=== PATIENT | male | born 1965 | race Caucasian/White ===

== ENCOUNTER 2017-03-28 22:25 | Emergency (ER) | payer OTHER ==
[~2017-03-28] VITALS: Ht 162.6 cm; Wt 56.7 kg
[~2017-03-28 22:25] MED LIST: ASPIRIN325 MG PO; CHANTIX1 MG PO; DAILY VITE1 EACH PO; HYDROMORPHONE HC2 MG PO; HYDROMORPHONE HC4 MG PO; IBUPROFEN800 MG PO; IRON 100 PLUS1 EACH PO; MEN'S ONE DAIL1 EACH PO; MIRALAX17 GM PO; NORCO 10-325 T1 EACH PO; NORCO 5-325 TA1 EACH PO; OXYCODONE HCL5 MG PO; PROVENTIL HFA6.7 GM INH; TAMSULOSIN HCL0.4 MG PO; VITAMIN C1000 M2 PO; XARELTO10 MG PO
[2017-03-29] MEDS ORDERED: TRAMADOL HCL50 MG PO (00:50)
== END 2017-03-29 01:00 | disposition home or self-care (01) ==
LOC: ED 22:25
DX: M25.562 Pain in left knee (principal); F17.200 Nicotine dependence, unspecified, uncomplicated
CPT/HCPCS: 73560; 99283

== ENCOUNTER 2018-10-23 12:20 | Emergency (ER) | payer OTHER ==
[~2018-10-23] VITALS: Ht 162.6 cm; Wt 56.7 kg
--- OUTSIDE RECORDS SUMMARY | ~2018-10-23 | XMS | Encounter Summary ---
Demographics + + + | Address | [address] | | | [address] | | | [place] [address] | + + + | Home Phone | | + + + | Preferred Language | Unknown | + + + | Marital Status | Single | + + + | Mu-Ism Affiliation | 1077 | + + + | Race | Unknown | + + + | Ethnic Group | Unknown | + + + Author + + + | Author | [facility] | | | and [place] | + + + | Organization | [facility] | | | and [...] Team Providers + +------+ + | Care Expansion Joint Builder Name | Role | Phone | + +------+ + | Fabio Sandoval MD | PCP | | + +------+ + Encounter Details +--------+ + + + + | Date | Type | Department | Care Team | Description | +--------+ + + + + | 09/08/ | Episode | [facility] | Lulu Salas | | | 2019 | Changes | ORTHOPEDIC SURGERY | I, Pharmacy Picking Technician | | | | | [address] | | | | | | [place] | | | | | | [address] | | | | | | [phone] | | | +--------+ + + + [...] on file | | + + + as of this encounter Plan of Treatment +--------+---------+ + + + | Date | Type | Specialty | Care Team | Description | +--------+---------+ + + + | 11/05/ | Office | Orthopedic Surgery | Ari Madden | | | 2019 | Visit | | [address] | | | | | | [address] | | | | | | [place] [address] | | | | | | [phone] | | | | | | | | +--------+---------+ + + + as of this encounter Visit Diagnoses Not on filein this encounter"
--- OUTSIDE RECORDS SUMMARY | ~2018-10-23 | XMS | Encounter Summary ---
Demographics + + + | Address | [address] [birth year][address] | | | [address] | | | [place] [address] | + + + | Home Phone | | + + + | Preferred Language | Unknown | + + + | Marital Status | Single | + + + | Confucianist Affiliation | 1077 | + + + | Race | Unknown | + + + | Ethnic Group | Unknown | + + + Author + + + | Author | [facility] | | | and [place] | + + + | Organization | [facility] | | | and [...] Team Providers + +------+ + | Care Locum Tenens Hospitalist Name | Role | Phone | + +------+ + | Fabio Sandoval MD | PCP | | + +------+ + Encounter Details +--------+ + + + + | Date | Type | Department | Care Team | Description | +--------+ + + + + | 10/23/ | Procedure | [facility] | | | | 2019 | Pass | [facility] | | | | | | [address] | | | | | | [place] | | | | | | [address] | | | | | | [phone] | | | +--------+ + + + [...] [address] | | | | | | [address] | | | | | | [place] [address] | | | | | | [phone] | | | | | | | | +--------+---------+ + + + as of this encounter Visit Diagnoses Not on filein this encounter"
--- OUTSIDE RECORDS SUMMARY | ~2018-10-23 | XMS | Clinical Summary ---
Demographics + + + | Address | [address] | | | [place] [address] | + + + | Home Phone | | + + + | Preferred Language | Unknown | + + + | Marital Status | Single | + + + | Baptist Affiliation | 1013 | + + + | Race | Unknown | + + + | Ethnic Group | Unknown | + + + Author + + + | Author | [facility] [employer] | + + + | Organization | [facility] [employer] | + + + | Address [...] Team Providers + +------+ + | Care Packer Insulation Name | Role | Phone | + [...] Influenza | | 06/10/2017 | | | (#1) | 8 | | | + + + + [...] +------+-------+ + | MEDICAID | [place] | [id number] | | | [address] | | | N | | | | [place] | | | [place] | | | | [address] | | | RESIDENCE DIRECTOR | | | | | + +--------+ [...] Self | [birth year] | Home: | [address] | | | al/Fam | | 1966 | [phone] | [birth year] [place] | | | roly | | [phone] | + +--------+ +--------+ + +
--- OUTSIDE RECORDS SUMMARY | ~2018-10-23 | XMS | Encounter Summary ---
Demographics + + + | Address | [address] [birth year][address][birth year] | | | [address] | | | [place] [address] | + + + | Home Phone | | + + + | Preferred Language | Unknown | + + + | Marital Status | Single | + + + | Rastafarian Affiliation | 1077 | + + + | Race | Unknown | + + + | Ethnic Group | Unknown | + + + Author + + + | Author | [facility] | | | and [place] | + + + | Organization | [facility] | | [...] Providers + +------+ + | Care Change Booth Attendant Name | Role | Phone | + [...] | | | | Diagnoses | | [place], | | | | | Severe | | Ari | | | | | thea | | [address] | | | | | tunnel | | [place] | | | | | syndrome, | | [address] | | | | | left | | [place] | | | | | (G56.02) | | [address] | | | | | Procedures | | Phone: | | | | | [place] [facility] | | [phone] | | | | | MEDIAN | | Fax: | | | | | Jaquelin/THEA | | [phone] | | | | | TUNNEL SURG | | | +--------+--------+ + + + + Encounter Details +--------+ + + + + | Date | Type | Department | Care Team | Description | +--------+ + + + + | 10/23/ | Hospital | [facility] | Ari Madden | | | 2019 | Encounter | MED CTR OR INTRA OP | [address] | | | | | [address] | [place] | | | | | [place] | [place] [address] | | | | | [address] | [phone] | | | | | [phone] | | | +--------+ + + + [...] Surgery | Ari Madden | | | 2018 | Visit | | [address] | | | | | | [address] | | | | | | [place] [address] | | | | | | [phone] | | | | | | | | +--------+---------+ + + + as of this encounter Visit Diagnoses Not on filein this encounter Admitting Diagnoses + + | Diagnosis | + + | Severe carpal tunnel syndrome, left (G56.02) | + +"
--- OUTSIDE RECORDS SUMMARY | ~2018-10-23 | XMS | Encounter Summary ---
Demographics + + + | Address | [address] [birth year][address][birth year] | | | [address] | | | [place] [address] | + + + | Home Phone | | + + + | Preferred Language | Unknown | + + + | Marital Status | Single | + + + | Christianity Affiliation | 1077 | + + + | Race | Unknown | + + + | Ethnic Group | Unknown | + + + Author + + + | Author | [facility] | | | and [place] | + + + | Organization | [facility] | | | [...] Team Providers + +------+ + | Care Preload Supervisor Name | Role | Phone | + [...] | | | | Diagnoses | | [place], | | | | | Severe | | Ari | | | | | thea | | [address] | | | | | tunnel | | [place] | | | | | syndrome, | | [address] | | | | | left | | [place] | | | | | (G56.02) | | [address] | | | | | Procedures | | Phone: | | | | | [place] [facility] | | [phone] | | | | | MEDIAN | | Fax: | | | | | N/CARPAL | | [phone] | | | | | TUNNEL SURG | | | +--------+--------+ + + + + Encounter Details +--------+---------+ + + + | Date | Type | Department | Care Team | Description | +--------+---------+ + + + | 10/23/ | Surgery | [facility] | Ari Madden | Left Carpal Tunnel | | 2019 | | MED CTR OR INTRA OP | [address] | Release | | | | [address] | [place] | | | | | [place] | [place] [address] | | | | | [address] | [phone] | | | | | [phone] | | | +--------+---------+ + + + [...] | | | | | [place] [address] | | | | | | [phone] | | | | | | | | +--------+---------+ + + + as of this encounter Visit Diagnoses Not on filein this encounter Admitting Diagnoses + + | Diagnosis | + + | Severe carpal tunnel syndrome, left (G56.02) | + +"
--- OUTSIDE RECORDS SUMMARY | ~2018-10-23 | XMS | Encounter Summary ---
Demographics + + + | Address | [address][birth year] | | | [address] | | | [place] [address] | + + + | Home Phone | | + + + | Preferred Language | Unknown | + + + | Marital Status | Single | + + + | Judaism Affiliation | 1077 | + + + | Race | Unknown | + + + | Ethnic Group | Unknown | + + + Author + + + | Author | [facility] | | | and [place] | + + + | Organization | [facility] | | [...] Team Providers + +------+ + | Care Radiology Manager Name | Role | Phone | + +------+ + | Fabio Sandoval MD | PCP | | + +------+ + Reason for Visit + + + | Reason | Comments | + + + | New Patient | | + + + | Carpal Tunnel | Left | + + + | Elbow Problem | Right | + + + Surgical (Routine) +--------+ + + + + + | Status | Reason | Specialty | Diagnoses / | Referred By | Referred To | | | | | Procedures | Contact | Contact | +--------+ + + + + + | Closed | Specialty | Orthopedic | Diagnoses | | [place], | | | Services | Surgery | [place] | Dragan, | Ari | | | Required | | tunnel | Truong Méndez MD | MD [address] | | | | | syndrome of | [address] | [address] | | | | | left wrist | [address] [place] | [place] | | | | | | [place], [place] | [place], [place] | | | | | | [address] | [address] | | | | | | Phone: | Phone: | | | | | | [phone] | [phone] | | | | | | Fax: | Fax: | | | | | | [phone] | [phone] | +--------+ + + + + + Encounter Details +--------+---------+ + + + | Date | Type | Department | Care Team | Description | +--------+---------+ + + + | 09/08/ | Office | [facility] | Maryanne Ari | Severe carpal tunnel | | 2019 | Visit | ORTHOPEDIC SURGERY | [address] | syndrome, left | | | | [address] | [address] | (Primary Dx) | | | | [place] | [place] [address] | | | | | [address] | [phone] | | | | | [phone] | | | +--------+---------+ + + + [...] + + + as of this encounter Last Filed Vital Signs + + + + | Vital Sign | Reading | Time Taken | + + + + | Blood Pressure | - | - | + + + + | Pulse | - | - | + + + + | Temperature | - | - | + + + + | Respiratory Rate | - | - | + + + + | Oxygen Saturation | - | - | + + + + | Inhaled Oxygen | - | - | | Concentration | | | + + + + | Weight | 57.2 kg (126 lb) | 09/08/2018 1010 PST | + + + + | Height | 160 cm (5' 3") | 09/08/2018 1010 PST | + + + + | Body Mass Index | 22.32 | 09/08/2018 1010 PST | + + + + in this encounter Instructions Patient Instructions - Ari Madden MD - 09/08/2018 1044 PST Carpal Tunnel Syndrome Carpal tunnel syndrome is a painful condition of the wrist and arm. It is caused by pressur e on the median nerve. The median nerve is one of the nerves that give feeling and movement to the hand. It passes through a tunnel in the wrist called the carpal tunnel. This tunnel is made up of bones and ligaments. Narrowing of this tunnel or swelling of the tissues inside the tunnel puts press ure on the median nerve. This causes numbness, pins and needles, or electric shooting pains in your hand and forearm. Often the pain is worse at night and may wake you when you are asl eep. Carpal tunnel syndrome may occur during and [...] Move your fingers and wrists often to avoid stiffness. Elevate your arms on pillows when [...] not bent back when typing. You may [id number] pain medicine to treat pain and inflammation, unless anoth er medicine was prescribed.Anti-inflammatory pain medicines, such as ibuprofen or naproxen may be more effective than acetaminophen, which treats pain, but not inflammation.If you have chronic liver or kidney disease or ever had a stomach ulcer or GI bleeding, talk with y our doctor before using these medicines. Opioid pain medicine [...] Follow up with your healthcare provider, oras advised, if the pain doesn t begin to imp rove within the next week. If X-rays were taken,you will be notified of any new findings that may affect your care. When to seek medical advice Call your healthcare provider right away if any of these occur: Pain not improving with the above treatment Fingers or hand become cold, blue, numb, or tingly Your whole arm becomes swollen or weak Date Last Reviewed: 06/19/201519992101-1498 [employer]. [address] [place] [address], [place] [address]. All righ ts reserved. This information is not intended as a substitute for professional medical care. Always follow your healthcare professional's instructions. in this encounter Progress Notes Ari Madden MD - 09/08/2018 1000 PSTFormatting of this note may be different from the original. [facility] HISTORY AND PHYSICAL EXAMINATION Pt. Name/Age/: Zak Mercado 53 y.o. 1965 Primary Care Physician: Fabio Sandoval Chief Complaint/Reason for Visit: New Patient; Carpal Tunnel (Left ); and Elbow Problem (Right) History of Present Illness: The patient is a pleasant 53 y.o. male who presents with a history of left carpal tunnel sy ndrome. This is been bothering him for the last 3 months. He thinks it may have been cause d by playing guitar. He reports that it has kept him from playing guitar at this point. Mo vement of his hand makes his hand worse including holding objects. Burning on the wrist steffi es him feel better. He will sometimes finds himself shaking out the wrist. He has not trie d bracing. He has not had a steroid injection. He has tried heat without significant relie f. His pain is a 5-6 out of 10 at baseline and a 10 out of 10 at its worst. It does wake h im up at night. He is unable to do his normal daily activities. He is a current smoker. He reports that he has had chronic neck and shoulder issues since he had a fractured collar bone. The fractured collarbone happened when he was around 4 years old and was treated nono peratively. Past Medical History: Past Medical History: Diagnosis Date Back pain, chronic low back Carpal tunnel syndrome of left wrist 08/11/2018 HCV (hepatitis C virus) Genotype 2b Osteoarthritis of knee, unilateral left Past Surgical History: Procedure Laterality Date [facility] [place] Allergies: No [...] these are negative unless otherwise marked Eyes: [] Double vision [x] Glasses/contacts [] Failing vision Respiratory: [] Asthma/Wheezing [] Pneumonia [] Night sweats [] Shortness of breath [] Chronic cough [] Coughing up blood [] Exposure to tuberculosis Cardiovascular: [] Heart Problems [] Hypertension [] Heart murmur [] Palpitations [] Rheumatic fever [] Phlebitis [] Chest pain [] Ankle swelling [] Leg cramps [] Racin g heart [] Skipping beats [] Blood clots Urinary Tract: [] Painful urination [] Kidney Stones [] Any urine leakage [] Weak urine stream [] Night urination [] Urine infections [] Bedwetting [] Blood in urine Ear/Nose/Throat: [] Frequent Colds [] Sinus Disease [] Nose obstruction [] Sneezing Spells [] Change in taste [] Artificial teeth [] Ears ringing [] Ear pain [] Hearing loss [] Teeth problems [] Hoarseness [] Neck swelling [] Sore throat [] Congestion [] Nosebleeds [] Nasal allergies Gastrointestinal: [] Abdominal pain [] Heartburn [] Blood from rectum [] Colitis [] Gallbladder problems [] Troubl e swallowing [] Bloated stomach [] Change in stools [] Vomiting blood [] Nausea [] Hemorrhoids [] Jaundice [ ] Hepatitis [] Diarrhea [] Constipation [] Diverticulitis Musculoskeletal: [] Physical handicaps [] Back or shoulder pain []Rheumatoid disease [] Osteoarthritis [x] Joint pain [x] Joint swelling []Gout [] Leg cramps at night Skin: [] Skin rashes [] Itching/Burning [] Skin bruises easil y [] Artificial tanning [] Skin cancer [] Hair loss [] Changes in moles Psychiatric: [] Depression [] Suicidal thoughts [] Sleep pattern changes [] Appetite changes [] Recent counseling [] Nervousness/anxiety [] Physical violence [] Marital problems Neurological: [] Headaches [] Seizures [] Stroke/TIA [] Faintness [] Tremors [] Numbness [] Dizziness [] Changes in handwriting [] Memory loss [] Shooting pains Endocrine: [] Thyroid [] Diabetes Systemic: []Weight loss/gain (over 10 lbs) []Fever/chills []Fatigue [] Sleeping Difficulties [] Speech change [] Voice change Admission Weight: Weight: 57.2 kg (126 lb) BMI: Body mass index is 22.32 kg/m. Physical Examination: Ht 1.6 m (5' 3") | Wt 57.2 kg (126 lb) | BMI 22.32 kg/m General: Alert, oriented, no acute distress HEENT: Normocephalic, atraumatic Cardiovascular: Regular rate and rhythm Respiratory: Breathing normally at a regular rate Ortho Exam left upper extremity exam: Radial pulse 2+. Sensation intact to light touch in the first dorsal webspace, and the pads of the small and index fingers. Able to flex and extend the thumb at the interphalangeal roberto int, make an "ok" sign, adduct and abduct the fingers, and oppose the thumb to the small fin sunny. He does report mild subjective tingling in the index long and ring fingers. Positive Tinel's at the carpal tunnel. Negative Jason's compression test. Nontender over the elbow. Negative Tinel's at the cubital tunnel. Negative Villeda and Neer's tests of t he shoulder. Diagnostic Studies: Imaging Electrodiagnostic study Dated 08/11/2018. Performed by Dr. Archibald. EMG showed a left abductor pollicis brevis latency of 9.4 ms. 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 Labs- Lab Results Component Value Date ANIONGAP 14 06/12/2016 INR 0.9 06/12/2016 Assessment and Plan: 1. Severe carpal tunnel syndrome, left Case request: Left Carpal Tunnel Release; Left The patient is a pleasant 53 y.o. male who presents with left carpal tunnel syndrome. Treat ment options were discussed with the patient including non-operative treatment modalities. C onsidering the nature of the patient's condition, decision was made to proceed with nocturna l bracing and planning for surgery. The risks, benefits, and alternatives to surgery were t horoughly discussed with the patient. The possibility of injury to the median nerve was dis cussed. The possibility of already existing permanent nerve damage was also discussed. Con sidering his lack of thenar eminence atrophy and his intermittent tingling, I think he actua lly has a pretty good chance of recovering median nerve function. I'll see him back for a p reoperative visit. Unfortunately, he was not referred for his right elbow. I'm unable to see him for that tod ay without a referral. Follow-up: Return preoperative visit. with no x-ray Portions of this report were transcribed using voice recognition software. Every effort wa s made to ensure accuracy; however, inadvertent computerized policy change clerks supervisor errors may be pre sent. I appreciate the opportunity to help with the management of this patient. Ari Madden MDin this encounter Plan of Treatment +--------+---------+ + + + | Date | Type | Specialty | Care Team | Description | +--------+---------+ + + + | 11/05/ | Office | Orthopedic Surgery | Ari Madden | | | 2019 | Visit | | [address] | | | | | | [place] | | | | | | [place] [address] | | | | | | [phone] | | | | | | | | +--------+---------+ + + + as of this encounter Visit Diagnoses + + | Diagnosis | + + | Severe carpal tunnel syndrome, left - Primary | + +
--- OUTSIDE RECORDS SUMMARY | ~2018-10-23 | XMS | Clinical Summary ---
Demographics + + + | Address | [address] | | | [address] | | | [place] [address] | + + + | Home Phone | | + + + | Preferred Language | Unknown | + + + | Marital Status | Single | + + + | Hinduism Affiliation | 1077 | + + + | Race | Unknown | + + + | Ethnic Group | Unknown | + + + Author + + + | Author | [facility] | | | and Efrainana | + + + | Organization | [facility] | | | [...] Team Providers + +------+ + | Care Data Migration Consultant Name | Role | Phone | + +------+ + | Fabio Sandoval MD | PP | | + +------+ + Allergies No Known Allergies Current Medications + + +-------+---------+------+------+-------+ | Prescription | Sig. | Disp. | Refills | Star | End | Statu | | | | | | t | Date | s | | | | | | Date | | | + + +-------+---------+------+------+-------+ | ibuprofen | Take 800 mg by mouth | | | | | Activ | | (ADVIL,MOTRIN) 800 | 3 times daily as | | | | | e | | MG tablet | needed for Pain. | | | | | | + + +-------+---------+------+------+-------+ | varenicline | Take 0.5 mg by mouth | | | | 09/26 | Disco | | (CHANTIX) 0.5 mg | 2 times daily. | | | | 08/16 | ntinu | | tablet | | | | | 19 | ed | + + +-------+---------+------+------+-------+ Active Problems + + + | Problem | Noted Date | + + + | Carpal tunnel syndrome of left wrist | 08/11/2018 | + + + | Rectal bleeding | 10/08/2014 | + + + | Chronic hepatitis C (HCC) | 09/01/2013 | + + + | Osteoarthrosis | 09/01/2013 | + + + Encounters +--------+ + + + + | Date | Type | Specialty | Care Team | Description | +--------+ + + + + | 10/23/ | Hospital | | Ari Madden | | | 2019 | Encounter | | MD [facility]ar | | +--------+ + + + + | 10/23/ | Procedure | | | | | 2019 | Pass | | | | +--------+ + + + + | 10/23/ | Surgery | | Ari Madden | Left Carpal Tunnel | | 2018 | | | MD Bandar | Release | +--------+ + + + + | 10/22/ | Anesthesia | | Brennen Webster | | | 2018 | Event | | DO Armando | | +--------+ + + + + | 10/15/ | Office | | Ari Madden | Chronic hepatitis C | | 2018 | Visit | | MD [facility]ar | without hepatic coma | | | | | | (HCC) (Primary Dx); | | | | | | Carpal tunnel | | | | | | syndrome of left | | | | | | wrist; Severe carpal | | | | | | tunnel syndrome, | | | | | | left; Pre-op exam | +--------+ + + + + | 10/12/ | Episode | | Lulu Salas | | 2018 | Changes | | Edilia Canales | | +--------+ + + + + | 09/14/ | Telephone | | Ari Madden | Surgery Appointment | | 2018 | | | MD [facility]ar | | +--------+ + + + + | 09/09/ | Episode | | Lulu Salas | | | 2018 | Changes | | Ally Retirement Assistant | | +--------+ + + + + | 09/08/ | Office | | Ari Madden | Severe carpal tunnel | | 2018 | Visit | | MD Bandar | syndrome, left | | | | | | (Primary Dx) | +--------+ + + + + | 09/08/ | Episode | | Lulu Salas | | | 2018 | Changes | | Ally Retirement Assistant | | +--------+ + + + + | 08/11/ | Procedure | | Truong Archibald | Carpal tunnel | | 2019 | visit | | TMD | syndrome of left | | | | | | wrist | +--------+ + + + + from Last 3 Months Family History + + +------+ + | Medical History | Relation | Name | Comments | + + +------+ + | Heart attack | Brother | Marco A | | + + +------+ + | Heart attack | Father | | | + + +------+ + | Stroke | Maternal | | | | | Grandmoth | | | | | er | | | + + +------+ + | Dementia | Mother | | | + + +------+ + + +------+ + + | Relation | Name | Status | Comments | + +------+ + + | Brother | Marco A | Alive | | + +------+ + + | Father | | Alive | | + +------+ + + | Maternal Grandmother | | | | + +------+ + + | Mother | | Alive | | + +------+ + + Social History + +-------+ +--------+------+ [...] + | Tobacco Cessation: Ready to Quit: No; Counseling Given: Yes | + + + [...] + | Blood Pressure | 112/59 | 10/15/20181002 PDT | + + + + | Pulse | 81 | 10/15/20181002 PDT | + + + + | Temperature | 36.3 C (97.3 F) | 10/15/20181002 PDT | + + + + | Respiratory Rate | 24 | 10/15/20181002 PDT | + + + + | Oxygen Saturation | 99% | 10/15/20181002 PDT | + + + + | Inhaled Oxygen | - | - | | Concentration | | | + + + + | Weight | 54.2 kg (119 lb 7.8 | 10/15/20181002 PDT | | | oz) | | + + + + | Height | 160 cm (5' 3") | 09/08/2018 1010 PST | + + + + | Body Mass Index | 21.17 | 10/15/2018 1003 PDT | + + + + Plan of Treatment +--------+---------+ + + + | Date | Type | Specialty | Care Team | Description | +--------+---------+ + + + | 11/05/ | Office | | Ari Madden | | | 2019 | Visit | | MD [address] | | | | | | [place] | | | | | | [place] [address] | | | | | | [phone] | | | | | | | | +--------+---------+ + + + + + + + + | Health [...] | + + + + + | Colorectal Cancer | | 07/28/2015 | | | Screening | 6 | | | | (Colonoscopy) | | | | + + + + + | Vaccine: | | 11/15/2015, 03/21/2015, | | | Dtap/Tdap/Td (4 - | 6 | 09/21/2008 | | | Td) | | | | + + + + + | Vaccine: Influenza | Completed | 07/03/2018, 06/10/2017, | | | | | 04/24/2016, Additional history | | | | | exists | | + + + + + | Hepatitis C | Completed | 10/15/2018, 09/03/2016, | | | Screening | | 07/25/2016, Additional history | | | | | exists | | + + + + + Results Not on filefrom Last 3 Months Insurance + +--------+ +--------+ +---------+ | Payer | Benefi | Subscriber | Type | Phone | Address | | | t Plan | ID | | | | | | / | | | | | | | Group | | | | | + +--------+ +--------+ +---------+ | [employer] | MOD[employer] | [id number] | Medica | [phone] | | MEDICAID HMO | HEALTH | | id | [phone] | | | | MDCD | | | | | | | [place] | | | | | + +--------+ +--------+ +---------+ + +--------+ +--------+ + + | Guarantor Name | Accoun | Relation to | Date | Phone | Billing Address | | | t Type | Patient | of | | | | | | | | | | + +--------+ +--------+ + + | ZAK RANGEL | Person | Self | [birth year] Home: | [birth year] [address] | | | al/Fam | | 1966 | [phone] [place] | | | [place] | | | [phone] | + +--------+ +--------+ + +
--- OUTSIDE RECORDS SUMMARY | ~2018-10-23 | XMS | Encounter Summary ---
Demographics + + + | Address | [address] | | | [address] | | | [place] [address] | + + + | Home Phone | | + + + | Preferred Language | Unknown | + + + | Marital Status | Single | + + + | Evangelical Affiliation | 1077 | + + + | Race | Unknown | + + + | Ethnic Group | Unknown | + + + Author + + + | Author | [facility] | | | and Efrainana | + + + | Organization | [facility] | | [...] Team Providers + +------+ + | Care Bobbin Hauler Name | Role | Phone | + [...] + + | 10/15/ | Office | [facility] | Ari Madden | Chronic hepatitis C | | 2019 | Visit | ORTHOPEDIC SURGERY | MD [address] | without hepatic coma | | | | [address] [facility] | [place] | (HCC) (Primary Dx); | | | | [place] | [place] [address] | Carpal tunnel | | | | [address] | [phone] | syndrome of left | | | | [phone] | | wrist; Severe carpal | | [...] | Oxygen Saturation | 99% | 10/15/2018 1003 PDT | + + + + | Inhaled Oxygen | - | - | | Concentration | | | + + + + | Weight | 54.2 kg (119 lb 7.8 | 10/15/2018 1003 PDT | | | oz) | | + + + + | Height | - | - | + + + + | Body Mass Index | 21.17 | 10/15/2018 1003 PDT | + + + + in this encounter Instructions Patient Instructions - Ari Madden MD - 10/15/2018 1058 PDT Carpal Tunnel Syndrome Carpal tunnel syndrome [...] not bent back when typing. You may [id number] pain medicine to treat pain and inflammation, [...] becomes swollen or weak Date Last Reviewed: 11/25/201719992023-3246 [employer]. [address] [place] [address], [place] [address]. All righ ts reserved. This information is not intended as a substitute for professional medical care. Always follow your healthcare professional's instructions. in this encounter Progress Notes Ari Madden MD - 10/15/2018 1045 PDTFormatting of this note may be different from the original. [facility] [address] PRE-OPERATIVE VISIT Pt. Name/Age/: Zak Mercado 53 [...] Surgical History: Procedure Laterality Date COLONOSCOPY [address] [place] KNEE ARTHROSCOPY acl injury Allergies: No Known [...] made to ensure accuracy; however, inadvertent computerized glassware maker demonstrator errors may be pre sent. I appreciate the opportunity to help with the management of this patient. Ari Madden MD in this encounter Plan of Treatment +--------+---------+ + + + | Date | Type | Specialty | Care Team | Description | +--------+---------+ + + + | 11/05/ | Office | Orthopedic Surgery | Ari Madden | | | 2019 | Visit | | MD [address] | | | | | | [place] | | | | | | [place] [address] | | | | | | [phone] | | | | | | | | +--------+---------+ + + + + +--------+ + + | Name | Priori | Associated Diagnoses | Order Schedule | | | ty | | | + +--------+ + + | Hepatic Function Panel | Routin | Chronic hepatitis | Expected: | | | e | C without hepatic | 10/16/2018, Expires: | | | | coma (HCC) Pre-op | 10/15/2019 | | | | exam | | + +--------+ + + | CBC no Differential | Routin | Chronic hepatitis | Expected: | | | e | C without hepatic | 10/16/2018, Expires: | | | | coma (HCC) Pre-op | 10/15/2019 | | | | exam | | + +--------+ + + | PTT | Routin | Chronic hepatitis | Expected: | | | e | C without hepatic | 10/16/2018, Expires: | | | | coma (HCC) Pre-op | 10/15/2019 | | | | exam | | + +--------+ + + | Protime INR | Routin | Chronic hepatitis | Expected: | | | e | C without hepatic | 10/16/2018, Expires: | | | | coma (HCC) Pre-op | 10/15/2019 | | | | exam | | + +--------+ + + | Basic Metabolic Panel | Routin | Chronic hepatitis | Expected: | | | e | C without hepatic | 10/16/2018, Expires: | | | | coma (HCC) Pre-op | 10/15/2019 | | | | exam | | + +--------+ + + as of this encounter Visit Diagnoses + + | Diagnosis | + + | Chronic hepatitis C without hepatic coma (HCC) - Primary | + + | Carpal tunnel syndrome of left wrist | + + | Carpal tunnel syndrome | + + | Severe carpal tunnel syndrome, left | + + | Pre-op exam | + + | Preoperative examination, unspecified | + +
--- OUTSIDE RECORDS SUMMARY | ~2018-10-23 | XMS | Encounter Summary ---
Demographics + + + | Address | [address] | | | [address] | | | [place] [address] | + + + | Home Phone | | + + + | Preferred Language | Unknown | + + + | Marital Status | Single | + + + | Protestant Affiliation | 1077 | + + + | Race | Unknown | + + + | Ethnic Group | Unknown | + + + Author + + + | Author | [facility] | | | and Efrainana | + + + | Organization | [facility] | | | [...] Team Providers + +------+ + | Care Triage Register Nurse Name | Role | Phone | [...] | | | | | [address] | [address] | | | | | [place] | [place] [address] | | | | | [address] | | | | | | [phone] | | | +--------+ + + + + Anesthesia Record + + + + + | Procedure Name | Responsible | Anesthesia Start | Anesthesia Stop Time | | | Anesthesiologist | Time | | + + + + + | Left Carpal Tunnel | | | | | [...] No LDAs on file. | + + in this encounter Social History + +-------+ [...] | | | | | [place] [address] | | | | | | [phone] | | | | | | | | +--------+---------+ + + + as of this encounter Visit Diagnoses Not on filein this encounter"
--- OUTSIDE RECORDS SUMMARY | ~2018-10-23 | XMS | Clinical Summary ---
Demographics + + + | Address | [address] | | | [place] [address] | + + + | Home Phone | | + + + | Preferred Language | Unknown | + + + | Marital Status | Single | + + + | Quaker Affiliation | 1013 | + + + | Race | Unknown | + + + | Ethnic Group | Unknown | + + + Author + + + | Author | [facility] | + + + | Organization | [facility] | + + + | Address [...] Team Providers + +------+ + | Care Cash Applications Specialist Name | Role | Phone | [...] +------+-------+ + | MEDICAID | EASTER | [id number] | | | [address] | | | N | | | | [place] | | | [place] | | | | [address] | | | [place] | | | | | + +--------+ [...] Self | [birth year] | Home: | [address] | | | al/Fam | | 1966 | [phone] | [birth year][address] [place] | | | [place] | | [phone] | + +--------+ +--------+ + +
--- OUTSIDE RECORDS SUMMARY | ~2018-10-23 | XMS | Encounter Summary ---
Demographics + + + | Address | [address] | | | [address] | | | [place] [address] | + + + | Home Phone | | + + + | Preferred Language | Unknown | + + + | Marital Status | Single | + + + | Latter Day Affiliation | 1077 | + + + [...] Team Providers + +------+ + | Care Staple Shear Operator Name | Role | Phone | + +------+ + | Fabio Sandoval MD | PCP | | + +------+ + Reason for Referral Surgical (Routine) +--------+ + + + + + | Status | Reason | Specialty | Diagnoses / | Referred By | Referred To | | | | | Procedures | Contact | Contact | +--------+ + + + + + | Closed | Specialty | Orthopedic | Diagnoses | | Maryanne, | | | Services | Surgery | Elaine | Dragan | Ari | | | Required | | tunnel | Truong Méndez MD | MD Bandar | | | | | syndrome of | [address] | [address] | | | | | left wrist | [address] [place] | [place] | | | | | | [place] | [place], [place] | | | | | | [address] | [address] | | | | | | Phone: | Phone: | | | | | | [phone] | [phone] | | | | | | Fax: | Fax: | | | | | | [phone] | [phone] | +--------+ + + + + + Reason for Visit + + + | Reason | Comments | + + + | Arm Pain | Left shoulder down the arm | + + + | Numbness | left hand | + + + Evaluate & Treat (Routine) +--------+--------+ + + + + | Status | Reason | Specialty | Diagnoses / | Referred By | Referred To | | | | | Procedures | Contact | Contact | +--------+--------+ + + + + | Closed | | Physical | Diagnoses | Jaime, | Dragan, | | | | Medicine and | Neurogenic | Fabio | Truong Méndez MD | | | | Rehabilitatio | pain | MD Ramesh | [address] | | | | n | | [address] [place] | | | | | | [place] | [place] | | | | | | [place], | [address] Phone: | | | | | | [place] [address] | [phone] | | | | | | Phone: | Fax: | | | | | | [phone] | [phone] | | | | | | Fax: | | | | | | | [phone] | | +--------+--------+ + + + + Encounter Details +--------+ + + + + | Date | Type | Department | Care Team | Description | +--------+ + + + + | 08/11/ | Procedure | [facility] | Dragan Truong | Carpal tunnel | | 2019 | visit | PHYSIATRY [address] | T, MD [address] | syndrome of left | | | | [place], | [place] | wrist | | | | [place] [address] | [address] | | | | | [phone] | | | +--------+ + + + [...] + + + | Blood Pressure | 128/67 | 08/11/2018912 PST | + + + + | Pulse | 65 | 08/11/2018912 PST | + + + + | [...] Weight | 57.2 kg (126 lb) | 08/11/2018912 PST | + + + + | Height | 160 cm (5' 3") | 08/11/2018912 PST | + + + + | Body Mass Index | 22.32 | 08/11/2018912 PST | + + + + in this encounter Progress Notes Truong Archibald MD - 08/11/2018 0900 PSTFormatting of this note may be different from t he original. [facility] Musculoskeletal, Sports and Spine, Physiatry [address] [address] Test Date: 08/11/2018 Patient Name: Zak Mercado : 1965 Physician: Truong Archibald MD MR #: [id number] Sex: Male Referring Provider: MOY Gonzalez HISTORY: Mr. Zak Mercado is a pleasant 52 year-old male who is being seen today at the request of MOY Gonzalez for complaints of left arm and hand pain, numbness and weakness. The patient states that the symptoms have been progressive for years. He reports that the numbn ess primarily affects the 1st-4th digits. His symptoms worsen with using the hand such as w hen he is playing the [email or web address]. He does also report some neck pain and shoulder pain which vance ve been a chronic issue since he had a fractured collar bone. The patient does report some substance abuse in the past but states he has been clean and s javid for many years. He does not have any history of diabetes, thyroid issues or renal fail ure. Nerve Conduction Studies Anti Sensory Summary Table Site NR Peak (ms) Norm Peak (ms) P-T Amp (V) Norm P-T Amp Site1 Site2 Delta-P (ms) Dist (cm) Dennis (m/s) Norm Dennis (m/s) Left Radial Anti Sensory (Base 1st Digit) Wrist 2.7 <3.1 14.0 Wrist Base 1st Digit 2.7 10.0 37 Motor Summary Table Site NR Onset (ms) Norm Onset (ms) O-P Amp (mV) Norm O-P Amp Site1 Site2 Delta-0 (ms) Dist (cm) Dennis (m/s) Norm Dennis (m/s) Left Median Motor (Abd Poll Brev) Wrist *9.4 <4.2 6.1 >5 Elbow Wrist 4.7 20.0 *43 >50 Elbow 14.1 6.1 Left Ulnar Motor (Abd Dig Minimi) Wrist 3.0 <4.2 10.6 >3 B Elbow Wrist 3.6 20.0 56 >53 B Elbow 6.6 10.5 A Elbow B Elbow 1.8 10.0 56 >53 A Elbow 8.4 10.5 Comparison Summary Table Site NR Peak (ms) Norm Peak (ms) P-T Amp (V) Site1 Site2 Delta-P (ms) Norm Delta (ms) Left Median/Ulnar Palm Comparison (Wrist - 8cm) Median Palm *NR <2.2 Median Palm Ulnar Palm <0.3 Ulnar Palm 1.9 <2.2 9.5 EMG Side Muscle Nerve Root Ins Act Fibs Psw Amp Dur Poly Recrt Int Pat Comment Left Deltoid Axillary C5-6 Nml Nml Nml Nml Nml 0 Nml Nml Left Biceps Musculocut C5-6 Nml Nml Nml Nml Nml 0 Nml Nml Left Triceps Radial C6-7-8 Nml Nml Nml Nml Nml 0 Nml Nml Left PronatorTeres Median C6-7 Nml Nml Nml Nml Nml 0 Nml Nml Left 1stDorInt Ulnar C8-T1 Nml Nml Nml Nml Nml 0 Nml Nml Nerve Conduction Studies Motor Left/Right Comparison Site L Lat (ms) R Lat (ms) L-R Lat (ms) L Amp (mV) R Amp (mV) L-R Amp (%) Site1 Site2 L Ve l (m/s) R Dennis (m/s) L-R Dennis (m/s) Median Motor (Abd Poll Brev) Wrist *9.4 6.1 Elbow Wrist *43 Elbow 14.1 6.1 Ulnar Motor (Abd Dig Minimi) Wrist 3.0 10.6 B Elbow Wrist 56 B Elbow 6.6 10.5 A Elbow B Elbow 56 A Elbow 8.4 10.5 Anti Sensory Left/Right Comparison Site L Lat (ms) R Lat (ms) L-R Lat (ms) L Amp (V) R Amp (V) L-R Amp (%) Site1 Site2 L Dennis (m/s) R Dennis (m/s) L-R Dennis (m/s) Radial Anti Sensory (Base 1st Digit) Wrist 2.7 14.0 Wrist Base 1st Digit 37 Comparison Left/Right Comparison Site L Lat (ms) R Lat (ms) L-R Lat (ms) L Amp (V) R Amp (V) L-R Amp (%) Median/Ulnar Palm Comparison (Wrist - 8cm) Median Palm Ulnar Palm 1.9 9.5 NCV FINDINGS: Evaluation of the Left median motor nerve showed prolonged distal onset latency and decreas ed conduction velocity (Elbow-Wrist). The Left median/ulnar (palm) comparison nerve showed no response (Median Palm). All remaining nerves (as indicated in the preceding tables) were within normal limits. EMG FINDINGS: All examined muscles (as indicated in the preceding table) showed no evidence of electrical instability. IMPRESSION: There is electrodiagnostic evidence of median neuropathy at the wrist on the left. Finding s are consistent with a clinical diagnosis of carpal tunnel syndrome. The severity would be graded as severe. There was no electrodiagnostic evidence of peripheral neuropathy, ulnar neuropathy, cervica l radiculopathy or brachial plexopathy. I do recommend that the patient pursue surgical management of the carpal tunnel syndrome. We discussed surgeons that would be able to help him with this issue. He wants to be seen a nd treated as soon as possible and was very interested in seeing Dr. Ari Madden, therefo re a referral will be sent to Dr. Madden today. We did discuss that EMG/NCS are not always sensitive for cervical radiculopathy and if afte r he receives treatment for the carpal tunnel he is still having neck, shoulder and arm pain I would recommend further work-up with an MRI of the cervical spine. Thank you for allowing me to perform neurodiagnostic testing on your patient. If you have a ny further questions or comments, please do not hesitate to call. Truong Archibald MD Fellow, [employer]. in this encounter Plan of Treatment +--------+---------+ + + + | Date | Type | Specialty | Care Team | Description | +--------+---------+ + + + | 11/05/ | Office | Orthopedic Surgery | Ari Madden | | | 2019 | Visit | | [address] | | | | | | [address] | | | | | | [place] [address] | | | | | | [phone] | | | | | | | | +--------+---------+ + + + + +--------+ + + | Name | Priori | Associated Diagnoses | Order Schedule | | | ty | | | + +--------+ + + | Ambulatory referral to Orthopedic | Routin | Carpal tunnel | Ordered: 08/11/2018 | | Surgery | e | syndrome of left | | | | | wrist | | + +--------+ + + as of this encounter Visit Diagnoses + + | Diagnosis | + + | Carpal tunnel syndrome of left wrist | + + | Carpal tunnel syndrome | + +
--- OUTSIDE RECORDS SUMMARY | ~2018-10-23 | XMS | Encounter Summary ---
Demographics + + + | Address | [address] | | | [address] | | | [place] [address] | + + + | Home Phone [...] Team Providers + +------+ + | Care Backpackers Manager Name | Role | Phone | [...] + + | 09/14/ | Telephone | [facility] | Ari Madden | Surgery Appointment | | 2019 | | ORTHOPEDIC SURGERY | MD [address] | | | | | [address] [facility] | [place] | | | | | [place] | [place] [address] | | | | | [address] | [phone] | | | | | [phone] | | | +--------+ + + + [...] | | | | | [place] [address] | | | | | | [phone] | | | | | | | | +--------+---------+ + + + as of this encounter Visit Diagnoses Not on filein this encounter"
--- OUTSIDE RECORDS SUMMARY | ~2018-10-23 | XMS | Encounter Summary ---
Demographics + + + | Address | [address] | | | [address] | | | [place] [address] | + + + | Home Phone | | + + + | Preferred Language | Unknown | + + + | Marital Status | Single | + + + | Faith Affiliation | 1077 | + + + | Race | Unknown | + + + | Ethnic Group | Unknown | + + + Author + + + | Author | [facility] | | | and Efrainana | + + + | Organization | [facility] | | | [...] Team Providers + +------+ + | Care Bottling Equipment Sales Representative Name | Role | Phone | + [...] | | | | | [address] | [address] | | | | | [place] | [place] [address] | | | | | [address] | | | | | | [phone] | | | +--------+ + + + [...] | | | | | [place] [address] | | | | | | [phone] | | | | | | | | +--------+---------+ + + + as of this encounter Visit Diagnoses Not on filein this encounter"
--- OUTSIDE RECORDS SUMMARY | ~2018-10-23 | XMS | Encounter Summary ---
Demographics + + + | Address | [address] | | | [address] | | | [place] [address] | + + + | Home Phone [...] Team Providers + +------+ + | Care Fitness Plan Coordinator Name | Role | Phone | + +------+ + | Fabio Sandoavl MD | PCP | | + +------+ + Reason for Visit Auth/Cert +--------+--------+ + + + + | Status | Reason | Specialty | Diagnoses / | Referred By | Referred To | | | | | Procedures | Contact | Contact | +--------+--------+ + + + + | | | | Diagnoses | | [place], | | | | | Severe | | Ari | | | | | thea | | MD Bandar | | | | | tunnel | | Don [address]ERRIOS | | | | | syndrome, | | [address] [place] | | | | | left | | [place] | | | | | (G56.02) | | [address] | | | | | Procedures | | Phone: | | | | | [place]ISE | | [phone] | | | | | MEDIAN | | Fax: | | | | | N/CARPAL | | [phone] | | | | | TUNNEL SURG [...] Release | | | | [address] | [place] | | | | | [place] | [place] [address] | | | | | [address] | [phone] | | | | | [phone] | | | +--------+---------+ + + + [...] | | | | | [place] [address] | | | | | | [phone] | | | | | | | | +--------+---------+ + + + as of this encounter Visit Diagnoses Not on filein this encounter Admitting Diagnoses + + | Diagnosis | + + | Severe carpal tunnel syndrome, left (G56.02) | + +"
--- OUTSIDE RECORDS SUMMARY | ~2018-10-23 | XMS | Encounter Summary ---
Demographics + + + | Address | [address] [birth year][address][birth year] | | | [address] | | | [place] [address] | + + + | Home Phone | | + + + | Preferred Language | Unknown | + + + | Marital Status | Single | + + + | Roman Catholic Affiliation | 1077 | + + + [...] Team Providers + +------+ + | Care Extruder Tender Name | Role | Phone | + [...] + | 09/14/ | Telephone | [facility] | Ari Madden | Surgery Appointment | | 2019 | | ORTHOPEDIC SURGERY | MD [address] | | | | | [address] [facility] | [place] | | | | | [place] | [place] [address] | | | | | [address] | [phone] | | | | | [phone] | | | +--------+ + + + [...] | | | | | [place] [address] | | | | | | [phone] | | | | | | | | +--------+---------+ + + + as of this encounter Visit Diagnoses Not on filein this encounter"
--- OUTSIDE RECORDS SUMMARY | ~2018-10-23 | XMS | Encounter Summary ---
Demographics + + + | Address | [address] [birth year] | | | [address] | | | [place] [address] | + + + | Home Phone | | + + + | Preferred Language | Unknown | + + + | Marital Status | Single | + + + | Holiness Affiliation | 1077 | + + + | Race | Unknown | + + + | Ethnic Group | Unknown | + + + Author + + + | Author | [facility] | | | and Efrainana | + + + | Organization | [facility] | | [...] Team Providers + +------+ + | Care Roll Bucker Name | Role | Phone | + [...] | Changes | ORTHOPEDIC SURGERY | I, Honeycomb Blanket Maker | | | | | [address] [place] | | | | | | [place] | | | | | | [address] | | | | | | [phone] | | | +--------+ + + + [...] | | | | | [place] [address] | | | | | | [phone] | | | | | | | | +--------+---------+ + + + as of this encounter Visit Diagnoses Not on filein this encounter"
--- OUTSIDE RECORDS SUMMARY | ~2018-10-23 | XMS | Encounter Summary ---
Demographics + + + | Address | [address] [birth year] | | | [address] | | | [place] [address] | + + + | Home Phone | | + + + | Preferred Language | Unknown | + + + | Marital Status | Single | + + + | Anglican Affiliation | 1077 | + + + | Race | Unknown | + + + | Ethnic Group | Unknown | + + + Author + + + | Author | [facility] | | | and Efrainana | + + + | Organization | [facility] | | | [...] Team Providers + +------+ + | Care Nursing Associate Name | Role | Phone | [...] + + | 10/15/ | Office | [facility] | Ari Madden | Chronic hepatitis C | | 2019 | Visit | ORTHOPEDIC SURGERY | MD [address] | without hepatic coma | | | | [address] [facility] | YASH [place] | (HCC) (Primary Dx); | | | | [place] | [place] [address] | Carpal tunnel | | | | [address] | [phone] | syndrome of left | | | | [phone] | | wrist; Severe carpal | | [...] not bent back when typing. You may sbqxeyn-vdd-lrxejpp pain medicine to treat pain and inflammation, [...] becomes swollen or weak Date Last Reviewed: 11/25/201719997479-8209 [employer]. [address] [place] [address], [place] [address]. All righ ts reserved. This information is not intended as a substitute for professional medical care. Always follow your healthcare professional's instructions. in this encounter Progress Notes Ari Madden MD - 10/15/2018 1045 PDTFormatting of this note may be different from the original. [facility] PRE-OPERATIVE VISIT Pt. Name/Age/: Zak Mercado 53 [...] Procedure Laterality Date COLONOSCOPY 2016 [place]/ [facility] KNEE ARTHROSCOPY acl injury Allergies: No [...] made to ensure accuracy; however, inadvertent computerized assistant professor of mathematics errors may be pre sent. I appreciate [...] | | | | | | [place] [address] | | | | | | [phone] | | | | | | | [...]
--- OUTSIDE RECORDS SUMMARY | ~2018-10-23 | XMS | Encounter Summary ---
Demographics + + + | Address | [address] [birth year] | | | [address] | | | [place] [address] | + + + | Home Phone [...] + + + | Author | [facility] | | | and Efrainana | + + + | Organization | [facility] | | | and [...] Providers + +------+ + | Care Hand Button Splitter Name | Role | Phone | + [...] | Changes | ORTHOPEDIC SURGERY | I, Call Circuit Worker | | | | | [address] [place] | | | | | | [place] | | | | | | [address] | | | | | | [phone] | | | +--------+ + + + [...] | | | | | [place] [address] | | | | | | [phone] | | | | | | | | +--------+---------+ + + + as of this encounter Visit Diagnoses Not on filein this encounter"
--- OUTSIDE RECORDS SUMMARY | ~2018-10-23 | XMS | Encounter Summary ---
Demographics + + + | Address | [address] [birth year] | | | [address] | | | [place] [address] | + + + | Home Phone [...] + + + | Author | [facility] | | | and Efrainana | + + + | Organization | [facility] | | [...] Providers + +------+ + | Care Chief Investigator Name | Role | Phone | + [...] | | | | Diagnoses | | [place], | | | | | Severe | | Ari | | | | | thea | | MD [address] | | | | | tunnel | | Don BERRIOS | | | | | syndrome, | | [facility] [place] | | | | | left | | [place] | | | | | (G56.02) | | [address] | | | | | Procedures | | Phone: | | | | | [place] | | [phone] | | | | | MEDIAN | | Fax: | | | | | Jaquelin/THEA | | [phone] | | | | | TUNNEL SURG | | | +--------+--------+ + + + + Encounter Details +--------+ + + + + | Date | Type | Department | Care Team | Description | +--------+ + + + + | 10/23/ | Hospital | [facility] | Ari Madden | | | 2019 | Encounter | MED CTR OR INTRA OP | [address] | | | | | [address] | [place] | | | | | [place] | [place] [address] | | | | | [address] | [phone] | | | | | [phone] | | | +--------+ + + + [...] | | | | | [place] [address] | | | | | | [phone] | | | | | | | | +--------+---------+ + + + as of this encounter Visit Diagnoses Not on filein this encounter Admitting Diagnoses + + | Diagnosis | + + | Severe carpal tunnel syndrome, left (G56.02) | + +"
--- OUTSIDE RECORDS SUMMARY | ~2018-10-23 | XMS | Encounter Summary ---
Demographics + + + | Address | [address] [birth year] | | | [address] | | | [place] [address] | + + + | Home Phone | | + + + | Preferred Language | Unknown | + + + | Marital Status | Single | + + + | Shinto Affiliation | 1077 | + + + | Race | Unknown | + + + | Ethnic Group | Unknown | + + + Author + + + | Author | [facility] | | | and Efrainana | + + + | Organization | [facility] | | | [...] Team Providers + +------+ + | Care Powder Blender Name | Role | Phone | + [...] | | | | | [address] | | | | | | [place] | | | | | | [address] | | | | | | [phone] | | | +--------+ + + + [...] | | | | | [place] [address] | | | | | | [phone] | | | | | | | | +--------+---------+ + + + as of this encounter Visit Diagnoses Not on filein this encounter"
--- OUTSIDE RECORDS SUMMARY | ~2018-10-23 | XMS | Encounter Summary ---
Demographics + + + | Address | [address] [birth year] | | | [address] | | | [place] [address] | + + + | Home Phone | | + + + | Preferred Language | Unknown | + + + | Marital Status | Single | + + + | Anabaptist Affiliation | 1077 | + + + | Race | Unknown | + + + | Ethnic Group | Unknown | + + + Author + + + | Author | [facility] | | | and Efrainana | + + + | Organization | [facility] | | | [...] Team Providers + +------+ + | Care Outside Medical Sales Representative Name | Role | Phone [...] | Changes | ORTHOPEDIC SURGERY | I, R&D Engineer | | | | | [address] [place] | | | | | | [place] | | | | | | [address] | | | | | | [phone] | | | +--------+ + + + [...] | | | | | [place] [address] | | | | | | [phone] | | | | | | | | +--------+---------+ + + + as of this encounter Visit Diagnoses Not on filein this encounter"
--- OUTSIDE RECORDS SUMMARY | ~2018-10-23 | XMS | Encounter Summary ---
Demographics + + + | Address | [address] [birth year] | | | [address] | | | [place] [address] | + + + | Home Phone | | + + + | Preferred Language | Unknown | + + + | Marital Status | Single | + + + | Restoration Affiliation | 1077 | + + + [...] Team Providers + +------+ + | Care Bolter Helper Name | Role | Phone | [...] Specialty | Orthopedic | Diagnoses | | [place], | | | Services | Surgery | [...] [place] | | | | | | [address] | [address] | | | | | | Phone: | Phone: | | | | | | [phone] | [phone] | | | | | | Fax: | Fax: | | | | | | [phone] | [phone] | +--------+ + + + + + Encounter Details +--------+---------+ + + + | Date | Type | Department | Care Team | Description | +--------+---------+ + + + | 09/08/ | Office | [facility] | Maryanne Ari | Severe carpal tunnel | | 2019 | Visit | ORTHOPEDIC SURGERY | [address] | syndrome, left | | | | [address] | [address] | (Primary Dx) | | | | [place] | [place] [address] | | | | | [address] | [phone] | | | | | [phone] | | | +--------+---------+ + + + [...] not bent back when typing. You may jmvaldx-ojn-ccewrcw pain medicine to treat pain and inflammation, [...] becomes swollen or weak Date Last Reviewed: 06/19/201519997879-2703 [employer]. [address] [place] [address], [place] [address]. All righ ts reserved. This information is not intended as a substitute for professional medical care. Always follow your healthcare professional's instructions. in this encounter Progress Notes Ari Madden MD - 09/08/2018 1000 PSTFormatting of this note may be different from the original. [facility] HISTORY AND PHYSICAL [...] Surgical History: Procedure Laterality Date COLONOSCOPY 2016 [place] a[facility] Allergies: No [...] made to ensure accuracy; however, inadvertent computerized training officer errors may be pre sent. I appreciate [...] | | | | | [place] [address] | | | | | | [phone] | | | | | | | | +--------+---------+ + + + as of this encounter Visit Diagnoses + + | Diagnosis | + + | Severe carpal tunnel syndrome, left - Primary | + +
--- OUTSIDE RECORDS SUMMARY | ~2018-10-23 | XMS | Encounter Summary ---
Demographics + + + | Address | [address] [birth year] | | | [address] | | | [place] [address] | + + + | Home Phone [...] Team Providers + +------+ + | Care Butane Compressor Operator Name | Role | Phone | [...] | Changes | ORTHOPEDIC SURGERY | I, Professional Services Specialist | | | | | [address] [place] | | | | | | [place] | | | | | | [address] | | | | | | [phone] | | | +--------+ + + + [...] | | | | | [place] [address] | | | | | | [phone] | | | | | | | | +--------+---------+ + + + as of this encounter Visit Diagnoses Not on filein this encounter"
--- OUTSIDE RECORDS SUMMARY | ~2018-10-23 | XMS | Encounter Summary ---
Demographics + + + | Address | [address] [birth year][address][birth year] | | | [address] | | | [place] [address] | + + + | Home Phone | | + + + | Preferred Language | Unknown | + + + | Marital Status | Single | + + + | Mosque Affiliation | 1077 | + + + | Race | Unknown | + + + | Ethnic Group | Unknown | + + + Author + + + | Author | [facility] | | | and Efrainana | + + + | Organization | [facility] | | | [...] Team Providers + +------+ + | Care Optic Fibre Drawer Name | Role | Phone | + [...] [place] | | | | | | [address] | [address] | | | | | | Phone: | Phone: | | | | | | [phone] | [phone] | | | | | | Fax: | Fax: | | | | | | [phone] | [phone] | +--------+ + + + + + [...] | | | | | [place], | [address] Phone: | | | | | | [place] [address] | [phone] | | | | | | Phone: | Fax: | | | | | | [phone] | [phone] | | | | | | Fax: | | | | | | | [phone] | | +--------+--------+ + + + + [...] syndrome of left | | | | [place], | [place], [place] | wrist | | | | [place] [address] | [address] | | | | | [phone] | | | +--------+ + + + [...] may be different from t he original. [facility] Musculoskeletal, Sports and Spine, Physiatry [address] [address] Test Date: 08/11/2018 Patient Name: Zak Mercado : 1965 Physician: Truong Archibald MD MR #: [id number] Sex: Male Referring Provider: MOY Gonzalez HISTORY: [...] as w hen he is playing the Flinto. He does also report some neck pain [...] hesitate to call. Truong Archibald MD Fellow, [employer]. in [...] | | | | | | [place] [address] | | | | | | [phone] | | | | | | | [...]
--- OUTSIDE RECORDS SUMMARY | ~2018-10-23 | XMS | Clinical Summary ---
Demographics + + + | Address | [address] [birth year][address][birth year] | | | [address] | | | [place] [address] | + + + | Home Phone | | + + + | Preferred Language | Unknown | + + + | Marital Status | Single | + + + | Moravian Affiliation | 1077 | + + + [...] Team Providers + +------+ + | Care Contract Technician Name | Role | Phone | [...] | 2018 | Changes | | Ally Longitudinal Float Operator | | +--------+ + + + + | 09/08/ | Office | | Ari Madden | Severe carpal tunnel | | 2018 | Visit | | [address] | syndrome, left | | | | | | (Primary Dx) | +--------+ + + + + | 09/08/ | Episode | | Lulu Salas | | | 2018 | Changes | | Ally Longitudinal Float Operator | | +--------+ + + + + [...] | | | | | [place] [address] | | | | | | [phone] | | | | | | | [...] | [employer] | [employer] | [id number] | [employer]ica | [phone] | | [...] 09/27/ | Home: | B [birth year] [address] [facility] | | | al/Fam | | 1966 | [phone] | [place] | | | roly | | | [address] | [address] | + +--------+ +--------+ + +
--- OUTSIDE RECORDS SUMMARY | ~2018-10-23 | XMS | Encounter Summary ---
Demographics + + + | Address | [address] [birth year][address][birth year] | | | [address] | | | [place] [address] | + + + | Home Phone | | + + + | Preferred Language | Unknown | + + + | Marital Status | Single | + + + | Islam Affiliation | 1077 | + + + [...] Team Providers + +------+ + | Care Process Validation Engineer Name | Role | Phone | [...] | Changes | ORTHOPEDIC SURGERY | I, Community Placement Worker | | | | | [address] [place] | | | | | | [place] | | | | | | [address] | | | | | | [phone] | | | +--------+ + + + [...] | | | | | [place] [address] | | | | | | [phone] | | | | | | | | +--------+---------+ + + + as of this encounter Visit Diagnoses Not on filein this encounter"
[~2018-10-23 12:20] MED LIST changes: +TRAMADOL HCL50 MG PO
[2018-10-23] MEDS ORDERED: IBUPROFEN IB200 MG PO (12:52)
== END 2018-10-23 13:05 | disposition home or self-care (01) ==
LOC: ED 12:20
DX: S60.512A Abrasion of left hand, initial encounter (principal); S60.511A Abrasion of right hand, initial encounter; S60.812A Abrasion of left wrist, initial encounter; S80.212A Abrasion, left knee, initial encounter; S40.212A Abrasion of left shoulder, initial encounter; V19.9XXA Pedal cyclist (driver) (passenger) injured in unspecified traffic accident, initial encounter

== ENCOUNTER 2019-01-05 09:37 | Emergency (ER) | payer OTHER ==
[~2019-01-05] VITALS: Ht 162.6 cm; Wt 54.4 kg
--- OUTSIDE RECORDS SUMMARY | ~2019-01-05 | XMS | Encounter Summary ---
Demographics + + + | Address | [address] [birth year][address][birth year] | | | [address] | | | [place] [address] | + + + | Home Phone | | + + + | Preferred Language | Unknown | + + + | Marital Status | Single | + + + | Yazidi Affiliation | 1077 | + + + | Race | Unknown | + + + | Ethnic Group | Unknown | + + + Author + + + | Author | [facility] | | | and Efrainana | + + + | Organization | [facility] | | | and Efrainana | + + + | Address | Unknown | + + + | Phone | Unavailable | + + + Support + + +---------+ + | Name | Relationship | Address | Phone | + + +---------+ + | Johnathan Srinivasan | ECON | Unknown | | + + +---------+ + Care Team Providers + +------+ + | Care Chief Digital Officer Name | Role | Phone | + +------+ + | Fabio Sandoval MD | PCP | | + +------+ + Reason for Visit Auth/Cert +--------+--------+ + + + + | Status | Reason | Specialty | Diagnoses / | Referred By | Referred To | | | | | Procedures | Contact | Contact | +--------+--------+ + + + + | | | | Diagnoses | | [place], | | | | | Severe | | Ari | | | | | thea | | MD [address]ar | | | | | tunnel | | Don BERRIOS | | | | | syndrome, | | [facility] | | | | | left | | [place] | | | | | (G56.02) | | [address] | | | | | Procedures | | Phone: | | | | | [place] | | [phone] | | | | | MEDIAN | | Fax: | | | | | N/CARPAL | | [phone] | | | | | TUNNEL SURG | | | +--------+--------+ + + + + Encounter Details +--------+---------+ + + + | Date | Type | Department | Care Team | Description | +--------+---------+ + + + | 10/23/ | Surgery | [facility] | Ari Madden | Procedure not | | 2019 | | MED CTR OR INTRA OP | [address] | performed - Left | | | | [address] | [place] | Carpal Tunnel | | | | [place] | [place] [address] | Release | | | | [address] | [phone] | | | | | [phone] | | | +--------+---------+ + + + Social History + +-------+ +--------+------+ | Tobacco Use | Types | Packs/Day | Years | Date | | | | | Used | | + +-------+ +--------+------+ | Current Every Day | | | | | | Smoker | | | | | + +-------+ +--------+------+ + +---+---+---+ | Smokeless Tobacco: | | | | | Never Used | | | | + +---+---+---+ + + +---------+ + | Alcohol Use | Drinks/We | oz/Week | Comments | | | ek | | | + + +---------+ + | Yes | 0 | 0.0 | rare, quit drinking heavy | | | Standard | | | | | drinks or | | | | | | | | | | equivalen | | | | | t | | | + + +---------+ + + + + | Sex Assigned at | Date Recorded | | | | + + + | Not on file | | + + + + + + + | Job Start Date | Occupation | Industry | + + + + | Not on file | Not on file | Not on file | + + + + + + + + | Travel History | Travel Start | Travel End | + + + + + + | No recent travel history available. | + + documented as of this encounter Plan of Treatment Not on filedocumented as of this encounter Procedures + +--------+ + + + | Procedure Name | Priori | Date/Time | Associated Diagnosis | Comments | | | ty | | | | + +--------+ + + + | PROCEDURE NOT | | 10/23/2018 | Severe carpal | | | PERFORMED | | 15:56 PDT | tunnel syndrome, | | | | | | left (G56.02) | | + +--------+ + + + documented in this encounter Visit Diagnoses Not on filedocumented in this encounter"
--- OUTSIDE RECORDS SUMMARY | ~2019-01-05 | XMS | Encounter Summary ---
Demographics + + + | Address | [address] [birth year][address][birth year] | | | [address] | | | [place] [address] | + + + | Home Phone | | + + + | Preferred Language | Unknown | + + + | Marital Status | Single | + + + | Yazidism Affiliation | 1077 | + + + | Race | Unknown | + + + | Ethnic Group | Unknown | + + + Author + + + | Author | [facility] | | | and Efrainana | + + + | Organization | [facility] | | | and [...] Team Providers + +------+ + | Care Track Rider Name | Role | Phone | + [...] | | | | Diagnoses | | [place], | | | | | Severe | | Ari | | | | | thea | | MD [address]ar | | | | | tunnel | | Don BERRIOS | | | | | syndrome, | | [facility] [place] | | | | | left | | [place] | | | | | (G56.02) | | [address] | | | | | Procedures | | Phone: | | | | | IN REVISE | | [phone] | | | | | MEDIAN | | Fax: | | | | | Jaquelin/THEA | | [phone] | | | | | TUNNEL SURG | | | +--------+--------+ + + + + Encounter Details +--------+ + + + + | Date | Type | Department | Care Team | Description | +--------+ + + + + | 10/23/ | Hospital | [facility] | Ari Madden | | | 2019 | Encounter | MED CTR OR INTRA OP | [address] | | | | | [address] | [place] | | | | | [place] | [place] [address] | | | | | [address] | [phone] | | | | | [phone] | | | +--------+ + + + + Social [...]
--- OUTSIDE RECORDS SUMMARY | ~2019-01-05 | XMS | Clinical Summary ---
Demographics + + + | Address | [address] | | | [place] [address] | + + + | Home Phone | | + + + | Preferred Language | Unknown | + + + | Marital Status | Single | + + + | Roman Catholic Affiliation | 1013 | + + + | Race | Unknown | + + + | Ethnic Group | Unknown | + + + Author + + + | Author | [facility] | + + + | Organization | [facility] | + + + | Address | Unknown | + + + | Phone | Unavailable | + + + Support + + +---------+ + | Name | Relationship | Address | Phone | + + +---------+ + | Domi Rawls | ECON | Unknown | | + + +---------+ + | Carmela Lo | ECON | Unknown | | + + +---------+ + Care Team Providers + +------+ + | Care Food Service Driver Name | Role | Phone | + +------+ + | Dr. Devorah | PP | Unavailable | + +------+ + Allergies No Known Allergies Current Medications + + +-------+---------+------+------+-------+ | Prescription | Sig. | Disp. | Refills | Star | End | Statu | | | | | | t | Date | s | | | | | | Date | | | + + +-------+---------+------+------+-------+ | Multiple Vitamin | Take by mouth | | | 03/0 | | Activ | | (ONE-A-DAY MENS) | daily. OTC | | | 3/20 | | e | | TABS | | | | 14 | | | + + +-------+---------+------+------+-------+ | loratadine | Take 10 mg by mouth | | | | | Activ | | (CLARITIN) 10 MG | daily. | | | | | e | | tablet | | | | | | | + + +-------+---------+------+------+-------+ | ibuprofen (MOTRIN) | Take 800 mg by mouth | | | | | Activ | | 800 MG tablet | every 6 (six) hours | | | | | e | | | as needed for Pain. 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, continuous | 10/09/19 | | | | 15 | 5 | + + + + Immunizations + + + + | Name | Dates Previously Given | Next Due | + + + + | INFLUENZA PF, | 06/10/2017 | | | QUADRIVALENT | | | | (PED/ADOL/ADULT) | | | + + + + Family History + + +------+ + | Medical History | Relation | Name | Comments | + + +------+ + | Hypertension | Father | | | + + +------+ + | Hypertension | Mother | | | + + +------+ + + +------+--------+ + | Relation | Name | Status | Comments | + +------+--------+ + | Father | | | | + +------+--------+ + | Mother | | | | + +------+--------+ + Social History + + + +--------+ + | Tobacco Use | Types | Packs/Day | Years | Date | | | | | Used | | + + + +--------+ + | Current Some Day | Cigarettes | 0.5 | 40 | Started: 08/17/1973 | | Smoker | | | | | + + + +--------+ + + +---+---+---+ | Smokeless Tobacco: | | | | | Never Used | | | | + +---+---+---+ + + | Tobacco Cessation: Ready to Quit: Yes; Counseling Given: Yes | + + + + +---------+ + | Alcohol Use | Drinks/We | oz/Week | Comments | | | ek | | | + + +---------+ + | Yes | 4 Cans | 2.4 | | | | of beer | | | + + +---------+ + + + + | Sex Assigned at | Date Recorded | | | | + + + | Not on file | | + + + Last Filed Vital Signs + + + + | Vital Sign | Reading | Time Taken | + + + + | Blood Pressure | 112/74 | 06/10/2017 8:51 AM PST | + + + + | Pulse | 77 | 06/10/2017 8:51 AM PST | + + + + | Temperature | 36.5 C (97.7 F) | 06/10/2017 8:51 AM PST | + + + + | Respiratory Rate | 16 | 10/09/2014 3:35 PM PDT | + + + + | Oxygen Saturation | 96% | 06/10/2017 8:51 AM PST | + + + + | Inhaled Oxygen | - | - | | Concentration | | | + + + + | Weight | 58.1 kg (128 lb) | 06/10/2017 8:51 AM PST | + + + + | Height | 165.1 cm (5' 5") | 06/10/2017 8:51 AM PST | + + + + | Body Mass Index | 21.3 | 06/10/2017 8:51 AM PST | + + + + Plan of Treatment + + + + + | Health Maintenance | Due Date | Last Done | Comments | + + + + + | Vaccine: | | | | | Dtap/Tdap/Td (1 - | 3 | | | | Tdap) | | | | + + + + + | Vaccine: | | | | | Pneumococcal 19-64 | 3 | | | | (PPSV23 only) Medium | | | | | Risk (1 of 1 - | | | | | PPSV23) | | | | + + + + + | Colon Cancer | | | | | Screening | 4 | | | | (Colonoscopy) | | | | + + + + + | Vaccine: Zoster (1 | | | | | of 2) | 4 | | | + + + + + | Vaccine: Influenza | | 06/10/2017 | | | (Season Ended) | 9 | | | + + + + + Results Not on filefrom Last 3 Months Insurance + +--------+ +------+-------+ + | Payer | Benefi | Subscriber | Type | Phone | Address | | | t Plan | ID | | | | | | / | | | | | | | Group | | | | | + +--------+ +------+-------+ + | MEDICAID | [place] | [id number] | | | [address] | | | N | | | | [place] | | | [place] | | | | [address] | | | SYSTEMS LIBRARIAN | | | | | + +--------+ +------+-------+ + + +--------+ +--------+ + + | Guarantor Name | Accoun | Relation to | Date | Phone | Billing Address | | | t Type | Patient | of | | | | | | | | | | + +--------+ +--------+ + + | ZAK RANGEL | Person | Self | [birth year] Home: | [address] | | | al/Fam | | 1966 | [phone] | [birth year][address] [place] | | | [place] | | | [phone] | + +--------+ +--------+ + +
--- OUTSIDE RECORDS SUMMARY | ~2019-01-05 | XMS | Encounter Summary ---
Demographics + + + | Address | [address] | | | [address] | | | [place] [address] | + + + | Home Phone | | + + + | Preferred Language | Unknown | + + + | Marital Status | Single | + + + | Advent Affiliation | 1077 | + + + | Race | Unknown | + + + | Ethnic Group | Unknown | + + + Author + + + | Author | [facility] | | | and Ef[place] | + + + | Organization | [facility] | | | and [...] Team Providers + +------+ + | Care Ramp Agent Name | Role | Phone | + +------+ + | Fabio Sandoval MD | PCP | | + +------+ + Encounter Details +--------+ + + + + | Date | Type | Department | Care Team | Description | +--------+ + + + + | 10/23/ | Anesthesia | [facility] | Brennen Webster | | | 2019 | Event | [facility] | DO Armando [address] | | | | | [address] | [address] [place] | | | | | [place] | [place] [address] | | | | | [address] | | | | | | [phone] | | | +--------+ + + + + Anesthesia Record + + + + + | Procedure Name | Responsible | Anesthesia Start | Anesthesia Stop Time | | | Anesthesiologist | Time | | + + + + + | Procedure not | | | | | performed - Left | | | | | Carpal Tunnel | | | | | Release (Left Wrist) | | | | + + + + + + + | No events on file. | + + +------+ | Meds | +------+ + + + No medications | on file. | + + + + + | No agents on file. | + + + + | No blood administrations on file. | + + + + | No LDAs on file. | + + documented in this encounter Social History + +-------+ +--------+------+ | Tobacco [...] Not on filedocumented as of this encounter Visit Diagnoses Not on filedocumented in this encounter"
--- OUTSIDE RECORDS SUMMARY | ~2019-01-05 | XMS | Clinical Summary ---
Demographics + + + | Address | [address] | | | [place] [address] | + + + | Home Phone | | + + + | Preferred Language | Unknown | + + + | Marital Status | Single | + + + | Sikh Affiliation | 1013 | + + + | Race | Unknown | + + + | Ethnic Group | Unknown | + + + Author + + + | Author | [facility] | + + + | Organization | [facility] | + + + | Address [...] Team Providers + +------+ + | Care Shoe Reconditioner Name | Role | Phone | + [...] +------+-------+ + | MEDICAID | [place] | [id number] | | | [address] | | | N | | | | [place] | | | [place] | | | | [address] | | | CONFERENCE SERVICE COORDINATOR | | | | | + +--------+ [...] Self | [birth year] | Home: | [address] | | | al/Fam | | 1966 | [phone] | [birth year][address][birth year] [place] | | | [place] | | | [phone] | + +--------+ +--------+ + +
--- OUTSIDE RECORDS SUMMARY | ~2019-01-05 | XMS | Encounter Summary ---
Demographics + + + | Address | [address] | | | [address] | | | [place] [address] | + + + | Home Phone | | + + + | Preferred Language | Unknown | + + + | Marital Status | Single | + + + | Christian Affiliation | 1077 | + + + | Race | Unknown | + + + | Ethnic Group | Unknown | + + + Author + + + | Author | [facility] | | | and [place] | + + + | Organization | [facility] | | [...] Team Providers + +------+ + | Care Hand Fur Cleaner Name | Role | Phone | + +------+ + | Fabio Sandoval MD | PCP | | + +------+ + Encounter Details +--------+ + + + + | Date | Type | Department | Care Team | Description | +--------+ + + + + | 10/12/ | Episode | [facility] | Lulu Salas | | | 2019 | Changes | ORTHOPEDIC SURGERY | I, Global Sales Director | | | | | [address] | | | | | | [place] | | | | | | [address] | | | | | | [phone] | | | +--------+ + + + [...]
--- OUTSIDE RECORDS SUMMARY | ~2019-01-05 | XMS | Encounter Summary ---
Demographics + + + | Address | [address] | | | [address] | | | [place] [address] | + + + | Home Phone | | + + + | Preferred Language | Unknown | + + + | Marital Status | Single | + + + | Rastafari Affiliation | 1077 | + + + | Race | Unknown | + + + | Ethnic Group | Unknown | + + + Author + + + | Author | [facility] | | | and [place] | + + + | Organization | [facility] | | | [...] Team Providers + +------+ + | Care Information Technology Account Manager Name | Role | Phone | + +------+ + | Fabio Sandoval MD | PCP | | + +------+ + Reason for Visit + + + | Reason | Comments | + + + | Surgery Appointment | | + + + Encounter Details +--------+ + + + + | Date | Type | Department | Care Team | Description | +--------+ + + + + | 11/02/ | Telephone | [facility] | Ari Madden | Surgery Appointment | | 2019 | | ORTHOPEDIC SURGERY | MD [address] | | | | | [address] [facility] | [place] | | | | | [place] [place] | [place] [address] | | | | | [address] | [phone] | | | | | [phone] | | | +--------+ + + + [...]
--- OUTSIDE RECORDS SUMMARY | ~2019-01-05 | XMS | Encounter Summary ---
Demographics + + + | Address | [address] | | | [address] | | | [place] [address] | + + + | Home Phone | | + + + | Preferred Language | Unknown | + + + | Marital Status | Single | + + + | Sikhism Affiliation | 1077 | + + + [...] Team Providers + +------+ + | Care Manager Name | Role | Phone | [...] | | | | | [address] | [address] [place] | | | | | [place] | [place] [address] | | | | | [address] | | | | | | [phone] | | | +--------+ + + + [...]
--- OUTSIDE RECORDS SUMMARY | ~2019-01-05 | XMS | Encounter Summary ---
Demographics + + + | Address | [address] | | | [address] | | | [place] [address] | + + + | Home Phone | | + + + | Preferred Language | Unknown | + + + | Marital Status | Single | + + + | Rastafarian Affiliation | 1077 | + + + | Race | Unknown | + + + | Ethnic Group | Unknown | + + + Author + + + | Author | [facility] | | | and [place] | + + + | Organization | [facility] | | [...] Team Providers + +------+ + | Care Geothermal Installer Name | Role | Phone | + [...] + + | 10/15/ | Office | [facility] | Ari Madden | Chronic hepatitis C | | 2019 | Visit | ORTHOPEDIC SURGERY | MD [address] | without hepatic coma | | | | [address] [facility] | [place] | (HCC) (Primary Dx); | | | | [address] | [place] [address] | Carpal tunnel | | | | [address] | [phone] | syndrome of left | | | | [phone] | | wrist; Severe carpal | | [...] Body Mass Index | 21.17 | 09/08/2018 1010 PST | + + + + documented in this encounter Patient Instructions Patient Instructions Ari Madden MD - 10/15/2018 10:58 PDT Carpal Tunnel Syndrome Carpal tunnel syndrome [...] not bent back when typing. You may opdfldv-ise-hjqezix pain medicine to treat pain and inflammation, [...] becomes swollen or weak Date Last Reviewed: 11/25/201719995079-0648 [employer]. [address] [place] [address], [place] [address]. All righ ts reserved. This information is not intended as a substitute for professional medical care. Always follow your healthcare professional's instructions. documented in this encounter Progress Notes Ari Madden MD - 10/15/2018 1045 PDTFormatting of this note might be differe nt from the original. [facility] PRE-OPERATIVE VISIT Pt. Name/Age/: Zak Mercado 53 y.o. 1965 Primary Care Physician: Fabio Sandoval Chief Complaint/Reason for Visit: Pre-op Exam and Hand Pain (02/03 left hand) History of Present Illness: The patient is a pleasant 53 y.o. male who presents with for a pre-operative visit prior to left carpal tunnel release. He reports that he continues to vance ve numbness throughout his left hand. His little finger is the least involved. His index, long, and ring fingers of the most involved. He does find himself shaking out the wrist fro m time to time. Playing guitar still causes him significant difficulties. This does wake h im up at night.. Past Medical History: Past Medical History: Diagnosis Date Back pain, chronic low back Carpal tunnel syndrome of left wrist 08/11/2018 HCV (hepatitis C virus) Genotype 2b Osteoarthritis of knee, unilateral left Past Surgical History: Procedure Laterality Date COLONOSCOPY 2015 [place] KNEE ARTHROSCOPY acl injury Allergies: No [...] made to ensure accuracy; however, inadvertent computerized biomass plant manager errors may be pre sent. I appreciate the opportunity to help with the management of this patient. Ari Madden MD documented in this encounter Plan of Treatment + +--------+ + + | Name | [...] exam | | + +--------+ + + documented as of this encounter [...]
--- OUTSIDE RECORDS SUMMARY | ~2019-01-05 | XMS | Clinical Summary ---
Demographics + + + | Address | [address] | | | [address] | | | [place] [address] | + + + | Home Phone | | + + + | Preferred Language | Unknown | + + + | Marital Status | Single | + + + | Mosque Affiliation | 1077 | + + + | Race | Unknown | + + + | Ethnic Group | Unknown | + + + Author + + + | Author | [facility] | | | and [place] | + + + | Organization | [facility] | [...] Team Providers + +------+ + | Care Career Development Facilitator Name | Role | Phone | + +------+ + | Fabio Sandoval MD | PP | | + +------+ + Allergies No Known Allergies Medications + + + +---------+------+------+-------+ | Medication | Sig | Dispensed | Refills | Star | End | Statu | | | | | | t | Date | s | | | | | | Date | | | + + + +---------+------+------+-------+ | ibuprofen | Take 800 mg by mouth | | 0 | | | Activ | | (ADVIL,MOTRIN) 800 | 3 times daily as | | | | | e | | MG tablet | needed for Pain. | | | | | | + + + +---------+------+------+-------+ Active Problems + + + | Problem [...] + + | 11/03/ | Episode | | Lulu Salas | | | 2019 | Changes | | Edilia CanalesAdvertising Internship | | +--------+ + + + + | 11/02/ | Telephone | | Ari Madden | Surgery Appointment | | 2018 | | | MD Bandar | | +--------+ + + + + | 10/23/ | Anesthesia | | Brennen Webster | | | 2018 | Event | | DO Armando | | +--------+ + + + + | 10/23/ | Hospital | | Ari Madden | | | 2019 | Encounter | | MD Bandar | | +--------+ + + + + | 10/23/ | Surgery | | Ari Madden | Procedure not | | 2019 | | | MD Bandar | performed - Left | | | | | | Carpal Tunnel | | | | | | Release | +--------+ + + + [...] | | Lulu Salas | | | 2019 | Changes | | Edilia Canales | | +--------+ + + + + from [...] recent travel history available. | + + Last Filed Vital Signs + [...] 1010 PST | + + + + Plan [...] | | + + + + + Procedures + +--------+ + + + | [...] | | + +--------+ + + + from Last 3 Months Results Not on filefrom Last 3 Months Insurance + +--------+ +--------+ +---------+--------+ | Payer | Benefi | Subscriber | Effect | Phone | Address | Type | | | t Plan | ID | josh | | | | | | / | | Dates | | | | | | Group | | | | | | + +--------+ +--------+ +---------+--------+ | [employer] | [employer]A | [id number] | | [phone] | | Medica | | MEDICAID HMO | HEALTH | | [id number]-Pr | 1 | | id | | | MDCD | | esent | | | | | | HMO OR | | | | | | + +--------+ +--------+ +---------+--------+ + +--------+ +--------+ + + | Guarantor Name | Accoun | Relation to | Date | Phone | Billing Address | | | t Type | Patient | of | | | | | | | | | | + +--------+ +--------+ + + | Zak Mercado | Person | Self [birth year] [address] [birth year] [address] | | | al/Fam | | 1966 | [phone] | [place] | | | [place] | | | [address] (Home) | [address] | + +--------+ +--------+ + + Advance Directives Patient has advance care planning documents on file. For more information, please contact:[facility] [place] [address]
--- OUTSIDE RECORDS SUMMARY | ~2019-01-05 | XMS | Encounter Summary ---
Demographics + + + | Address | [address] | | | [address] | | | [place] [address] | + + + | Home Phone [...] Providers + +------+ + | Care Clinical Rehabilitation Specialist Name | Role | Phone | + +------+ + | Fabio Sandoval MD | PCP | | + +------+ + Encounter Details +--------+ + + + + | Date | Type | Department | Care Team | Description | +--------+ + + + + | 10/12/ | Episode | [facility] | Lulu Saals | | | 2019 | Changes | ORTHOPEDIC SURGERY | I, Plant Biology Professor | | | | | [address] | | | | | | [place] | | | | | | [address] | | | | | | [phone] | | | +--------+ + + + [...]
--- OUTSIDE RECORDS SUMMARY | ~2019-01-05 | XMS | Encounter Summary ---
Demographics + + + | Address | [address] | | | [address] | | | [place] [address] | + + + | Home Phone | | + + + | Preferred Language | Unknown | + + + | Marital Status | Single | + + + | Orthodox Affiliation | 1077 | + + + | Race | Unknown | + + + | Ethnic Group | Unknown | + + + Author + + + | Author | [facility] | | | and [place] | + + + | Organization | [facility] | [...] Team Providers + +------+ + | Care Duck Bill Operator Name | Role | Phone | [...] | | | | Diagnoses | | [place], | | | | | Severe | | Ari | | | | | thea | | MD Bandar | | | | | tunnel | | Don [place] | | | | | syndrome, | | [facility] | | | | | left | | [place] | | | | | (G56.02) | | [address] | | | | | Procedures | | Phone: | | | | | [place] [facility] | | [phone] | | | | | MEDIAN | | Fax: | | | | | N/CARPAL | | [phone] | | | | | TUNNEL SURG [...] Left | | | | [address] | [place] | Carpal Tunnel | | | | [place] | [place] [address] | Release | | | | [address] | [phone] | | | | | [phone] | | | +--------+---------+ + + + [...]
--- OUTSIDE RECORDS SUMMARY | ~2019-01-05 | XMS | Encounter Summary ---
Demographics + + + | Address | [address] | | | [address] | | | [place] [address] | + + + | Home Phone | | + + + | Preferred Language | Unknown | + + + | Marital Status | Single | + + + | Evangelical Affiliation | 1077 | + + + | Race | Unknown | + + + | Ethnic Group | Unknown | + + + Author + + + | Author | [facility] | | | and [place] | + + + | Organization | [facility] | [...] Team Providers + +------+ + | Care Monitor Worker Name | Role | Phone | + [...] + | 11/02/ | Telephone | [facility] | Ari Madden | Surgery Appointment | | 2019 | | ORTHOPEDIC SURGERY | MD [address] | | | | | [address] [facility] | [place] | | | | | [address] [place] | [place] [address] | | | | | [address] | [phone] | | | | | [phone] | | | +--------+ + + + [...]
--- OUTSIDE RECORDS SUMMARY | ~2019-01-05 | XMS | Encounter Summary ---
Demographics + + + | Address | [address] | | | [address] | | | [place] [address] | + + + | Home Phone | | + + + | Preferred Language | Unknown | + + + | Marital Status | Single | + + + | Hinduism Affiliation | 1077 | + + + | Race | Unknown | + + + | Ethnic Group | Unknown | + + + Author + + + | Author | [facility] | | | and [place] | + + + | Organization | [facility] | | | [...] Providers + +------+ + | Care Senior Pl Sql Developer Name | Role | Phone | + +------+ + | Fabio Sandoval MD | PCP | | + +------+ + Encounter Details +--------+ + + + + | Date | Type | Department | Care Team | Description | +--------+ + + + + | 11/03/ | Episode | [facility] | Lulu Salas | | | 2019 | Changes | ORTHOPEDIC SURGERY | I, Librarian Assistant | | | | | [address] | | | | | | [place] | | | | | | [address] | | | | | | [phone] | | | +--------+ + + + [...]
--- OUTSIDE RECORDS SUMMARY | ~2019-01-05 | XMS | Encounter Summary ---
Demographics + + + | Address | [address] | | | [address] | | | [place] [address] | + + + | Home Phone | | + + + | Preferred Language | Unknown | + + + | Marital Status | Single | + + + | Caodaism Affiliation | 1077 | + + + | Race | Unknown | + + + | Ethnic Group | Unknown | + + + Author + + + | Author | [facility] | | | and E[place] | + + + | Organization | [facility] | | | [...] Team Providers + +------+ + | Care Art Therapist Name | Role | Phone | + [...] | | | | Diagnoses | | [place], | | | | | Severe | | Ari | | | | | thea | | MD Bandar | | | | | tunnel | | Don BERRIOS | | | | | syndrome, | | [facility] | | | | | left | | [place] | | | | | (G56.02) | | [address] | | | | | Procedures | | Phone: | | | | | IN [facility]ISE | | [phone] | | | | | MEDIAN | | Fax: | | | | | Jaquelin/THEA | | [phone] | | | | | TUNNEL SURG | | | +--------+--------+ + + + + Encounter Details +--------+ + + + + | Date | Type | Department | Care Team | Description | +--------+ + + + + | 10/23/ | Hospital | [facility] | Ari Madden | | | 2019 | Encounter | MED CTR OR INTRA OP | MD [address] | | | | | [address] | [place] | | | | | [place] | [place] [address] | | | | | [address] | [phone] | | | | | [phone] | | | +--------+ + + + [...]
--- OUTSIDE RECORDS SUMMARY | ~2019-01-05 | XMS | Encounter Summary ---
Demographics + + + | Address | [birth year] | | | [address] | | | [place] [address] | + + + | Home Phone | | + + + | Preferred Language | Unknown | + + + | Marital Status | Single | + + + | Jainism Affiliation | 1077 | + + + | Race | Unknown | + + + | Ethnic Group | Unknown | + + + Author + + + | Author | [facility] | | | and [place] | + + + | Organization | [facility] | | | and [place] | + + + | Address | Unknown | + + + | Phone | Unavailable | + + + Support + + +---------+ + | Name | Relationship | Address | Phone | + + +---------+ + | Johnathan rSinivasan | ECON | Unknown | | + + +---------+ + Care Team Providers + +------+ + | Care Mix Maker Name | Role | Phone | [...] + + | 10/15/ | Office | [facility] | Ari Madden | Chronic hepatitis C | | 2019 | Visit | ORTHOPEDIC SURGERY | MD [address] | without hepatic coma | | | | [facility] | YASH LEBLANC | (HCC) (Primary Dx); | | | | [place] | [place] [address] | Carpal tunnel | | | | [address] | [phone] | syndrome of left | | | | [phone] | | wrist; Severe carpal | | [...] not bent back when typing. You may [id number] pain medicine to treat pain and inflammation, [...] becomes swollen or weak Date Last Reviewed: 11/25/201719994760-5908 [employer]. [address] [place] [address], [place] [address]. All righ ts reserved. This information is not intended as a substitute for professional medical care. Always follow your healthcare professional's instructions. documented in this encounter Progress Notes Ari Madden MD - 10/15/2018 1045 PDTFormatting of this note might be differe nt from the original. [facility] PRE-OPERATIVE VISIT Pt. Name/Age/: [...] Procedure Laterality Date COLONOSCOPY 2015 [facility] injury [...] made to ensure accuracy; however, inadvertent computerized mercerizer errors may be pre sent. I appreciate [...]
--- OUTSIDE RECORDS SUMMARY | ~2019-01-05 | XMS | Clinical Summary ---
Demographics + + + | Address | [birth year] | | | [address] | | | [place] [address] | + + + | Home Phone | | + + + | Preferred Language | Unknown | + + + | Marital Status | Single | + + + | Buddhist Affiliation | 1077 | + + + | Race | Unknown | + + + | Ethnic Group | Unknown | + + + Author + + + | Author | [facility] | | | and [place] | + + + | Organization | [facility] | | | [...] Team Providers + +------+ + | Care Negative Retoucher Name | Role | Phone | + [...] | 2019 | Changes | | Edilia CanalesMachinist [address] | | +--------+ + + + + [...] | [employer] | [employer] | [id number] | | [phone] | | [employer] | | MEDICAID HMO [...] | | 1966 | [phone] | [place] | | | roly | | | [address] (Home) | [address] | + +--------+ +--------+ + + Advance Directives Patient has advance care planning documents on file. For more information, please contact:[facility] [place] [address]
--- OUTSIDE RECORDS SUMMARY | ~2019-01-05 | XMS | Encounter Summary ---
Demographics + + + | Address | [birth year] | | | [address] | | | [place] [address] | + + + | Home Phone [...] Providers + +------+ + | Care Transfer Specialist Name | Role | Phone | [...] | Changes | ORTHOPEDIC SURGERY | I, [employer] | | | | | [address] | | | | | | [place] | | | | | | [address] | | | | | | [phone] | | | +--------+ + + + [...]
[~2019-01-05 09:37] MED LIST changes: +IBUPROFEN IB200 MG PO
[2019-01-05] MEDS ORDERED: ZOLOFT25 MG PO (10:12)
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
[2019-01-05] MEDS ORDERED: BENADRYL ALLERG25 MG PO (11:35)
[2019-01-05] MEDS ORDERED: ELIMITE60 GM TOP (11:35)
[2019-01-05] MEDS ORDERED: MEDROL4 MG PO (11:35)
== END 2019-01-05 11:44 | disposition home or self-care (01) ==
LOC: ED 09:37
DX: S40.862A Insect bite (nonvenomous) of left upper arm, initial encounter (principal); S40.861A Insect bite (nonvenomous) of right upper arm, initial encounter; S80.862A Insect bite (nonvenomous), left lower leg, initial encounter; S80.861A Insect bite (nonvenomous), right lower leg, initial encounter; F17.200 Nicotine dependence, unspecified, uncomplicated; Z79.899 Other long term (current) drug therapy; W57.XXXA Bitten or stung by nonvenomous insect and other nonvenomous arthropods, initial encounter
CPT/HCPCS: 99282

== ENCOUNTER 2020-01-24 10:31 | Emergency (ER) | payer OTHER ==
[~2020-01-24] VITALS: Ht 162.6 cm; Wt 54.4 kg
--- OUTSIDE RECORDS SUMMARY | ~2020-01-24 | XMS | Encounter Summary ---
Demographics + + + | Address | [birth year] | | | [address] | | | [place] [address] | + + + | Home Phone | | + + + | Preferred Language | Unknown | + + + | Marital Status | Single | + + + | Yarsani Affiliation | [id number] | + + + | Race | Unknown | + + + | Ethnic Group | Unknown | + + + Author + + + | Author | [facility] | | | and [place] | + + + | Organization | [facility] | | | and [place] | + + + | Address | Unknown | + + + | Phone | Unavailable | + + + Support + + +---------+ + | Name | Relationship | Address | Phone | + + +---------+ + | Johnathan Srinivasan | ECON | Unknown | | + + +---------+ + Care Team Providers + +------+ + | Care Senior Water Resources Engineer Name | Role | Phone | + +------+ + PCP | Unavailable | + +------+ + Encounter Details +--------+ + + + + | Date | Type | Department | Care Team | Description | +--------+ + + + + | 10/08/ | Hospital | [facility] | Jared Nicholas MD | Altered mental | | 2015 - | Encounter | MEDICAL [facility]ENTER | [address] | status; Alcohol | | | | CLINICAL DECISION | [place] [address] | intoxication (HCC); | | 10/09/ | | [address] | [phone] | Suicidal ideation; | | 2014 | | [place], [place] | | Overdose, initial | | | | [phone] | | encounter; Seizure | | | | [phone] | | (HCC); Alcoholic | | | | | | liver disease (HCC); | | | | | | Elevated liver | | | | | | enzymes; Shortened | | | | | | CO interval | +--------+ + + + + Social History + +-------+ +--------+------+ | Tobacco Use | Types | Packs/Day | Years | Date | | | | | Used | | + +-------+ +--------+------+ | Never Assessed | | | | | + +-------+ +--------+------+ + + + | Sex Assigned at | Date Recorded | | | | + + + | Not on file | | + + + documented as of this encounter Discharge Summaries Med Thompson DO - 10/09/2014 5:04 PM PDT Discharge Summaries by Med Thompson DO at 10/09/141703 Author: Med Thompson DO Service: Hospitalist Author Type: Physician Filed: 10/09/141711 Date of Service: 10/09/141703 Status: Signed Structural Engineering Drafting Officer: Med Thompson DO (Physician) [facility] Service: Hospitalist Discharge Summary Date of Admission: 10/08/2014 Date of Discharge: 10/09/2014 (anticipated) Discharge Provider: Med Thompson DO Treatment Team: Admitting Provider: Jared Nicholas MD Discharge Diagnoses: Principal Problem (Resolved): Altered mental status Active Problems: * No active hospital problems. * Resolved Problems: Elevated LFTs Acute alcoholic intoxication in alcoholism, continuous Presented with altered mental status and admitted to hospitalists in observation due to EtO H intoxication plus suspected rx medication overdose, Zyprexa and/or Ativan. A friend denver t him to ED and it was reported he was found next to some empy pill bottles. There is no def inite history of suicidal ideation. UDS neg for benzodiazepines. Patient was monitored overn ight, was respiratory-moctezuma and hemodynamically stable, and his mental status improved. Today he is awake, alert, mentally appropriate. He reports to me that he may have taken someAtiva n pills, but really not sure which pills, but his only intent was to get some rest, and he d enied having any intentions to hurt or kill himself and denied being suicidal. The pills wer e not rx'd to him, and he doesn't have a doctor at this time. At this time he is medically s table and I have asked that CRU be called to eval patient. If they clear him for home then h e can be discharged home tonight. If they have a different recommendation then further evalu ation and documentation will ensue. DISCHARGE EXAM Vital Signs: BP 120/57 | Pulse 79 | Temp(Src) 97.9 F (36.6 C) (Oral) | Resp 16 | SpO2 94% Physical Exam Constitutional: He is oriented to person, place, and time. He appears well-developed and we ll-nourished. No distress. HENT: Head: Normocephalic and atraumatic. Mouth/Throat: Oropharynx is clear and moist. Eyes: Conjunctivae and EOM are normal. Pupils are equal, round, and reactive to light. No s cleral icterus. Neck: Normal range of motion. Neck supple. No JVD present. Cardiovascular: Normal rate, regular rhythm, normal heart sounds and intact distal pulses. No murmur heard. Pulmonary/Chest: Effort normal and breath sounds normal. No respiratory distress. Abdominal: Soft. Bowel sounds are normal. He exhibits no distension. There is no tenderness . Musculoskeletal: Normal range of motion. He exhibits no edema or tenderness. Neurological: He is alert and oriented to person, place, and time. He has normal reflexes. No cranial nerve deficit. Coordination normal. Skin: Skin is warm and dry. No rash noted. He is not diaphoretic. No erythema. No pallor. Psychiatric: He has a normal mood and affect. His behavior is normal. Thought content enriqueta l. Vitals reviewed. Disposition: Home Condition: Stable Code Status: Full Code Follow up: He was encouraged to establish care with PCP. Medication List CONTINUE taking these medications One-A-Day Mens Tabs Refills: 0 Discharge took ~30 minutes, to include final examination, discussion of admission, and prep aration of prescriptions, instructions for on-going care, follow-up and documentation of dis charge summary. Med Thompson DO 10/09/2014 5:04 PM documented in this enc ounter Progress Notes Conversion Transaction, Provider Unknown - 10/09/2014 6:29 PM PDTFormatting of this note m ight be different from the original. Nurse Progress Note by Dante Nam RN at 10/09/141828 Author: Dante Nam RN Service: (none) Author Type: Registered Nurse Filed: 10/09/141830 Date of Service: 10/09/141828 Status: Signed Structural Engineering Drafting Officer: Dante Nam RN (Registered Nurse) Dc instructions provided to patient, encouraged patient to follow up with a PCP, he had no questions regarding that. Instructed patient on the importance of alcohol cessation, patient verbalized understanding. No questions at this time, patient is ready for discharge, waitin g for family to transport patient home. onver janis Transaction, Provider Unknown - 10/09/2014 6:21 PM PDT Nurse Progress Note by Dante Nam RN at 10/09/141820 Author: Dante Nam RN Service: (none) Author Type: Registered Nurse Filed: 10/09/141821 Date of Service: 10/09/141820 Status: Signed Structural Engineering Drafting Officer: Dante Nam RN (Registered Nurse) Crisis has seen and cleared patient to be discharged home. IV dc'd, patient is gettting alan ssed right now, called for family to transport home, will be discharged shortly. onver janis Transaction, Provider Unknown - 10/09/2014 5:43 AM PDT Progress Notes by Td Valles RPH at 10/09/14542 Author: Td Valles RPH Service: (none) Author Type: Pharmacist Filed: 10/09/14542 Date of Service: 10/09/14542 Status: Signed Structural Engineering Drafting Officer: Td Valles RPH (Pharmacist) Scr = 0.87- pharmacy will renal dose as needed once height and weight are charted Rosa Echols RN - 10/09/2014 1:59 AM PDT Nurse Progress Note by Rosa Gomez RN at 10/09/14158 Author: Rosa Gomez RN Service: (none) Author Type: Registered Nurse Filed: 10/09/14200 Date of Service: 10/09/14158 Status: Signed Structural Engineering Drafting Officer: Rosa Gomez RN (Registered Nurse) Patient arrived from the ED by stretcher with family member at the bedside. Patient is slee ping but is arousable when calling his name. Patient is being admitted for AMS and fall. Erwin l observe and treat as needed. documented in this encounter H&P Notes Jared Nicholas MD - 10/08/2014 11:37 PM PDT H&P by Jared Nicholas MD at 10/08/14 7133 Author: Jared Nicholas MD Service: Hospitalist Author Type: Physician Filed: 10/09/14 0435 Date of Service: 10/08/142336 Status: Signed Structural Engineering Drafting Officer: Jared Nicholas MD (Physician) Related Notes: Original Note by Jared Nicholas MD (Physician) filed at 10/09/14 0021 [facility] Service: Hospitalist Admission History & Physical Pt: Zak Mercado AGE/SEX: 49 y.o. male ROOM: PCP: PER PT NONE : 1965 TODAY'S DATE: 10/08/2014 Date of Admission: 10/08/2014 Chief Complaint: Altered mental status History of Present Illness: A 49-year-old male with past medical history of alcohol use, liver disease secondary to hep atitis, and depression who presented with altered mental status. The patient's family provid ed the history. The patient's mother and niece were at bedside. Apparently, the patient's gosia easton went for caodaism around 1800 hours. The patient does take daily alcohol. When the patien t's family returned the patient was found to be altered. He was slurring his speech. He was losing his balance. He fell 3 times. He seemed very lethargic, and 9-1-1 was called. The pat lonny was brought to the emergency room. A teenager at home did not notice any seizures, but the patient was found to have a lip bite in the emergency room. The patient did not have any bowel or urinary incontinence and has no prior history of seizures. Apparently as per the p loli's family, the patient's girlfriend has recently broken up with him and it seems that the patient is very depressed with that fact. He called several people and that he wants to take pills and end his life. He called his mother and asked her if he can take a pill and go to sleep. As far as I could obtain the history from the family, there is no history of feve rs, chills, headache, neck pain. Prior to the incident the patient never had any chest pain, nausea, or vomiting. The patient did complain of some belly pain which he attributed to a h ernia, and he also has been having rectal bleeding for 1 month. Patient himself did not give history due to AMS. Review of Systems: A 10 point review of systems was negative except pertinent positive mentioned in the HPI. PMHx: Past Medical History Diagnosis Date Head injury from fall off of trailer a few year ago Hepatitis C ADHD (attention deficit hyperactivity disorder) Tennis elbow left elbow Insomnia Rectal bleeding Reported by family, family member states "he was embarrassed about it but I told him he n eeds to go to the doctor but he wont" PSHx: Past Surgical History Procedure Laterality Date Unlisted procedure arthroscopy Collar bone fracture Knee surgery x 3 Hardware removal Prior To admission Meds: Prior to Admission medications Medication Sig Start Date End Date Taking? Authorizing Provider Multiple Vitamin (ONE-A-DAY MENS) TABS Take by mouth daily. OTC 09/27/13 Historical Provid er Allergies: No Known Allergies Family Hx: Family History Problem Relation Age of Onset Hypertension Mother Hypertension Father Social Hx: History Social History Marital Status: Single Spouse Name: N/A Number of Children: N/A Years of Education: N/A Occupational History Not on file. Social History Main Topics Smoking status: Current Some Day Smoker -- 1.00 packs/day for 40 years Types: Cigarettes Start date: 08/17/1973 Smokeless tobacco: Never Used Alcohol Use: 1.2 oz/week 2 Cans of beer per week Comment: 2 beers per day Drug Use: No Comment: prior user 1995 Sexual Activity: Partners: Female Other Topics Concern Not on file Social History Narrative History Smoking status Current Some Day Smoker -- 1.00 packs/day for 40 years Types: Cigarettes Start date: 08/17/1973 Smokeless tobacco Never Used History Alcohol Use 1.2 oz/week 2 Cans of beer per week Comment: 2 beers per day Physical Exam: BP 127/60 | Pulse 76 | Temp(Src) 98.1 F (36.7 C) | Resp 16 | SpO2 96% Filed Vitals: 10/08/14 2049 10/08/14 2054 10/08/14 2204 10/08/14 2303 BP: 155/82 159/97 167/80 127/60 Pulse: 87 92 93 76 Temp: 98.1 F (36.7 C) Resp: 16 16 16 SpO2: 97% 97% 98% 96% General Appearance: Sleepy, not co-operative Head: Normocephalic, without obvious abnormality, atraumatic Eyes: Pupils not small, responsive. conjunctiva/corneas clear, EOM's intact. Ears: Normal external ear canals, both ears Nose: Nares normal, septum midline, mucosa normal Throat: Lip bite. Neck: Supple, Back: ROM normal, no CVA tenderness Lungs: Clear to auscultation bilaterally, respirations unlabored. No wheezing, no crack les, no use of accessory muscles. On palpation, lung expansion equal. Chest Wall: No tenderness or deformity Heart: Regular rate , regular rhythm, S1 and S2 normal, no murmur, no rub or gallop. No palpable thrill. Abdomen: Soft, non-tender, bowel sounds active all four quadrants, no masses, no organomegaly. No guarding, no rigidity. Psychiatric: Sleepy, not co-operative Rectal: refused exam Extremities: No cyanosis, no edema, Extremities normal, atraumatic. Pulses: 2+ and symmetric all extremities Skin: Skin color normal Lymph nodes: Cervical nodes normal Neurologic: Not co-operative. Speech slurred. Moving all extremities. Data: Recent Labs Lab 10/08/14 2106 WBC 7.62 HGB 13.8 HCT 40.2 PLT 341 Recent Labs Lab 10/08/14 2106 NA 137 K 3.9 CL 102 CO2 28 BUN 10 CREATININE 0.87 PROT 9.2* BILITOT 0.2 ALT 78* AST 60* Phosphorus: No results found for this basename: PHOS Invalid input(s): LABALBU No results for input(s): MG in the last 168 hours. No results for input(s): AMYLASE in the last 168 hours. No results for input(s): PHART, PO2ART, JEX0IGN, Y5UACNTQ, BEART in the last 168 hours. No results for input(s): APTT, INR, PTT in the last 168 hours. No results for input(s): TSH, T3FREE, FREET4 in the last 168 hours. No results for input(s): CKTOTAL, TROPONINI, TROPONINT, CKMBINDEX in the last 168 hours. Results No results found for the last 72 hours. IMAGING: Ct Head And C-spine Non-con 10/08/2014 HISTORY: Head injury TECHNIQUE: Note: Despite multiple attempts the study is s uboptimal due to persistent patient movement throughout the procedure. Clinical correlation is indicated. If clinically suspect repeat study after sedation may be needed. Helical CT n oncontrast images were acquired from the foramen magnum through the cranial vertex. In addit ion, axial 1.25-mm images of the cervical spine were acquired and reconstructed in coronal a nd sagittal planes. No IV contrast material was given. Views of the cervical spine are targe frida to the bones only. COMPARISON: 02/25/2014 FINDINGS: CT head: The brain parenchyma does n ot demonstrate acute intraaxial hemorrhage, midline shift, mass effect, or cerebral edema. The ventricles, cisterns, and sulci are normal in size and configuration. Normal santizo-white matter differentiation is preserved. No extraaxial fluid collections are noted. The orbits and their contents are normal. The paranasal sinuses are well aerated. No mucosal thickeni ng or air-fluid levels are noted. The mastoid air cells show normal pneumatization bilatera lly. No mastoid fluid noted. The osseous structures of the calvaria do not demonstrate fra cture. No lytic or blastic lesions are noted. CT cervical spine: Cervical spine is technic ally inadequate examination. Consider repeat after sedation if clinically indicated Within the technical limitations of this study: There is no displacement of the lateral masses of C 1. The odontoid process and predental space are preserved. No strong evidence of prevertebra l soft tissue swelling. The movement artifact throughout the cervical spine precludes confi rmation that there is normal alignment. 10/08/[address] scan of the brain 2. Technically inadequate CT sca n of the cervical spine. Correlate clinically repeat study if indicated. Electronically sig melany by William Bernal MD on 10/08/2014 10:51 PM EKG: I personally reviewed the EKG. Findings: 10/08/2014 71 bpm. NSR. Short CO interval. Qtc - 458. Normal axis. Problem List: Principal Problem: Altered mental status Active Problems: Suicidal ideation Elevated LFTs Acute alcoholic intoxication in alcoholism, continuous Rectal bleeding Assessment and Plan: 1. Altered mental status, most likely this is due to alcohol intake and consumption of Zypr exa. The patient's family notes that the patient took 3 pills of Zyprexa. They do not know t he dose. Hey were also not sure if he took any Ativan pills or not. Urine toxicology here in the emergency room is negative for benzodiazepines which suggests that the patient's mental status is most likely secondary to alcohol intake in addition to the Zyprexa. Currently he is able to wake up and talk, he is hemodynamically stable. Will admit him for observation. O nce his alcohol level wears off, he will be more cooperative with treatment. I am not sure i f he had a seizure or not. A CT scan of the head did not show any acute abnormalities. We wi ll do an EEG. Given the suicidal ideation, we will consult psychiatry. If the patient wants to leave tomorrow, CRU will need to see him prior to discharge. He will need a sitter at bed side. 2. Acute alcoholic intoxication. Will monitor him, place him on CIWA protocol. 3. Elevated LFT. The patient's family says it is because of his hepatitis and he has not be en keen in pursuing treatment. Followup liver function tests daily. Alcohol may be also resp onsible for his liver disease. 4. Rectal bleeding. Currently hemoglobin looks stable. The patient is refusing rectal exam. Further investigation may be pursued when the patient is more cooperative. 5. DVT prophylaxis. Hold off on heparin subcutaneous because of the history of rectal bleed . Ordered labs for tomorrow. Patient's old records and labs that were available, were reviewed in detail and summarized as above. Dictation and cps team lead or software, [employer], may have been used which may contain error for similar sounding words even after review. Personal communication requested for any clarification. Code Status: Full Code Primary Care Physician: PER PT NONE Jared Nicholas MD, FACP 10/08/2014 11:37 PM documente d in this encounter ED Notes Conversion Transaction, Provider Unknown - 10/09/2014 12:10 AM PDTFormatting of this note m ight be different from the original. ED Notes by Rebeca Kam RN at 10/09/149 Author: Rebeca Kam RN Service: (none) Author Type: Registered Nurse Filed: 10/09/1410 Date of Service: 10/09/149 Status: Signed Structural Engineering Drafting Officer: Rebeca Kam RN (Registered Nurse) Pt using urinal at bs. Family at bs. Pt appears in NAD> Rebeca Kam RN 10/09/1410 onver janis Transaction, Provider Unknown - 10/08/2014 10:42 PM PDT ED Notes by Rebeca Kam RN at 10/08/142241 Author: Rebeca Kam RN Service: (none) Author Type: Registered Nurse Filed: 10/08/142241 Date of Service: 10/08/142241 Status: Signed Structural Engineering Drafting Officer: Rebeca Kam RN (Registered Nurse) Dr pantoja at bs assessing pt at this time. Rebeca Kam RN 10/08/142241 onver janis Transaction, Provider Unknown - 10/08/2014 10:35 PM PDT ED Notes by Rebeca Kam RN at 10/08/142234 Author: Rebeca Kam RN Service: (none) Author Type: Registered Nurse Filed: 10/08/142235 Date of Service: 10/08/142234 Status: Signed Structural Engineering Drafting Officer: Rebeca Kam RN (Registered Nurse) Family reporting pt having suicidal thoughts due to his girlfriend recently breaking up wit h him. Pt overheard by neighbors/family stating that he was going to overdose on pills. Dr Darleen herrera notified. Security at bs. Rebeca Kam RN 10/08/142235 onver janis Transaction, Provider Unknown - 10/08/2014 10:17 PM PDT ED Notes by Rebeca Kam RN at 10/08/142216 Author: Rebeca Kam RN Service: (none) Author Type: Registered Nurse Filed: 10/08/142216 Date of Service: 10/08/142216 Status: Signed Structural Engineering Drafting Officer: Rebeca Kam RN (Registered Nurse) Pt more alert speaking with family at at this time. Will continue to hold narcan as dire cted by Dr Pantoja at this time. Rebeca Kam RN 10/08/142216 onver janis Transaction, Provider Unknown - 10/08/2014 9:40 PM PDT ED Notes by Rebeca Kam RN at 10/08/142139 Author: Rebeca Kam RN Service: (none) Author Type: Registered Nurse Filed: 10/08/142139 Date of Service: 10/08/142139 Status: Signed Structural Engineering Drafting Officer: Rebeca Kam RN (Registered Nurse) Pt remains at CT Rebeca Kam RN 10/08/142139 onver janis Transaction, Provider Unknown - 10/08/2014 9:35 PM PDT ED Notes by Td Kitchen at 10/08/142134 Author: Td Kitchen Service: Emergency Department Author Type: Relay Assembler Filed: 10/08/142134 Date of Service: 10/08/142134 Status: Signed Structural Engineering Drafting Officer: Td Kitchen (Behavior Management Specialist) Attempted EKG at 2124 Td Kitchen 10/08/142134 onver janis Transaction, Provider Unknown - 10/08/2014 9:20 PM PDT ED Notes by Rebeca Kam RN at 10/08/142119 Author: Rebeca Kam RN Service: (none) Author Type: Registered Nurse Filed: 10/08/142120 Date of Service: 10/08/142119 Status: Signed Structural Engineering Drafting Officer: Rebeca Kam RN (Registered Nurse) [facility] at this time. Rebeca Kam RN 10/08/142120 orsyVasile mccloud DO - 10/08/2014 9:08 PM PDTFormatting of this note might be different from zaheer tariq original. ED Provider Notes by Vasile Pantoja DO at 10/08/142107 Author: Vasile Pantoja DO Service: Emergency Department Author Type: Physician Filed: 10/09/14 0155 Date of Service: 10/08/142107 Status: Signed Structural Engineering Drafting Officer: Vasile Pantoja DO (Physician) Procedure Orders: 1. Critical Care [[id number]] ordered by Vasile Pantoja DO at 10/09/14 0028 [facility] Department of Emergency Medicine 10/08/2014 History of Present Illness Patient Identification Zak Mercado is a 49 y.o. male. Patient information was obtained from friend. History/Exam limitations: mental status. Patient presented to the Emergency Department by: Car Chief Complaint Chief Complaint Patient presents with Altered Mental Status Pt arrives with friend, seated in wheelchair, pt appears solemnolent and does not respond to questions. Friend reports "he just isn't acting right, I think he took something" pts gosia lopezy reports he was found with a bottle of tequila, beer, and empty bottles of ativan and zy prexa LIMITED SECONDARY TO MENTAL STATUS 9:08 PM Pt presents to the ED for evaluation regarding AMS. The patient is reported to have become mentally altered earlier this evening, with a constant course since that time. The patient 's friend reports that the patient consumed alcohol earlier this evening, but states, "he is n't acting right, I think he took something else." Per nursing notes, the patient is report ed, per EMS, to have been found with "a bottle of tequila, beer, and empty bottles of ativa n and Zyprexa." PMHx: Patient's friend denies a known h/o seizure disorders, but relates that the patient has "liver problems." Past Medical History Diagnosis Date Head injury from fall off of trailer a few year ago Hepatitis C ADHD (attention deficit hyperactivity disorder) Tennis elbow left elbow Insomnia Rectal bleeding Reported by family, family member states "he was embarrassed about it but I told him he n eeds to go to the doctor but he wont" Past Surgical History Procedure Laterality Date Unlisted procedure arthroscopy Collar bone fracture Knee surgery x 3 Hardware removal Prior to Admission medications Medication Sig Start Date End Date Taking? Authorizing Provider Multiple Vitamin (ONE-A-DAY MENS) TABS Take by mouth daily. OTC 09/27/13 Historical Provid er No Known Allergies History Social History Marital Status: Single Spouse Name: N/A Number of Children: N/A Years of Education: N/A Occupational History Not on file. Social History Main Topics Smoking status: Current Some Day Smoker -- 1.00 packs/day for 40 years Types: Cigarettes Start date: 08/17/1973 Smokeless tobacco: Never Used Alcohol Use: 1.2 oz/week 2 Cans of beer per week Comment: 2 beers per day Drug Use: No Comment: prior user 1995 Sexual Activity: Partners: Female Other Topics Concern Not on file Social History Narrative Family History Problem Relation Age of Onset Hypertension Mother Hypertension Father Review of Systems LIMITED SECONDARY TO MENTAL STATUS Neuro and psych: Positive for: AMS, falls All other systems were reviewed and are subjectively reported as negative. Physical Exam BP 159/97 | Pulse 92 | Temp(Src) 98.1 F (36.7 C) | Resp 16 | SpO2 97% Vitals: Hypertensive, otherwise normal Pulse Oximetry Interpretation: Normal General: Awake, able to state name, arousable to verbal and tactile stimuli, able to follow simple commands Breath smells of alcohol Eyes: Pupils 2 mm and equal bilaterally HENT: Ears normal No hemotympanum or other obvious trauma to head Pharynx normal Small abrasion on lower left lip with dried blood, there is also dried blood inside the m outh Bruise on tip of tongue, no loose dentition Neck: Normal inspection Supple Full ROM Cardiovascular: Tachycardic rate, regular rhythm Respiratory: No respiratory distress or wheezing, lungs are clear to auscultation bilateral ly Tolerating oral secretions well Abdomen: Soft, non-tender, non-distended Back: Normal inspection, moves without difficulty Skin: Warm and dry No rash Extremities: Full ROM to all extremities, no pedal edema or obvious trauma Neuro: Awake, able to state name, arousable to verbal and tactile stimuli Although the patient is tired, he is arousable and there is no evidence of acute CVA on e xam Medical Decision Making and Emergency Department Course ED Department Course 9:08 PM. Pt presents to the ED for evaluation regarding AMS. MDM: After introducing shantel goldsmith to the pt, I have performed a careful history and physical examination. I have formulated the differential diagnosis that needs to be addressed during this ER visit, briefly discuss ed this differential with the pt, and then discussed with them the plan of care. I have als o addressed the risks and benefits of all diagnostic and treatment modalities planned for th is ED visit. DDx includes seizure, alcohol intoxication, overdose, suicide ideation, vs oth er. I will order CT-Head and C-Spine, EKG, laboratory studies, UDS, ethanol level, acetami nophen and aspirin levels, Narcan, IV fluids, telemetry, and continuous pulse oximetry. 9:49 PM Labs reviewed: Patient's alcohol level is elevated and liver enzymes are elevated . Tylenol and aspirin levels are WNL. Awaiting urine. 10:[address] report. UDS is negative. 10:38 PM Patient re-check. The patient is somewhat more arousable. This suggests conside ration that the patient is post-ictal with improvement. Patients family is now at bedside. A teenager present in the home at the time reports that the patient was noted to doze off, but didn't appear to have a seizure. Moreover, the patient does not have a h/o seizure acti vity. Family reports that the patient received a call from his girlfriend earlier today who m told him that he was seeing another man, after which he threatened to take a lot of pills. Hence, they express concern regarding the possibility of an overdose. They express concer n that he was drinking tequila, given his known liver disease. Per family, the patient's gi rlfriend, who lives in [place], complained of having noticed bloody stools, however, the pa tieren denies this and declines a rectal exam at this time. With no evidence of a bleed on C T and a negative UDS, there is concern for the possibility of a seizure. Hence, will order seizure precautions and a sitter. Discussed with pt and family the benefits associated with admission into the hospital, they are agreeable to admission. All questions and concerns a ddressed. Upon review of the patient s history, physical and the results of studies I believe that the patient warrants admission to the hospital for further evaluation and treatment. I have spoken with the patient regarding the need for admission to the hospital, and the patient h as expressed understanding of this. I will call and arrange for admission at this time. 10:[address] report. 11:[address] Head And C-spine Non-con: 10/08/[address] scan of the brain 2. Technically inadequate CT sca n of the cervical spine. Correlate clinically repeat study if indicated. Electronically sig melany by William Bernal MD on 10/08/2014 10:51 PM 11:09 PM Phone consult with Dr. Nicholas, hospitalist, whom accepts patient for admission. Pat ient resting at this time but is arousable to verbal and tactile stimuli. 11:[address] Nicholas hospitalist, at patient's bedside. 12:25 PM Patient remains hemodynamically stable; his BP has improved since time of arrival . Moreover, no seizure activity has been noted. ED Medication Administration from 10/08/20142045 to 10/09/2014 0028 Date/Time Order Dose Route Action Action by 10/08/2014 2242 sodium chloride (bolus) 0.9 % 1,000 mL 0 mL Intravenous Stopped Rebeca Kam RN 10/08/20147 sodium chloride (bolus) 0.9 % 1,000 mL 1,000 mL Intravenous New Bag Ngozi Kam RN 10/08/2014 2206 sodium chloride (IV) 0.9 % 1,000 mL with multiple vitamin 10 mL, thiamine 100 mg, folic acid 1 mg infusion Intravenous New Bag Reebca Kam RN Records Reviewed Old ED records reviewed (Using the electronic record system of [facility], I car efully reviewed the records with regard to the past medical/surgical history, previous medic ations, and allergies). Laboratory Evaluation Results Procedure Component Value Ref Range Date/Time Lactic acid, plasma [[id number]] Collected: 10/08/142105 Order Status: Completed Updated: 10/08/142354 Specimen Information: Blood LACTIC ACID 2.0 0.4 - 2.0 mmol/L Ammonia [[id number]] Collected: 10/08/142105 Order Status: Completed Updated: 10/08/142351 Specimen Information: Blood AMMONIA 32 <33 umol/L CBC with differential [[id number]] (Abnormal) Collected: 10/08/142105 Order Status: Completed Updated: 10/08/142223 Specimen Information: Blood WBC 7.62 3.80 - 11.00 K/uL RBC 4.15 (L) 4.20 - 5.70 M/uL HGB 13.8 13.2 - 17.0 g/dL HCT 40.2 39.0 - 50.0 % MCV 97.0 80.0 - 100.0 fl MCH 33.2 27.0 - 34.0 pg MCHC 34.2 32.0 - 35.5 g/dL RDW SD 45.1 37 - 53 fl PLT 341 150 - 400 K/uL MPV 6.7 fl DIFF TYPE MANUAL Neutrophils Manual 54 % Bands 7 % Lymphocytes Manual 34 % Monocytes Manual 4 % Eosinophils Manual 1 % Neutrophils Absolute 4.12 1.90 - 7.40 K/uL Bands Manual 0.53 (H) 0.00 - 0.20 K/uL Lymphocytes Absolute 2.59 1.00 - 3.90 K/uL Monocytes Absolute 0.30 0.00 - 0.80 K/uL Eosinophils Absolute 0.08 0.00 - 0.50 K/uL Platelet Estimate ADEQUATE MORPHOLOGY NORMAL POC clinitek 10 [[id number]] Collected: 10/08/142150 Order Status: Completed Updated: 10/08/142153 Color, UA YELLOW Clarity, UA CLEAR Glucose, UA NEGATIVE NEGATIVE mg/dL Bilirubin, UA NEGATIVE NEGATIVE Ketones, UA NEGATIVE NEGATIVE mg/dL Spec Grav, UA <1.006 1.001 - 1.035 Blood, UA NEGATIVE NEGATIVE pH, UA 6.0 4.6 - 8.0 Protein, UA NEGATIVE NEGATIVE mg/dL Urobilinogen, UA 0.2 <1.1 mg/dL Nitrite, UA NEGATIVE NEGATIVE WBC, UA NEGATIVE NEGATIVE Drugs of Abuse Screen, UR (Hospital And ED Only) [[id number]] Collected: 10/08/142130 Order Status: Completed Updated: 10/08/142151 Specimen Information: Urine, Clean Catch AMPHETAMINE/METHAMPHETAMINE NEGATIVE NEGATIVE BARBITUATES NEGATIVE NEGATIVE BENZODIAZEPINE NEGATIVE NEGATIVE COCAINE NEGATIVE NEGATIVE METHADONE NEGATIVE NEGATIVE OPIATES NEGATIVE NEGATIVE PCP NEGATIVE NEGATIVE THC NEGATIVE NEGATIVE Comprehensive metabolic panel [[id number]] (Abnormal) Collected: 10/08/142105 Order Status: Completed Updated: 10/08/142141 Specimen Information: Blood SODIUM 137 135 - 143 mmol/L POTASSIUM 3.9 3.5 - 4.9 mmol/L CHLORIDE 102 99 - 109 mmol/L CO2 28 23 - 32 mmol/L ANION GAP AGAP 11 5 - 20 mmol/L GLUCOSE 72 65 - 99 mg/dL BUN 10 8 - 25 mg/dL CREATININE 0.87 0.70 - 1.30 mg/dL BUN/CREAT 11 CALCIUM 8.5 8.5 - 10.5 mg/dL TOTAL PROTEIN 9.2 (H) 6.3 - 8.2 g/dL Albumin 4.1 3.6 - 5.0 g/dL GLOBULIN 5.1 (H) 1.3 - 4.9 g/dL A/G 0.8 (L) 1.0 - 2.4 TBIL 0.2 0.1 - 1.5 mg/dL ALK PHOS 85 35 - 115 U/L AST 60 (H) 10 - 45 U/L ALT 78 (H) 10 - 65 U/L EGFR >60 >60 mL/min/1.73m2 Ethanol Level [[id number]] (Abnormal) Collected: 10/08/142105 Order Status: Completed Updated: 10/08/142141 Specimen Information: Blood ALCOHOL,ETHYL 234 (H) <10 mg/dL Acetaminophen (Tylenol) Level [[id number]] (Abnormal) Collected: 10/08/142105 Order Status: Completed Updated: 10/08/142141 Specimen Information: Blood ACETAMINOPHEN <2.0 (L) 10.0 - 30.0 ug/mL Salicylate (Aspirin) Level [[id number]] Collected: 10/08/142105 Order Status: Completed Updated: 10/08/142134 Specimen Information: Blood SALICYLATE 5.5 2.8 - 20.0 mg/dL POC clinitek 10 [[id number]] Collected: 10/08/142129 Order Status: Completed Updated: 10/08/142132 Color, UA YELLOW Clarity, UA CLEAR Glucose, UA NEGATIVE NEGATIVE mg/dL Bilirubin, UA NEGATIVE NEGATIVE Ketones, UA NEGATIVE NEGATIVE mg/dL Spec Grav, UA <1.006 1.001 - 1.035 Blood, UA NEGATIVE NEGATIVE pH, UA 5.5 4.6 - 8.0 Protein, UA NEGATIVE NEGATIVE mg/dL Urobilinogen, UA 0.2 <1.1 mg/dL Nitrite, UA NEGATIVE NEGATIVE WBC, UA NEGATIVE NEGATIVE I personally reviewed the lab results and they have been posted to the chart. Pertinent po sitive and negative findings have been addressed appropriately. Radiology and EKG Evaluation Imaging Results CT Head and C-Spine Non-Con (Final result) Result time: 10/08/14 22:51:32 Final result by Rad Results In Dorian (10/08/14 22:51:32) Impression: 1. Negative noncontrast CT scan of the brain 2. Technically inadequate CT scan of the cervical spine. Correlate clinically repeat study if indicated. Narrative: HISTORY: Head injury TECHNIQUE: Note: Despite multiple attempts the study is suboptimal due to persistent patien t movement throughout the procedure. Clinical correlation is indicated. If clinically suspec t repeat study after sedation may be needed. Helical CT noncontrast images were acquired from the foramen magnum through the cranial sherri susan. In addition, axial 1.25-mm images of the cervical spine were acquired and reconstructed in coronal and sagittal planes. No IV contrast material was given. Views of the cervical sp ine are targeted to the bones only. COMPARISON: 02/25/2014 FINDINGS: CT head: The brain parenchyma does not demonstrate acute intraaxial hemorrhage, midline shift, mass effect, or cerebral edema. The ventricles, cisterns, and sulci are normal in size and configuration. Normal santizo-white matter differentiation is preserved. No extraaxial fluid collections are noted. The orbits and their contents are normal. The paranasal sinuses are well aerated. No mucosal thickening or air-fluid levels are noted . The mastoid air cells show normal pneumatization bilaterally. No mastoid fluid noted. The osseous structures of the calvaria do not demonstrate fracture. No lytic or blastic le sions are noted. CT cervical spine: Cervical spine is technically inadequate examination. Consider repeat after sedation if cli nically indicated Within the technical limitations of this study: There is no displacement of the lateral masses of C1. The odontoid process and predental sp miguel are preserved. No strong evidence of prevertebral soft tissue swelling. The movement ar tifact throughout the cervical spine precludes confirmation that there is normal alignment. EKG Interpretation: Time: 2155 Rate: 71 Rhythm: Sinus rhythm with short CO No acute ischemia. No STEMI. Independently reviewed and interpreted contemporaneously by myself. Vasile Pantoja DO ED Diagnoses Final diagnoses Altered mental status Alcohol intoxication Suicidal ideation, possible Overdose, initial encounter, possible Seizure, possible Alcoholic liver disease Elevated liver enzymes Shortened CO interval Disposition: ED Disposition Admit/Observation Requested Unit:: Acute Care Bed request special needs: None Bed request special needs: Sitter Diagnosis?: Altered mental status, alcohol intoxication, possible suicidal thought, possible overdose, seizure, alcoholic liver disease, elevated liver enzymes Procedures Additional Documentation Critical Care Performed by: VASILE PANTOJA Authorized by: VASILE PANTOJA Total critical care time: 40 minutes Critical care time was exclusive of separately billable procedures and treating other patie nts and teaching time. Critical care was necessary to treat or prevent imminent or life-threatening deterioration of the following conditions: SCENIC ARTIST failure or compromise, dehydration, respiratory failure, to xidrome, metabolic crisis, circulatory failure and cardiac failure. Critical care was time spent personally by me on the following activities: evaluation of pa halle's response to treatment, examination of patient, obtaining history from patient or tamiko rogate, ordering and performing treatments and interventions, ordering and review of laborat ory studies, ordering and review of radiographic studies, pulse oximetry, re-evaluation of p atient's condition, review of old charts, discussions with consultants and development of tr eatment plan with patient or surrogate. Comments: Zak Mercado had continuous cardiac/resp and neuro monitoring during ED stay. he had serial eval's as well and constant BP monitoring. Emergent interventions have taken place as required for appropriate pt care. Pt had potential for rapid deterioration during E D stay. Vasile Pantoja D.O. 10/09/2014 Attending Note: Documentation assistance provided by Chloe Damico (Scribe). Informat ion recorded by the scribe has been reviewed and validated by me. I agree with its contents . DO Vasile Tellez DO 10/09/14 0155 onversion Trans action, Provider Unknown - 10/08/2014 9:03 PM PDT ED Notes by Rebeca Kma RN at 10/08/142102 Author: Rebeca Kam RN Service: (none) Author Type: Registered Nurse Filed: 10/08/142102 Date of Service: 10/08/142102 Status: Signed Structural Engineering Drafting Officer: Rebeca Kam RN (Registered Nurse) Pt needing frequent reorientation at this time. Rebeca Kam RN 10/08/142102 onver janis Transaction, Provider Unknown - 10/08/2014 8:56 PM PDT ED Notes by Rebeca Kam RN at 10/08/142055 Author: Rebeca Kam RN Service: (none) Author Type: Registered Nurse Filed: 10/08/142056 Date of Service: 10/08/142055 Status: Signed Structural Engineering Drafting Officer: Rebeca Kam RN (Registered Nurse) Friend at states pt lives with his girlfriend and is his girlfriends uncle. States they went to [facility] and when they came home he was acting weird and fell hitting his face three times. Friend states "I think he took some pills". Pt unable to verbalize what happen ed at this time. Rebeca Kam RN 10/08/142056 docume nted in this encounter Plan of Treatment +--------+---------+ + + + | Date | Type | Specialty | Care Team | Description | +--------+---------+ + + + | 03/06/ | Office | Infectious Diseases | Alanis Montaño | | | 2020 | Visit | | Gwendolyn Shabazz MD | | | | | | [address] | | | | | | [place] [address] | | | | | | [phone] | | | | | | | | +--------+---------+ + + + documented as of this encounter Procedures + +--------+ + + + | Procedure Name | Priori | Date/Time | Associated Diagnosis | Comments | | | ty | | | | + +--------+ + + + | EXTERNAL LAB: CBC | Routin | 10/09/2014 | | Results for this | | | e | 6:19 AM | | procedure are in the | | | | PDT | | results section. | + +--------+ + + + | PHOSPHORUS | Routin | 10/09/2014 | | Results for this | | | e | 6:19 AM | | procedure are in the | | | | PDT | | results section. | + +--------+ + + + | MAGNESIUM | Routin | 10/09/2014 | | Results for this | | | e | 6:19 AM | | procedure are in the | | | | PDT | | results section. | + +--------+ + + + | COMPREHENSIVE | Routin | 10/09/2014 | | Results for this | | METABOLIC PANEL | e | 6:19 AM | | procedure are in the | | | | PDT | | results section. | + +--------+ + + + | ECG 12 LEAD | Routin | 10/08/2014 | | Results for this | | | e | 9:56 PM | | procedure are in the | | | | PDT | | results section. | + +--------+ + + + | CT HEAD CERVICAL | Routin | 10/08/2014 | | Results for this | | SPINE WO CONTRAST | e | 9:52 PM | | procedure are in the | | | | PDT | | results section. | + +--------+ + + + | DRUGS OF ABUSE | Routin | 10/08/2014 | | Results for this | | SCREEN, URINE (H) | e | 9:31 PM | | procedure are in the | | | | PDT | | results section. | + +--------+ + + + | EXTERNAL LAB: CBC | Routin | 10/08/2014 | | Results for this | | | e | 9:06 PM | | procedure are in the | | | | PDT | | results section. | + +--------+ + + + | LACTIC ACID | Routin | 10/08/2014 | | Results for this | | | e | 9:06 PM | | procedure are in the | | | | PDT | | results section. | + +--------+ + + + | AMMONIA | Routin | 10/08/2014 | | Results for this | | | e | 9:06 PM | | procedure are in the | | | | PDT | | results section. | + +--------+ + + + | ALCOHOL | Routin | 10/08/2014 | | Results for this | | | e | 9:06 PM | | procedure are in the | | | | PDT | | results section. | + +--------+ + + + | ACETAMINOPHEN LEVEL | Routin | 10/08/2014 | | Results for this | | | e | 9:06 PM | | procedure are in the | | | | PDT | | results section. | + +--------+ + + + | SALICYLATE LEVEL | Routin | 10/08/2014 | | Results for this | | | e | 9:06 PM | | procedure are in the | | | | PDT | | results section. | + +--------+ + + + | COMPREHENSIVE | Routin | 10/08/2014 | | Results for this | | METABOLIC PANEL | e | 9:06 PM | | procedure are in the | | | | PDT | | results section. | + +--------+ + + + documented in this encounter Results External Lab: CBC (10/09/2014 6:19 AM PDT) + + + + + + | Component | Value | Ref Range | Performed | Pathologist | | | | | At | Signature | + + + + + + | WBC | 7.15Comment: Testing | 3.80 - 11.00 | EXTERNAL | | | | performed at [facility] | K/uL | LAB | | | | [address];[place] | | | | | | [address] | | | | + + + + + + | Red Blood | 3.98 (L)Comment: Testing | 4.20 - 5.70 | EXTERNAL | | | Cells | performed at [facility] | M/uL | LAB | | | Counted | [address];[place] | | | | | | [address] | | | | + + + + + + | Hemoglobin | 12.9 (L)Comment: Testing | 13.2 - 17.0 | EXTERNAL | | | | performed at [facility] | g/dL | LAB | | | | [address];[place] | | | | | | [address] | | | | + + + + + + | Hematocrit, | 37.7 (L)Comment: Testing | 39.0 - 50.0 % | EXTERNAL | | | POC | performed at [facility] | | LAB | | | | [address];[place] | | | | | | [address] | | | | + + + + + + | MCV | 94.9Comment: Testing | 80.0 - 100.0 fl | EXTERNAL | | | | performed at [facility] | | LAB | | | | [address];[place] | | | | | | [address] | | | | + + + + + + | MCH | 32.4Comment: Testing | 27.0 - 34.0 pg | EXTERNAL | | | | performed at [facility];[address] | | LAB | | | | [address];[place] | | | | | | [address] | | | | + + + + + + | MCHC | 34.2Comment: Testing | 32.0 - 35.5 | EXTERNAL | | | | performed at [facility] | g/dL | LAB | | | | [address];[place] | | | | | | [address] | | | | + + + + + + | RDW-CV | 45.5Comment: Testing | 37 - 53 fl | EXTERNAL | | | | performed at [facility] | | LAB | | | | [address];[place] | | | | | | [address] | | | | + + + + + + | Platelet | 348Comment: Testing | 150 - 400 K/uL | EXTERNAL | | | Count | performed at [facility] | | LAB | | | Plasma | [address];[place] | | | | | | [address] | | | | + + + + + + | MPV | 6.6Comment: Testing | fl | EXTERNAL | | | | performed at [facility];[address] | | LAB | | | | [address];[place] | | | | | | [address] | | | | + + + + + + | Differentia | AUTOMATEDComment: | | EXTERNAL | | | l Type | Testing performed at | | LAB | | | | [facility];[address];[place] [address] | | | | + + + + + + | % Segmented | 66.41Comment: Testing | % | EXTERNAL | | | | performed at [facility];[address] | | LAB | | | Neutrophils | [address];[place] | | | | | | [address] | | | | + + + + + + | % | 21.89Comment: Testing | % | EXTERNAL | | | Lymphocytes | performed at [facility];[address] | | LAB | | | | [address];[place] | | | | | | [address] | | | | + + + + + + | % Monocytes | 9.42Comment: Testing | % | EXTERNAL | | | | performed at [facility];[address] | | LAB | | | | [address];[place] | | | | | | [address] | | | | + + + + + + | % | 1.07Comment: Testing | % | EXTERNAL | | | Eosinophils | performed at [facility];[address] | | LAB | | | | [address];[place] | | | | | | [address] | | | | + + + + + + | % Basophils | 1.21Comment: Testing | % | EXTERNAL | | | | performed at [facility];[address] | | LAB | | | | [address];[place] | | | | | | [address] | | | | + + + + + + | Absolute | 4.75Comment: Testing | 1.90 - 7.40 | EXTERNAL | | | Segmented | performed at [facility];[address] | K/uL | LAB | | | Neutrophils | [address];[place] | | | | | | [address] | | | | + + + + + + | Absolute | 1.56Comment: Testing | 1.00 - 3.90 | EXTERNAL | | | Lymphocytes | performed at [facility];[address] | K/uL | LAB | | | | [address];[place] | | | | | | [address] | | | | + + + + + + | Absolute | 0.67Comment: Testing | 0.00 - 0.80 | EXTERNAL | | | Monocytes | performed at [facility];[address] | K/uL | LAB | | | | [address];[place] | | | | | | [address] | | | | + + + + + + | Absolute | 0.08Comment: Testing | 0.00 - 0.50 | EXTERNAL | | | Eosinophils | performed at [facility];[address] | K/uL | LAB | | | | [address];[place] | | | | | | [address] | | | | + + + + + + | Absolute | 0.09Comment: Testing | 0.00 - 0.10 | EXTERNAL | | | Basophils | performed at [facility];[address] | K/uL | LAB | | | | [address];[place], [place] | | | | | | [address] | | | | + + + + + + + + | Specimen | + + | Blood specimen | | (specimen) | + + + +---------+ + + | Performing | Address | City/State/Zipcode | Phone Number | | Organization | | | | + +---------+ + + | EXTERNAL LAB | | | | + +---------+ + + Phosphorus (10/09/2014 6:19 AM PDT) + + + + + + | Component | Value | Ref Range | Performed | Pathologist | | | | | At | Signature | + + + + + + | PHOSPHORUS | 2.7Comment: Testing | 2.3 - 4.8 mg/dL | EXTERNAL | | | | performed at [facility] | | LAB | | | | [address] [facility];[place], [place] | | | | | | [address] | | | | + + + + + + + + | Specimen | + + | Blood specimen | | (specimen) | + + + +---------+ + + | Performing | Address | City/State/Zipcode | Phone Number | | Organization | | | | + +---------+ + + | EXTERNAL LAB | | | | + +---------+ + + Magnesium (10/09/2014 6:19 AM PDT) + + + + + + | Component | Value | Ref Range | Performed | Pathologist | | | | | At | Signature | + + + + + + | Magnesium | 2.0Comment: Testing | 1.7 - 2.4 mg/dL | EXTERNAL | | | | performed at [facility];[address] | | LAB | | | | [address];[place] | | | | | | [address] | | | | + + + + + + + + | Specimen | + + | Blood specimen | | (specimen) | + + + +---------+ + + | Performing | Address | City/State/Zipcode | Phone Number | | Organization | | | | + +---------+ + + | EXTERNAL LAB | | | | + +---------+ + + Comprehensive Metabolic Panel (10/09/2014 6:19 AM PDT) + + + + + + | Component | Value | Ref Range | Performed | Pathologist | | | | | At | Signature | + + + + + + | Na | 141Comment: Testing | 135 - 143 | EXTERNAL | | | | performed at [facility] | mmol/L | LAB | | | | [address];[place] | | | | | | [address] | | | | + + + + + + | K | 4.3Comment: Testing | 3.5 - 4.9 | EXTERNAL | | | | performed at [facility] | mmol/L | LAB | | | | [address];[place] | | | | | | [address] | | | | + + + + + + | Cl | 109Comment: Testing | 99 - 109 mmol/L | EXTERNAL | | | | performed at [facility] | | LAB | | | | [address];[place] | | | | | | [address] | | | | + + + + + + | CO2 | 24Comment: Testing | 23 - 32 mmol/L | EXTERNAL | | | | performed at [facility];[address] | | LAB | | | | [address];[place] | | | | | | [address] | | | | + + + + + + | Anion Gap | 13Comment: Testing | 5 - 20 mmol/L | EXTERNAL | | | | performed at [facility] [place];[address] | | LAB | | | | [address];[place] | | | | | | [address] | | | | + + + + + + | Glucose, | 57 (L)Comment: Testing | 65 - 99 mg/dL | EXTERNAL | | | Fasting | performed at [facility] | | LAB | | | | [address];[place] | | | | | | [address] | | | | + + + + + + | BUN | 13Comment: Testing | 8 - 25 mg/dL | EXTERNAL | | | | performed at [facility] | | LAB | | | | [address];[place] | | | | | | [address] | | | | + + + + + + | Creatinine | 0.94Comment: Testing | 0.70 - 1.30 | EXTERNAL | | | | performed at [facility] | mg/dL | LAB | | | | [address];[place] | | | | | | [address] | | | | + + + + + + | BUN/Creatin | 14Comment: Testing | | EXTERNAL | | | ine Ratio | performed at [facility] | | LAB | | | | [address];[place] | | | | | | [address] | | | | + + + + + + | Calcium | 8.2 (L)Comment: Testing | 8.5 - 10.5 | EXTERNAL | | | | performed at [facility] | mg/dL | LAB | | | | [address];[place] | | | | | | [address] | | | | + + + + + + | Protein, | 8.0Comment: Testing | 6.3 - 8.2 g/dL | EXTERNAL | | | Total | performed at [facility] | | LAB | | | | [address];[place] | | | | | | [address] | | | | + + + + + + | Albumin | 3.6Comment: Testing | 3.6 - 5.0 g/dL | EXTERNAL | | | | performed at [facility] | | LAB | | | | [address];[place] | | | | | | [address] | | | | + + + + + + | Globulin | 4.4Comment: Testing | 1.3 - 4.9 g/dL | EXTERNAL | | | | performed at [facility] | | LAB | | | | [address];[place] | | | | | | [address] | | | | + + + + + + | A/G Ratio | 0.8 (L)Comment: Testing | 1.0 - 2.4 | EXTERNAL | | | | performed at [facility] | | LAB | | | | [address];[place] | | | | | | [address] | | | | + + + + + + | Bilirubin | 0.3Comment: Testing | 0.1 - 1.5 mg/dL | EXTERNAL | | | Total | performed at [facility] | | LAB | | | | [address];[place] | | | | | | [address] | | | | + + + + + + | ALP, | 79Comment: Testing | 35 - 115 U/L | EXTERNAL | | | External | performed at [facility] | | LAB | | | | [address];[place] | | | | | | [address] | | | | + + + + + + | AST | 55 (H)Comment: Testing | 10 - 45 U/L | EXTERNAL | | | | performed at [facility] | | LAB | | | | [address];[place] | | | | | | [address] | | | | + + + + + + | ALT | 64Comment: Testing | 10 - 65 U/L | EXTERNAL | | | | performed at [facility] | | LAB | | | | [address];[place] | | | | | | [address] | | | | + + + + + + | Estimated | >60Comment: GFR <60: | mL/min/1.73m2 | EXTERNAL | | | GFR | CHRONIC KIDNEY DISEASE, | | LAB | | | | IF FOUND OVER A 3 MONTH | | | | | | PERIOD.GFR <15: KIDNEY | | | | | | FAILURE.FOR | | | | | | AMERICANS, MULTIPLY THE | | | | | | CALCULATED GFR BY | | | | | | 1.210.Testing performed | | | | | | at [facility] | | [address];[place] [address] | | | | + + + + + + + + | Specimen | + + | Blood specimen | | (specimen) | + + + +---------+ + + | Performing | Address | City/State/Zipcode | Phone Number | | Organization | | | | + +---------+ + + | EXTERNAL LAB | | | | + +---------+ + + ECG 12 lead (10/08/2014 9:56 PM PDT) + + + + + + | Component | Value | Ref Range | Performed | Pathologist | | | | | At | Signature | + + + + + + | DIAGNOSIS: | Sinus rhythm with short | | EXTERNAL | | | | PROtherwise normal ECGNo | | LAB | | | | previous ECGs | | | | | | availableThis ECG | | | | | | contains Unconfirmed | | | | | | Interpretation | | | | | | Statements. See ED | | | | | | Record for Physician | | | | | | Interpretation. | | | | | | Confirmed by MUSE READ | | | | | | ONLY, -COMPUTER ([id number]), | | | | | | food editor Mavis Rodriguez | | | | | | ([id number]) on 10/09/2014 | | | | | | 7:04:45 AM | | | | + + + + + + + + | Specimen | + + | | + + + + + | Narrative | Performed At | + + + | Historically converted procedure from [facility] Epic environment | EXTERNAL LAB | + + + + +---------+ + + | Performing | Address | City/State/Zipcode | Phone Number | | Organization | | | | + +---------+ + + | EXTERNAL LAB | | | | + +---------+ + + CT Head Cervical Spine wo Contrast (10/08/2014 9:52 PM PDT) + + | Specimen | + + | | + + + + + | Impressions | Performed At | + + + | 1. Negative noncontrast CT scan of the brain 2. Technically | | | inadequate CT scan of the cervical spine. Correlate clinically repeat | | | study if indicated. | | + + + + + + | Narrative | Performed At | + + + | HISTORY: Head injury TECHNIQUE: Note: Despite multiple attempts | | | the study is suboptimal due to persistent patient movement throughout | | | the procedure. Clinical correlation is indicated. If clinically | | | suspect repeat study after sedation may be needed. Helical CT | | | noncontrast images were acquired from the foramen magnum through the | | | cranial vertex. In addition, axial 1.25-mm images of the cervical | | | spine were acquired and reconstructed in coronal and sagittal planes. | | | No IV contrast material was given. Views of the cervical spine are | | | targeted to the bones only. COMPARISON: 02/25/2014 FINDINGS: | | | CT head: The brain parenchyma does not demonstrate acute intraaxial | | | hemorrhage, midline shift, mass effect, or cerebral edema. The | | | ventricles, cisterns, and sulci are normal in size and configuration. | | | Normal santizo-white matter differentiation is preserved. No | | | extraaxial fluid collections are noted. The orbits and their | | | contents are normal. The paranasal sinuses are well aerated. No | | | mucosal thickening or air-fluid levels are noted. The mastoid air | | | cells show normal pneumatization bilaterally. No mastoid fluid | | | noted. The osseous structures of the calvaria do not demonstrate | | | fracture. No lytic or blastic lesions are noted. CT cervical | | | spine: Cervical spine is technically inadequate examination. Consider | | | repeat after sedation if clinically indicated Within the | | | technical limitations of this study: There is no displacement of the | | | lateral masses of C1. The odontoid process and predental space are | | | preserved. No strong evidence of prevertebral soft tissue swelling. | | | The movement artifact throughout the cervical spine precludes | | | confirmation that there is normal alignment. | | + + + + + | Procedure Note | + + | Dorian, Rad Conversion - 03/12/2019 4:45 AM PDT HISTORY:Head injury TECHNIQUE: Note: | | Despite multiple attempts the study is suboptimal due to persistent patient movement | | throughout the procedure. Clinical correlation is indicated. If clinically suspect | | repeat study after sedation may be needed. Helical CT noncontrast images were acquired | | from the foramen magnum through the cranial vertex. In addition, axial 1.25-mm images of | | the cervical spine were acquired and reconstructed in coronal and sagittal planes. No | | IV contrast material was given. Views of the cervical spine are targeted to the bones | | only. COMPARISON:02/25/2014 FINDINGS:CT head:The brain parenchyma does not demonstrate | | acute intraaxial hemorrhage, midline shift, mass effect, or cerebral edema. The | | ventricles, cisterns, and sulci are normal in size and configuration. Normal santizo-white | | matter differentiation is preserved. No extraaxial fluid collections are noted. The | | orbits and their contents are normal. The paranasal sinuses are well aerated. No mucosal | | thickening or air-fluid levels are noted. The mastoid air cells show normal | | pneumatization bilaterally. No mastoid fluid noted. The osseous structures of the | | calvaria do not demonstrate fracture. No lytic or blastic lesions are noted. CT | | cervical spine:Cervical spine is technically inadequate examination. Consider repeat | | after sedation if clinically indicated Within the technical limitations of this | | study:There is no displacement of the lateral masses of C1. The odontoid process and | | predental space are preserved. No strong evidence of prevertebral soft tissue swelling. | | The movement artifact throughout the cervical spine precludes confirmation that there | | is normal alignment. IMPRESSION: 1. Negative noncontrast CT scan of the brain2. | | Technically inadequate CT scan of the cervical spine. Correlate clinically repeat study | | if indicated. | |The mastoid air cells show normal pneumatization bilaterally. No mastoid fluid noted. | | | |The osseous structures of the calvaria do not demonstrate fracture. No lytic or blastic le sions are noted. | | | |CT cervical spine: | |Cervical spine is technically inadequate examination. Consider repeat after sedation if cli nically indicated | | | |Within the technical limitations of this study: | |There is no displacement of the lateral masses of C1. The odontoid process and predental sp miguel are preserved. No strong evidence of prevertebral soft tissue swelling. The movement ar tifact throughout the cervical spine | |precludes confirmation that there | |is normal alignment. | | | |IMPRESSION: | |1. Negative noncontrast CT scan of the brain | |2. Technically inadequate CT scan of the cervical spine. Correlate clinically repeat study if indicated. | | | | | + + Drugs Of ABuse Screen, Urine (H) (10/08/2014 9:31 PM PDT) + + + + + + | Component | Value | Ref Range | Performed | Pathologist | | | | | At | Signature | + + + + + + | Methampheta | NEGATIVEComment: | | EXTERNAL | | | mine/ | Positive cutoff for | | LAB | | | Amphetamine | AMP = 1000 ng/mLTesting | | | | | Screen, | performed at [facility] | | | | | UA, POC | [address];[place] | | | | | | [address] | | | | + + + + + + | Barbiturate | NEGATIVEComment: | | EXTERNAL | | | s Screen, | Positive cutoff for | | LAB | | | Urine | JUJU = 200 ng/mLTesting | | | | | | performed at [facility] | | | | | | [address];[place] | | | | | | [address] | | | | + + + + + + | Benzodiazep | NEGATIVEComment: | | EXTERNAL | | | adrianne | Positive cutoff for | | LAB | | | Screen, | BENZO = 200 ng/mLTesting | | | | | Urine | performed at [facility] | | | | | | [address];[place] | | | | | | [address] | | | | + + + + + + | Cocaine | NEGATIVEComment: | | EXTERNAL | | | | Positive cutoff for | | LAB | | | | GLORIA = 300 ng/mLTesting | | | | | | performed at [facility] | | | | | | [address];[place] | | | | | | [address] | | | | + + + + + + | Methadone | NEGATIVEComment: | | EXTERNAL | | | | Positive cutoff for | | LAB | | | | MTD = 300 ng/mLTesting | | | | | | performed at [facility] | | | | | | [address];[place] | | | | | | [address] | | | | + + + + + + | Opiates | NEGATIVEComment: | | EXTERNAL | | | | Positive cutoff for | | LAB | | | | OPI = 300 ng/mLTesting | | | | | | performed at [facility] | | | | | | [address];[place] | | | | | | [address] | | | | + + + + + + | PCP | NEGATIVEComment: | | EXTERNAL | | | | Positive cutoff for PCP | | LAB | | | | = 25 ng/mLTesting | | | | | | performed at [facility] | | | | | | [address];[place] | | | | | | [address] | | | | + + + + + + | Cannabinoid | NEGATIVEComment: | | EXTERNAL | | | s Screen, | Positive cutoff for THC | | LAB | | | Serum | = 50 ng/mLThe above are | | | | | | unconfirmed screening | | | | | | results. These results | | | | | | are to be used only for | | | | | | medical | | | | | | (i.e.,treatment) | | | | | | purposes. Unconfirmed | | | | | | screening results must | | | | | | not be used for | | | | | | non-medical purposes | | | | | | (e.g., employment | | | | | | testing, legal | | | | | | testing).Testing | | | | | | performed at [facility] | | | | | | [address];[place], [place] | | | | | | [address] | | | | + + + + + + + + | Specimen | + + | | + + + +---------+ + + | Performing | Address | City/State/Zipcode | Phone Number | | Organization | | | | + +---------+ + + | EXTERNAL LAB | | | | + +---------+ + + External Lab: CBC (10/08/2014 9:06 PM PDT) + + + + + + | Component | Value | Ref Range | Performed | Pathologist | | | | | At | Signature | + + + + + + | WBC | 7.62Comment: Testing | 3.80 - 11.00 | EXTERNAL | | | | performed at [facility] | K/uL | LAB | | | | [address];[place] | | | | | | [address] | | | | + + + + + + | Red Blood | 4.15 (L)Comment: Testing | 4.20 - 5.70 | EXTERNAL | | | Cells | performed at [facility] | M/uL | LAB | | | Counted | [address];[place] | | | | | | [address] | | | | + + + + + + | Hemoglobin | 13.8Comment: Testing | 13.2 - 17.0 | EXTERNAL | | | | performed at [facility] | g/dL | LAB | | | | [address];[place] | | | | | | [address] | | | | + + + + + + | Hematocrit, | 40.2Comment: Testing | 39.0 - 50.0 % | EXTERNAL | | | POC | performed at [facility] | | LAB | | | | [address];[place] | | | | | | [address] | | | | + + + + + + | MCV | 97.0Comment: Testing | 80.0 - 100.0 fl | EXTERNAL | | | | performed at [facility] | | LAB | | | | [address];[place] | | | | | | [address] | | | | + + + + + + | MCH | 33.2Comment: Testing | 27.0 - 34.0 pg | EXTERNAL | | | | performed at [facility] | | LAB | | | | [address];[place] | | | | | | [address] | | | | + + + + + + | MCHC | 34.2Comment: Testing | 32.0 - 35.5 | EXTERNAL | | | | performed at [facility] | g/dL | LAB | | | | [address];[place] | | | | | | [address] | | | | + + + + + + | RDW-CV | 45.1Comment: Testing | 37 - 53 fl | EXTERNAL | | | | performed at [facility] | | LAB | | | | [address];[place] | | | | | | [address] | | | | + + + + + + | Platelet | 341Comment: Testing | 150 - 400 K/uL | EXTERNAL | | | Count | performed at [facility] | | LAB | | | Plasma | [address];[place] | | | | | | [address] | | | | + + + + + + | MPV | 6.7Comment: Testing | fl | EXTERNAL | | | | performed at [facility] | | LAB | | | | [address];[place] | | | | | | [address] | | | | + + + + + + | Differentia | MANUALComment: Testing | | EXTERNAL | | | l Type | performed at [facility] | | LAB | | | | [address];[place] | | | | | | [address] | | | | + + + + + + | Segmented | 54Comment: Testing | % | EXTERNAL | | | Neutrophils | performed at [facility] | | LAB | | | Manual | [address];[place] | | | | | | [address] | | | | + + + + + + | % Bands | 7Comment: Testing | % | EXTERNAL | | | | performed at [facility] | | LAB | | | | [address];[place] | | | | | | [address] | | | | + + + + + + | Lymphocytes | 34Comment: Testing | % | EXTERNAL | | | Manual | performed at [facility] | | LAB | | | | [address];[place] | | | | | | [address] | | | | + + + + + + | Monocytes | 4Comment: Testing | % | EXTERNAL | | | Manual | performed at [facility] | | LAB | | | | [address];[place] | | | | | | [address] | | | | + + + + + + | Eosinophils | 1Comment: Testing | % | EXTERNAL | | | Manual | performed at [facility] | | LAB | | | | [address];[place] | | | | | | [address] | | | | + + + + + + | Absolute | 4.12Comment: Testing | 1.90 - 7.40 | EXTERNAL | | | Neutrophils | performed at [facility] | K/uL | LAB | | | | [address];[place] | | | | | | [address] | | | | + + + + + + | Bands | 0.53 (H)Comment: Testing | 0.00 - 0.20 | EXTERNAL | | | Manual | performed at [facility] | K/uL | LAB | | | | [address];[place] | | | | | | [address] | | | | + + + + + + | Absolute | 2.59Comment: Testing | 1.00 - 3.90 | EXTERNAL | | | Lymphocytes | performed at [facility] | K/uL | LAB | | | | [address];[place] | | | | | | [address] | | | | + + + + + + | Absolute | 0.30Comment: Testing | 0.00 - 0.80 | EXTERNAL | | | Monocytes | performed at [facility] | K/uL | LAB | | | | [address];[place] | | | | | | [address] | | | | + + + + + + | Absolute | 0.08Comment: Testing | 0.00 - 0.50 | EXTERNAL | | | Eosinophils | performed at [facility] | K/uL | LAB | | | | [address];[place] | | | | | | [address] | | | | + + + + + + | Platelet | ADEQUATEComment: Testing | | EXTERNAL | | | Estimate | performed at [facility] | | LAB | | | | [address];[place] | | | | | | [address] | | | | + + + + + + | RBC | NORMALComment: Testing | | EXTERNAL | | | Morphology | performed at [facility] | | LAB | | | | [address];[place] | | | | | | [address] | | | | + + + + + + + + | Specimen | + + | Blood specimen | | (specimen) | + + + +---------+ + + | Performing | Address | City/State/Zipcode | Phone Number | | Organization | | | | + +---------+ + + | EXTERNAL LAB | | | | + +---------+ + + Lactic Acid (10/08/2014 9:06 PM PDT) + + + + + + | Component | Value | Ref Range | Performed | Pathologist | | | | | At | Signature | + + + + + + | Lactate | 2.0Comment: Testing | 0.4 - 2.0 | EXTERNAL | | | | performed at [facility] | mmol/L | LAB | | | | [address];[place] | | | | | | [address] | | | | + + + + + + + + | Specimen | + + | Blood specimen | | (specimen) | + + + +---------+ + + | Performing | Address | City/State/Zipcode | Phone Number | | Organization | | | | + +---------+ + + | EXTERNAL LAB | | | | + +---------+ + + Ammonia (10/08/2014 9:06 PM PDT) + + + + + + | Component | Value | Ref Range | Performed | Pathologist | | | | | At | Signature | + + + + + + | Ammonia | 32Comment: Testing | umol/L | EXTERNAL | | | | performed at [facility] | | LAB | | | | [address];[place], [place] | | | | | | [address] | | | | + + + + + + + + | Specimen | + + | Blood specimen | | (specimen) | + + + +---------+ + + | Performing | Address | City/State/Zipcode | Phone Number | | Organization | | | | + +---------+ + + | EXTERNAL LAB | | | | + +---------+ + + Ethanol (10/08/2014 9:06 PM PDT) + + + + + + | Component | Value | Ref Range | Performed | Pathologist | | | | | At | Signature | + + + + + + | Ethyl | 234 (H)Comment: Testing | mg/dL | EXTERNAL | | | Alcohol | performed at [facility] | | LAB | | | | [address] [facility];[place], [place] | | | | | | [address] | | | | + + + + + + + + | Specimen | + + | Blood specimen | | (specimen) | + + + +---------+ + + | Performing | Address | City/State/Zipcode | Phone Number | | Organization | | | | + +---------+ + + | EXTERNAL LAB | | | | + +---------+ + + Acetaminophen Level (10/08/2014 9:06 PM PDT) + + + + + + | Component | Value | Ref Range | Performed | Pathologist | | | | | At | Signature | + + + + + + | ACETAMINOPH | <2.0 (L)Comment: Testing | 10.0 - 30.0 | EXTERNAL | | | EN LEVEL | performed at [facility];[address] | ug/mL | LAB | | | | [address];[place] | | | | | | [address] | | | | + + + + + + + + | Specimen | + + | Blood specimen | | (specimen) | + + + +---------+ + + | Performing | Address | City/State/Zipcode | Phone Number | | Organization | | | | + +---------+ + + | EXTERNAL LAB | | | | + +---------+ + + Salicylate Level (10/08/2014 9:06 PM PDT) + + + + + + | Component | Value | Ref Range | Performed | Pathologist | | | | | At | Signature | + + + + + + | Salicylate | 5.5Comment: Testing | 2.8 - 20.0 | EXTERNAL | | | Lvl | performed at [facility];[address] | mg/dL | LAB | | | | [address];[place], [place] | | | | | | [address] | | | | + + + + + + + + | Specimen | + + | Blood specimen | | (specimen) | + + + +---------+ + + | Performing | Address | City/State/Zipcode | Phone Number | | Organization | | | | + +---------+ + + | EXTERNAL LAB | | | | + +---------+ + + Comprehensive Metabolic Panel (10/08/2014 9:06 PM PDT) + + + + + + | Component | Value | Ref Range | Performed | Pathologist | | | | | At | Signature | + + + + + + | Na | 137Comment: Testing | 135 - 143 | EXTERNAL | | | | performed at [facility] | mmol/L | LAB | | | | [address];[place] | | | | | | [address] | | | | + + + + + + | K | 3.9Comment: Testing | 3.5 - 4.9 | EXTERNAL | | | | performed at [facility] | mmol/L | LAB | | | | [address];[place] | | | | | | [address] | | | | + + + + + + | Cl | 102Comment: Testing | 99 - 109 mmol/L | EXTERNAL | | | | performed at [facility] | | LAB | | | | [address];[place] | | | | | | [address] | | | | + + + + + + | CO2 | 28Comment: Testing | 23 - 32 mmol/L | EXTERNAL | | | | performed at [facility] | | LAB | | | | [address];[place] | | | | | | [address] | | | | + + + + + + | Anion Gap | 11Comment: Testing | 5 - 20 mmol/L | EXTERNAL | | | | performed at [facility] | | LAB | | | | [address];[place] | | | | | | [address] | | | | + + + + + + | Glucose, | 72Comment: Testing | 65 - 99 mg/dL | EXTERNAL | | | Fasting | performed at [facility] | | LAB | | | | [address];[place] | | | | | | [address] | | | | + + + + + + | BUN | 10Comment: Testing | 8 - 25 mg/dL | EXTERNAL | | | | performed at [facility] | | LAB | | | | [address];[place] | | | | | | [address] | | | | + + + + + + | Creatinine | 0.87Comment: Testing | 0.70 - 1.30 | EXTERNAL | | | | performed at [facility] | mg/dL | LAB | | | | [address];[place] | | | | | | [address] | | | | + + + + + + | BUN/Creatin | 11Comment: Testing | | EXTERNAL | | | ine Ratio | performed at [facility] | | LAB | | | | [address];[place] | | | | | | [address] | | | | + + + + + + | Calcium | 8.5Comment: Testing | 8.5 - 10.5 | EXTERNAL | | | | performed at [facility] | mg/dL | LAB | | | | [address];[place] | | | | | | [address] | | | | + + + + + + | Protein, | 9.2 (H)Comment: Testing | 6.3 - 8.2 g/dL | EXTERNAL | | | Total | performed at [facility] | | LAB | | | | [address];[place] | | | | | | [address] | | | | + + + + + + | Albumin | 4.1Comment: Testing | 3.6 - 5.0 g/dL | EXTERNAL | | | | performed at [facility] | | LAB | | | | [address];[place] | | | | | | [address] | | | | + + + + + + | Globulin | 5.1 (H)Comment: Testing | 1.3 - 4.9 g/dL | EXTERNAL | | | | performed [place] [facility] [place] | | LAB | | | | [address];[place] | | | | | | [id number] | | | | + + + + + + | A/G Ratio | 0.8 (L)Comment: Testing | 1.0 - 2.4 | EXTERNAL | | | | performed at [facility] [place] | | LAB | | | | [address];[place] | | | | | | [address] | | | | + + + + + + | Bilirubin | 0.2Comment: Testing | 0.1 - 1.5 mg/dL | EXTERNAL | | | Total | performed [place] [facility] [place] | | LAB | | | | [address];[place] | | | | | | [address] | | | | + + + + + + | ALP, | 85Comment: Testing | 35 - 115 U/L | EXTERNAL | | | External | performed [place] [facility] [place] | | LAB | | | | [address];[place] | | | | | | [address] | | | | + + + + + + | AST | 60 (H)Comment: Testing | 10 - 45 U/L | EXTERNAL | | | | performed at [facility] [place] | | LAB | | | | [address];[place] | | | | | | [address] | | | | + + + + + + | ALT | 78 (H)Comment: Testing | 10 - 65 U/L | EXTERNAL | | | | performed at [facility] [place] | | LAB | | | | [place] [address];[place] | | | | | | [address] | | | | + + + + + + | Estimated | >60Comment: GFR <60: | mL/min/1.73m2 | EXTERNAL | | | GFR | CHRONIC KIDNEY DISEASE, | | LAB | | | | IF FOUND OVER A 3 MONTH | | | | | | PERIOD.GFR <15: KIDNEY | | | | | | FAILURE.FOR | | | | | | AMERICANS, MULTIPLY THE | | | | | | CALCULATED GFR BY | | | | | | 1.210.Testing performed | | | | | | at [facility] [place] | | | | | | [place] [address] | | | | + + + + + + + + | Specimen | + + | Blood specimen | | (specimen) | + + + +---------+ + + | Performing | Address | City/State/Zipcode | Phone Number | | Organization | | | | + +---------+ + + | EXTERNAL LAB | | | | + +---------+ + + documented in this encounter Visit Diagnoses + + | Diagnosis | + + | Altered mental status | + + | Alcohol intoxication (HCC) Alcohol abuse, unspecified | + + | Suicidal ideation | + + | Overdose, initial encounter | + + | Seizure (HCC) Other convulsions | + + | Alcoholic liver disease (HCC) Alcoholic liver damage, unspecified | + + | Elevated liver enzymes Nonspecific elevation of levels of transaminase or lactic acid | | dehydrogenase (LDH) | + + | Shortened CO interval Nonspecific abnormal electrocardiogram (ECG) (EKG) | + + documented in this encounter
--- OUTSIDE RECORDS SUMMARY | ~2020-01-24 | XMS | Encounter Summary ---
Demographics + + + | Address | [address] | | | [address] | | | [place] [address] | + + + | Home Phone | | + + + | Preferred Language | Unknown | + + + | Marital Status | Single | + + + | Protestant Affiliation | 1077 | + + + | Race | Unknown | + + + | Ethnic Group | Unknown | + + + Author + + + | Author | [facility] | | | and [place] | + + + | Organization | [facility] | | | and [...] Team Providers + +------+ + | Care Clinical Ob Name | Role | Phone | + +------+ + | Reji Mock PA-C | PCP | | + +------+ + Reason for Visit + +--------+ + | Reason | Onset | Comments | | | Date | | + +--------+ + | Drug Screen | 10/03/ | | | | 2017 | | + +--------+ + Encounter Details +--------+ + + + + | Date | Type | Department | Care Team | Description | +--------+ + + + + | 10/03/ | Telephone | [facility] [place] | [facility], | Drug Screen | | 2017 | | GASTROENTEROLOGY | Ana [address]IVEN [address] | | | | | [address] | [address] | | | | | [address] [place], [place] | [place], [place] | | | | | [address] | [address] | | | | | [phone] | | | +--------+ + + + [...] Telephone Encounter - Jessica Shin CMA - 10/03/2016 10:35 AM PSTPatient did not call back. Will put in recall for another month for drug screen. elephone Encounter - Kip JessicaCASIMIRO wiggins - 8:20 AM PSTLeft message for patient to return call. (he is due for drug screen) wh ere would he like order sent to?Electronically signed by Jessica Shin CMA at 7 8:21 AM PSTTelephone Encounter - Kip JessicaCASIMIRO wiggins - 10/03/2016 8:20 AM PST----- M essage from Jessica Shin, [employer] Consultant sent at 07/25/2016 13:20 PST ----- Regarding: drug screen Drug screen/Dx: HCV P STdocumented in this encounter Plan of Treatment +--------+---------+ + + + | Date | Type | Specialty | Care Team | Description | +--------+---------+ + + + | 03/06/ | Office | Infectious Diseases | Alanis Montaño | | | 2019 | Visit | | Gwendolyn Shabazz MD | | | | | | [address] | | | | | | [place] [address] | | | | | | [phone] | | | | | | | | +--------+---------+ + + + documented as of this encounter Visit Diagnoses Not on filedocumented in this encounter"
--- OUTSIDE RECORDS SUMMARY | ~2020-01-24 | XMS | Encounter Summary ---
Demographics + + + | Address | [address] [birth year][address] | | | [address] | | | [place] [address] | + + + | Home Phone | | + + + | Preferred Language | Unknown | + + + | Marital Status | Single | + + + | Methodist Affiliation | 1077 | + + + | Race | Unknown | + + + | Ethnic Group | Unknown | + + + Author + + + | Author | [facility] | | | and [place] | + + + | Organization | [facility] | | | [...] Team Providers + +------+ + | Care Plastic Surgery Nurse Name | Role | Phone | + +------+ + | Reji Mock PA-C | PCP | | + +------+ + Encounter Details +--------+ + + + + | Date | Type | Department | Care Team | Description | +--------+ + + + + | 09/03/ | Orders Only | [facility] [place] | Laurita, | Chronic hepatitis C | | 2017 | | GASTROENTEROLOGY | ESTIVEN Perez [address] | without hepatic coma | | | | [address] | [address] | (HCC) (Primary Dx); | | | | [address] [place] | [place] | Liver fibrosis | | | | [address] | [address] | | | | | [phone] | | | +--------+ + + + [...] + + documented as of this encounter Progress Notes Dalia Castañeda RN - 09/03/2016 12:25 PM PSTDrug screen order entered per Yenni's request; Renetta alatorre fax order to [facility] in [place] documented in this encounter Plan of Treatment +--------+---------+ + + + | Date | Type | Specialty | Care Team | Description | +--------+---------+ + + + | 03/06/ | Office | Infectious Diseases | Alanis Montaño | | | 2020 | Visit | | Gwendolyn Shabazz MD | | | | | | [address] | | | | | | [place] [address] | | | | | | [phone] | | | | | | | | +--------+---------+ + + + + +------+--------+ + + | Name | Type | Priori | Associated Diagnoses | Order Schedule | | | | ty | | | + +------+--------+ + + | Drugs of Abuse, | Lab | Routin | Chronic hepatitis | Expected: 09/03/2016 | | Screen, Urine | | e | C without hepatic | (Approximate), | | | | | coma (HCC) Liver | Expires: 10/03/2016 | | | | | fibrosis | | + +------+--------+ + + documented as of this encounter Visit Diagnoses + + | Diagnosis | + + | Chronic hepatitis C without hepatic coma (HCC) - Primary | + + | Liver fibrosis Cirrhosis of liver without mention of alcohol | + + documented in this encounter"
--- OUTSIDE RECORDS SUMMARY | ~2020-01-24 | XMS | Encounter Summary ---
Demographics + + + | Address | [address] [birth year][address][birth year] | | | [address] | | | [place] [address] | + + + | Home Phone | | + + + | Preferred Language | Unknown | + + + | Marital Status | Single | + + + | Gnosticist Affiliation | 1077 | + + + | Race | Unknown | + + + | Ethnic Group | Unknown | + + + Author + + + | Author | [facility] | | | and [place] | + + + | Organization | [facility] | | | and [...] Team Providers + +------+ + | Care Paleontological Helper Name | Role | Phone | + +------+ + PCP | Unavailable | + +------+ + Encounter Details +--------+ + + + + | Date | Type | Department | Care Team | Description | +--------+ + + + + | 01/20/ | Emergency | [facility] | Tim West, | Dental cavities | | 2013 | | MEDICAL CENTER | MD Braden Biggs [facility] | | | | | EMERGENCY CENTER | [place], [place] | | | | | [address] [id number] | | | | | [place], [place] | | | | | | [address] | | | | | | [phone] | | | +--------+ + + + [...] documented as of this encounter ED Notes Tim West MD - 01/20/2014 7:28 PM PDTFormatting of this note might be different fr om the original. ED Provider Notes by Tim West MD at 01/20/14 1928 Author: Tim West MD Service: (none) Author Type: Physician Filed: 01/20/142205 Date of Service: 01/20/141927 Status: Signed Trapeze Artist: Tim West MD (Physician) [facility] Department of Emergency Medicine History of Present Illness Zak Mercado is a 48 y.o. male presenting with dental pain and a sore throat. Patient i nformation was obtained from patient. History/Exam limitations: none. Patient presented to the Emergency Department Car. Chief Complaint Patient presents with Dental Pain broken tooth Sore Throat Cough Zak Mercado presents for evaluation of dental pain. The symptom onset was just this t month and he has insurance issues and access to care issues that are preventing him from g etting these teeth taken care of. This has had a constant course. The pain is located in th e left upper maxilla, and is rated as moderate. There is no radiation. This is made worse by nothing and is relieved by nothing. The patient also complains of the following additional symptoms: fatigue. The patient denies fevers. Care prior to arrival consisted of rest wit h no relief. The patient has had these symptoms before. Primary care provider: PER PT NONE Past Medical History Diagnosis [...] Smoking status: Current Some Day Smoker -- 0.1 packs/day for 40 years Types: Cigarettes Start date: 08/17/1973 Smokeless tobacco: Never Used Alcohol Use: Yes Comment: weekend drinks Drug Use: No Comment: prior user 1995 Sexually Active: Yes -- Female partner(s) Other Topics Concern Not on file Social History Narrative No narrative on file Patient is a local resident and lives with family. Patient has good social support Family History Problem Relation Age of Onset Hypertension Mother Hypertension Father Review of Systems Review of Systems Constitutional: Negative for fever and chills. Gastrointestinal: Negative for abdominal pain. Ten systems reviewed and otherwise negative Physical Exam BP 103/59 | Pulse 99 | Temp 97.3 F (36.3 C) (Oral) | Resp 18 | Ht 1.626 m (5' 4") | Wt 56.7 kg (125 lb) | BMI 21.45 kg/m2 | SpO2 98% Vital signs are reviewed and are normal. Pul se Oximetry Interpretation: Normal on room air General: Alert, odd affect Eyes: Normal inspection, pupils equal and round, non-icteric ENT: Ears normal, no drainage Nose normal and no deformity Mouth: Marked dental caries of the left upper teeth, no abscess Pharynx: Mucosa is normal, uvula is midline and no tonsillar enlargement Neck: Normal inspection, supple, no lymphadenopathy, no meningeal signs. Heart: Rate and rhythm normal, no murmurs, no S3/4, no extra heart sounds Respiratory: Breath sounds are normal, normal chest rise and fall, no obvious trauma Abdomen: Soft and non tender and no mass, no guarding and no rebound Skin: Color normal, no petechia or rash, warm and dry Neuro: No motor deficits, moving all extremities equally, equal wire coiner, no sensory deficit. Psych: Appropriate affect, no evidence of hallucinations or delusions. Not suicidal or ho micidal at the time of my examination Ext: Normal Medical Decision Making and Emergency Department Course ED Department Course 19:25. Patient care initiated. This patient has dental caries. However, there is no palpable facial abscess or gumline ab scess/fluid collections, no trismus and no signs of a deep tissue infection of the face and neck. No sublingual swelling, redness and pain and no submental fullness or tenderness. The patient has pain but able to swallow and has a normal voice and vocalization. I will treat with oral antibiotics with anaerobic coverage, pain and nausea medicines if the patient nee ds these Patient Vitals for the past 24 hrs: BP Temp Temp src Pulse Resp SpO2 Height Weight 01/20/145 103/59 mmHg 97.3 F (36.3 C) Oral 99 18 98 % 1.626 m (5' 4") 56.7 kg (12 5 lb) The vital sings above have been reviewed prior to disposition Medications given in the Emergency Department: Medications HYDROcodone-acetaminophen (NORCO) 5-325 MG per tablet (not administered) clindamycin (CLEOCIN) 300 MG capsule (not administered) Records Reviewed Old medical records. Nursing notes for this Emergency Department visit were reviewed. Consultations and phone calls: NONE Laboratory Evaluation: Results None Radiology and EKG Evaluation Imaging Results None ED Diagnosis Final diagnosis Dental cavities Disposition: ED Disposition Discharge Condition at discharge: Stable . Follow-up Information Follow up With Details Comments Contact [facility] Schedule an appointment as soon as possible for a visit [facility] [address] [facility] [address] Per Pt None Discharge Medications: New Prescriptions CLINDAMYCIN (CLEOCIN) 300 MG CAPSULE Take 1 capsule by mouth 4 (four) times daily. HYDROCODONE-ACETAMINOPHEN (NORCO) 5-325 MG PER TABLET Take 1 tablet by mouth every 6 (s ix) hours as needed for Pain. Discharge decision based on the following: Patient's condition is stable; patient is ambula tory; patient drinking fluids; patient's pain is controlled; patient's exam is stable; minim ally abnormal test results; stable condition on repeat evaluations; social support is adequa te; transportation is available; follow-up is available; clinical impression is consistent w ith outpatient treatment Additional Documentation Procedures Tim West MD 01/20/142 documented in this encounter Plan of Treatment +--------+---------+ + + + | Date | Type | Specialty | Care Team | Description | +--------+---------+ + + + | 03/06/ | Office | Infectious Diseases | Ursales, Alanis | | | 2020 | Visit | | Gwendolyn Shabazz MD | | | | | | [address] | | | | | [facility] [place] [address] | | | | | | [phone] | | | | | | | | +--------+---------+ + + + documented as of this encounter Visit Diagnoses + + | Diagnosis | + + | Dental cavities Unspecified dental caries | + + documented in this encounter
--- OUTSIDE RECORDS SUMMARY | ~2020-01-24 | XMS | Encounter Summary ---
Demographics + + + | Address | [address] | | | [address] | | | [place] [address] | + + + | Home Phone | | + + + | Preferred Language | Unknown | + + + | Marital Status | Single | + + + | Mormonism Affiliation | 1077 | + + + | Race | Unknown | + + + | Ethnic Group | Unknown | + + + Author + + + | Author | [facility] | | | and [place] | + + + | Organization | [facility] | | | [...] Team Providers + +------+ + | Care Nipping Machine Operator Name | Role | Phone | + +------+ + | Fabio Sandoval MD | PCP | | + +------+ + Encounter Details +--------+ + + + + | Date | Type | Department | Care Team | Description | +--------+ + + + + | 09/09/ | Episode | [facility] | Lulu aSlas | | | 2019 | Changes | ORTHOPEDIC SURGERY | I, Orthodontic Laboratory Technician | | | | | [address] | | | | | | [place] | | | | | | [address] | | | | | | [phone] | | | +--------+ + + + [...] [address] | | | | | | [place] [address] | | | | | | [phone] | | | | | | | | +--------+---------+ + + + documented as of this encounter Visit Diagnoses Not on filedocumented in this encounter"
--- OUTSIDE RECORDS SUMMARY | ~2020-01-24 | XMS | Encounter Summary ---
Demographics + + + | Address | [address] [birth year][address][birth year] | | | [address] | | | [place] [address] | + + + | Home Phone | | + + + | Preferred Language | Unknown | + + + | Marital Status | Single | + + + | Quaker Affiliation | 1077 | + + + | Race | Unknown | + + + | Ethnic Group | Unknown | + + + Author + + + | Author | [facility] | | | and [place] | + + + | Organization | [facility] | | | [...] Team Providers + +------+ + | Care Machine Records Units Supervisor Name | Role | Phone | [...] | Changes | ORTHOPEDIC SURGERY | I, Record Keeper | | | | | [address] | | | | | | [place] | | | | | | [address] | | | | | | [phone] | | | +--------+ + + + [...] | | | | | [place] [address] | | | | | | [phone] | | | | | | | | +--------+---------+ + + + documented as of this encounter Visit Diagnoses Not on filedocumented in this encounter"
--- OUTSIDE RECORDS SUMMARY | ~2020-01-24 | XMS | Encounter Summary ---
Demographics + + + | Address | [address] | | | [address] | | | [place] [address] | + + + | Home Phone [...] | Author | [facility] | | | and [place] | + + + | Organization | [facility] | | | and [...] Team Providers + +------+ + | Care Chromium Plater Name | Role | Phone | + +------+ + PCP | Unavailable | + +------+ + Encounter Details +--------+ + + + + | Date | Type | Department | Care Team | Description | +--------+ + + + + | 12/29/ | Emergency | [facility] | Seth Marroquin, | Pneumonia; | | 2013 | | MEDICAL CENTER | MD [address]i [address] | Pleurisy | | | | EMERGENCY CENTER | [place] [address] | | | | | [address] | [phone] | | | | | [place], [place] | | | | | | [address] | | | | | | [phone] | | | +--------+ + + + [...] ED Notes by Dee Olson RN at 12/29/131217 Author: Dee Olson RN Service: (none) Author Type: Registered Nurse Filed: 12/29/131217 Date of Service: 06/04/14 1218 Status: Signed Wax Pattern Repairer: Dee Olson RN (Registered Nurse) Report given to Linnea CONNIE Olson RN 12/29/13 1218 onver janis Transaction, Provider Unknown - 12/29/2013 11:38 AM PDT ED Notes by Dee Olson RN at 12/29/13 1138 Author: Dee Olson RN Service: (none) Author Type: Registered Nurse Filed: 12/29/13 1138 Date of Service: 12/29/131137 Status: Signed Wax Pattern Repairer: Dee Olson RN (Registered Nurse) 2 patient identifiers checked, patient gowned, ID band placed on patient, call light instr ucted on and given to patient. Dee Olson RN 12/29/13 113 onver janis Transaction, Provider Unknown - 12/29/2013 11:37 AM PDT ED Notes by Dee Olson RN at 12/29/13 113 Author: Dee Olson RN Service: (none) Author Type: Registered Nurse Filed: 12/29/13 1200 Date of Service: 12/29/131136 Status: Signed Wax Pattern Repairer: Dee Olson RN (Registered Nurse) Patient states [...] Notes by Seth Marroquin MD at 12/29/13 1135 Author: Seth Marroquin MD Service: (none) Author Type: Physician Filed: 12/29/13 1246 Date of Service: 12/29/13 4358 Status: Signed Wax Pattern Repairer: Seth Marroquin MD (Physician) [facility] Department of Emergency [...] on antibiotics for that. changind doctors because aurea mina says his regualar doctor does nothing for [...] Documented by Seth Marroquin MD (12/29/13 1235, [facility] Emergency Department, Emergency Medicine) This ED initial [...] Information Follow up With Details Comments Contact [address] [facility] [id number] Discharge Medications: New Prescriptions AZITHROMYCIN (ZITHROMAX) 250 MG TABLET Take 1 tablet by mouth daily. HYDROCODONE-ACETAMINOPHEN (NORCO) 5-325 MG PER TABLET Take 1-2 tablets by mouth every 4 (four) hours as needed for Pain. Additional Documentation Procedures Seth Marroquin MD 12/29/13 1122 documented in this e ncounter Plan of Treatment +--------+---------+ + + + | Date | Type | Specialty | Care Team | Description | +--------+---------+ + + + | 03/06/ | Office | Infectious Diseases | Alanis Montaño | | | 2019 | Visit | | Gwendolyn Shabazz MD | | | | | | [address] | | | | | | [place] [address] | | | | | | [phone] | | | | | | | [...] At | + + + | ZAK RANEGL XR CHEST 2 VIEW FRONTAL AND LATERAL [...]
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
--- OUTSIDE RECORDS SUMMARY | ~2020-01-24 | XMS | Encounter Summary ---
Demographics + + + | Address | [address] | | | [address] | | | [place] [address] | + + + | Home Phone | | + + + | Preferred Language | Unknown | + + + | Marital Status | Single | + + + | Muslim Affiliation | 1077 | + + + [...] Team Providers + +------+ + | Care Ambulance Paramedic Name | Role | Phone | + +------+ + | Reji Mock PA-C | PCP | | + +------+ + Encounter Details +--------+ + + + + | Date | Type | Department | Care Team | Description | +--------+ + + + + | 07/19/ | Abstract | [facility] [place] | Laurita, | | | 2015 | | GASTROENTEROLOGY | ESTIVEN Perez [address] | | | | | [address] | [address] | | | | | [address] [place] | [place] | | | | | [address] | [address] | | | | | [phone] | | | +--------+ + + + [...] | | | | | | [address] | | | | | | [place] [address] | | | | | | [phone] | | | | | | | | +--------+---------+ + + + documented as of this encounter Procedures + +--------+ + + + | Procedure Name | Priori | Date/Time | Associated Diagnosis | Comments | | | ty | | | | + +--------+ + + + | EXTERNAL LAB: [facility] | Routin | 06/12/2016 | | Results [...] | EXTERNAL LAB: CBC | Routin | 06/12/2016 | | Results for this | | | e | | | procedure are in the | | | | | | results section. | + +--------+ + + + | EXTERNAL LAB: | Routin | 06/12/2016 | | Results for this | | [facility] | e | | | procedure [...] | (specimen) | + + External Lab: [facility] (06/12/2016) + +-------+ + + + | [...] | + +---------+ + + External Lab: [facility] (06/12/2016) + +-------+ + + + | [...]
--- OUTSIDE RECORDS SUMMARY | ~2020-01-24 | XMS | Encounter Summary ---
Demographics + + + | Address | [address] [birth year] | | | [address] | | | [place] [address] | + + + | Home Phone | | + + + | Preferred Language | Unknown | + + + | Marital Status | Single | + + + | Buddhist Affiliation | 1077 | + + + [...] Team Providers + +------+ + | Care Passport Support Associate Name | Role | Phone | + +------+ + | Reji Mock PA-C | PCP | | + +------+ + Reason for Visit + +--------+ + | Reason | Onset | Comments | | | Date | | + +--------+ + | Drug Screen | 10/30/ | | | | 2017 | | + +--------+ + Encounter Details +--------+ + + + + | Date | Type | Department | Care Team | Description | +--------+ + + + + | 10/30/ | Telephone | [facility] [place] | [facility], | Drug Screen | | 2017 | | GASTROENTEROLOGY | Ana ESTIVEN [address] | | | | | [address] | [address] | | | | | [address] [place], [place] | [place], [place] | | | | | [address] | [address] | | | | | [phone] | | | +--------+ + + + [...] Telephone Encounter - Jessica Shin CMA - 10/30/2016 8:43 AM PDTCalled to have patie nt go in for drug screen. Could not leave message. VM full. elephone Encounter - Jessica Shin CMA - 11/2016 8:43 AM PDT----- Message from Jessica Shin CMA sent at 10/03/2016 10:35 PST --- -- Regarding: drug screen Recall reason: drug screen Recall Date: 10/26/16 Last procedure: tried calling 10/03/16 Comments documented in thi s encounter Plan of Treatment +--------+---------+ + + + | Date | Type | Specialty | Care Team | Description | +--------+---------+ + + + | 03/06/ | Office | Infectious Diseases | Alanis Montaño | | | 2019 | Visit | | Gwendolyn Shabazz MD | | | | | | [address] | | | | | | [place] [address] | | | | | | [phone] | | | | | | | | +--------+---------+ + + + documented as of this encounter Visit Diagnoses Not on filedocumented in this encounter"
--- OUTSIDE RECORDS SUMMARY | ~2020-01-24 | XMS | Encounter Summary ---
Demographics + + + | Address | [birth year] | | | [address] | | | [place] [address] | + + + | Home Phone | | + + + | Preferred Language | Unknown | + + + | Marital Status | Single | + + + | Church Affiliation | 1077 | + + + | Race | Unknown | + + + | Ethnic Group | Unknown | + + + Author + + + | Author | [facility] | | | and [place] | + + + | Organization | [facility] | | | [...] Team Providers + +------+ + | Care News Videotape Editor Name | Role | Phone | + [...] | Telephone | [facility] [place] | [place], | Other | | 2017 | | GASTROENTEROLOGY | Ana [address]IVEN [address] | | | | | [address] | [address] | | | | | [address] [place], [place] | [place], [place] | | | | | [address] | [address] | | | | | [phone] | | | +--------+ + + + [...] phone numbers where he can be reached. [phone] or [phone]. d ocumented in this encounter Plan of Treatment +--------+---------+ + + + | Date | Type | Specialty | Care Team | Description | +--------+---------+ + + + | 03/06/ | Office | Infectious Diseases | Alanis Montaño | | | 2019 | Visit | | Gwendolyn Shabazz MD | | | | | | [address] | | | | | | [place] [address] | | | | | | [phone] | | | | | | | | +--------+---------+ + + + documented as of this encounter Visit Diagnoses Not on filedocumented in this encounter"
--- OUTSIDE RECORDS SUMMARY | ~2020-01-24 | XMS | Encounter Summary ---
Demographics + + + | Address | [birth year] | | | [address] | | | [place] [address] | + + + | Home Phone | | + + + | Preferred Language | Unknown | + + + | Marital Status | Single | + + + | Gnosticism Affiliation | 1077 | + + + [...] Team Providers + +------+ + | Care Buttonhole Maker Name | Role | Phone | + [...] + + | 10/15/ | Office | [facility] | Ari Madden | Chronic hepatitis C | | 2019 | Visit | ORTHOPEDIC SURGERY | [address] | without hepatic coma | | | | [address] | [address] | (HCC) (Primary Dx); | | | | [address] | [place] [address] | Carpal tunnel | | | | [address] | [phone] | syndrome of left | | | | [phone] | | wrist; Severe carpal | | [...] not bent back when typing. You may vpqovkz-mfq-refitgh pain medicine to treat pain and inflammation, unless ano er medicine was prescribed.Anti-inflammatory pain medicines, such [...] becomes swollen or weak Date Last Reviewed: 11/25/201719992309-5565 [employer]. [address] [place] [address]. All righ ts reserved. This information is not intended as a substitute for professional medical care. Always follow your healthcare professional's instructions. documented in this encounter Progress Notes Ari Madden MD - 10/15/2018 10:45 AM PDTFormatting of this note might be dif ferent from the original. [facility] PRE-OPERATIVE VISIT Pt. Name/Age/: Zak Mercado 53 [...] Surgical History: Procedure Laterality Date COLONOSCOPY 2015 [place] KNEE ARTHROSCOPY acl injury Allergies: No Known [...] made to ensure accuracy; however, inadvertent computerized belt maker helper errors may be pre sent. I appreciate [...] [address] | | | | | | [place] [address] | | | | | | [phone] | | | | | | | [...]
--- OUTSIDE RECORDS SUMMARY | ~2020-01-24 | XMS | Encounter Summary ---
Demographics + + + | Address | [birth year] | | | [address] | | | [place] [address] | + + + | Home Phone | | + + + | Preferred Language | Unknown | + + + | Marital Status | Single | + + + | Sikh Affiliation | 1077 | + + + | Race | Unknown | + + + | Ethnic Group | Unknown | + + + Author + + + | Author | [facility] | | | and [place] | + + + | Organization | [facility] | | [...] Team Providers + +------+ + | Care Abe Teacher Name | Role | Phone | + +------+ + | Reji Mock PA-C | PCP | | + +------+ + Reason for Visit +--------+ + | Reason | Comments | +--------+ + | Other | HCV | +--------+ + Evaluate & Treat (Routine) +--------+--------+ + + + + | Status | Reason | Specialty | Diagnoses / | Referred By | Referred To | | | | | Procedures | Contact | Contact | +--------+--------+ + + + + | Closed | | Gastroenterol | Diagnoses | Nish, | [facility] | | | | ogy | Hepatitis C | Reji White, | Gastroenterol | | | | | Hepatitis | PA-C [address] | [address] | | | | [address] | [address] | | | | [address] | [address] [place] | | | | | | [place], | [place], | | | | | | [place] [address] | [address] | | | | | | Phone: | Phone: | | | | | | [phone] | [phone] | | | | | | Fax: | Fax: | | | | | | [phone] | [phone] | +--------+--------+ + + + + Encounter Details +--------+---------+ + + + | Date | Type | Department | Care Team | Description | +--------+---------+ + + + | 05/15/ | Office | [facility] | [place], | Chronic hepatitis C | | 2016 | Visit | GASTROENTEROLOGY | [address] | without hepatic coma | | | | [address] | [address] | (HCC) (Primary Dx) | | | | [address] [place], [place] | [place], [place] | | | | | [address] | [address] | | | | | [phone] | | | +--------+---------+ + + + [...] + + + | Blood Pressure | 130/72 | 05/15/2016 9:51 AM | | | | | PDT | | + + + + + | Pulse | 82 | 05/15/2016 9:51 AM | | | | | PDT | | + + + + + | Temperature | 36.6 C (97.9 F) | 05/15/2016 9:51 AM | | | | | PDT | | + + + + + | Respiratory Rate | 16 | 05/15/2016 9:51 AM | | | | | PDT | | + + + + + | Oxygen Saturation | 99% | 05/15/2016 9:51 AM | | | | | PDT | | + + + + + | Inhaled Oxygen | - | - | | | Concentration | | | | + + + + + | Weight | 56.2 kg (124 lb) | 05/15/2016 9:51 AM | | | | | PDT | | + + + + + | Height | 160 cm (5' 3") | 05/15/2016 9:51 AM | | | | | PDT | | + + + + + | Body Mass Index | 21.97 | 05/15/2016 9:51 AM | | | | | PDT | | + + + + + documented in this encounter Patient Instructions Patient Instructions Seth ShayARI ahmadiP - 05/19/2016 3:25 PM PDT Hepatitis C and HCV Infection Hepatitisis inflammation of the liver.There are many types of hepatitis. One of the mos t common is hepatitis C, which is caused by the hepatitis C virus(HCV).In some cases, he patitis C goes away on its own and can be cleared or cured by the normal immune system. But for most people, hepatitis C is alifelong condition until treatment and cure takes place w ith a specialist. How are people infected? HCV spreads from person to person through blood or body fluids. HCV infection can occur whe n blood containing the virus enters a healthy person s body. A person may become infected by: Having had a blood transfusion or organ transplant before 1991, or clotting factors made before 1986. Today, these products are all screened for HCV. Receiving kidney dialysis over a long period with blood exposure. Using injected drugs, even once. Having unprotected sex with an infected partner. Being infected this way is rare, but is more likely for people with many partners. How HCV affects your body Once HCV enters the body, it travels through the bloodstream to the liver. There, HCV can c auseinflammation.This means that liver tissue becomes swollen and irritated. Over time, inflamed liver tissue is replaced by scar tissue.As the liver becomes scarred, it may be l ess able to do its work. After many years of damage, the liver might even stop working. This can cause serious health problems or even . HCV gordon systemic disease and can damage the brain, kidneys, nerves, skin, and other organs.HCV is also linked to various cancers, diabetes, and fatty liver. 7839-9232 [employer]. [address] [place] [address], [place] [address]. All righ ts reserved. This information is not intended as a substitute for professional medical care. Always follow your healthcare professional's instructions. documented in this encounter Progress Notes Ana Shay ARNP - 05/15/2016 10:25 AM PDTFormatting of this note might be differe nt from the original. Zak Mercado is a 50 y.o. male referred by Reji Mock PA-C for evaluation and treatment of HCV. History of present illness: Patient was initially diagnosed with HCV about 20 years ago. Likely cause of infection of Preet MENDEZ is related to incarceration, nursing home tattoos, history of IVDU, or intranasal drug. Has not been treated for HCV in the past. Has not had liver biopsy. Last drank alcohol: he is drinking alcohol about 2 times per month. Last smoked marijuana: about 1 week ago Last used illegal drugs: about 5 years Denies ascites, jaundice, hematemesis, peripheral edema, sleep changes, or confusion. No Known Allergies Past Medical History Diagnosis Date HCV (hepatitis C virus) Back pain, chronic low back Osteoarthritis of knee, unilateral left Past Surgical History Procedure Laterality Date Knee arthroscopy acl injury Colonoscopy 2016 [place]/ [facility] Family History Problem Relation Age of Onset Heart attack Father Heart attack Brother Stroke Maternal Grandmother Social History Social History Marital Status: Single Spouse Name: N/A Number of Children: N/A Years of Education: N/A Occupational History Not on file. Social History Main Topics Smoking status: Current Every Day Smoker Smokeless tobacco: Current User Alcohol Use: 0.0 oz/week 0 Standard drinks or equivalent per week Comment: rare, quit drinking heavy Drug Use: Not on file Comment: quit 1995 Sexual Activity: Not on file Other Topics Concern Not on file Social History Narrative Review of systems: Constitutional:Denies any fevers, chills, or unintentional weight loss. Eyes:Denies using glaucoma eye drops. Denies dry, burning, painful eyes Respiratory:Denies shortness of breath, cough or wheezing. Gastrointestinal:Denies constipation, diarrhea, bloody or black stools, hematemesis, nausea or vomiting, hemorrhoids, heartburn, abdominal pain, or dysphagia Skin: Denies rashes Neurological:Complains of memory difficulties, numbness and tingling, and frequent botherso me headaches. Denies muscle weakness, paralysis of arms or legs, epilepsy or seizure. ENT:Denies hearing loss, hearing aids, hearing ringing or buzzing in ears, constantly runny nose, nasal obstruction, hayfever, dentures, or hoarseness. Cardiovascular:Complains of chest pain. Denies heart palpitations and bothersome ankle swel ling. :Complains of frequent nocturnal urination. Denies painful urination, urine incontinence, waking up on average more than once per night to urinate, bloody urine, or impotence. Musculoskeletal:Complains of swollen joints, painful back, or painful joints. Psychiatric:Complains of depression. Denies anxiety. Endocrine:Denies enlarged thyroid. Heme/lymph:Denies anemia or enlarged lymph glands. Physical exam: General: well developed, well nourished, in no acute distress, no muscle wasting noted Head: normocephalic and atraumatic Eyes: Sclera clear Mouth: MMM Lungs: Clear to auscultate bilaterally and throughout Heart: regular rate and rhythm Abdomen: Soft, non tender, non distended, bowel tones positive times 4 quadrants, negative Katia y's sign, negative rebound tenderness, no guarding, no hepatosplenomegaly palpated. Msk: symmetrical with no deformity, with normal posture and gait, normal strength. Extremities: no clubbing, cyanosis, edema, or deformity noted Neurologic: no focal deficits, cranial nerves II-XII grossly intact, negative for asterixis Skin: intact without lesions or rashes.negaive for spider angioma Psych: alert and cooperative; normal mood and affect; normal attention span and concentration, Abstract on 05/08/2016 Component Date Value Ref Range Status Creatinine, External 11/15/2015 1.12 0.7 - 1.3 Final Sodium, External 11/15/2015 138 135 - 145 Final Potassium, External 11/15/2015 4.4 3.5 - 5.3 Final Chloride, External 11/15/2015 150* 99 - 109 Final Carbon Dioxide, External 11/15/2015 26 22 - 31 Final Calcium, External 11/15/2015 9.3 8.5 - 10.2 Final Protein, Total, External 11/15/2015 7.9 6.2 - 8.2 Final Albumin, External 11/15/2015 4.0 3.5 - 4.7 Final Bilirubin, Total, External 11/15/2015 0.2 0.1 - 1.5 Final ALP, External 11/15/2015 99 35 - 115 Final AST, External 11/15/2015 72* 10 - 45 Final ALT, External 11/15/2015 104* 10 - 65 Final Glucose, External 11/15/2015 98 65 - 99 Final BUN, External 11/15/2015 14 8 - 25 Final HCV Quantitative Log 11/15/2015 4.7 Final HCV Quantitative 11/15/2015 55947 Final ANION GAP 11/15/2015 7 Final BUN/Creatinine Ratio 11/15/2015 12.5 Final HCV Genotype 11/15/2015 2b Final Alpha Fetoprotein, Total 11/15/2015 2.4 0.6 - 6.6 Final WBC, External 11/15/2015 5.6 4 - 11 Final HGB, External 11/15/2015 13.8 13.5 - 17.5 Final HCT, External 11/15/2015 38.6* 40 - 50 Final PLT, External 11/15/2015 377 140 - 440 Final Neutrophils %, External 11/15/2015 62.5 37 - 67 Final Lymphocytes %, External 11/15/2015 34.9 24 - 44 Final RBC, External 11/15/2015 4.38 4.3 - 5.7 Final MCV, External 11/15/2015 88 81 - 99 Final RDW, External 11/15/2015 12.8 10.5 - 15 Final MCHC 11/15/2015 35.8 30.0 - 36.0 % Final Abdominal ultrasound 01/01/2016: Impression: unremarkable abdomen ultrasound. Assessment: 1. Chronic hepatitis C without hepatic coma (HCC) Alpha Fetoprotein, Tumor Marker Bhlxb-0-Xfcnjqpuvvy, Total TAMIKA Screen, Qual CBC with Differential Ceruloplasmin Ferritin [facility] [place] Comprehensive Metabolic Panel Smooth Muscle Ab Protime INR Mitochrondrial Ab Iron and Transferrin Hepatitis A IGG.IGM Hepatitis B Core Ab, IgM Hepatitis B Surface Ab Hepatitis B Surface Ag genotype 2b Plan: Liver fibrosis: A liver biopsy has never been done. Will order laboratory test to determin e current fibrosis score. This in combination with APRI will help determine a fibrosis scor e to determine if patient would be an appropriate candidate for hepatitis C treatment. Ordered labs to determine if additional liver pathology present. Vaccination: If it has not been done, recommend patient is vaccinated for both Hepatitis A and Hepatitis B. Transmission: Discussed following infection control guidelines. Inform tattoo parlors and [facility] providers of HCV infection. Avoid sharing personal items that might have blood on them, such as razors, toothbrushes, and nail clippers.Despite low risk of transmission throu gh routine sexual contact, recommend safe sex practices, especially if multiple sexual partn ers. Substance use/abuse: Patient was educated on the importance of avoiding all alcohol and mar ijuana. Cannot treat HCV unless patient has been sober from alcohol, marijuana, and all othe r illegal drugs. Contraindications to HCV treatment: Absolute contraindications to HCV treatment include: 1. Short life expectancy.severe co morbidities (less than 10 years). 2. Known advanced cirrhosis with clinical decompensation (e.g. Ascites, encephalopathy, va riceal bleeding or SBP) 3. or inability to reliably use control. 4. Severe cardiac disease. Will follow up with results. Patient is [...] [address] | | | | | | [place] [address] | | | | | | [phone] | | | | | | | | +--------+---------+ + + + + +------+--------+ + + | Name | Type | Priori | Associated Diagnoses | Order Schedule | | | | ty | | | + +------+--------+ + + | Alpha Fetoprotein, | Lab | Routin | Chronic hepatitis | 1 Occurrences | | Tumor Marker | | e | C without hepatic | starting 05/15/2016 | | | | | coma (HCC) | until 09/12/2016 | + +------+--------+ + + | Grjtn-4-Ocizeeosicj, | Lab | Routin | Chronic hepatitis | 1 Occurrences | | Total | | e | C without hepatic | starting 05/15/2016 | | | | | coma (HCC) | until 09/12/2016 | + +------+--------+ + + | TAMIKA Screen, Qual | Lab | Routin | Chronic hepatitis | Expected: | | | | e | C without hepatic | 05/15/2016, Expires: | | | | | coma (HCC) | 08/13/2016 | + +------+--------+ + + | CBC with | Lab | Routin | Chronic hepatitis | 1 Occurrences | | Differential | | e | C without hepatic | starting 05/15/2016 | | | | | coma (HCC) | until 09/12/2016 | + +------+--------+ + + | Ceruloplasmin | Lab | Routin | Chronic hepatitis | 1 Occurrences | | | | e | C without hepatic | starting 05/15/2016 | | | | | coma (HCC) | until 09/12/2016 | + +------+--------+ + + | Ferritin | Lab | Routin | Chronic hepatitis | 1 Occurrences | | | | e | C without hepatic | starting 05/15/2016 | | | | | coma (HCC) | until 09/12/2016 | + +------+--------+ + + | Misc Lab Referral | Lab | Routin | Chronic hepatitis | Expected: 05/15/2016 | | | | e | C without hepatic | (Approximate), | | | | | coma (HCC) | Expires: 08/13/2016 | + +------+--------+ + + | Comprehensive | Lab | Routin | Chronic hepatitis | 1 Occurrences | | Metabolic Panel | | e | C without hepatic | starting 05/15/2016 | | | | | coma (HCC) | until 09/12/2016 | + +------+--------+ + + | Smooth Muscle Ab | Lab | Routin | Chronic hepatitis | 1 Occurrences | | | | e | C without hepatic | starting 05/15/2016 | | | | | coma (HCC) | until 09/12/2016 | + +------+--------+ + + | Protime INR | Lab | Routin | Chronic hepatitis | 1 Occurrences | | | | e | C without hepatic | starting 05/15/2016 | | | | | coma (HCC) | until 09/12/2016 | + +------+--------+ + + | Mitochrondrial Ab | Lab | Routin | Chronic hepatitis | 1 Occurrences | | | | e | C without hepatic | starting 05/15/2016 | | | | | coma (HCC) | until 05/16/2017 | + +------+--------+ + + | Iron and Transferrin | Lab | Routin | Chronic hepatitis | 1 Occurrences | | | | e | C without hepatic | starting 05/15/2016 | | | | | coma (HCC) | until 09/12/2016 | + +------+--------+ + + | Hepatitis A IGG.IGM | Lab | Routin | Chronic hepatitis | 1 Occurrences | | | | e | C without hepatic | starting 05/15/2016 | | | | | coma (HCC) | until 09/12/2016 | + +------+--------+ + + | Hepatitis B Core Ab, | Lab | Routin | Chronic hepatitis | 1 Occurrences | | IgM | | e | C without hepatic | starting 05/15/2016 | | | | | coma (HCC) | until 09/12/2016 | + +------+--------+ + + | Hepatitis B Surface | Lab | Routin | Chronic hepatitis | 1 Occurrences | | Ab | | e | C without hepatic | starting 05/15/2016 | | | | | coma (HCC) | until 09/12/2016 | + +------+--------+ + + | Hepatitis B Surface | Lab | Routin | Chronic hepatitis | 1 Occurrences | | Ag | | e | C without hepatic | starting 05/15/2016 | | | | | coma (HCC) | until 09/12/2016 | + +------+--------+ + + documented as of this encounter Procedures + +--------+ + + + | Procedure Name | Priori | Date/Time | Associated Diagnosis | Comments | | | ty | | | | + +--------+ + + + | LABS - EXTERNAL SCAN | | 06/14/2016 | | Results for this | | | | 12:00 AM | | procedure are in the | | | | PST | | results section. | + +--------+ + + + | LABS - EXTERNAL SCAN | | 06/12/2016 | | Results for this | | | | 12:00 AM | | procedure are in the | | | | PST | | results section. | + +--------+ + + + documented in this encounter Results LABS - EXTERNAL SCAN (06/14/2016 12:00 AM PST) + + + | Narrative | Performed At | + + + | Ordered by an | | | unspecified provider. | | + + + LABS - EXTERNAL SCAN (06/12/2016 12:00 AM PST) + + + | Narrative | Performed At | + + + | Ordered by an | | | unspecified provider. | | + + + documented in this encounter Visit Diagnoses + + | Diagnosis | + + | Chronic hepatitis C without hepatic coma (HCC) - Primary | + + documented in this encounter
--- OUTSIDE RECORDS SUMMARY | ~2020-01-24 | XMS | Encounter Summary ---
Demographics + + + | Address | [birth year] | | | [address] | | | [place] [address] | + + + | Home Phone | | + + + | Preferred Language | Unknown | + + + | Marital Status | Single | + + + | Adventist Affiliation | 1077 | + + + | Race | Unknown | + + + | Ethnic Group | Unknown | + + + Author + + + | Author | [facility] | | | and [place] | + + + | Organization | [facility] | | [...] Team Providers + +------+ + | Care Mine Laborer Name | Role | Phone | + [...] Specialty | Orthopedic | Diagnoses | | [place], | | | Services | Surgery | Elaine | Dragan, | Ari | | | Required | | tunnel | Truong Méndez MD | [address] | | | | | syndrome of | [address] | [address] | | | | | left wrist | [address] [place] | [address] [place] | | | | | | [place], [place] | [place], [place] | | | | | | [address] | [address] | | | | | | Phone: | Phone: | | | | | | [phone] | [phone] | | | | | | Fax: | Fax: | | | | | | [phone] | [phone] | +--------+ + + + + + Encounter Details +--------+---------+ + + + | Date | Type | Department | Care Team | Description | +--------+---------+ + + + | 09/08/ | Office | [facility] | Ari Madden | Severe carpal tunnel | | 2019 | Visit | ORTHOPEDIC SURGERY | [address] | syndrome, left | | | | [address] [place] | [address] [place] | (Primary Dx) | | | | [place], [place] | [place] [address] | | | | | [address] | [phone] | | | | | [phone] | | | +--------+---------+ + + + [...] not bent back when typing. You may vgaknaw-vvj-luevmog pain medicine to treat pain and inflammation, [...] becomes swollen or weak Date Last Reviewed: 06/19/201519996442-2544 [employer]. [address] [place] [address]. All righ ts reserved. This information is not intended as a substitute for professional medical care. Always follow your healthcare professional's instructions. documented in this encounter Progress Notes Ari Madden MD - 09/08/2018 10:00 AM PSTFormatting of this note might be dif ferent from the original. [facility] HISTORY AND PHYSICAL EXAMINATION Pt. Name/Age/: Zak [...] History: Procedure Laterality Date COLONOSCOPY 2016 [place]ROS[facility] acl injury Allergies: No Known [...] made to ensure accuracy; however, inadvertent computerized aviation warfare systems operator errors may be pre sent. I appreciate [...] | | | | | [place] [address] | | | | | | [phone] | | | | | | | | +--------+---------+ + + + documented as of this encounter Visit Diagnoses + + | Diagnosis | + + | Severe carpal tunnel syndrome, left - Primary | + + documented in this encounter
--- OUTSIDE RECORDS SUMMARY | ~2020-01-24 | XMS | Encounter Summary ---
Demographics + + + | Address | [birth year] | | | [address] | | | [place] [address] | + + + | Home Phone | | + + + | Preferred Language | Unknown | + + + | Marital Status | Single | + + + | Orthodoxy Affiliation | 1077 | + + + | Race | Unknown | + + + | Ethnic Group | Unknown | + + + Author + + + | Author | [facility] | | | and [place] | + + + | Organization | [facility] | | | [...] Team Providers + +------+ + | Care Cabinetmaker Apprentice Name | Role | Phone | + +------+ + PCP | Unavailable | + +------+ + Encounter Details +--------+ + + + + | Date | Type | Department | Care Team | Description | +--------+ + + + + | 02/25/ | Emergency | [facility] | Bishop Jasso, | Nasal fracture, | | 2013 - | | MEDICAL CENTER | MD Rafi VERDUZCO | closed, initial | | | | EMERGENCY CENTER | [place] [address] | encounter; Abrasions | | 02/26/ | | [address] | [phone] | of multiple sites; | | 2013 | | [place], [place] | | Fall at home, | | | | [address] | | initial encounter; | | | | [phone] | | Cervical strain, | | | | | | initial encounter; | | | | | | Fracture, tooth, | | | | | | closed, initial | | | | | | encounter | +--------+ + + + + Social [...] ED Notes Conversion Transaction, Provider Unknown - 02/25/2014 9:45 PM PDTFormatting of this note m ight be different from the original. ED Notes by Rebeca Kam RN at 02/25/142144 Author: Rebeca Kam RN Service: (none) Author Type: Registered Nurse Filed: 02/25/142144 Date of Service: 02/25/142144 Status: Signed Outdoor Emergency Care Technician: Rebeca Kam RN (Registered Nurse) Bleeding controlled. Rebeca Kam RN 02/25/142144 arrin gtGloria michel - 02/25/2014 9:41 PM PDTFormatting of this note might be different from the o riginal. ED Provider Notes by Gloria Vance PA-C at 02/25/142140 Author: Gloria Vance PA-C Service: (none) Author Type: Physician Agency Legal Counsel - Cer tified Filed: 02/27/14 0540 Date of Service: 02/25/142140 Status: Signed Outdoor Emergency Care Technician: Gloria Vance PA-C (Physician Agency Legal Counsel - Certified) Related Notes: Cosigned by Bishop Jasso MD (Physician) filed at 02/28/14 0304 Procedures [facility] Department of Emergency Medicine History of Present Illness Patient Identification Zak Rangel is a 48 y.o. male. Patient information was obtained from patient. History/Exam limitations: none. Patient presented to the Emergency Department by: Car Chief Complaint Chief Complaint Patient presents with Fall from three steps onto face 48 year old male to the ED after a fall at his home. The patient reports that he had been drinking and was walking down the front 3 steps when he tripped and face planted on the conc rete below. He did not lose consciousness and was able to get up without assistance. Now c /o pain "all over", but specifically his nose and mouth. States he has been "spitting out p ieces of teeth". Medical history includes hepatitis C. Past Medical History Diagnosis Date Head injury [...] Smoking status: Current Some Day Smoker -- 1.0 packs/day for 40 years Types: Cigarettes Start [...] Hypertension Father Review of Systems Constitutional: Negative for fever and chills. HENT: Positive for nosebleeds and neck pain. Respiratory: Negative for shortness of breath. Cardiovascular: Negative for chest pain. Gastrointestinal: Negative for nausea, vomiting, abdominal pain, diarrhea and constipation. Genitourinary: Negative for dysuria. Musculoskeletal: Positive for myalgias, joint pain and falls. Skin: Multiple abrasions Neurological: Positive for headaches. Negative for dizziness. Endo/Heme/Allergies: Does not bruise/bleed easily. All other systems reviewed and are negative. Physical Exam BP 148/106 | Pulse 110 | Temp 99.5 F (37.5 C) (Oral) | Resp 18 | Ht 1.651 m (5' 5") | W t 56.7 kg (125 lb) | BMI 20.80 kg/m2 | SpO2 96% Pulse Oximetry interpretation: Normal General: Alert, in mild distress secondary to pain and anxiety with slight elevation in blo od pressure and pulse but o/w normal vitals. Eyes: Normal inspection, pupils equal and round, non-icteric ENT: Dried blood in both nares with slight deformity and swelling of nose, TTP. Superfici al laceration noted to the bridge of the nose and chin. No malocclusion but fractured left upper canine tooth. No oral lacerations noted. Neck: Normal inspection No cervical spine tenderness or deformity. Full ROM Cardiovascular: Rate and rhythm normal No murmurs Respiratory: Breath sounds normal bilaterally. Respirations are non labored. Abdomen: Soft, non-tender, non-distended No guarding or rebound Genitourinary: Deferred Rectal exam: Deferred Back: Normal inspection. No spine tenderness palpated. Skin: Color normal Warm and dry Multiple abrasions to dorsal aspect of both hands and left knee. Neuro: No motor deficit No sensory deficit Alert and oriented x 3 with CN II-XII grossly intact. Finger/nose intact. Bilateral gri ps equal and strong. Ext: Swelling noted to left knee, pain on flexion. No ligamentous laxity. Pain on moveme nt of left shoulder, but good ROM with no obvious injury and radial pulse present. Medical Decision Making and Emergency Department Course Differential diagnosis includes skull fracture, intracranial hemorrhage, nose or facial fra ctures, dental injury, cervical fracture vs cervical strain, or knee fracture/contusion. I have ordered CT's of the head, neck and face and xray of the left knee and shoulder ED Department Course Patient requesting pain medication. I have ordered a single dose of oxycodone. Tetanus is current. No acute injury to head or neck. Nasal bone fracture. No acute injury to shoulder or knee . Discharging the patient home with an Rx for ultram and f/u with his PCP in 3 days for rec heck. Also referring patient to ENT for f/u regarding his nose fracture and advised him to get a dental appointment as soon as possible Records Reviewed Medical records reviewed not related to today's visit. Laboratory Evaluation Results None Radiology and EKG Evaluation Imaging Results X-ray shoulder left complete 2+v (Final result) Result time:02/25/142348 Final result by Rad Results In Dorian (02/25/14 23:49:47) Impression: 1. Negative left shoulder. Narrative: ZAK RANGEL XR SHOULDER LEFT 02/25/2014 10:59 PM History: 48 years. Male. Left shoulder pain after injury. Technique: Internal and external rotation frontal views, plus an oblique view were perfor med. Findings: Cortical and trabecular bone is normal throughout all ossicles visualized, witho ut fracture, periosteal reaction, or sclerosis. All joint spaces show normal width, without spurs or sclerosis. The soft tissues are normal, without swelling or calcification. X-ray knee 4 or more views left (Final result) Result time:02/25/14 5162 Final result by Rad Results In Dorian (02/25/14 23:15:13) Impression: 1. Probable mild joint effusion. 2. No visible fracture. 3. Prior ACL repair. 4. Moderate osteoarthritis in all 3 joint compartments. 5. Mild osteopenia. Narrative: ZAK Piper CLAIRE XR KNEE 4 OR MORE VIEWS LEFT 02/25/2014 10:59 PM History: 48 years. Male. Left knee injury in a fall, with pain. Prior left knee surgery. Technique: Recumbent PA, lateral, tunnel, and sunrise views. Findings: An orthopedic screws noted in the central distal left femur. A surgical tunnel i s noted in the central and medial proximal tibia, consistent with ACL repair. No acute fracture identified. Large exostoses are noted on the superior aspect of the horne la and trochlear notch with moderate chondromalacia of the patella. Mild to moderate chondro malacia is noted in the medial and lateral tibiofemoral joint compartments with mild margina l osteophytes and some sclerosis. Osteopenia is moderate. Distention of the suprapatellar bursa suggests a mild joint effusion. Dystrophic calcificat ions are noted in the anterior knee joint on the lateral view. These may represent loose bod ies or extra-articular dystrophic calcifications. CT Head Facial C-spine wo Contrast (Edited Result - FINAL) Result time:02/25/14 2727 Addendum 1 of 1 by Baltazar Chau MD (02/25/14 22:58:35) Cervical spine CT technique: 1.25 mm thick slices were made at the same intervals through the cervical spine in the axial plane with coronal and sagittal reformation imaging. No cont rast administered. Cervical spine findings: Vertebral body height is normal at all levels. No posterior elemen t fracture identified. The facets articulate normally. Vertebral body alignment is normal. T he odontoid process and ring of C1 are intact. Moderate spondylosis is visualized at C5-C6 a nd C6-C7. Neural foraminal canals are open bilaterally. Soft tissue contrast of the spinal c anal on CT imaging is poor. This exam is not sensitive for myelopathy and small intervertebr al disk herniations. Facial CT technique: 1.5 mm thick slices were made at the same intervals through the face, including the mandible, with coronal and sagittal reformation imaging. No contrast 2. Facial findings: The anterior tip of the nasal bones are mildly depressed, with gas in the soft tissues, suggesting a mild fracture. The nasomaxillary sutures are somewhat widened mikhail aterally. The orbital rims appear intact. The orbital floors and medial lloyd are normal. The maxilla ry sinus ossicles are intact. Zygomatic arches are negative for fracture. The mandible is in tact. The temporomandibular joints show normal articulation. No gas visualized in the orbits . ADDITIONAL IMPRESSION: 1. No acute findings in the cervical spine. 2. Moderate spondylosis at C5-C6 and C6-C7. 3. Minimally displaced nasal bone fractures. 4. No other facial fractures identified. Final result by Rad Results In Dorian (02/25/14 22:45:19) Impression: 1. No acute brain findings. 2. Possible mild depressed fracture of the tip of the nasal bones. Narrative: ZAK RANGEL CT HEAD FACIAL BONES CERVICAL SPINE WO CONTRAST 02/25/2014 10:24 PM History: 48 years. Male. Falling injury with head, and persistent headache. Technique: 5-mm thick slices at 5 mm intervals were performed throughout the brain in the a xial plane. No intravenous iodine contrast was given. Comparison examinations: None. Findings: No cerebral edema, mass, intracranial hemorrhage, or extra-axial fluid collecti on can be seen. The volume and contour of the ventricular system is normal. Patrick/white samantha er attenuation is normal throughout the brain. No focal lacunar infarction or encephalomalac ia visualized. The calvarium and scalp are intact. The paranasal sinuses and mastoid air cells are clear. There appears to be mildly depressed fracture of the tip of the nasal bones, image 10 series 4. 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 The remaining facial oss icles appear normal. ED Diagnoses Final diagnoses Nasal fracture, closed, initial encounter Abrasions of multiple sites Fall at home, initial encounter - mechanical Cervical strain, initial encounter Fracture, tooth, closed, initial encounter Disposition: ED Disposition Discharge Condition at discharge: Stable Follow-up Information Follow up With Details Comments Contact [facility] In 3 days for recheck if not improving [address] [facility] [address] Juan C Perez MD Schedule an appointment as soon as possible for a visit regarding na clifton fracture [address] [facility] [address] Discharge Medications: New Prescriptions TRAMADOL (ULTRAM) 50 MG TABLET Take 1 tablet by mouth every 6 (six) hours as needed for Pain. Do not exceed 8 in a 24 hour period Gloria Vance PA-C 02/27/14539 rabBishop cary MD - 02/25/2014 9:41 PM PDT ED Provider Notes by Bishop Jasso MD at 02/25/142140 Author: Bishop Jasso MD Service: (none) Author Type: Physician Filed: 02/28/14303 Date of Service: 02/25/142140 Status: Signed Outdoor Emergency Care Technician: Bishop Jasso MD (Physician) Related Notes: Related Note by Gloria Vance PA-C (Physician Agency Legal Counsel - Certified) filed at 02/27/14539 I have reviewed the note and supervised the mid-level provider. Bishop Jasso MD 02/28/14303 onversion Transac tion, Provider Unknown - 02/25/2014 9:32 PM PDTFormatting of this note might be different f rom the original. ED Notes by Rebeca Kam RN at 02/25/142131 Author: Rebeca Kam RN Service: (none) Author Type: Registered Nurse Filed: 02/25/142131 Date of Service: 02/25/142131 Status: Signed Outdoor Emergency Care Technician: Rebeca Kam RN (Registered Nurse) Pt states "some of my teeth fell out too" Rebeca Kam RN 02/25/142131 onver janis Transaction, Provider Unknown - 02/25/2014 9:28 PM PDT ED Notes by Rebeca Kam RN at 02/25/142127 Author: Rebeca Kam RN Service: (none) Author Type: Registered Nurse Filed: 02/25/142129 Date of Service: 02/25/142127 Status: Signed Outdoor Emergency Care Technician: Rebeca Kam RN (Registered Nurse) Pt complaining of fall from three steps onto face. "I went out to smoke on the porch and I tripped on the steps and I hit face first and I guess I passed out". Nijamarcus at states pt h as "Passed out" three times since fall. Pt complaining of pain to nose and left knee 04/06 at this time. Pt has hx of surgery to left knee. Rebeca Kam RN 02/25/142129 docume nted in this encounter Plan of Treatment +--------+---------+ + + + | Date | Type | Specialty | Care Team | Description | +--------+---------+ + + + | 03/06/ | Office | Infectious Diseases | Alanis Montaño | | | 2019 | Visit | | Gwendolyn Shabazz MD | | | | | | [address] | | | | | | [place] [address] | | | | | | [phone] | | | | | | | | +--------+---------+ + + + documented as of this encounter Procedures + +--------+ + + + | Procedure Name | Priori | Date/Time | Associated Diagnosis | Comments | | | ty | | | | + +--------+ + + + | XR SHOULDER LEFT 2 + | Routin | 02/25/2014 | | Results for this | | VW | e | 10:59 PM | | procedure are in the | | | | PDT | | results section. | + +--------+ + + + | XR KNEE LEFT 4 + VW | Routin | 02/25/2014 | | Results for this | | | e | 10:59 PM | | procedure are in the | | | | PDT | | results section. | + +--------+ + + + | CT HEAD | Routin | 02/25/2014 | | Results for this | | MAXILLOFACIAL | e | 10:24 PM | | procedure are in the | | CERVICAL SPINE WO | | PDT | | results section. | | CONTRAST | | | | | + +--------+ + + + documented in this encounter Results XR Shoulder Left 2 + Vw (02/25/2014 10:59 PM PDT) + + | Specimen | + + | | + + + + + | Impressions | Performed At | + + + | 1. Negative left shoulder. | | + + + + + + | Narrative | Performed At | + + + | ZAK RANGEL XR SHOULDER LEFT 02/25/2014 10:59 PM History: | | | 48 years. Male. Left shoulder pain after injury. Technique: | | | Internal and external rotation frontal views, plus an oblique view | | | were performed. Findings: Cortical and trabecular bone is normal | | | throughout all ossicles visualized, without fracture, periosteal | | | reaction, or sclerosis. All joint spaces show normal width, without | | | spurs or sclerosis. The soft tissues are normal, without swelling or | | | calcification. | | + + + + + | Procedure Note | + + | Werner Alarcon - 03/12/2019 1:40 PM EMELIA GONZALEZ SHOULDER LEFT02/25/2014 | | 10:59 PM History: 48 years. Male. Left shoulder pain after injury. Technique: | | Internal and external rotation frontal views, plus an oblique view were performed. | | Findings: Cortical and trabecular bone is normal throughout all ossicles visualized, | | without fracture, periosteal reaction, or sclerosis. All joint spaces show normal | | width, without spurs or sclerosis. The soft tissues are normal, without swelling or | | calcification. IMPRESSION: 1. Negative left shoulder. | |Findings: Cortical and trabecular bone is normal throughout all ossicles visualized, witho ut fracture, periosteal reaction, or sclerosis. All joint spaces show normal width, without spurs or sclerosis. The soft | |tissues are normal, without swelling or | |calcification. | | | |IMPRESSION: | |1. Negative left shoulder. | | | | | + + XR Knee Left 4 + Vw (02/25/2014 10:59 PM PDT) + + | Specimen | + + | | + + + + + | Impressions | Performed At | + + + | 1. Probable mild joint effusion. 2. No visible fracture. 3. | | | Prior ACL repair. 4. Moderate osteoarthritis in all 3 joint | | | compartments. 5. Mild osteopenia. | | + + + + + + | Narrative | Performed At | + + + | ZAK RANGEL XR KNEE 4 OR MORE VIEWS LEFT 02/25/2014 10:59 PM | | | History: 48 years. Male. Left knee injury in a fall, with pain. | | | Prior left knee surgery. Technique: Recumbent PA, lateral, | | | tunnel, and sunrise views. Findings: An orthopedic screws noted | | | in the central distal left femur. A surgical tunnel is noted in the | | | central and medial proximal tibia, consistent with ACL repair. No | | | acute fracture identified. Large exostoses are noted on the superior | | | aspect of the patella and trochlear notch with moderate chondromalacia | | | of the patella. Mild to moderate chondromalacia is noted in the | | | medial and lateral tibiofemoral joint compartments with mild | | | marginal osteophytes and some sclerosis. Osteopenia is moderate. | | | Distention of the suprapatellar bursa suggests a mild joint effusion. | | | Dystrophic calcifications are noted in the anterior knee joint on the | | | lateral view. These may represent loose bodies or extra-articular | | | dystrophic calcifications. | | + + + + + | Procedure Note | + + | Dorian, Rad Conversion - 03/12/2019 1:40 PM PDT ZAK RANGELXR KNEE 4 OR MORE VIEWS | | LEFT02/25/2014 10:59 PM History: 48 years. Male. Left knee injury in a fall, with pain. | | Prior left knee surgery. Technique: Recumbent PA, lateral, tunnel, and sunrise views. | | Findings: An orthopedic screws noted in the central distal left femur. A surgical | | tunnel is noted in the central and medial proximal tibia, consistent with ACL repair. No | | acute fracture identified. Large exostoses are noted on the superior aspect of the | | patella and trochlear notch with moderate chondromalacia of the patella. Mild to | | moderate chondromalacia is noted in the medial and lateral tibiofemoral joint | | compartments with mild marginal osteophytes and some sclerosis. Osteopenia is moderate. | | Distention of the suprapatellar bursa suggests a mild joint effusion. Dystrophic | | calcifications are noted in the anterior knee joint on the lateral view. These may | | represent loose bodies or extra-articular dystrophic calcifications. IMPRESSION: 1. | | Probable mild joint effusion.2. No visible fracture.3. Prior ACL repair.4. Moderate | | osteoarthritis in all 3 joint compartments.5. Mild osteopenia. | |IMPRESSION: | |1. Probable mild joint effusion. | |2. No visible fracture. | |3. Prior ACL repair. | |4. Moderate osteoarthritis in all 3 joint compartments. | |5. Mild osteopenia. | | | | | + + CT Head Maxillofacial C-Spine wo Con (02/25/2014 10:24 PM PDT) + + | Specimen | + + | | + + + + | Addenda | + + | Addendum by Baltazar Chau MD on 02/25/2014 10:[address] | | technique: 1.25 mm thick slices were made at the same intervals through the cervical | | spine in the axial plane with coronal and sagittal reformation imaging. No contrast | | administered. Cervical spine findings: Vertebral body height is normal at all | | levels. No posterior element fracture identified. The facets articulate normally. | | Vertebral body alignment is normal. The odontoid process and ring of C1 are intact. | | Moderate spondylosis is visualized at C5-C6 and C6-C7. Neural foraminal canals are | | open bilaterally. Soft tissue contrast of the spinal canal on CT imaging is poor. This | | exam is not sensitive for myelopathy and small intervertebral disk herniations. | | Facial CT technique: 1.5 mm thick slices were made at the same intervals through the | | face, including the mandible, with coronal and sagittal reformation imaging. No | | contrast 2. Facial findings: The anterior tip of the nasal bones are mildly | | depressed, with gas in the soft tissues, suggesting a mild fracture. The | | nasomaxillary sutures are somewhat widened bilaterally. The orbital rims appear | | intact. The orbital floors and medial lloyd are normal. The maxillary sinus ossicles | | are intact. Zygomatic arches are negative for fracture. The mandible is intact. The | | temporomandibular joints show normal articulation. No gas visualized in the orbits. | | ADDITIONAL IMPRESSION: 1. No acute findings in the cervical spine. 2. Moderate | | spondylosis at C5-C6 and C6-C7. 3. Minimally displaced nasal bone fractures. 4. No | | other facial fractures identified. | + + + + + | Impressions | Performed At | + + + | 1. No acute brain findings. 2. Possible mild depressed fracture | | | of the tip of the nasal bones. | | + + + + + + | Narrative | Performed At | + + + | ZAK RANGEL CT HEAD FACIAL BONES CERVICAL SPINE WO CONTRAST | | | 02/25/2014 10:24 PM History: 48 years. Male. Falling injury | | | with head, and persistent headache. Technique: 5-mm thick slices | | | at 5 mm intervals were performed throughout the brain in the axial | | | plane. No intravenous iodine contrast was given. Comparison | | | examinations: None. Findings: No cerebral edema, mass, | | | intracranial hemorrhage, or extra-axial fluid collection can be seen. | | | The volume and contour of the ventricular system is normal. | | | Patrick/white matter attenuation is normal throughout the brain. No focal | | | lacunar infarction or encephalomalacia visualized. The | | | calvarium and scalp are intact. The paranasal sinuses and mastoid air | | | cells are clear. There appears to be mildly depressed fracture of the | | | tip of the nasal bones, image 10 series 4. There is chronic congenital | | | nasal septal deviation to the left. The remaining facial ossicles | | | appear normal. | | + + + + + | Procedure Note | + + | Dorian, Rad Conversion - 03/12/2019 1:40 PM PDT ZAK RANGELCT HEAD FACIAL BONES | | CERVICAL SPINE WO CONTRAST02/25/2014 10:24 PM History: 48 years. Male. Falling injury | | with head, and persistent headache. Technique: 5-mm thick slices at 5 mm intervals were | | performed throughout the brain in the axial plane. No intravenous iodine contrast was | | given. Comparison examinations: None. Findings: No cerebral edema, mass, intracranial | | hemorrhage, or extra-axial fluid collection can be seen. The volume and contour of the | | ventricular system is normal. Patrick/white matter attenuation is normal throughout the | | brain. No focal lacunar infarction or encephalomalacia visualized. The calvarium and | | scalp are intact. The paranasal sinuses and mastoid air cells are clear. There appears | | to be mildly depressed fracture of the tip of the nasal bones, image 10 series 4. There | | is chronic congenital nasal septal deviation to the left. The remaining facial ossicles | | appear normal. IMPRESSION: 1. No acute brain findings.2. Possible mild depressed | | fracture of the tip of the nasal bones. | |septal deviation to the left. The | | remaining facial ossicles appear normal. | | | |IMPRESSION: | |1. No acute brain findings. | |2. Possible mild depressed fracture of the tip of the nasal bones. | | | | | + + documented in this encounter Visit Diagnoses + + | Diagnosis | + + | Nasal fracture, closed, initial encounter | + + | Abrasions of multiple sites Abrasion or friction burn of other, multiple, and | | unspecified sites, without mention of infection | + + | Fall at home, initial encounter | + + | Cervical strain, initial encounter | + + | Fracture, tooth, closed, initial encounter | + + documented in this encounter
--- OUTSIDE RECORDS SUMMARY | ~2020-01-24 | XMS | Clinical Summary ---
Demographics + + + | Address | [address] [birth year][address][birth year] | | | [address] | | [place] [address] | + + + | Home Phone | | + + + | Preferred Language | Unknown | + + + | Marital Status | Single | + + + | Scientology Affiliation | 1077 | + + + [...] Team Providers + +------+ + | Care Shirt Closer Name | Role | Phone | + +------+ + | Fabio Sandoval MD | PCP | | + +------+ + Allergies No [...] Osteoarthrosis | 09/01/2013 | + + + Immunizations + + + + | Name | Administration Dates | Next Due | + + + + | INFLUENZA PF | 06/10/2017 | | | QUAD(PED/ADOL/ADULT) | | | | ,PSKT or VIAL | | | + + + + [...] | | + + + + + Plan of Treatment +--------+---------+ + + + | Date | Type | Specialty | Care Team | Description | +--------+---------+ + + + | 03/06/ | Office | Infectious Diseases | Sabra Alanis | | | 2019 | Visit | | Gwendolyn Shabazz MD | | | | | | [address] | | | | | | [facility] [place] [address] | | | | | | [phone] | | | | | | | | +--------+---------+ + + + + + + + + | Health Maintenance | Due Date | Last | Comments | | | | Done | | + + + + + | Vaccine: | | | | | Pneumococcal 19-64 | 0 | | | | (1 of 1 - PPSV23) | | | | + + + + + | Vaccine: Zoster (1 | | | | | of 2) | 4 | | | + + + + + | Vaccine: Influenza | | 07/03/20 | | | (Season Ended) | 0 | 18, | | | | | 06/10/20 | | | | | 17, | | | | | 04/24/20 | | | | | 16, | | | | | Addition | | | | | al | | | | | history | | | | | exists | | + + + + + | Colorectal Cancer | | 07/28/19 | | | Screening | 6 | 16 | | | (Colonoscopy) | | | | + + + + + | Vaccine: | | 11/15/19 | | | Dtap/Tdap/Td (4 - | 6 | 16, | | | Td) | | 03/21/20 | | | | | 15, | | | | | 09/21/19 | | | | | 09 | | + + + + + | Hepatitis C | Completed | 10/16/19 | | | Screening | | 19, | | | | | 06/10/20 | | | | | 17, | | | | | 09/03/19 | | | | | 17, | | | | | Addition | | | | | al | | | | | history | | | | | exists [...] | [employer] | [employer] | [id number] | | [phone] | | [employer] | | MEDICAID HMO [...] | 09/27/ | | [birth year] [address] | | | al/Fam | | 1966 | [phone] | [address] [place] | | | roly | | | 5 (Home) | [address] | + +--------+ +--------+ + + Advance Directives + + + + + | Type | Date Recorded | Patient | Explanation | | | | Paid Internship | | + + + + + | Power of | | | | | Traffic Engineer | | | | + + + + + | Advance | | | | | Directive | | | | + + + + +
--- OUTSIDE RECORDS SUMMARY | ~2020-01-24 | XMS | Encounter Summary ---
Demographics + + + | Address | [address] [birth year][address][birth year] | | | [address] | | | [place] [address] | + + + | Home Phone | | + + + | Preferred Language | Unknown | + + + | Marital Status | Single | + + + | Episcopalian Affiliation | 1077 | + + + | Race | Unknown | + + + | Ethnic Group | Unknown | + + + Author + + + | Author | [facility] | | | and [place] | + + + | Organization | [facility] | | | [...] Team Providers + +------+ + | Care Activities Officer Name | Role | Phone | [...] + + | 05/31/ | Telephone | [facility] [place] | [facility], | Lab Order | | 2016 | | GASTROENTEROLOGY | Ana [address] | | | | | [address] | [address] | | | | | [address] [place], [place] | [place], [place] | | | | | [address] | [address] | | | | | [phone] | | | +--------+ + + + [...] PSTSpoke to patient, faxed lab orders to [facility] per patient. elephone Encounter - Marty Shin, Paper Winder - 06/03/2016 10:29 AM PSTLeft message with woman who answered the phone. Where would Zak like to have fibrospect drawn? She will have him call. elephone Dalia Zafar RN - 05/31/2016 4:51 PM PDTFibrospect approved; [...] [address] | | | | | | [place] [address] | | | | | | [phone] | | | | | | | | +--------+---------+ + + + documented as of this encounter Visit Diagnoses Not on filedocumented in this encounter"
--- OUTSIDE RECORDS SUMMARY | ~2020-01-24 | XMS | Encounter Summary ---
Demographics + + + | Address | [address] [birth year] | | | [address] | | | [place] [address] | + + + | Home Phone | | + + + | Preferred Language | Unknown | + + + | Marital Status | Single | + + + | Baptist Affiliation | 1077 | + + + | Race | Unknown | + + + | Ethnic Group | Unknown | + + + Author + + + | Author | [facility] | | | and [place] | + + + | Organization | [facility] | | | [...] Team Providers + +------+ + | Care Heating And Ventilating Tender Name | Role | Phone | + +------+ + | Reji Mock PA-C | PCP | | + +------+ + Reason for Referral Evaluate & Treat (Routine) +--------+ + + + + + | Status | Reason | Specialty | Diagnoses / | Referred By | Referred To | | | | | Procedures | Contact | Contact | +--------+ + + + + + | Closed | Specialty | | Diagnoses | | Provider | | | Services | | Chronic | Laurita, | Not, In | | | Required | | hepatitis C | Ana | System | | | | | with hepatic | SCHOOL BUSINESS MANAGER [address] | [place] | | | | | coma (HCC) | [address] | Health and | | | | | Procedures | [address] | Service | | | | | CHG | [place], | | | | | | NEPHELOMETRY | [place] [address] | | | | | | , NOT | Phone: | | | | | | SPECIFIED | [phone] | | | | | | CHG | Fax: | | | | | | IMMUNOASSAY | [phone] | | | | | | ANALYTE | | | | | | | QUANTITATIVE | | | | | | | NOS | | | +--------+ + + + + + Encounter Details +--------+ + + + + | Date | Type | Department | Care Team | Description | +--------+ + + + + | 05/20/ | Orders Only | [facility] [place] | [facility], | Chronic hepatitis C | | 2016 | | GASTROENTEROLOGY | [address] | with hepatic coma | | | | [address] | [address] | (HCC) (Primary Dx) | | | | [address] [place] | [place] | | | | | [address] | [address] | | | | | [phone] | | | +--------+ + + + [...] this encounter Progress Dalia Laguna RN - 05/20/2016 1:51 PM PDTFibrospect referral created per Yenni's request . Will call to have drawn once approved. Electronically signed by Dalia Castañeda RN at 04/28 1:51 PM PDTdocumented in this encounter Plan of Treatment +--------+---------+ + + + | Date | Type | Specialty | Care Team | Description | +--------+---------+ + + + | 03/06/ | Office | Infectious Diseases | Alanis Montaño | | | 2020 | Visit | | Gwendolyn Shabazz MD | | | | | | [address] | | | | | | [place] [address] | | | | | | [phone] | | | | | | | | +--------+---------+ + + + + + +--------+ + + | Name | Type | Priori | Associated Diagnoses | Order Schedule | | | | ty | | | + + +--------+ + + | Prom[facility] Fibrospect | Outpatient | Routin | Chronic hepatitis | Expected: 05/20/2016 | | | Referral | e | C with hepatic coma | (Approximate), | | | | | (HCC) | Expires: 05/20/2017 | + + +--------+ + + documented as of this encounter Visit Diagnoses + + | Diagnosis | + + | Chronic hepatitis C with hepatic coma (HCC) - Primary Chronic hepatitis C with | | hepatic coma | + + documented in this encounter"
--- OUTSIDE RECORDS SUMMARY | ~2020-01-24 | XMS | Encounter Summary ---
Demographics + + + | Address | [address] [birth year][address][birth year] | | | [address] | | | [place] [address] | + + + | Home Phone [...] Team Providers + +------+ + | Care Pricing Intern Name | Role | Phone | + [...] + + | 09/12/ | Telephone | [facility] [place] | [facility], | Drug Screen | | 2017 | | GASTROENTEROLOGY | Ana [address] | | | | | [address] | [address] | | | | | [address] [place], [place] | [place], [place] | | | | | [address] | [address] | | | | | [phone] | | | +--------+ + + + [...] Jessica Shin CMA - 09/12/2016 10:36 AM PSTWijoslyn call patient dylan carmen in a week. [...] 8:53 AM PST----- Message from Jessica Shin Frontload Driver sent at 07/25/2016 13:19 PST ---- - [...] [address] | | | | | | [place] [address] | | | | | | [phone] | | | | | | | | +--------+---------+ + + + documented as of this encounter Visit Diagnoses Not on filedocumented in this encounter"
--- OUTSIDE RECORDS SUMMARY | ~2020-01-24 | XMS | Encounter Summary ---
Demographics + + + | Address | [address] [birth year] | | | [address] | | | [place] [address] | + + + | Home Phone | | + + + | Preferred Language | Unknown | + + + | Marital Status | Single | + + + | Pentecostalism Affiliation | 1077 | + + + | Race | Unknown | + + + | Ethnic Group | Unknown | + + + Author + + + | Author | [facility] | | | and [place] | + + + | Organization | [facility] | | | and [...] Team Providers + +------+ + | Care Barrel Cutter Name | Role | Phone | + [...] + + | 09/14/ | Telephone | [facility] | Ari Madden | Surgery Appointment | | 2019 | | ORTHOPEDIC SURGERY | [address] | | | | | [address] | [facility] | | | | | [place] | [place] [address] | | | | | [address] | [phone] | | | | | [phone] | | | +--------+ + + + [...] this encounter Miscellaneous Notes Telephone Encounter - JosueLulu villalta Medical Assistant - 10/21/2018 4:55 PM PDTCalled the "message" phone/his ride that was given, and informed them of Zak Mercado check in time will be at 1300. He verbalized understanding and will let Zak know a nd get him here on time. Electronically signed by Edilia Rain at 4:57 PM PDTTelephone Encounter - Lulu Salas Medical Assistant - 9 11:18 AM PDTI got in contact with Zak Mercado on number not in chart # , this is a friends number that he helps out. Zak Quijanoidge is scheduled for surger y on 10/23/2018. [...] | | | | | [place] [address] | | | | | | [phone] | | | | | | | | +--------+---------+ + + + documented as of this encounter Visit Diagnoses Not on filedocumented in this encounter
--- OUTSIDE RECORDS SUMMARY | ~2020-01-24 | XMS | Encounter Summary ---
Demographics + + + | Address | [address] [birth year] | | | [address] | | | [place] [address] | + + + | Home Phone [...] + + + | Author | [facility] | | | and [place] | + + + | Organization | [facility] | | | [...] Team Providers + +------+ + | Care Wireless Internet Installer Name | Role | Phone | [...] | Changes | ORTHOPEDIC SURGERY | I, Equities Analyst | | | | | [address] | | | | | | [place] | | | | | | [address] | | | | | | [phone] | | | +--------+ + + + [...] | | | | | [place] [address] | | | | | | [phone] | | | | | | | | +--------+---------+ + + + documented as of this encounter Visit Diagnoses Not on filedocumented in this encounter"
--- OUTSIDE RECORDS SUMMARY | ~2020-01-24 | XMS | Encounter Summary ---
Demographics + + + | Address | [address] [birth year] | | | [address] | | | [place] [address] | + + + | Home Phone [...] + + + | Author | [facility] | | | and [place] | + + + | Organization | [facility] | | | [...] Team Providers + +------+ + | Care Transfer Controller Name | Role | Phone | + [...] [place] | | | | | | [address] | [address] | | | | | | Phone: | Phone: | | | | | | [phone] | [phone] | | | | | | Fax: | Fax: | | | | | | [phone] | [phone] | +--------+ + + + + + [...] | Physical | Diagnoses | Jaime, | Dragan | | | | Medicine and | Neurogenic | Fabio | Truong Méndez MD | | | | Rehabilitatio | pain | MD Ramesh | [address] | | | | n | | [address] | | | | | | [place] [place] | [place] | | | | | | [place], | [address] Phone: | | | | | | [place] [address] | [phone] | | | | | | Phone: | Fax: | | | | | | [phone] | [phone] | | | | | | Fax: | | | | | | | [phone] | | +--------+--------+ + + + + Encounter Details +--------+ + + + + | Date | Type | Department | Care Team | Description | +--------+ + + + + | 08/11/ | Procedure | [facility] [place] | DraganTruong | Carpal tunnel | | 2019 | visit | PHYSIATRY [address] | T, MD [address] | syndrome of left | | | | [address] | [address] [place] | wrist | | | | [place], [place] | [address] | | | | | [address] | | | | | | [phone] | | | +--------+ + + + [...] + | Blood Pressure | 128/67 | 08/11/2018 9:13 AM | | | | | PST | | + + + + + | Pulse | 65 | 08/11/2018 9:13 AM | | | | | PST [...] Weight | 57.2 kg (126 lb) | 08/11/2018 9:13 AM | | | | | PST | | + + + + + | Height | 160 cm (5' 3") | 08/11/2018 9:13 AM | | | | | PST | | + + + + + | Body Mass Index | 22.32 | 08/11/2018 9:13 AM | | | | | PST | | + + + + + documented in this encounter Progress Truong Morris MD - 08/11/2018 9:00 AM PST [facility] Musculoskeletal, Sports and Spine, Physiatry [address] [address] Test Date: 08/11/2018 Patient Name: Zak Mercado : 1965 Physician: Truong Archibald MD MR #: [id number] Sex: Male Referring Provider: MOY Gonzalez HISTORY: [...] as w hen he is playing the guitar. He does also report some neck pain [...] hesitate to call. Truong Archibald MD Fellow, [employer]. documented in this encounter Plan of Treatment +--------+---------+ + + + | Date | Type | Specialty | Care Team | Description | +--------+---------+ + + + | 03/06/ | Office | Infectious Diseases | Alanis Montaño | | | 2020 | Visit | | Gwendolyn Shabazz MD | | | | | | [address] [facility] | | | | | | [place] [address] | | | | | | [phone] | | | | | | | | +--------+---------+ + + + + + +--------+ + + | Name | Type | Priori | Associated Diagnoses | Order Schedule | | | | ty | | | + + +--------+ + + | Ambulatory referral | Outpatient | Routin | Carpal tunnel | Ordered: 08/11/2018 | | to Orthopedic | Referral | e | syndrome of left | | | Surgery | | | wrist | | + + +--------+ + + documented as of this encounter Visit Diagnoses + + | Diagnosis | + + | Carpal tunnel syndrome of left wrist Carpal tunnel syndrome | + + documented in this encounter
--- OUTSIDE RECORDS SUMMARY | ~2020-01-24 | XMS | Encounter Summary ---
Demographics + + + | Address | [address] [birth year] | | | [address] | | | [place] [address] | + + + | Home Phone | | + + + | Preferred Language | Unknown | + + + | Marital Status | Single | + + + | Temple Affiliation | 1077 | + + + | Race | Unknown | + + + | Ethnic Group | Unknown | + + + Author + + + | Author | [facility] | | | and [place] | + + + | Organization | [facility] | | | and [...] Team Providers + +------+ + | Care Casting And Locker Room Servicer Name | Role | Phone | + +------+ + PCP | Unavailable | + +------+ + Encounter Details +--------+ + + + + | Date | Type | Department | Care Team | Description | +--------+ + + + + | 05/08/ | Abstract | [facility] [place] | [facility], | | | 2016 | | GASTROENTEROLOGY | [address] | | | | | [address] | [address] | | | | | [address] [address] | [place] | | | | | [address] | [id number] | | | | | [phone] | | | +--------+ + + + [...] [address] | | | | | | [place] [address] | | | | | | [phone] | | | | | | | [...] +--------+ + + + | EXTERNAL LAB: LINDA | Routin | 11/15/2015 | | Results [...] [address] | [place] [address] | [phone] | + + + + + Alpha [...] [address] | [place] [address] | [phone] | + + + + + External [...] [address] | [place] [address] | [phone] | + + + + + External [...] P[facility] | [address] | [place] [address] | [phone] | + + + + + External [...] | REFERENCE LAB [facility] | [address] | [place] [address] | [phone] | + + + + + External [...] P[facility] | [address] | [place] [address] | [phone] | + + + + + External [...] PAML | [address] | [place] [address] | [phone] | + + + + + External [...] [address] | [place] [address] | [phone] | + + + + + External [...] [address] | [place] [address] | [phone] | + + + + + External [...] | REFERENCE LAB [facility] | [address] | [place] [address] | [phone] | + + + + + External [...] [address] | [place] [address] | [phone] | + + + + + External [...] [facility] | [address] | [place] [address] | [phone] | + + + + + External [...] PAML | [address] | [place] [address] | [phone] | + + + + + External [...] | REFERENCE LAB [facility] | [address] | [place] [address] | [phone] | + + + + + External [...] [address] | [place] [address] | [phone] | + + + + + documented in this encounter Visit Diagnoses Not on filedocumented in this encounter"
--- OUTSIDE RECORDS SUMMARY | ~2020-01-24 | XMS | Encounter Summary ---
Demographics + + + | Address | [address] [birth year][address][birth year] | | | [address] | | | [place] [address] | + + + | Home Phone | | + + + | Preferred Language | Unknown | + + + | Marital Status | Single | + + + | Quaker Affiliation | 1077 | + + + | Race | Unknown | + + + | Ethnic Group | Unknown | + + + Author + + + | Author | [facility] | | | and [place] | + + + | Organization | [facility] | | | [...] Team Providers + +------+ + | Care Gourmet Coffee Attendant Name | Role | Phone | + +------+ + | Reji Mock PA-C | PCP | | + +------+ + Encounter Details +--------+ + + + + | Date | Type | Department | Care Team | Description | +--------+ + + + + | 08/27/ | Abstract | [facility] [place] | [place], | | | 2018 | | GASTROENTEROLOGY | [address] | | | | | [address] | [address] | | | | | [address] [address] | [place] | | | | | [address] | [address] | | | | | [phone] | | | +--------+ + + + [...] | | | | | [place] [address] | | | | | | [phone] | | | | | | | | +--------+---------+ + + + documented as of this encounter Visit Diagnoses Not on filedocumented in this encounter"
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
--- OUTSIDE RECORDS SUMMARY | ~2020-01-24 | XMS | Encounter Summary ---
Demographics + + + | Address | [birth year] | | | [address] | | | [place] [address] | + + + | Home Phone [...] Team Providers + +------+ + | Care Primary Class Teacher Name | Role | Phone | + +------+ + PCP | Unavailable | + +------+ + Encounter Details +--------+ + + + + | Date | Type | Department | Care Team | Description | +--------+ + + + + | 10/06/ | Hospital | [facility] | Conversion | Hepatitis C | | 2013 | Encounter | [facility] | Transaction, | infection; Abdominal | | | | ULTRASOUND [address] | Provider Unknown | hernia | | | | [address] | [phone] | | | | | [place], [place] | | | | | | [address] | | | | | | [phone] | | | +--------+ + + + [...] [address] | | | | | | [place] [address] | | | | | | [phone] | | | | | | | | +--------+---------+ + + + documented as of this encounter Procedures + +--------+ + + + | Procedure Name | Priori | Date/Time | Associated Diagnosis | Comments | | | ty | | | | + +--------+ + + + | US ABDOMEN LIMITED | Routin | 10/06/2013 | | Results for this | | | e | 9:33 AM | | procedure are in the | | | | PDT | | results section. | + +--------+ + + + documented in this encounter Results US Abdomen Limited (10/06/2013 9:33 AM PDT) + + | Specimen | + + | | + + + + + | Impressions | Performed At | + + + | 1. Small amount of biliary sludge. No calculus identified. 2. | | | Somewhat hyperechoic liver which could indicate fatty infiltration. | | | This time, no compelling evidence of liver cirrhosis and no evidence | | | of a mass observed. Physiologic venous flow documented | | | | | + + + + + + | Narrative | Performed At | + + + | ZAK RANGEL US ABDOMEN LIMITED 10/06/2013 9:33 AM HISTORY: | | | 48 years. Male. Hepatitis C evaluate for mass TECHNIQUE: | | | Imaging was performed using a curved array transducer. Grayscale and | | | color flow techniques were utilized. COMPARISON: None. | | | FINDINGS: Pancreas: The pancreas is normal in size and echotexture. | | | No evidence of a dilated pancreatic duct. Aorta: The aorta is | | | normal in size with no evidence of aneurysm. IVC: The inferior vena | | | cava is normal in size. Liver: Slightly hyperechoic, consistent with | | | steatosis. No gross irregularity identified that would suggest | | | cirrhosis. Gallbladder: Small amount of biliary sludge. No formed | | | calculus identified Gallbladder Wall: Gallbladder wall thickness is | | | normal measuring 2 mm. Common bile duct: The common bile duct is | | | normal measuring 3 mm. | | + + + + + | Procedure Note | + + | Dorian, Rad Conversion - 03/12/2019 1:40 PM EMELIA SO ABDOMEN | | LIMITED10/06/2013 9:33 AM HISTORY:48 years. Male. Hepatitis C evaluate for mass | | TECHNIQUE:Imaging was performed using a curved array transducer. Grayscale and color | | flow techniques were utilized. COMPARISON:None. FINDINGS:Pancreas: The pancreas is | | normal in size and echotexture. No evidence of a dilated pancreatic duct.Aorta: The | | aorta is normal in size with no evidence of aneurysm.IVC: The inferior vena cava is | | normal in size.Liver: Slightly hyperechoic, consistent with steatosis. No gross | | irregularity identified that would suggest cirrhosis.Gallbladder: Small amount of | | biliary sludge. No formed calculus identifiedGallbladder Wall: Gallbladder wall | | thickness is normal measuring 2 mm.Common bile duct: The common bile duct is normal | | measuring 3 mm. IMPRESSION: 1. Small amount of biliary sludge. No calculus identified. | | 2. Somewhat hyperechoic liver which could indicate fatty infiltration. This time, no | | compelling evidence of liver cirrhosis and no evidence of a mass observed. Physiologic | | venous flow documented | |Pancreas: The pancreas is normal in size and echotexture. No evidence of a dilated pancrea tic duct. | |Aorta: The aorta is normal in size with no evidence of aneurysm. | |IVC: The inferior vena cava is normal in size. | |Liver: Slightly hyperechoic, consistent with steatosis. No gross irregularity identified th at would suggest cirrhosis. | |Gallbladder: Small amount of biliary sludge. No formed calculus identified | |Gallbladder Wall: Gallbladder wall thickness is normal measuring 2 mm. | |Common bile duct: The common bile duct is normal measuring 3 mm. | | | |IMPRESSION: | |1. Small amount of biliary sludge. No calculus identified. | | | |2. Somewhat hyperechoic liver which could indicate fatty infiltration. This time, no compe lling evidence of liver cirrhosis and no evidence of a mass observed. Physiologic venous ulisses w documented | | | | | + + documented in this encounter Visit Diagnoses + + | Diagnosis | + + | Hepatitis C infection Unspecified viral hepatitis C without hepatic coma | + + | Abdominal hernia Hernia of unspecified site of abdominal cavity without mention of | | obstruction or gangrene | + + documented in this encounter"
--- OUTSIDE RECORDS SUMMARY | ~2020-01-24 | XMS | Encounter Summary ---
Demographics + + + | Address | [birth year] | | | [address] | | | [place] [address] | + + + | Home Phone | | + + + | Preferred Language | Unknown | + + + | Marital Status | Single | + + + | Spiritism Affiliation | 1077 | + + + [...] Team Providers + +------+ + | Care Line Closer Name | Role | Phone | [...] + + | 07/25/ | Office | [facility] [place] | [facility], | Chronic hepatitis C | | 2016 | Visit | GASTROENTEROLOGY | ESTIVEN Perez [address] | without hepatic coma | | | | [address] | [address] | (HCC) (Primary Dx); | | | | [address] [place], [place] | [place], [place] | Liver fibrosis; | | | | [address] | [address] | Alcohol use; | | | | [phone] | | Marijuana use, | | | [...] in this encounter Patient Instructions Patient Instructions Ana Shay ARNP - 07/25/2016 11:33 AM PST Understanding Hepatitis [...] toothbrushes, manicure tools, or other personal items. [id number] [employer]. [address] [place] [address], [place] [address]. All [facility] ts reserved. This information is not intended [...] Date Knee arthroscopy acl injury Colonoscopy 2016 [place] Family History Problem Relation Age of Onset [...] Final eGFR, External 06/12/2016 >60 60 - [address]124 Final INR, External 06/12/2016 0.9 0.9 - [...] [address] | | | | | | [place] [address] | | | | | | [phone] | | | | | | | [...]
--- OUTSIDE RECORDS SUMMARY | ~2020-01-24 | XMS | Encounter Summary ---
Demographics + + + | Address | [birth year] | | | [address] | | | [place] [address] | + + + | Home Phone [...] + | Author | [facility] | | | and [place] | + + + | Organization | [facility] | | [...] Team Providers + +------+ + | Care Supervisor Hand Workers Name | Role | Phone | + [...] + + | 11/02/ | Telephone | [facility] | Ari Madden | Surgery Appointment | | 2019 | | ORTHOPEDIC SURGERY | MD [address] | | | | | [address] | [facility] | | | | | [place] | [place] [address] | | | | | [address] | [phone] | | | | | [phone] | | | +--------+ + + + [...] Miscellaneous Notes Telephone Encounter - Lulu Salas I, Sustainability Analyst - 11/27/2018 11:54 AM PDTI call ed Zak Flynn Jess "message phone" Jason Srinivasan and asked that if he see's Zak to have him give our office a call to reschedule his surgery. Jason verbalized understanding and will relay the message that Zak needs to call our office. elephone Encounter - Lulu Salas I Sustainability Analyst - 11/02/2018 12:42 PM PDTCalled and left a voicemail for Zak Gee Avendano dge to return my call to discuss possible [...] [address] | | | | | | [place] [address] | | | | | | [phone] | | | | | | | | +--------+---------+ + + + documented as of this encounter Visit Diagnoses Not on filedocumented in this encounter
--- OUTSIDE RECORDS SUMMARY | ~2020-01-24 | XMS | Encounter Summary ---
Demographics + + + | Address | [birth year] | | | [address] | | | [place] [address] | + + + | Home Phone | | + + + | Preferred Language | Unknown | + + + | Marital Status | Single | + + + | Yarsani Affiliation | 1077 | + + + | Race | Unknown | + + + | Ethnic Group | Unknown | + + + Author + + + | Author | [facility] | | | and [place] | + + + | Organization | [facility] | | [...] Team Providers + +------+ + | Care Stock And Station Agent Name | Role | Phone | [...] | Changes | ORTHOPEDIC SURGERY | I, Pediatric Dental Hygienist | | | | | [address] | | | | | | [place] | | | | | | [address] | | | | | | [phone] | | | +--------+ + + + [...] | | | | | [place] [address] | | | | | | [phone] | | | | | | | | +--------+---------+ + + + documented as of this encounter Visit Diagnoses Not on filedocumented in this encounter"
[~2020-01-24 10:31] MED LIST changes: +BENADRYL ALLERG25 MG PO; +CLINDAMYCIN HC300 MG PO; +ELIMITE60 GM TOP; +EPIN0.3P IM; +MEDROL4 MG PO; +PERCOCET 5-3251 EACH PO; +PREDNISONE20 MG PO; +ZOLOFT25 MG PO
--- OUTSIDE RECORDS SUMMARY | 2020-01-24 10:34 | XMS ---
PreManage Notification: PAUL RANGEL Security Raise Driller Events No recent Security Events currently on file CRITERIA MET - [facility] - Has Care Guidelines CARE PROVIDERS [place] Physician Technology Administrator 01/06/2019-Current PHONE: Unknown Name [facility] 11/12/2019-Current PHONE: [phone] [facility] Date: 01/05/2019 Care Coordination: Has received mental health services from [facility].\T\nbsp; Please contact [facility] for mental health concerns.\T\nbsp; [place]:\T\nbsp; [phone]\T\nbsp; [place]:\T\nbsp; [phone]. Care History Medical/Surgical 01/06/2019 [facility], \T\middot;\T\nbsp; PLEASE REFER PATIENT TO [facility] FOR NON EMERGENT MEDICAL NEEDS. \T\middot;\T\nbsp; [facility] CAN SEE PATIENTS SAME DAY FOR APTS IF PATIENT CALLS FIRST THING IN THE MORNING. Diandra VISIT COUNT (12 MO.) 3 ANDIE [facility]on TOTAL 3 NOTE: Visits indicate total known visits. ED/UCC VISIT TRACKING (12 MO.) 01/24/2020 10:31 [facility] [place] TYPE: Emergency COMPLAINT: - BUG BITES 11/12/2019 01:47 [facility] [place] TYPE: Emergency COMPLAINT: - RT KNEE PAIN DIAGNOSES: - Effusion, right knee - Pain in right knee - Nicotine dependence, unspecified, uncomplicated - Pain in right knee 02/25/2019 21:57 [facility] [place] TYPE: Emergency COMPLAINT: - SWOLLEN HAND/BEE STING DIAGNOSES: - Nicotine dependence, unspecified, uncomplicated - Toxic effect of venom of bees, accidental (unintentional), in INPATIENT VISIT TRACKING (12 MO.) No inpatient visits to display in this time frame [email or web address]
== END 2020-01-24 19:41 | disposition home or self-care (01) ==
LOC: ED 10:31
DX: L29.9 Pruritus, unspecified (principal); F17.200 Nicotine dependence, unspecified, uncomplicated
CPT/HCPCS: 99282; Q0163

== ENCOUNTER 2020-05-09 13:11 | Emergency (ER) | payer OTHER ==
[~2020-05-09] VITALS: Ht 162.6 cm; Wt 60.8 kg
--- OUTSIDE RECORDS SUMMARY | ~2020-05-09 | XMS | Encounter Summary ---
Demographics + + + | Address | [address] | | | [place] [address] | + + + | Home Phone | | + + + | Preferred Language | Unknown | + + + | Marital Status | Single | + + + | Anabaptism Affiliation | 1077 | + + + | Race | or | + + + | Ethnic Group | Not or | + + + Author + + + | Author | [facility] | | | and [place] | + + + | Organization | [facility] | | | and [place] | [...] Team Providers + +------+ + | Care Junior High Math Teacher Name | Role | Phone | + +------+ + | Fabio Sandoval MD | PCP | | + +------+ + Reason for Visit + + + | Reason | Comments | + + + | Pre-op Exam | | + + + | Hand Pain | 7/10 left hand | + + + Encounter Details +--------+---------+ + + + | Date | Type | Department | Care Team | Description | +--------+---------+ + + + | 10/15/ | Office | [facility] | Ari Madden | Chronic hepatitis C | | 2019 | Visit | ORTHOPEDIC SURGERY | [address] | without hepatic coma | | | | [address] [facility] | [facility] | (HCC) (Primary Dx); | | | | [facility] [place] | [place] [address] | Carpal tunnel | | | | [address] | [phone] | syndrome of left | | | | [phone] | | wrist; Severe carpal | | | | | | tunnel syndrome, | | | | | | left; Pre-op exam | +--------+---------+ + + + Social History [...] + +---------+ + | Alcohol Use | Drinks/Week | oz/Week | Comments | + + +---------+ + | Yes | 0 Standard drinks | 0.0 | rare, quit drinking | | | or equivalent | | heavy | + + +---------+ + + + + | Sex Assigned at | Date Recorded | | | | + + + | Not on file | | + + + documented as of this encounter Last Filed Vital Signs + + + + + | Vital Sign | Reading | Time Taken | Comments | + + + + + | Blood Pressure | 112/59 | 10/15/2018 10:03 AM | | | | | PDT | | + + + + + | Pulse | 81 | 10/15/2018 10:03 AM | | | | | PDT | | + + + + + | Temperature | 36.3 C (97.3 F) | 10/15/2018 10:03 AM | | | | | PDT | | + + + + + | Respiratory Rate | 24 | 10/15/2018 10:03 AM | | | | | PDT | | + + + + + | Oxygen Saturation | 99% | 10/15/2018 10:03 AM | | | | | PDT | | + + + + + | Inhaled Oxygen | - | - | | | Concentration | | | | + + + + + | Weight | 54.2 kg (119 lb 7.8 | 10/15/2018 10:03 AM | | | | oz) | PDT | | + + + + + | Height | - | - | | + + + + + | Body Mass Index | 21.17 | 09/08/2018 10:10 AM | | | | | PST | | + + + + + documented in this encounter Patient Instructions Patient Instructions Ari Madden MD - 10/15/2018 10:58 AM PDT Carpal Tunnel Syndrome Carpal tunnel syndrome is a painful condition of the wrist and arm. It is caused by pressur e on the median nerve. The median nerve is one of the nerves that give feeling and movement to the hand. It passes through a tunnel in the wrist called the carpal tunnel. This tunnel i s made up of bones and ligaments. Narrowing of this tunnel or swelling of the tissues inside the tunnel puts pressure on the median nerve. This causes numbness, pins and needles, or el ectric shooting pains in your hand and forearm. Often the pain is worse at night and may wak e you when you are asleep. Carpal tunnel syndrome may occur during and with use of control pills. It i s more common in workers who must often bend their wrists. It is also common in people who w ork with power tools that cause strong vibrations. Home care Rest the painful wrist. Avoid repeated bending of the wrist back and forth. This puts pr essure on the median nerve. Avoid using power tools with strong vibrations. If you were given a splint, wear it at night while you sleep. You may also wear it durin g the day for comfort. Move your fingers and wrists often to prevent stiffness. Elevate your arms on pillows when you lie down. Try using the unaffected hand more. Try not to hold your wrists in a bent, downward position. Sometimes changes in the work place may ease symptoms. If you type most of the day, it m ay help to change the position of your keyboard or add a wrist support. Your wrist should be in a neutral position and not bent back when typing. You may [id number] pain medicine to treat pain and inflammation, unless anoth er medicine was prescribed.Anti-inflammatory pain medicines, such as ibuprofen or naproxen may be more effective than acetaminophen, which treats pain, but not inflammation.If you have chronic liver or kidney disease or ever had a stomach ulcer or gastrointestinal bleedin g, talk with your healthcare provider before using these medicines. Opioid pain medicine will only give temporary relief and does not treat the problem. If pain continues, you may need a shot of a steroid drug into your wrist. If the above methods fail, you may need surgery. This will open the carpal tunnel and re lease the pressure on the trapped nerve. Follow-up care Follow up with your healthcare provider, oras advised. If X-rays were taken,you will be notified of any new findings that may affect your care. When to seek medical advice Call your healthcare provider right away if any of these occur: Pain not improving with the above treatment Fingers or hand become cold, blue, numb, or tingly Your whole arm becomes swollen or weak Date Last Reviewed: 11/25/201719994406-7860 [employer]. [address] [place] [address]. All righ ts reserved. This information is not intended as a substitute for professional medical care. Always follow your healthcare professional's instructions. documented in this encounter Progress Notes Ari Madden MD - 10/15/2018 10:45 AM PDTFormatting of this note might be dif ferent from the original. [facility] PRE-OPERATIVE VISIT Pt. Name/Age/: Zak Mercado 53 y.o. 1965 Primary Care Physician: Fabio Sandoval Chief Complaint/Reason for Visit: Pre-op Exam and Hand Pain (02/03 left hand) History of Present Illness: The patient is a pleasant 53 y.o. male who presents with for a pre-operative visit prior to left carpal tunnel release. He reports that he continues to have numbness throughout his l eft hand. His little finger is the least involved. His index, long, and ring fingers of th e most involved. He does find himself shaking out the wrist from time to time. Playing asmita tar still causes him significant difficulties. This does wake him up at night.. Past Medical History: Past Medical History: Diagnosis Date Back pain, chronic low back Carpal tunnel syndrome of left wrist 08/11/2018 HCV (hepatitis C virus) Genotype 2b Osteoarthritis of knee, unilateral left Past Surgical History: Procedure Laterality Date [facility]COPY [address] [place] acl injury Allergies: No Known Allergies Current Medications: Current Outpatient Prescriptions Medication Sig Dispense Refill ibuprofen (ADVIL,MOTRIN) 800 MG tablet Take 800 mg by mouth 3 times daily as needed for Pain. No current facility-administered medications for this visit. Family History: Family History Problem Relation Age of Onset Heart attack Father Heart attack Brother Stroke Maternal Grandmother Dementia Mother Social History: Social History Social History Marital status: Single Spouse name: N/A Number of children: N/A Years of education: N/A Occupational History Not on file. Social History Main Topics Smoking status: Current Every Day Smoker Smokeless tobacco: Never Used Alcohol use 0.0 oz/week Comment: rare, quit drinking heavy Drug use: Yes Types: Marijuana, Methamphetamines Comment: quit 1995 Sexual activity: Not on file Other Topics Concern Not on file Social History Narrative No narrative on file Review of Systems All of these are negative unless otherwise marked Eyes: [x] Double vision [x] Glasses/contacts [x] Failing vision Respiratory: [] Asthma/Wheezing [] Pneumonia [x] Night sweats [] Shortness of breath [] Chronic cough [] Coughing up blood [] Exposure to tuberculosis Cardiovascular: [] Heart Problems [] Hypertension [] Heart murmur [] Palpitations [] Rheumatic fever [] Phlebitis [] Chest pain [] Ankle swelling [x] Leg cramps [] Raci ng heart [] Skipping beats [] Blood clots Urinary Tract: [] Painful urination []Kidney Stones []Any urine leakage []Weak urine stream [] Night urination []Urine infections [] Bedwetting [] Blood in urine Ear/Nose/Throat: [] Frequent Colds [] Sinus Disease [] Nose obstruction [] Sneezing Spells [] Change in taste [] Artificial teeth [] Ears ringing [] Ear pain [] Hearing loss [x] Teeth problems [] Hoarseness [] Neck swelling [] Sore throat [] Congestion [] Nosebleeds [x] Nasal allergies Gastrointestinal: [x] Abdominal pain [] Heartburn [x] Blood from rectum [x] Colitis [] Gallbladder problems [] Troub le swallowing [] Bloated stomach [] Change in stools [] Vomiting blood [x] Nausea [x] Hemorrhoids [] Jaundice [x] Hepatitis [] Diarrhea [] Constipation [] Diverticulitis Musculoskeletal: [x] Physical handicaps [x] Back or shoulder pain []Rheumatoid disease [] Osteoarthritis [x] Joint pain [x] Joint swelling []Gout [x] Leg cramps at night Skin: [] Skin rashes [] Itching/Burning [] Skin bruises easil y [] Artificial tanning [] Skin cancer [x] Hair loss [] Changes in moles Psychiatric: [] Depression [] Suicidal thoughts [x] Sleep pattern changes [] Appetite changes [] Recent counseling [x] Nervousness/anxiety [] Physical violence [] Marital problems Neurological: [x] Headaches [] Seizures [] Stroke/TIA [] Faintness [] Tremors [] Numbness [] Dizziness [] Changes in handwriting [x] Memory loss [x] Shooting pains Endocrine: [] Thyroid [] Diabetes Systemic: []Weight loss/gain (over 10 lbs) []Fever/chills []Fatigue [] Sleeping Difficulties [] Speech change [] Voice change Admission Weight: Weight: 54.2 kg (119 lb 7.8 oz) BMI: Body mass index is 21.17 kg/m . Physical Examination: BP 112/59 | Pulse 81 | Temp 36.3 C (97.3 F) (Temporal) | Resp 24 | Wt 54.2 kg (119 lb 7.8 oz) | SpO2 99% | BMI 21.17 kg/m General: Alert, oriented, no acute distress HEENT: Normocephalic, atraumatic Cardiovascular: Regular rate and rhythm Respiratory: Breathing normally at a regular rate Ortho Exam Left upper extremity exam: Number over the pads of the thumb, index, long and ring fingers. Negative Tinel's at the w rist. Negative Jason's but he is already numb so that is a somewhat useless test in the si tuation. His skin is clean, dry, and intact. Radial pulse 2+. Able to flex and extend the t humb at the interphalangeal joint, make an "ok" sign, adduct and abduct the fingers, and opp ose the thumb to the small finger. Diagnostic Studies: Imaging Electrodiagnostic study performed 08/11/[address] Drs[address] Ramirez demonstrated severe left carp al tunnel syndrome. Labs- Lab Results Component Value Date ANIONGAP 14 06/12/2016 INR 0.9 06/12/2016 Assessment and Plan: 1. Chronic hepatitis C without hepatic coma (HCC) Hepatic Function Panel CBC no Differential PTT Protime INR Basic Metabolic Panel 2. Carpal tunnel syndrome of left wrist 3. Severe carpal tunnel syndrome, left 4. Pre-op exam Hepatic Function Panel CBC no Differential PTT Protime INR Basic Metabolic Panel The patient is a pleasant 53 y.o. male who presents for a pre-operative visit regarding lef t carpal tunnel syndrome. Treatment options were discussed with the patient including non-op erative treatment modalities. Considering the nature of the patient's condition, decision wa s made to proceed with surgery. Risks, benefits and alternatives to surgery were discussed. The patient agreed to proceed with surgery. Special risks to the procedure include the risk of median nerve damage, wound healing problems, and pillar pain and these were discussed wit h the patient. All of his questions were answered. Follow-up: 2 weeks after surgery with no x-ray Portions of this report were transcribed using voice recognition software. Every effort wa s made to ensure accuracy; however, inadvertent computerized manager business systems errors may be pre sent. I appreciate the opportunity to help with the management of this patient. Ari Madden MD documented in this encounter Plan of Treatment + +------+--------+ + + | Name | Type | Priori | Associated Diagnoses | Order Schedule | | | | ty | | | + +------+--------+ + + | Hepatic Function | Lab | Routin | Chronic hepatitis | Expected: | | Panel | | e | C without hepatic | 10/16/2018, Expires: | | | | | coma (HCC) Pre-op | 10/15/2019 | | | | | exam | | + +------+--------+ + + | CBC no Differential | Lab | Routin | Chronic hepatitis | Expected: | | | | e | C without hepatic | 10/16/2018, Expires: | | | | | coma (HCC) Pre-op | 10/15/2019 | | | | | exam | | + +------+--------+ + + | PTT | Lab | Routin | Chronic hepatitis | Expected: | | | | e | C without hepatic | 10/16/2018, Expires: | | | | | coma (HCC) Pre-op | 10/15/2019 | | | | | exam | | + +------+--------+ + + | Protime INR | Lab | Routin | Chronic hepatitis | Expected: | | | | e | C without hepatic | 10/16/2018, Expires: | | | | | coma (HCC) Pre-op | 10/15/2019 | | | | | exam | | + +------+--------+ + + | Basic Metabolic | Lab | Routin | Chronic hepatitis | Expected: | | Panel | | e | C without hepatic | 10/16/2018, Expires: | | | | | coma (HCC) Pre-op | 10/15/2019 | | | | | exam | | + +------+--------+ + + documented as of this encounter Visit Diagnoses + + | Diagnosis | + + | Chronic hepatitis C without hepatic coma (HCC) - Primary | + + | Carpal tunnel syndrome of left wrist Carpal tunnel syndrome | + + | Severe carpal tunnel syndrome, left | + + | Pre-op exam Preoperative examination, unspecified | + + documented in this encounter
--- OUTSIDE RECORDS SUMMARY | ~2020-05-09 | XMS | Encounter Summary ---
Demographics + + + | Address | [address] | | | [place] [address] | + + + | Home Phone | | + + + | Preferred Language | Unknown | + + + | Marital Status | Single | + + + | Church Affiliation | 1077 | + + + | Race | or | + + + | Ethnic Group | Not or | + + + Author + + + | Author | [facility] | | | and [place] | + + + | Organization | [facility] | | | and [place] [...] Team Providers + +------+ + | Care Fluid Pump Operator Name | Role | Phone | + +------+ + | Reji Mock PA-C | PCP | | + +------+ + Reason for Visit +--------+--------+ + | Reason | Onset | Comments | | | Date | | +--------+--------+ + | Other | 11/01/ | | | | 2016 | | +--------+--------+ + Encounter Details +--------+ + + + + | Date | Type | Department | Care Team | Description | +--------+ + + + + | 11/01/ | Telephone | [facility] [place] | [facility], | Other | | 2016 | | GASTROENTEROLOGY | ESTIVEN [address] | | | | | [address] | [address] | | | | | [address] [place] | [place], [place] | | | | | [address] | [address] | | | | | [phone] | | | +--------+ + + + [...] Smokeless Tobacco: | | | | | Current User | | | | + +---+---+---+ + [...] + + documented as of this encounter Miscellaneous Notes Telephone Encounter - Jessica Shin CMA - 11/04/2016 9:53 AM PDTSpoke to patient, he said that he can't walk very far due to pain in his knee from surgery and he is still takin g pain medication. He is concerned he won't be able to get any where to give urine sample th e same day due to his knee and no transportation. I asked that he get back to us when he is ready to give urine sample. He needs to give me name of lab where he wilbur like order sent al so. Patient said he will figure this out and call me back. elephone Encounter - Jaleesa Reynolds - 7 1:00 PM PDTPatient called stating that he never heard back from anyone regarding a urine test. I informed him that we did try to call the number listed however there was no voicema il set up. He also asked if Yenni knows that he just had knee surgery and is on hydromorphon e and oxycodone and is wondering if he should still go in for the urine test. Also stated t hat he has no transportation and public transportation needs 3 days notice to be able to lola e him any where. He gave me two different phone numbers where he can be reached. or [phone]. d ocumented in this encounter Plan of Treatment Not on filedocumented as of this encounter Visit Diagnoses Not on filedocumented in this encounter"
--- OUTSIDE RECORDS SUMMARY | ~2020-05-09 | XMS | Encounter Summary ---
Demographics + + + | Address | [address] | | | [place] [address] | + + + | Home Phone | | + + + | Preferred Language | Unknown | + + + | Marital Status | Single | + + + | Voodoo Affiliation | 1077 | + + + | Race | or | + + + | Ethnic Group | Not or | + + + Author + + + | Author | [facility] | | | and [place] | + + + | Organization | [facility] | | | and [place] | [...] Team Providers + +------+ + | Care Technical Specialist Name | Role | Phone | + +------+ + | Fabio Sandoval MD | PCP | | + +------+ + Reason for Visit + +--------+ + | Reason | Onset | Comments | | | Date | | + +--------+ + | Surgery Appointment | 11/02/ | | | | 2019 | | + +--------+ + Encounter Details +--------+ + + + + | Date | Type | Department | Care Team | Description | +--------+ + + + + | 11/02/ | Telephone | [facility] | Ari Madden | Surgery Appointment | | 2019 | | ORTHOPEDIC SURGERY | [address] | | | | | [address] | [facility] | | | | | [place] | [place] [address] | | | | | [address] | [phone] | | | | | [phone] | | | +--------+ + + + [...] this encounter Miscellaneous Notes Telephone Encounter - Lulu Salas I Certified Registered Locksmith - 11/27/2018 11:54 AM PDTI call ed Zak Mercado "message phone" Jason Srinivasan and asked that if he see's Zak to have him give our office a call to reschedule his surgery. Jason verbalized understanding and will relay the message that Zak needs to call our office. elephone Encounter - Lulu Salas I Certified Registered Locksmith - 11/02/2018 12:42 PM PDTCalled and left a voicemail for Zak Avendano dgkeeley to return my call to discuss possible surgery day. documented in this encounter Plan of Treatment Not on filedocumented as of this encounter Visit Diagnoses Not on filedocumented in this encounter
--- OUTSIDE RECORDS SUMMARY | ~2020-05-09 | XMS | Encounter Summary ---
Demographics + + + | Address | [address] | | | [place] [address] | + + + | Home Phone | | + + + | Preferred Language | Unknown | + + + | Marital Status | Single | + + + | Congregation Affiliation | 1077 | + + + | Race | or | + + + | Ethnic Group | Not or | + + + Author + + + | Author | [facility] | | | and [place] | + + + | Organization | [facility] | | | and [place] [...] Team Providers + +------+ + | Care Medical Radiation Tech Name | Role | Phone | + +------+ + | Fabio Sandoval MD | PCP | | + +------+ + Encounter Details +--------+ + + + + | Date | Type | Department | Care Team | Description | +--------+ + + + + | 11/03/ | Episode | [facility] [place] | Lulu Salas | | | 2019 | Changes | ORTHOPEDIC SURGERY | I, Winchman/Crane Operator | | | | | [address] | | | | | | [place] | | | | | | [address] | | | | | | [phone] | | | +--------+ + + + [...]
--- OUTSIDE RECORDS SUMMARY | ~2020-05-09 | XMS | Encounter Summary ---
Demographics + + + | Address | [address] | [address] | | | [place] [address] | + + + | Home Phone [...] Author + + + | Author | [facility] | | | and [place] | + + + | Organization | [facility] | | | and [place] | [...] Team Providers + +------+ + | Care Fire Chief Name | Role | Phone | + +------+ + | Fabio Sandoval MD | PCP | | + +------+ + Reason for Visit + +--------+ + | Reason | Onset | Comments | | | Date | | + +--------+ + | Surgery Appointment | 09/14/ | | | | 2019 | | + +--------+ + Encounter Details +--------+ + + + + | Date | Type | Department | Care Team | Description | +--------+ + + + + | 09/14/ | Telephone | [facility] | Ari Madden | Surgery Appointment | | 2019 | | ORTHOPEDIC SURGERY | [address] | | | | | [address] | [facility] | | | | | [place] | [place] [address] | | | | | [address] | [phone] | | | | | [phone] | | | +--------+ + + + [...] Miscellaneous Notes Telephone Encounter - Lulu Salas Medical Assistant - 10/21/2018 4:55 PM PDTCalled the "message" phone/his ride that was given, and informed them of Zak Gee Mercado check in time will be at 1300. He verbalized understanding and will let Zak know a nd get him here on time. Electronically signed by Edilia Rain at 4:57 PM PDTTelephone Encounter - Lulu Salas Medical Assistant - 9 11:18 AM PDTI got in contact with Zak Flynn Jess on number not in chart # , this is a friends number that he helps out. Zak Mercado is scheduled for surger y on 10/23/2018. elephone Encounter - Lulu Salas Medical Assistant - 10/12/2018 12:04 P M PDTCalled and left a detailed message for the patient to return my call to discuss surgery dates. elephone Encounter - Lulu Salas Medical Assistant - 09/24/2018 12:08 PM PSTTri ed to contact patient again, asked that he returned my call to discuss surgery dates. Electr onically signed by Edilia Rain at 09/24/2018 12:08 PM PSTTelephone Encounter - Lulu Salas Medical Assistant - 09/14/2018 12:44 PM PSTCalled and left a message for patient to return my call to discuss surgery dates. documented in this encounter Plan of Treatment Not on filedocumented as of this encounter Visit Diagnoses Not on filedocumented in this encounter
--- OUTSIDE RECORDS SUMMARY | ~2020-05-09 | XMS | Encounter Summary ---
Demographics + + + | Address | [address] [birth year][address][birth year] | | [address] | | [place] [address] | + + + | Home Phone [...] Author + + + | Author | [facility] | | | and [place] | + + + | Organization | [facility] | | | and [place] [...] Team Providers + +------+ + | Care Change Management Specialist Name | Role | Phone | + +------+ + PCP | Unavailable | + +------+ + Encounter Details +--------+ + + + + | Date | Type | Department | Care Team | Description | +--------+ + + + + | 12/29/ | Emergency | [facility] | Seth Marroquin, | Pneumonia; | | 2013 | | [facility] | MD [address] | Pleurisy | | | | EMERGENCY CENTER | [place] [address] | | | | | [address] | [phone] | | | | | [place], [place] | | | | | | [address] | | | | | | [phone] | | | +--------+ + + + [...] + + documented as of this encounter ED Notes Conversion Transaction, Provider Unknown - 12/29/2013 12:18 PM PDTFormatting of this note m ight be different from the original. ED Notes by Dee Olson RN at 12/29/138 Author: Dee Olson RN Service: (none) Author Type: Registered Nurse Filed: 12/29/138 Date of Service: 12/29/131217 Status: Signed Digital Marketing Coordinator: Dee Olson RN (Registered Nurse) Report given to Linnea Olson RN 12/29/131217 onver janis Transaction, Provider Unknown - 12/29/2013 11:38 AM PDT ED Notes by Dee Olson RN at 12/29/131137 Author: Dee Olson RN Service: (none) Author Type: Registered Nurse Filed: 12/29/131137 Date of Service: 12/29/131137 Status: Signed Digital Marketing Coordinator: Dee Olson RN (Registered Nurse) 2 patient identifiers checked, patient gowned, ID band placed on patient, call light instr ucted on and given to patient. Dee Olson RN 12/29/131137 onver janis Transaction, Provider Unknown - 12/29/2013 11:37 AM PDT ED Notes by Dee Olson RN at 12/29/13 113 Author: Dee Olson RN Service: (none) Author Type: Registered Nurse Filed: 12/29/13 1200 Date of Service: 12/29/131136 Status: Signed Digital Marketing Coordinator: Dee Olson RN (Registered Nurse) Patient states he has had a cold and bad cough for couple of weeks, he was on AB for some t eeth infections and it appeared to be better but now is worse with coughs so strong, 'last n ight i think I broke a rib' he states he has felt cold and is getting worse Dee Olson RN 12/29/13 1200 Seth Herrmann MD - 12/29/2013 11:35 AM PDTFormatting of this note might be different from the o riginal. ED Provider Notes by Seth Marroquin MD at 12/29/13 9828 Author: Seth Marroquin MD Service: (none) Author Type: Physician Filed: 12/29/13 1246 Date of Service: 12/29/13 4984 Status: Signed Digital Marketing Coordinator: Seth Marroquin MD (Physician) [facility] Department of Emergency Medicine History of Present Illness Patient Identification Zak Rangel is a 48 y.o. male. Patient information was obtained from patient. History/Exam limitations: none. Patient presented to the Emergency Department by: Car Chief Complaint Chief Complaint Patient presents with Cough "I think I have pneumonia" pt states he has had cough, back pain, everything aches, stat es he had temp of 103 he thinks last night, pt states he thinks he cracked a rib last night coughing. Pleurisy Fever The patient complains of cough. Onset of symptoms was one week ago, with a worsenign course since that time. The symptoms are described to be of moderate severity. The patient descr ibes the quality and location of the symptoms as the following: cough, congiestion, fevers. The patient also complains of pains left chest from coughing, thinks he might have broken a rib. Also has dental pain and vance been on antibiotics for that. changind doctors because h e says his regualar doctor does nothing for him.. PCP: PER PT NONE Past Medical History Diagnosis Date Head injury from fall off of trailer a few year ago Hepatitis C ADHD (attention deficit hyperactivity disorder) Tennis elbow left elbow Insomnia Past Surgical History Procedure Date Unlisted procedure arthroscopy Collar bone fracture Knee surgery x 3 Hardware removal Prior to Admission medications Medication Sig Start Date End Date Taking? Authorizing Provider FLUoxetine (PROZAC) 20 MG capsule Take 1 capsule by mouth daily. 10/20/13 10/20/14 Carlos Storey PA-C Multiple Vitamin (ONE-A-DAY MENS) TABS Take by mouth daily. OTC 09/27/13 Historical Provid er No Known Allergies History Social History Marital Status: Single Spouse Name: N/A Number of Children: N/A Years of Education: N/A Occupational History Not on file. Social History Main Topics Smoking status: Current Every Day Smoker -- 0.1 packs/day for 40 years Types: Cigarettes Start date: 08/17/1973 Smokeless tobacco: Never Used Alcohol Use: Yes Comment: weekend drinks Drug Use: No Comment: prior user 1995 Sexually Active: Yes -- Female partner(s) Other Topics Concern Not on file Social History Narrative No narrative on file Family History Problem Relation Age of Onset Hypertension Mother Hypertension Father Review of Systems Constitutional: Negative for: fever, chills, sweats or weight loss Eyes: Negative for: decreased vision or irritated eyes Nose: Negative for: nosebleed Throat: Negative for: mouth sores Cardiovascular/Respiratory: POSITIVE for: chest pain, shortness of breath, cough Gastrointestinal: Negative for: abdominal pain, vomiting, diarrhea, black or bloody stools Genitourinary: Negative for: dysuria, hematuria, urinary problems Musculoskeletal: Negative for: myalgias and arthralgias Skin: Negative for: laceration or lesion Neuro and psych: Negative for: fainting, head injury, seizure, trouble walking Endocrine/Heme/Lymph: Negative for: swollen lymph nodes, easy bruising All systems reviewed and otherwise negative Physical Exam BP 110/64 | Pulse 91 | Temp 99.4 F (37.4 C) (Temporal) | Resp 24 | Ht 1.626 m (5' 4") | Wt 52.6 kg (115 lb 15.4 oz) | BMI 19.90 kg/m2 | SpO2 96% Vital signs reviewed and normal Pulse Oximetry interpretation: Normal General: Alert, in no apparent distress Eyes: Normal inspection, pupils equal and round, non-icteric ENT: Ears normal Nose normal Pharynx normal Neck: Normal inspection Supple No lymphadenopathy No meningismus Cardiovascular: Rate and rhythm normal No murmurs Respiratory: Breath sounds normal bilaterally Mild left anterior chest wall tenderness Abdomen: Soft, non-tender, non-distended No guarding or rebound Genitourinary: Deferred Rectal exam: Deferred Back: Normal inspection Skin: Color normal Warm and dry No rash Neuro: No motor deficit No sensory deficit No confusion Medical Decision Making and Emergency Department Course This patient is presenting with a cough. The patient is well appearing and is in no distre ss. The differential diagnosis for this patient's cough includes, but is not limited to, up per respiratory infection, viral bronchitis, bacterial bronchitis, viral pneumonia, bacteria l pneumonia, atypical pneumonia, asthma and bronchospasm. There are no signs of severe seps is or respiratory failure at this time. I will order a chest X-ray to assess for pneumonia, effusion, pneumothorax, or other serious complications. I recommend symptotic treatment an d will discuss with the patient potential risks and benefits of antibiotics. ED Department Course CXR shows pneumonia, consistent with his symptoms. Stable for outpatient treatment. zithr omax and hydrocodone for pain. The patient will follow up with their doctor for further out patient treatment as indicated. Agrees to return to the ED if symptoms worsen or if any oth er concerns. Records Reviewed Old medical records. Radiology Evaluation Imaging Results XR Chest PA and Lateral (Preliminary result) Result time:12/29/13 1235 ED Interpretation Documented by Seth Marroquin MD (12/29/13 1235, [facility], Emergency Medicine) This ED initial read occurred during the ED course and management. The ED interpretation at the time the patient was being clinically managed, and prior to the radiology final read interpretation was: left lower lobe infiltrate, no effusion Available radiology studies reviewed and interpreted contemporaneously by me. ED Diagnoses Final diagnoses Pneumonia Pleurisy Disposition: ED Disposition Orders Discharge Condition at discharge: Stable Follow-up Information Follow up With Details Comments Contact [facility] [address] [place] [address] Discharge Medications: New Prescriptions AZITHROMYCIN (ZITHROMAX) 250 MG TABLET Take 1 tablet by mouth daily. HYDROCODONE-ACETAMINOPHEN (NORCO) 5-325 MG PER TABLET Take 1-2 tablets by mouth every 4 (four) hours as needed for Pain. Additional Documentation Procedures Seth Marroquin MD 12/29/13 4142 documented in this e ncounter Plan of Treatment Not on filedocumented as of this encounter Procedures + +--------+ + + + | Procedure Name | Priori | Date/Time | Associated Diagnosis | Comments | | | ty | | | | + +--------+ + + + | XR CHEST 2 VIEWS | Routin | 12/29/2013 | | Results for this | | | e | 12:33 PM | | procedure are in the | | | | PDT | | results section. | + +--------+ + + + documented in this encounter Results XR Chest 2 Vws (12/29/2013 12:33 PM PDT) + + | Specimen | + + | | + + + + + | Impressions | Performed At | + + + | 1. Acute, mild left lower lobe pneumonia. 2. Chronic posterior | | | right rib fractures. | | + + + + + + | Narrative | Performed At | + + + | [facility] XR CHEST 2 VIEW FRONTAL AND LATERAL 12/29/2013 12:33 | | | PM History: 48 years. Male. Acute chest pain, presenting to | | | the emergency room. Technique: PA and lateral views of the chest. | | | Comparison: No prior chest radiography at this facility.. | | | Findings: Moderate peribronchial alveolar infiltrate is noted in the | | | posterior left lung base consistent with mild multisegmental | | | pneumonia. Bronchial thickening is noted bilaterally in the lower | | | lobes which may be acute or chronic. The upper lung lechuga are | | | clear. No pleural effusion visualized. 4 chronic right posterior | | | rib fractures are noted, numbers 8 through 11. Other ribs appear | | | normal. The cardiac volume and contour are normal. The pulmonary | | | vasculature is normal, without dilatation. The pulmonary mani and | | | mediastinal contours are normal. The thoracic aorta is normal, | | | without dilatation or calcification. The thoracic vertebral bodies are | | | normal in height, without compression fracture or degenerative | | | changes. The overall bone density is normal. No focal osteolytic | | | or osteoblastic defect visualized. | | + + + + + | Procedure Note | + + | Dorian, Rad Conversion - 03/12/2019 1:40 PM PDT [facility] CHEST 2 VIEW FRONTAL | | AND LATERAL12/29/2013 12:33 PM History: 48 years. Male. Acute chest pain, presenting to | | the emergency room. Technique: PA and lateral views of the chest.Comparison: No prior | | chest radiography at this facility.. Findings: Moderate peribronchial alveolar | | infiltrate is noted in the posterior left lung base consistent with mild multisegmental | | pneumonia. Bronchial thickening is noted bilaterally in the lower lobes which may be | | acute or chronic. The upper lung lechuga are clear. No pleural effusion visualized. 4 | | chronic right posterior rib fractures are noted, numbers 8 through 11. Other ribs appear | | normal. The cardiac volume and contour are normal. The pulmonary vasculature is | | normal, without dilatation. The pulmonary mani and mediastinal contours are normal. The | | thoracic aorta is normal, without dilatation or calcification. The thoracic vertebral | | bodies are normal in height, without compression fracture or degenerative changes. The | | overall bone density is normal. No focal osteolytic or osteoblastic defect visualized. | | IMPRESSION: 1. Acute, mild left lower lobe pneumonia.2. Chronic posterior right rib | | fractures. | |focal osteolytic or osteoblastic | | defect visualized. | | | |IMPRESSION: | |1. Acute, mild left lower lobe pneumonia. | |2. Chronic posterior right rib fractures. | | | | | | | + + documented in this encounter Visit Diagnoses + + | Diagnosis | + + | Pneumonia Pneumonia, organism unspecified | + + | Pleurisy Pleurisy without mention of effusion or current tuberculosis | + + documented in this encounter
--- OUTSIDE RECORDS SUMMARY | ~2020-05-09 | XMS | Encounter Summary ---
Demographics + + + | Address | [address] | | [place] [address] | + + + | Home Phone | | + + + | Preferred Language | Unknown | + + + | Marital Status | Single | + + + | Mandaeism Affiliation | 1077 | + + + | Race | or | + + + | Ethnic Group | Not or | + + + Author + + + | Author | [facility] | | | and [place] | + + + | Organization | [facility] | | | and [place] [...] Team Providers + +------+ + | Care Patient Account Analyst Name | Role | Phone | + +------+ + PCP | Unavailable | + +------+ + Encounter Details +--------+ + + + + | Date | Type | Department | Care Team | Description | +--------+ + + + + | 10/08/ | Hospital | [facility] | Jared Nicholas MD | Altered mental | | 2015 - | Encounter | MEDICAL [facility]ENTER | [address] | status; Alcohol | | | | CLINICAL DECISION | [place] [address] | intoxication (HCC); | | 10/09/ | | [address] | [phone] | Suicidal ideation; | | 2014 | | [place], [place] | | Overdose, initial | | | | [address] | | encounter; Seizure | | | | [phone] | | (HCC); Alcoholic | | | | | | liver disease (HCC); | | | | | | Elevated liver | | | | | | enzymes; Shortened | | | | | | OK interval | +--------+ + + + + [...] 10/09/141711 Date of Service: 10/09/141703 Status: Signed Electric Blasting Cap Assembler: Med Thompson DO (Physician) [facility] Service: Hospitalist Discharge Summary Date of Admission: [...] Progress Note by Dante Nam RN at 03/1828 Author: Dante Nam RN Service: (none) Author Type: Registered Nurse Filed: 10/09/141830 Date of Service: 10/09/141828 Status: Signed Electric Blasting Cap Assembler: Dante Nam RN (Registered Nurse) Dc instructions [...] 10/09/141821 Date of Service: 10/09/141820 Status: Signed Electric Blasting Cap Assembler: Dante Nam RN (Registered Nurse) Crisis has seen and cleared patient to be discharged home. IV dc'd, patient is gettting alan ssed right now, called for family to transport home, will be discharged shortly. onver janis Transaction, Provider Unknown - 10/09/2014 5:43 AM PDT Progress Notes by Td Valles RPH at 10/09/1443 Author: Td Valles RPH Service: (none) Author Type: Pharmacist Filed: 10/09/14 0543 Date of Service: 10/09/14542 Status: Signed Electric Blasting Cap Assembler: Td Valles RPH (Pharmacist) Scr = 0.87- pharmacy will renal dose as needed once height and weight are charted Rosa Echols RN - 10/09/2014 1:59 AM PDT Nurse Progress Note by Rosa Gomez RN at 10/09/14 015 Author: Rosa Gomez RN Service: (none) Author Type: Registered Nurse Filed: 10/09/14 0201 Date of Service: 10/09/14158 Status: Signed Electric Blasting Cap Assembler: Roas Gomez RN (Registered Nurse) Patient arrived from the ED by stretcher with family member at the bedside. Patient is slee ping but is arousable when calling his name. Patient is being admitted for AMS and fall. Erwin l observe and treat as needed. documented in this encounter H&P Notes Jared Nicholas MD - 10/08/2014 11:37 PM PDT H&P by Jared Nicholas MD at 10/08/142336 Author: Jared Nicholas MD Service: Hospitalist Author Type: Physician Filed: 10/09/14 0435 Date of Service: 10/08/142336 Status: Signed Electric Blasting Cap Assembler: Jared Nicholas MD (Physician) Related Notes: Original Note by Jared Nicholas MD (Physician) filed at 10/09/14 0021 [facility] Service: Hospitalist Admission History & Physical Pt: [...] niece were at bedside. Apparently, the patient's fa jemma went for restorationism around 1800 hours. The patient does take [...] history of seizures. Apparently as per the eugenie ennis's family, the patient's girlfriend has recently broken [...] SpO2 96% Filed Vitals: 10/08/14 2049 10/08/14 20510/08/14 2204 10/08/14 2303 BP: 155/82 159/97 167/80 [...] Moving all extremities. Data: Recent Labs Lab 10/08/142105 WBC 7.62 HGB 13.8 HCT 40.2 PLT 341 Recent Labs Lab 10/08/142105 NA 137 K 3.9 CL 102 CO2 28 BUN 10 CREATININE 0.87 PROT 9.2* BILITOT 0.2 ALT 78* AST 60* Phosphorus: No results found for this basename: PHOS Invalid input(s): LABALBU No results for input(s): MG in the last 168 hours. No results for input(s): AMYLASE in the last 168 hours. No results for input(s): PHART, PO2ART, GMU4WAH, I6EZZSKT, BEART in the last 168 hours. No [...] EKG. Findings: 10/08/2014 71 bpm. NSR. Short OK interval. Qtc - 458. Normal axis. Problem [...] detail and summarized as above. Dictation and correctional officer lieutenant or software, Mark[employer], may have been used which may contain [...] 10/09/1410 Date of Service: 10/09/149 Status: Signed Electric Blasting Cap Assembler: Rebeca Kam RN (Registered Nurse) Pt using urinal at bs. Family at bs. Pt appears in NAD> Rebeca Kam RN 10/09/1410 onver janis Transaction, Provider Unknown - 10/08/2014 10:42 PM PDT ED Notes by Rebeca Kam RN at 10/08/142241 Author: Rebeca Kam RN Service: (none) Author Type: Registered Nurse Filed: 10/08/142241 Date of Service: 10/08/142241 Status: Signed Electric Blasting Cap Assembler: Rebeca Kam RN (Registered Nurse) Dr pantoja at bs assessing pt at this time. Rebeca Kam RN 10/08/142241 onver janis Transaction, Provider Unknown - 10/08/2014 10:35 PM PDT ED Notes by Rebeca Kam RN at 10/08/142234 Author: Rebeca Kam RN Service: (none) Author Type: Registered Nurse Filed: 10/08/142235 Date of Service: 10/08/142234 Status: Signed Electric Blasting Cap Assembler: Rebeca Kam RN (Registered Nurse) Family reporting pt having suicidal thoughts due to his girlfriend recently breaking up wit h him. Pt overheard by neighbors/family stating that he was going to overdose on pills. Dr Darleen herrera notified. Security at . Rebeca Kam RN 10/08/142235 onver janis Transaction, Provider Unknown - 10/08/2014 10:17 PM PDT ED Notes by Rebeca Kam RN at 10/08/142216 Author: Rebeca Kam RN Service: (none) Author Type: Registered Nurse Filed: 10/08/142216 Date of Service: 10/08/142216 Status: Signed Electric Blasting Cap Assembler: Rebeca Kam RN (Registered Nurse) Pt more alert speaking with family at bs at this time. Will continue to hold narcan as dire cted by Dr Pantoja at this time. Rebeca Kam RN 10/08/142216 onver janis Transaction, Provider Unknown - 10/08/2014 9:40 PM PDT ED Notes by Rebeca Kam RN at 10/08/142139 Author: Rebeca Kam RN Service: (none) Author Type: Registered Nurse Filed: 10/08/142139 Date of Service: 10/08/142139 Status: Signed Electric Blasting Cap Assembler: Rebeca Kam RN (Registered Nurse) Pt remains at CT Rebeca Kam RN 10/08/142139 onver janis Transaction, Provider Unknown - 10/08/2014 9:35 PM PDT ED Notes by Td Kitchen at 10/08/142134 Author: Td Kitchen Service: Emergency Department Author Type: Olive Grower Filed: 10/08/142134 Date of Service: 10/08/142134 Status: Signed Electric Blasting Cap Assembler: Td Kitchen (Graphics Edit Technician) Attempted EKG at 2124 Td Kitchen 10/08/142134 onver janis Transaction, Provider Unknown - 10/08/2014 9:20 PM PDT ED Notes by Rebeca Kam RN at 10/08/142119 Author: Rebeca Kam RN Service: (none) Author Type: Registered Nurse Filed: 10/08/142120 Date of Service: 10/08/142119 Status: Signed Electric Blasting Cap Assembler: Rebeca Kam RN (Registered Nurse) Security at . Td murphy tech at performing EKG at this time. Rebeca Kam RN 10/08/142120 orsyt Vasile tariq DO - 10/08/2014 9:08 PM PDTFormatting of this note might be different from t chandni original. ED Provider Notes by Vasile Pantoja DO at 10/08/142107 Author: Vasile Pantoja DO Service: Emergency Department Author Type: Physician Filed: 10/09/14154 Date of Service: 10/08/142107 Status: Signed Electric Blasting Cap Assembler: Vasile Pantoja DO (Physician) Procedure Orders: 1. Critical Care [[id number]] ordered by Vasile Pantoja DO at 10/09/14 0028 [facility] Department of Emergency Medicine 10/08/2014 History of [...] I think he took something" pts gosia easton reports he was found with a bottle [...] the patient's gi rlfriend, who lives in [place], complained of having noticed bloody stools, however, [...] verbal and tactile stimuli. 11:[address] Nicholas, hospitalist, at patient's bedside. 12:25 PM Patient remains hemodynamically stable; his BP has improved since time of arrival . Moreover, no seizure activity has been noted. ED Medication Administration from 10/08/20142045 to 10/09/2014 0028 Date/Time Order Dose Route Action Action by 10/08/20142241 sodium chloride (bolus) 0.9 % 1,000 mL 0 mL Intravenous Stopped Rebeca Kam RN 10/08/20142126 sodium chloride (bolus) 0.9 % 1,000 mL 1,000 mL Intravenous New Bag Ngozi Kam RN 10/08/20142205 sodium chloride (IV) 0.9 % 1,000 mL with multiple vitamin 10 mL, thiamine 100 mg, folic acid 1 mg infusion Intravenous New Zay Kam RN Records Reviewed Old ED records reviewed (Using the electronic record system of [facility], Ally carr reviewed the records with regard to the past medical/surgical history, previous medic ations, and allergies). Laboratory Evaluation Results Procedure Component Value Ref Range Date/Time Lactic acid, plasma [[id number]] Collected: 10/08/142105 Order Status: Completed Updated: 10/08/142354 Specimen Information: Blood LACTIC ACID 2.0 0.4 - 2.0 mmol/L Ammonia [[id number]] Collected: 10/08/142105 Order Status: Completed Updated: 10/08/142351 Specimen Information: Blood AMMONIA 32 <33 umol/L CBC with differential [[id number]] (Abnormal) Collected: 10/08/142105 Order Status: Completed Updated: [...] Estimate ADEQUATE MORPHOLOGY NORMAL POC clinitek 10 [[id number]] Collected: 10/08/142150 Order Status: Completed Updated: 10/08/142153 [...] Abuse Screen, UR (Hospital And ED Only) [[id number]] Collected: 10/08/142130 Order Status: Completed Updated: 10/08/142151 Specimen Information: Urine, Clean Catch AMPHETAMINE/METHAMPHETAMINE NEGATIVE NEGATIVE BARBITUATES NEGATIVE NEGATIVE BENZODIAZEPINE NEGATIVE NEGATIVE COCAINE NEGATIVE NEGATIVE METHADONE NEGATIVE NEGATIVE OPIATES NEGATIVE NEGATIVE PCP NEGATIVE NEGATIVE THC NEGATIVE NEGATIVE Comprehensive metabolic panel [[id number]] (Abnormal) Collected: 10/08/142105 Order Status: Completed Updated: [...] U/L EGFR >60 >60 mL/min/1.73m2 Ethanol Level [[id number]] (Abnormal) Collected: 10/08/142105 Order Status: Completed Updated: 10/08/142141 Specimen Information: Blood ALCOHOL,ETHYL 234 (H) <10 mg/dL Acetaminophen (Tylenol) Level [[id number]] (Abnormal) Collected: 10/08/142105 Order Status: Completed Updated: 10/08/142141 Specimen Information: Blood ACETAMINOPHEN <2.0 (L) 10.0 - 30.0 ug/mL Salicylate (Aspirin) Level [[id number]] Collected: 10/08/142105 Order Status: Completed Updated: 10/08/142134 Specimen Information: Blood SALICYLATE 5.5 2.8 - 20.0 mg/dL POC clinitek 10 [[id number]] Collected: 10/08/142129 Order Status: Completed Updated: 10/08/142132 [...] Rate: 71 Rhythm: Sinus rhythm with short OK No acute ischemia. No STEMI. Independently reviewed and interpreted contemporaneously by myself. Vasile Pantoja DO ED Diagnoses Final diagnoses Altered mental status Alcohol intoxication Suicidal ideation, possible Overdose, initial encounter, possible Seizure, possible Alcoholic liver disease Elevated liver enzymes Shortened OK interval Disposition: ED Disposition Admit/Observation Requested Unit:: [...] or life-threatening deterioration of the following conditions: CAPTION WRITER failure or compromise, dehydration, respiratory failure, to [...] radiographic studies, pulse oximetry, re-evaluation of p atlonny's condition, review of old charts, discussions with [...] 9:03 PM PDT ED Notes by Rebeca Kam RN at 10/08/142102 Author: Rebeca Kam RN Service: (none) Author Type: Registered Nurse Filed: 10/08/142102 Date of Service: 10/08/142102 Status: Signed Electric Blasting Cap Assembler: Rebeca Kam RN (Registered Nurse) Pt needing frequent reorientation at this time. Rebeca Kam RN 10/08/142102 onver janis Transaction, Provider Unknown - 10/08/2014 8:56 PM PDT ED Notes by Rebeca Kam RN at 10/08/142055 Author: Rebeca Kam RN Service: (none) Author Type: Registered Nurse Filed: 10/08/142056 Date of Service: 10/08/142055 Status: Signed Electric Blasting Cap Assembler: Rebeca Kam RN (Registered Nurse) Friend at states pt lives with his girlfriend and is his girlfriends uncle. States they went to [facility] and when they came home he was acting weird and fell hitting his face three times. Friend states "I think he took some pills". Pt unable to verbalize what happen ed at this time. Rebeca Kam RN 10/08/142056 docume nted in this encounter Plan of Treatment Not on filedocumented as of this encounter Procedures + +--------+ + + + | Procedure Name | Priori | Date/Time | Associated Diagnosis | Comments | | | ty | | | | + +--------+ + + + | EXTERNAL LAB: [facility] | Routin | 10/09/2014 | | Results [...] EXTERNAL | | | | performed at [facility];[address] | K/uL | LAB | | | | [address];[place], [place] | | | | | | [address] | | | | + + + + + + | Non- | 3.98 (L)Comment: Testing | 4.20 - 5.70 | EXTERNAL | | | Red Blood | performed at [facility];[address] | M/uL | LAB | | | Cells | [address];[place] | | | | | Counted | [address] | | | | + + + + + + | Hemoglobin | 12.9 (L)Comment: Testing | 13.2 - 17.0 | EXTERNAL | | | | performed at [facility];[address] | g/dL | LAB | | | | [address];[place] | | | | | | [address] | | | | + + + + + + | Hematocrit, | 37.7 (L)Comment: Testing | 39.0 - 50.0 % | EXTERNAL | | | POC | performed at [facility];[address] | | LAB | | | | [address];[place] | | | | | | [address] | | | | + + + + + + | MCV | 94.9Comment: Testing | 80.0 - 100.0 fl | EXTERNAL | | | | performed at [facility];[address] | | LAB | | | | [address];[place] | | | | | | [address] | | | | + + + + + + | MCH | 32.4Comment: Testing | 27.0 - 34.0 pg | EXTERNAL | | | | performed at [facility];[address] | | LAB | | | | [address];[place] | | | | | | [address] | | | | + + + + + + | MCHC | 34.2Comment: Testing | 32.0 - 35.5 | EXTERNAL | | | | performed at [facility];[address] | g/dL | LAB | | | | [address];[place] | | | | | | [address] | | | | + + + + + + | RDW-CV | 45.5Comment: Testing | 37 - 53 fl | EXTERNAL | | | | performed at [facility];[address] | | LAB | | | | [address];[place] | | | | | | [address] | | | | + + + + + + | Platelet | 348Comment: Testing | 150 - 400 K/uL | EXTERNAL | | | Count | performed at [facility];[address] | | LAB | | | Plasma | [address];[place] | | | | | | [address] | | | | + + + + + + | MPV | 6.6Comment: Testing | fl | EXTERNAL | | | | performed at [facility];[address] | | LAB | | | | [address];[place] | | | | | | [address] | | | | + + + + + + | Differentia | AUTOMATEDComment: | | EXTERNAL | | | l Type | Testing performed at | | LAB | | | | [facility];[address] | [address];[place] [address] | | | | + + + + + + | % Segmented | 66.41Comment: Testing | % | EXTERNAL | | | | performed at [facility];[address] | | LAB | | | Neutrophils | [address];[place] | | | | | | [address] | | | | + + + + + + | % | 21.89Comment: Testing | % | EXTERNAL | | | Lymphocytes | performed at [facility];[address] | | LAB | | | | [address];[place] | | | | | | [address] | | | | + + + + + + | % Monocytes | 9.42Comment: Testing | % | EXTERNAL | | | | performed at [facility];[address] | | LAB | | | | [address];[place] | | | | | | [address] | | | | + + + + + + | % | 1.07Comment: Testing | % | EXTERNAL | | | Eosinophils | performed at [facility];[address] | | LAB | | | | [address];[place] | | | | | | [address] | | | | + + + + + + | % Basophils | 1.21Comment: Testing | % | EXTERNAL | | | | performed at [facility];[address] | | LAB | | | | [address];[place] | | | | | | [address] | | | | + + + + + + | Absolute | 4.75Comment: Testing | 1.90 - 7.40 | EXTERNAL | | | Segmented | performed at [facility];[address] | K/uL | LAB | | | Neutrophils | [address];[place] | | | | | | [address] | | | | + + + + + + | Absolute | 1.56Comment: Testing | 1.00 - 3.90 | EXTERNAL | | | Lymphocytes | performed at [facility];[address] | K/uL | LAB | | | | [address];[place] | | | | | | [address] | | | | + + + + + + | Absolute | 0.67Comment: Testing | 0.00 - 0.80 | EXTERNAL | | | Monocytes | performed at [facility];[address] | K/uL | LAB | | | | [address];[place] | | | | | | [address] | | | | + + + + + + | Absolute | 0.08Comment: Testing | 0.00 - 0.50 | EXTERNAL | | | Eosinophils | performed at [facility];[address] | K/uL | LAB | | | | [address];[place] | | | | | | [address] | | | | + + + + + + | Absolute | 0.09Comment: Testing | 0.00 - 0.10 | EXTERNAL | | | Basophils | performed at [facility];[address] | K/uL | LAB | | | | [address];[place] | | | | | | [address] | | | | + + + [...] EXTERNAL | | | | performed at [facility];[address] | | LAB | | | | [address];[place], [place] | | | | | | [address] | | | | + + + [...] EXTERNAL | | | | performed at [facility];[address] | | LAB | | | | [address];[place] | | | | | | [address] | | | | + + + [...] EXTERNAL | | | | performed at [facility];[address] | mmol/L | LAB | | | | [address];[place] | | | | | | [address] | | | | + + + + + + | K | 4.3Comment: Testing | 3.5 - 4.9 | EXTERNAL | | | | performed at [facility];[address] | mmol/L | LAB | | | | [address];[place] | | | | | | [address] | | | | + + + + + + | Cl | 109Comment: Testing | 99 - 109 mmol/L | EXTERNAL | | | | performed at [facility];[address] | | LAB | | | | [address];[place] | | | | | | [address] | | | | + + + + + + | CO2 | 24Comment: Testing | 23 - 32 mmol/L | EXTERNAL | | | | performed at [facility];[address] | | LAB | | | | [address];[place] | | | | | | [address] | | | | + + + + + + | Anion Gap | 13Comment: Testing | 5 - 20 mmol/L | EXTERNAL | | | | performed at [facility];[address] | | LAB | | | | [address];[place] | | | | | | [address] | | | | + + + + + + | Glucose, | 57 (L)Comment: Testing | 65 - 99 mg/dL | EXTERNAL | | | Fasting | performed at [facility];[address] | | LAB | | | | [address];[place] | | | | | | [address] | | | | + + + + + + | BUN | 13Comment: Testing | 8 - 25 mg/dL | EXTERNAL | | | | performed at [facility];[address] | | LAB | | | | [address];[place] | | | | | | [address] | | | | + + + + + + | Creatinine | 0.94Comment: Testing | 0.70 - 1.30 | EXTERNAL | | | | performed at [facility];[address] | mg/dL | LAB | | | | [address];[place] | | | | | | [address] | | | | + + + + + + | BUN/Creatin | 14Comment: Testing | | EXTERNAL | | | ine Ratio | performed at [facility];[address] | | LAB | | | | [address];[place] | | | | | | [address] | | | | + + + + + + | Calcium | 8.2 (L)Comment: Testing | 8.5 - 10.5 | EXTERNAL | | | | performed at [facility];[address] | mg/dL | LAB | | | | [address];[place] | | | | | | [address] | | | | + + + + + + | Protein, | 8.0Comment: Testing | 6.3 - 8.2 g/dL | EXTERNAL | | | Total | performed at [facility];[address] | | LAB | | | | [address];[place] | | | | | | [address] | | | | + + + + + + | Albumin | 3.6Comment: Testing | 3.6 - 5.0 g/dL | EXTERNAL | | | | performed at [facility];[address] | | LAB | | | | [address];[place] | | | | | | [address] | | | | + + + + + + | Globulin | 4.4Comment: Testing | 1.3 - 4.9 g/dL | EXTERNAL | | | | performed at [facility];[address] | | LAB | | | | [address];[place] | | | | | | [address] | | | | + + + + + + | A/G Ratio | 0.8 (L)Comment: Testing | 1.0 - 2.4 | EXTERNAL | | | | performed at [facility];[address] | | LAB | | | | [address];[place] | | | | | | [address] | | | | + + + + + + | Bilirubin | 0.3Comment: Testing | 0.1 - 1.5 mg/dL | EXTERNAL | | | Total | performed at [facility];[address] | | LAB | | | | [address];[place] | | | | | | [address] | | | | + + + + + + | ALP, | 79Comment: Testing | 35 - 115 U/L | EXTERNAL | | | External | performed at [facility];[address] | | LAB | | | | [address];[place] | | | | | | [address] | | | | + + + + + + | AST | 55 (H)Comment: Testing | 10 - 45 U/L | EXTERNAL | | | | performed at [facility];[address] | | LAB | | | | [address];[place] | | | | | | [address] | | | | + + + + + + | ALT | 64Comment: Testing | 10 - 65 U/L | EXTERNAL | | | | performed at [facility];[address] | | LAB | | | | [address];[place] | | | | | | [address] | | | | + + + [...] | | | | | | at [facility];[address] [place] [address] | | | | | | Blvd;[place] [address] | | | | + + + [...] | | | | | ONLY, -COMPUTER ([id number]), | | | | | | supervising editor trailer Mavis Rodriguez | | | | | | (29) on 10/09/2014 | | | | | | 7:04:45 AM | | | | + + + + + + + + | Specimen | + + | | + + + + + | Narrative | Performed At | + + + | Historically converted procedure from [facility] environment | EXTERNAL LAB | + + [...] | Procedure Note | + + | Werner Alarcon - 03/12/2019 4:45 AM PDT HISTORY:Head injury [...] | | | Screen, | performed at [facility];[address] | | | | | UA, POC | [address];[place] | | | | | | [address] | | | | + + + + + + | Barbiturate | NEGATIVEComment: | | EXTERNAL | | | s Screen, | Positive cutoff for | | LAB | | | Urine | JUJU = 200 ng/mLTesting | | | | | | performed at [facility];[address] | | | | | | [address];[place] | | | | | | [address] | | | | + + + + + + | Benzodiazep | NEGATIVEComment: | | EXTERNAL | | | adrianne | Positive cutoff for | | LAB | | | Screen, | BENZO = 200 ng/mLTesting | | | | | Urine | performed at [facility];[address] | | | | | | [address];[place] | | | | | | [address] | | | | + + + + + + | Cocaine | NEGATIVEComment: | | EXTERNAL | | | | Positive cutoff for | | LAB | | | | GLORIA = 300 ng/mLTesting | | | | | | performed at [facility];[address] | | | | | | [address];[place] | | | | | | [address] | | | | + + + + + + | Methadone | NEGATIVEComment: | | EXTERNAL | | | | Positive cutoff for | | LAB | | | | MTD = 300 ng/mLTesting | | | | | | performed at [facility];[address] | | | | | | [address];[place] | | | | | | [address] | | | | + + + + + + | Opiates | NEGATIVEComment: | | EXTERNAL | | | | Positive cutoff for | | LAB | | | | OPI = 300 ng/mLTesting | | | | | | performed at [facility];[address] | | | | | | [address];[place] | | | | | | [address] | | | | + + + + + + | PCP | NEGATIVEComment: | | EXTERNAL | | | | Positive cutoff for PCP | | LAB | | | | = 25 ng/mLTesting | | | | | | performed at [facility];[address] | | | | | | [address];[place], [place] | | | | | | [address] | | | | + + + [...] | | | | | performed at [facility];[address] | | | | | | [address];[place], [place] | | | | | | [address] | | | | + + + [...] EXTERNAL | | | | performed at [facility];[address] | K/uL | LAB | | | | [address];[place] | | | | | | [address] | | | | + + + + + + | Non- | 4.15 (L)Comment: Testing | 4.20 - 5.70 | EXTERNAL | | | Red Blood | performed at [facility];[address] | M/uL | LAB | | | Cells | [address];[place] | | | | | Counted | [address] | | | | + + + + + + | Hemoglobin | 13.8Comment: Testing | 13.2 - 17.0 | EXTERNAL | | | | performed at [facility];[address] | g/dL | LAB | | | | [address];[place] | | | | | | [address] | | | | + + + + + + | Hematocrit, | 40.2Comment: Testing | 39.0 - 50.0 % | EXTERNAL | | | POC | performed at [facility];[address] | | LAB | | | | [address];[place] | | | | | | [address] | | | | + + + + + + | MCV | 97.0Comment: Testing | 80.0 - 100.0 fl | EXTERNAL | | | | performed at [facility];[address] | | LAB | | | | [address];[place] | | | | | | [address] | | | | + + + + + + | MCH | 33.2Comment: Testing | 27.0 - 34.0 pg | EXTERNAL | | | | performed at [facility];[address] | | LAB | | | | [address];[place] | | | | | | [address] | | | | + + + + + + | MCHC | 34.2Comment: Testing | 32.0 - 35.5 | EXTERNAL | | | | performed at [facility];888 | g/dL | LAB | | | | [address];[place] | | | | | | [address] | | | | + + + + + + | RDW-CV | 45.1Comment: Testing | 37 - 53 fl | EXTERNAL | | | | performed at [facility];[address] | | LAB | | | | [address];[place] | | | | | | [address] | | | | + + + + + + | Platelet | 341Comment: Testing | 150 - 400 K/uL | EXTERNAL | | | Count | performed at [facility];888 | | LAB | | | Plasma | [address];[place] | | | | | | [address] | | | | + + + + + + | MPV | 6.7Comment: Testing | fl | EXTERNAL | | | | performed at [facility];[address] | | LAB | | | | [address];[place] | | | | | | [address] | | | | + + + + + + | Differentia | MANUALComment: Testing | | EXTERNAL | | | l Type | performed at [facility];[address] | | LAB | | | | [address];[place] | | | | | | [address] | | | | + + + + + + | Segmented | 54Comment: Testing | % | EXTERNAL | | | Neutrophils | performed at [facility];888 | | LAB | | | Manual | [address];[place] | | | | | | [address] | | | | + + + + + + | % Bands | 7Comment: Testing | % | EXTERNAL | | | | performed at [facility];[address] | | LAB | | | | [address];[place] | | | | | | [address] | | | | + + + + + + | Lymphocytes | 34Comment: Testing | % | EXTERNAL | | | Manual | performed at [facility];[address] | | LAB | | | | [address];[place] | | | | | | [address] | | | | + + + + + + | Monocytes | 4Comment: Testing | % | EXTERNAL | | | Manual | performed at [facility];[address] | | LAB | | | | [address];[place] | | | | | | [address] | | | | + + + + + + | Eosinophils | 1Comment: Testing | % | EXTERNAL | | | Manual | performed at [facility];[address] | | LAB | | | | [address];[place] | | | | | | [address] | | | | + + + + + + | Absolute | 4.12Comment: Testing | 1.90 - 7.40 | EXTERNAL | | | Neutrophils | performed at [facility];888 | K/uL | LAB | | | | [address];[place] | | | | | | [address] | | | | + + + + + + | Bands | 0.53 (H)Comment: Testing | 0.00 - 0.20 | EXTERNAL | | | Manual | performed at [facility];888 | K/uL | LAB | | | | [address];[place] | | | | | | [address] | | | | + + + + + + | Absolute | 2.59Comment: Testing | 1.00 - 3.90 | EXTERNAL | | | Lymphocytes | performed at [facility];888 | K/uL | LAB | | | | [address];[place] | | | | | | [address] | | | | + + + + + + | Absolute | 0.30Comment: Testing | 0.00 - 0.80 | EXTERNAL | | | Monocytes | performed at [facility];888 | K/uL | LAB | | | | [address];[place] | | | | | | [address] | | | | + + + + + + | Absolute | 0.08Comment: Testing | 0.00 - 0.50 | EXTERNAL | | | Eosinophils | performed at [facility];888 | K/uL | LAB | | | | [address];[place] | | | | | | [address] | | | | + + + + + + | Platelet | ADEQUATEComment: Testing | | EXTERNAL | | | Estimate | performed at [facility];[address] | | LAB | | | | [address];[place] | | | | | | [address] | | | | + + + + + + | RBC | NORMALComment: Testing | | EXTERNAL | | | Morphology | performed at [facility];[address] | | LAB | | | | [address];[place] | | | | | | [address] | | | | + + + [...] EXTERNAL | | | | performed at [facility];888 | mmol/L | LAB | | | | [address];[place] | | | | | | [address] | | | | + + + [...] EXTERNAL | | | | performed at [facility];[address] | | LAB | | | | [address];[place] | | | | | | [address] | | | | + + + [...] | | | Alcohol | performed at [facility];[address] | | LAB | | | | [address];[place], [place] | | | | | | [address] | | | | + + + [...] | | EN LEVEL | performed at [facility];888 | ug/mL | LAB | | | | [address];[place] | | | | | | [address] | | | | + + + [...] | | | Lvl | performed at [facility];888 | mg/dL | LAB | | | | [address];[place], [place] | | | | | | [address] | | | | + + + [...] EXTERNAL | | | | performed at [facility];888 | mmol/L | LAB | | | | [address];[place], [place] | | | | | | [address] | | | | + + + + + + | K | 3.9Comment: Testing | 3.5 - 4.9 | EXTERNAL | | | | performed at [facility];888 | mmol/L | LAB | | | | [address];[place] | | | | | | [address] | | | | + + + + + + | Cl | 102Comment: Testing | 99 - 109 mmol/L | EXTERNAL | | | | performed at [facility];[address] | | LAB | | | | [address];[place] | | | | | | [address] | | | | + + + + + + | CO2 | 28Comment: Testing | 23 - 32 mmol/L | EXTERNAL | | | | performed at [facility];[address] | | LAB | | | | [address];[place] | | | | | | [address] | | | | + + + + + + | Anion Gap | 11Comment: Testing | 5 - 20 mmol/L | EXTERNAL | | | | performed at [facility];[address] | | LAB | | | | [address];[place] | | | | | | [address] | | | | + + + + + + | Glucose, | 72Comment: Testing | 65 - 99 mg/dL | EXTERNAL | | | Fasting | performed at [facility];[address] | | LAB | | | | [address];[place] | | | | | | [address] | | | | + + + + + + | BUN | 10Comment: Testing | 8 - 25 mg/dL | EXTERNAL | | | | performed at [facility];[address] | | LAB | | | | [address];[place] | | | | | | [address] | | | | + + + + + + | Creatinine | 0.87Comment: Testing | 0.70 - 1.30 | EXTERNAL | | | | performed at [facility];888 | mg/dL | LAB | | | | [address];[place] | | | | | | [address] | | | | + + + + + + | BUN/Creatin | 11Comment: Testing | | EXTERNAL | | | ine Ratio | performed at [facility];[address] | | LAB | | | | [address];[place] | | | | | | [address] | | | | + + + + + + | Calcium | 8.5Comment: Testing | 8.5 - 10.5 | EXTERNAL | | | | performed at [facility];888 | mg/dL | LAB | | | | [address];[place] | | | | | | [address] | | | | + + + + + + | Protein, | 9.2 (H)Comment: Testing | 6.3 - 8.2 g/dL | EXTERNAL | | | Total | performed at [facility];[address] | | LAB | | | | [address];[place] | | | | | | [address] | | | | + + + + + + | Albumin | 4.1Comment: Testing | 3.6 - 5.0 g/dL | EXTERNAL | | | | performed at [facility];[address] | | LAB | | | | [address];[place] | | | | | | [address] | | | | + + + + + + | Globulin | 5.1 (H)Comment: Testing | 1.3 - 4.9 g/dL | EXTERNAL | | | | performed at [facility];[address] | | LAB | | | | [address];[place] | | | | | | [address] | | | | + + + + + + | A/G Ratio | 0.8 (L)Comment: Testing | 1.0 - 2.4 | EXTERNAL | | | | performed at [facility];[address] | | LAB | | | | [address];[place] | | | | | | [address] | | | | + + + + + + | Bilirubin | 0.2Comment: Testing | 0.1 - 1.5 mg/dL | EXTERNAL | | | Total | performed at [facility];[address] | | LAB | | | | [address];[place] | | | | | | [address] | | | | + + + + + + | ALP, | 85Comment: Testing | 35 - 115 U/L | EXTERNAL | | | External | performed at [facility];[address] | | LAB | | | | [address];[place] | | | | | | [address] | | | | + + + + + + | AST | 60 (H)Comment: Testing | 10 - 45 U/L | EXTERNAL | | | | performed at [facility];[address] | | LAB | | | | [address];[place] | | | | | | [address] | | | | + + + + + + | ALT | 78 (H)Comment: Testing | 10 - 65 U/L | EXTERNAL | | | | performed at [facility];[address] | | LAB | | | | [address];[place] | | | | | | [address] | | | | + + + [...] | | | | | | at [facility];[address] [place] [address] | | | | | | [facility];[place] [address] | | | | + + + [...] dehydrogenase (LDH) | + + | Shortened [place] interval Nonspecific abnormal electrocardiogram (ECG) (EKG) | + + documented in this encounter
--- OUTSIDE RECORDS SUMMARY | ~2020-05-09 | XMS | Encounter Summary ---
Demographics + + + | Address | [address] | | [place] [address] | + + + | Home Phone | | + + + | Preferred Language | Unknown | + + + | Marital Status | Single | + + + | Faith Affiliation | 1077 | + + + | Race | or | + + + | Ethnic Group | Not or | + + + Author + + + | Author | [facility] | | | and [place] | + + + | Organization | and [facility] | | | and [...] Team Providers + +------+ + | Care Car Escort Name | Role | Phone | + +------+ + | Reji Mock PA-C | PCP | | + +------+ + Reason for Visit + +--------+ + | Reason | Onset | Comments | | | Date | | + +--------+ + | Drug Screen | 09/12/ | | | | 2017 | | + +--------+ + Encounter Details +--------+ + + + + | Date | Type | Department | Care Team | Description | +--------+ + + + + | 09/12/ | Telephone | [facility] | [facility] | Drug Screen | | 2017 | | GASTROENTEROLOGY | [address] | | | | | [address] [place] | [address] | | | | | [address] [place] | [place] | | | | | [address] | [id number] | | | | | [phone] | | | +--------+ + + + [...] Telephone Encounter - Jessica Shin CMA - 09/12/2016 10:36 AM PSTWill call patient dylan carmen in a week. ele phone Encounter - Jessica Shin CMA - 09/12/2016 10:32 AM PSTTried calling again. Luis A ot get through. el ephone Encounter - Jessica Shin CMA - 09/12/2016 8:53 AM PSTTried to call, could not get through to patient. He is due for drug screen. elephone Encounter - Jessica Shin CMA - 09/12/2016 8:53 AM PST----- Message from Jessica Shin Litigation Examiner sent at 07/25/2016 13:19 PST ---- - Regarding: drug screen Drug screen/ Dx: HCV documented in this encounter Plan of Treatment Not on filedocumented as of this encounter Visit Diagnoses Not on filedocumented in this encounter"
--- OUTSIDE RECORDS SUMMARY | ~2020-05-09 | XMS | Encounter Summary ---
Demographics + + + | Address | [address] | [address] | | | [place] [address] | + + + | Home Phone | | + + + | Preferred Language | Unknown | + + + | Marital Status | Single | + + + | Adventist Affiliation | 1077 | + + + | Race | or | + + + | Ethnic Group | Not or | + + + Author + + + | Author | [facility] | | | and [place] | + + + | Organization | [facility] | | | [...] Team Providers + +------+ + | Care Recycling Tech Name | Role | Phone | + +------+ + | Reji Mock PA-C | PCP | | + +------+ + Encounter Details +--------+ + + + + | Date | Type | Department | Care Team | Description | +--------+ + + + + | 08/27/ | Abstract | [facility] [place] | [facility], | | | 2018 | | GASTROENTEROLOGY | [address] | | | | | [address] [place] | [address] | | | | | [address] [place], [place] | [place], [place] | | | | | [address] | [address] | | | | | [phone] | | | +--------+ + + + [...]
--- OUTSIDE RECORDS SUMMARY | ~2020-05-09 | XMS | Encounter Summary ---
Demographics + + + | Address | [address] | | | [place] [address] | + + + | Home Phone | | + + + | Preferred Language | Unknown | + + + | Marital Status | Single | + + + | Caodaism Affiliation | 1077 | + + + | Race | or | + + + | Ethnic Group | Not or | + + + Author + + + | Author | [facility] | | | and [place] | + + + | Organization | [facility] | | | and [place] | [...] Team Providers + +------+ + | Care Military Communications Specialist Name | Role | Phone | + +------+ + | Reji Mock PA-C | PCP | | + +------+ + Encounter Details +--------+ + + + + | Date | Type | Department | Care Team | Description | +--------+ + + + + | 07/19/ | Abstract | [facility] [place] | [facility], | | | 2016 | | GASTROENTEROLOGY | ESTIVEN Perez [address] | | | | | [address] | [address] | | | | | [address] [place], [place] | [place], [place] | | | | | [address] | [address] | | | | | [phone] | | | +--------+ + + + [...] +--------+ + + + | EXTERNAL LAB: BUN | Routin | 06/12/2016 | | Results for this | | | e | | | procedure are in the | | | | | | results section. | + +--------+ + + + | EXTERNAL LAB: | Routin | 06/12/2016 | | Results for this | | GLUCOSE | e | | | procedure are in the | | | | | | results section. | + +--------+ + + + | EXTERNAL LAB: ALT | Routin | 06/12/2016 | | Results for this | | | e | | | procedure are in the | | | | | | results section. | + +--------+ + + + | EXTERNAL LAB: AST | Routin | 06/12/2016 | | Results for this | | | e | | | procedure are in the | | | | | | results section. | + +--------+ + + + | EXTERNAL LAB: | Routin | 06/12/2016 | | Results for this | | ALKALINE PHOSPHATASE | e | | | procedure are in the | | | | | | results section. | + +--------+ + + + | EXTERNAL LAB: | Routin | 06/12/2016 | | Results for this | | BILIRUBIN, TOTAL | e | | | procedure are in the | | | | | | results section. | + +--------+ + + + | EXTERNAL LAB: | Routin | 06/12/2016 | | Results for this | | ALBUMIN | e | | | procedure are in the | | | | | | results section. | + +--------+ + + + | EXTERNAL LAB: | Routin | 06/12/2016 | | Results for this | | PROTEIN, TOTAL | e | | | procedure are in the | | | | | | results section. | + +--------+ + + + | EXTERNAL LAB: | Routin | 06/12/2016 | | Results for this | | CALCIUM | e | | | procedure are in the | | | | | | results section. | + +--------+ + + + | EXTERNAL LAB: CARBON | Routin | 06/12/2016 | | Results for this | | DIOXIDE | e | | | procedure are in the | | | | | | results section. | + +--------+ + + + | EXTERNAL LAB: | Routin | 06/12/2016 | | Results for this | | CHLORIDE | e | | | procedure are in the | | | | | | results section. | + +--------+ + + + | EXTERNAL LAB: | Routin | 06/12/2016 | | Results for this | | POTASSIUM | e | | | procedure are in the | | | | | | results section. | + +--------+ + + + | EXTERNAL LAB: SODIUM | Routin | 06/12/2016 | | Results for this | | | e | | | procedure are in the | | | | | | results section. | + +--------+ + + + | EXTERNAL LAB: IRON | Routin | 06/12/2016 | | Results for this | | TOTAL | e | | | procedure are in the | | | | | | results section. | + +--------+ + + + | EXTERNAL LAB: IRON | Routin | 06/12/2016 | | Results for this | | SATURATION | e | | | procedure are in the | | | | | | results section. | + +--------+ + + + | EXTERNAL LAB: IRON | Routin | 06/12/2016 | | Results for this | | BINDING CAPACITY | e | | | procedure are in the | | | | | | results section. | + +--------+ + + + | EXTERNAL LAB: | Routin | 06/12/2016 | | Results for this | | FERRITIN | e | | | procedure are in the | | | | | | results section. | + +--------+ + + + | EXTERNAL LAB: LARISA | Routin | 06/12/2016 | | Results for this | | | e | | | procedure are in the | | | | | | results section. | + +--------+ + + + | EXTERNAL LAB: | Routin | 06/12/2016 | | Results for this | | PROTIME INR | e | | | procedure are in the | | | | | | results section. | + +--------+ + + + | EXTERNAL LAB: EGFR | Routin | 06/12/2016 | | Results for this | | | e | | | procedure are in the | | | | | | results section. | + +--------+ + + + | EXTERNAL LAB: | Routin | 06/12/2016 | | Results for this | | CREATININE | e | | | procedure are in the | | | | | | results section. | + +--------+ + + + | FIBROSIS SERUM PANEL | Routin | 06/12/2016 | | Results for this | | | e | | | procedure are in the | | | | | | results section. | + +--------+ + + + | AFP, TUMOR MARKER | Routin | 06/12/2016 | | Results for this | | SERIAL | e | | | procedure are in the | | | | | | results section. | + +--------+ + + + | CELIAC PANEL, | Routin | 06/12/2016 | | Results for this | | EXTENDED | e | | | procedure are in the | | | | | | results section. | + +--------+ + + + | HEPATITIS A, B, C | Routin | 06/12/2016 | | Results for this | | PANEL, REFLEX | e | | | procedure are in the | | | | | | results section. | + +--------+ + + + | CBC WITH | Routin | 06/12/2016 | | Results for this | | DIFFERENTIAL | e | | | procedure are in the | | | | | | results section. | + +--------+ + + + | COMPREHENSIVE | Routin | 06/12/2016 | | Results for this | | METABOLIC PANEL | e | | | procedure are in the | | | | | | results section. | + +--------+ + + + documented in this encounter Results Fibrosis serum panel (06/12/2016) + +-------+ + + + | Component | Value | Ref Range | Performed | Pathologist | | | | | At | Signature | + +-------+ + + + | FIBROSPECT | 22 | | | | | INDEX.SER/P | | | | | | LAS.QN | | | | | + +-------+ + + + | Interpretat | F0-F2 | | | | | ion | | | | | + +-------+ + + + + + | Specimen | + + | Blood specimen | | (specimen) | + + External Lab: CBC (06/12/2016) + +---------+ + + + | Component | Value | Ref Range | Performed | Pathologist | | | | | At | Signature | + +---------+ + + + | WBC, | 3.9 (A) | 4 - 11 | EXTERNAL | | | External | | | LAB | | + +---------+ + + + | HGB, | 14.3 | 13.5 - 17.5 | EXTERNAL | | | External | | | LAB | | + +---------+ + + + | HCT, | 40.3 | 40 - 50 | EXTERNAL | | | External | | | LAB | | + +---------+ + + + | PLT, | 322 | 140 - 440 | EXTERNAL | | | External | | | LAB | | + +---------+ + + + | Neutrophils | 49.1 | 37 - 67 | EXTERNAL | | | %, | | | LAB | | | External | | | | | + +---------+ + + + | Lymphocytes | 35.3 | 34 - 44 | EXTERNAL | | | %, | | | LAB | | | External | | | | | + +---------+ + + + | RBC, | 4.43 | 4.3 - 5.7 | EXTERNAL | | | External | | | LAB | | + +---------+ + + + | MCV, | 91 | 81 - 99 | EXTERNAL | | | External | | | LAB | | + +---------+ + + + | RDW, | 12.8 | 10.5 - 15 | EXTERNAL | | | External | | | LAB | | + +---------+ + + + + +---------+ + + | Performing | Address | City/State/Zipcode | Phone Number | | Organization | | | | + +---------+ + + | EXTERNAL LAB | | | | + +---------+ + + CBC with Differential (06/12/2016) + +-------+ + + + | Component | Value | Ref Range | Performed | Pathologist | | | | | At | Signature | + +-------+ + + + | MCH | 32.3 | 26.0 - 33.0 pg | | | + +-------+ + + + | MCHC | 35.5 | 31.0 - 37.0 % | | | + +-------+ + + + + + | Specimen | + + | Blood specimen | | (specimen) | + + Celiac Panel, Extended (06/12/2016) + + + + + + | Component | Value | Ref Range | Performed | Pathologist | | | | | At | Signature | + + + + + + | A-1 | 144 | | | | | Antitrypsin | | | | | + + + + + + | CERULOPLASM | 23 | | | | | IN | | | | | + + + + + + | KAREN | NegativeComment: Karen | | | | | | Interp | | | | + + + + + + | KAREN | 0.7Comment: Karen Value | | | | + + + + + + | SM | Negative | | | | | Autoantibod | | | | | | y | | | | | + + + + + + | Mitochondri | Negative | | | | | al Ab | | | | | + + + + + + + + | Specimen | + + | Blood specimen | | (specimen) | + + External Lab: BUN (06/12/2016) + +-------+ + + + | Component | Value | Ref Range | Performed | Pathologist | | | | | At | Signature | + +-------+ + + + | BUN, | 12 | 8 - 25 | EXTERNAL | | | External | | | LAB | | + +-------+ + + + + +---------+ + + | Performing | Address | City/State/Zipcode | Phone Number | | Organization | | | | + +---------+ + + | EXTERNAL LAB | | | | + +---------+ + + External Lab: Glucose (06/12/2016) + +---------+ + + + | Component | Value | Ref Range | Performed | Pathologist | | | | | At | Signature | + +---------+ + + + | Glucose, | 108 (A) | 65 - 99 | EXTERNAL | | | External | | | LAB | | + +---------+ + + + + +---------+ + + | Performing | Address | City/State/Zipcode | Phone Number | | Organization | | | | + +---------+ + + | EXTERNAL LAB | | | | + +---------+ + + External Lab: ALT (06/12/2016) + +--------+ + + + | Component | Value | Ref Range | Performed | Pathologist | | | | | At | Signature | + +--------+ + + + | ALT, | 56 (A) | 0 - 41 | EXTERNAL | | | External | | | LAB | | + +--------+ + + + + +---------+ + + | Performing | Address | City/State/Zipcode | Phone Number | | Organization | | | | + +---------+ + + | EXTERNAL LAB | | | | + +---------+ + + External Lab: AST (06/12/2016) + +--------+ + + + | Component | Value | Ref Range | Performed | Pathologist | | | | | At | Signature | + +--------+ + + + | AST, | 58 (A) | 0 - 40 | EXTERNAL | | | External | | | LAB | | + +--------+ + + + + +---------+ + + | Performing | Address | City/State/Zipcode | Phone Number | | Organization | | | | + +---------+ + + | EXTERNAL LAB | | | | + +---------+ + + External Lab: Alkaline Phosphatase (06/12/2016) + +-------+ + + + | Component | Value | Ref Range | Performed | Pathologist | | | | | At | Signature | + +-------+ + + + | ALP, | 89 | 40 - 129 | EXTERNAL | | | External | | | LAB | | + +-------+ + + + + +---------+ + + | Performing | Address | City/State/Zipcode | Phone Number | | Organization | | | | + +---------+ + + | EXTERNAL LAB | | | | + +---------+ + + External Lab: Bilirubin, Total (06/12/2016) + +-------+ + + + | Component | Value | Ref Range | Performed | Pathologist | | | | | At | Signature | + +-------+ + + + | Bilirubin, | 0.7 | 0.1 - 1.5 | EXTERNAL | | | Total, | | | LAB | | | External | | | | | + +-------+ + + + + +---------+ + + | Performing | Address | City/State/Zipcode | Phone Number | | Organization | | | | + +---------+ + + | EXTERNAL LAB | | | | + +---------+ + + External Lab: Albumin (06/12/2016) + +-------+ + + + | Component | Value | Ref Range | Performed | Pathologist | | | | | At | Signature | + +-------+ + + + | Albumin, | 4.3 | 3.5 - 5.2 | EXTERNAL | | | External | | | LAB | | + +-------+ + + + + +---------+ + + | Performing | Address | City/State/Zipcode | Phone Number | | Organization | | | | + +---------+ + + | EXTERNAL LAB | | | | + +---------+ + + External Lab: Protein, Total (06/12/2016) + +-------+ + + + | Component | Value | Ref Range | Performed | Pathologist | | | | | At | Signature | + +-------+ + + + | Protein, | 8.2 | 6.2 - 8.2 | EXTERNAL | | | Total, | | | LAB | | | External | | | | | + +-------+ + + + + +---------+ + + | Performing | Address | City/State/Zipcode | Phone Number | | Organization | | | | + +---------+ + + | EXTERNAL LAB | | | | + +---------+ + + External Lab: Calcium (06/12/2016) + +-------+ + + + | Component | Value | Ref Range | Performed | Pathologist | | | | | At | Signature | + +-------+ + + + | Calcium, | 9.7 | 8.5 - 10.2 | EXTERNAL | | | External | | | LAB | | + +-------+ + + + + +---------+ + + | Performing | Address | City/State/Zipcode | Phone Number | | Organization | | | | + +---------+ + + | EXTERNAL LAB | | | | + +---------+ + + External Lab: Carbon Dioxide (06/12/2016) + +-------+ + + + | Component | Value | Ref Range | Performed | Pathologist | | | | | At | Signature | + +-------+ + + + | Carbon | 28 | 22 - 29 | EXTERNAL | | | Dioxide, | | | LAB | | | External | | | | | + +-------+ + + + + +---------+ + + | Performing | Address | City/State/Zipcode | Phone Number | | Organization | | | | + +---------+ + + | EXTERNAL LAB | | | | + +---------+ + + External Lab: Chloride (06/12/2016) + +--------+ + + + | Component | Value | Ref Range | Performed | Pathologist | | | | | At | Signature | + +--------+ + + + | Chloride, | 95 (A) | 99 - 109 | EXTERNAL | | | External | | | LAB | | + +--------+ + + + + +---------+ + + | Performing | Address | City/State/Zipcode | Phone Number | | Organization | | | | + +---------+ + + | EXTERNAL LAB | | | | + +---------+ + + External Lab: Potassium (06/12/2016) + +-------+ + + + | Component | Value | Ref Range | Performed | Pathologist | | | | | At | Signature | + +-------+ + + + | Potassium, | 4.4 | 3.5 - 5.3 | EXTERNAL | | | External | | | LAB | | + +-------+ + + + + +---------+ + + | Performing | Address | City/State/Zipcode | Phone Number | | Organization | | | | + +---------+ + + | EXTERNAL LAB | | | | + +---------+ + + External Lab: Sodium (06/12/2016) + +-------+ + + + | Component | Value | Ref Range | Performed | Pathologist | | | | | At | Signature | + +-------+ + + + | Sodium, | 137 | 135 - 145 | EXTERNAL | | | External | | | LAB | | + +-------+ + + + + +---------+ + + | Performing | Address | City/State/Zipcode | Phone Number | | Organization | | | | + +---------+ + + | EXTERNAL LAB | | | | + +---------+ + + External Lab: Iron Total (06/12/2016) + +-------+ + + + | Component | Value | Ref Range | Performed | Pathologist | | | | | At | Signature | + +-------+ + + + | Iron, | 44 | 15 - 55 | EXTERNAL | | | External | | | LAB | | + +-------+ + + + + +---------+ + + | Performing | Address | City/State/Zipcode | Phone Number | | Organization | | | | + +---------+ + + | EXTERNAL LAB | | | | + +---------+ + + External Lab: Iron Saturation (06/12/2016) + +-------+ + + + | Component | Value | Ref Range | Performed | Pathologist | | | | | At | Signature | + +-------+ + + + | Iron | 360 | 157 - 537 | EXTERNAL | | | Saturation, | | | LAB | | | External | | | | | + +-------+ + + + + +---------+ + + | Performing | Address | City/State/Zipcode | Phone Number | | Organization | | | | + +---------+ + + | EXTERNAL LAB | | | | + +---------+ + + External Lab: Iron Binding Capacity (06/12/2016) + +-------+ + + + | Component | Value | Ref Range | Performed | Pathologist | | | | | At | Signature | + +-------+ + + + | Iron | 203 | 112 - 347 | EXTERNAL | | | Binding | | | LAB | | | Capacity, | | | | | | External | | | | | + +-------+ + + + + +---------+ + + | Performing | Address | City/State/Zipcode | Phone Number | | Organization | | | | + +---------+ + + | EXTERNAL LAB | | | | + +---------+ + + External Lab: Ferritin (06/12/2016) + +-------+ + + + | Component | Value | Ref Range | Performed | Pathologist | | | | | At | Signature | + +-------+ + + + | Ferritin, | 310 | 11 - 450 | EXTERNAL | | | External | | | LAB | | + +-------+ + + + + +---------+ + + | Performing | Address | City/State/Zipcode | Phone Number | | Organization | | | | + +---------+ + + | EXTERNAL LAB | | | | + +---------+ + + External Lab: Yadiel LONG (06/12/2016) + +-------+ + + + | Component | Value | Ref Range | Performed | Pathologist | | | | | At | Signature | + +-------+ + + + | INR, | 0.9 | 0.9 - 1.1 | EXTERNAL | | | External | | | LAB | | + +-------+ + + + | PT, | 12.3 | 12 - 14.2 | EXTERNAL | | | External | | | LAB | | + +-------+ + + + + + | Specimen | + + | Blood specimen | | (specimen) | + + + +---------+ + + | Performing | Address | City/State/Zipcode | Phone Number | | Organization | | | | + +---------+ + + | EXTERNAL LAB | | | | + +---------+ + + External Lab: eGFR (06/12/2016) + +-------+ + + + | Component | Value | Ref Range | Performed | Pathologist | | | | | At | Signature | + +-------+ + + + | eGFR, | >60 | 60 - 99,999 | EXTERNAL | | | External | | | LAB | | + +-------+ + + + + + | Specimen | + + | Blood specimen | | (specimen) | + + + +---------+ + + | Performing | Address | City/State/Zipcode | Phone Number | | Organization | | | | + +---------+ + + | EXTERNAL LAB | | | | + +---------+ + + External Lab: Creatinine (06/12/2016) + +-------+ + + + | Component | Value | Ref Range | Performed | Pathologist | | | | | At | Signature | + +-------+ + + + | Creatinine, | 1.0 | 0.7 - 1.3 | EXTERNAL | | | External | | | LAB | | + +-------+ + + + + + | Specimen | + + | Blood specimen | | (specimen) | + + + +---------+ + + | Performing | Address | City/State/Zipcode | Phone Number | | Organization | | | | + +---------+ + + | EXTERNAL LAB | | | | + +---------+ + + Comprehensive Metabolic Panel (06/12/2016) + +-------+ + + + | Component | Value | Ref Range | Performed | Pathologist | | | | | At | Signature | + +-------+ + + + | Anion Gap | 14 | mmol/L | | | + +-------+ + + + | BUN/Creatin | 12 | | | | | ine Ratio | | | | | + +-------+ + + + | TIBC | 360 | ug/dL | | | + +-------+ + + + + + | Specimen | + + | Blood specimen | | (specimen) | + + AFP, Tumor Marker Serial (06/12/2016) + +-------+ + + + | Component | Value | Ref Range | Performed | Pathologist | | | | | At | Signature | + +-------+ + + + | AFP Tumor | 2.0 | ng/mL | | | | Marker | | | | | + +-------+ + + + + + | Specimen | + + | Blood specimen | | (specimen) | + + Hepatitis A, B, C Panel, Reflex (06/12/2016) + + + + + + | Component | Value | Ref Range | Performed | Pathologist | | | | | At | Signature | + + + + + + | HEP A TOTAL | Non Reactive | | | | | AB | | | | | + + + + + + | Hepatitis B | Non Reactive | | | | | Surface | | | | | | Ag, | | | | | | External | | | | | + + + + + + | Hepatitis B | Non Reactive | Non Reactive | | | | Core Ab, | | | | | | Total | | | | | + + + + + + | HCV Ab | Reactive | | | | + + + + + + | Signal/Cuto | 308.5 (A) | 1.0 - 149.99 | | | | ff | | | | | + + + + + + + + | Specimen | + + | Blood specimen | | (specimen) | + + documented in this encounter Visit Diagnoses Not on filedocumented in this encounter"
--- OUTSIDE RECORDS SUMMARY | ~2020-05-09 | XMS | Encounter Summary ---
Demographics + + + | Address | [address] | | [place] [address] | + + + | Home Phone | | + + + | Preferred Language | Unknown | + + + | Marital Status | Single | + + + | Synagogue Affiliation | 1077 | + + + | Race | or | + + + | Ethnic Group | Not or | + + + Author + + + | Author | [facility] | | | and [place] | + + + | Organization | [facility] | | | and [place] | [...] Team Providers + +------+ + | Care Learning Disabilities Resource Teacher Name | Role | Phone | [...] + + | 10/03/ | Telephone | [facility] | [facility] | Drug Screen | | 2017 | | GASTROENTEROLOGY | ESTIV[address] Perez [address] | | | | | [address] | [address] | | | | | [address] [place] | [place] | | | | | [phone] | [phone] | | | | | [phone] | | | +--------+ + + + [...] month for drug screen. elephone Encounter - Jessica Shin CMA - 8:20 AM PSTLeft message for patient to return call. (he is due for drug screen) wh ere would he like order sent to?Electronically signed by Jessica Shin CMA at 7 8:21 AM PSTTelephone Encounter - Jessica Shin CMA - 10/03/2016 8:20 AM PST----- M essage from Jessica Shin, Head Strength And Conditioning Coach sent at 07/25/2016 13:20 PST ----- Regarding: drug screen Drug screen/Dx: HCV P STdocumented in this encounter Plan of Treatment Not on filedocumented as of this encounter Visit Diagnoses Not on filedocumented in this encounter"
--- OUTSIDE RECORDS SUMMARY | ~2020-05-09 | XMS | Encounter Summary ---
Demographics + + + | Address | [address] | [address] | | | [place] [address] | + + + | Home Phone | | + + + | Preferred Language | Unknown | + + + | Marital Status | Single | + + + | Taoism Affiliation | 1077 | + + + | Race | or | + + + | Ethnic Group | Not or | + + + Author + + + | Author | [facility] | | | and [place] | + + + | Organization | [facility] | | | and [...] Team Providers + +------+ + | Care Groover And Turner Name | Role | Phone | + +------+ + | Reji Mock PA-C | PCP | | + +------+ + Reason for Visit + + + | Reason | Comments | + + + | Follow-up | HCV | + + + Encounter Details +--------+---------+ + + + | Date | Type | Department | Care Team | Description | +--------+---------+ + + + | 07/25/ | Office | [facility] | [facility], | Chronic hepatitis C | | 2016 | Visit | GASTROENTEROLOGY | ESTIVEN Perez [address] | without hepatic coma | | | | [address] | [address] | (HCC) (Primary Dx); | | | | [address] [place], [place] | [place], [place] | Liver fibrosis; | | | | [address] | [address] | Alcohol use; | | | | [phone] | | Marijuana use, | | | | | | episodic | +--------+---------+ + + + Social History [...] + + + | Blood Pressure | 114/68 | 07/25/2016 9:17 AM | | | | | PST | | + + + + + | Pulse | 81 | 07/25/2016 9:17 AM | | | | | PST | | + + + + + | Temperature | 37.1 C (98.7 F) | 07/25/2016 9:17 AM | | | | | PST | | + + + + + | Respiratory Rate | 16 | 07/25/2016 9:17 AM | | | | | PST | | + + + + + | Oxygen Saturation | 97% | 07/25/2016 9:17 AM | | | | | PST | | + + + + + | Inhaled Oxygen | - | - | | | Concentration | | | | + + + + + | Weight | 57.2 kg (126 lb) | 07/25/2016 9:17 AM | | | | | PST | | + + + + + | Height | - | - | | + + + + + | Body Mass Index | 22.32 | 05/15/2016 9:51 AM | | | | | PDT | | + + + + + documented in this encounter Patient Instructions Patient Instructions Kathie ShayianESTIVEN ahmadi - 07/25/2016 11:33 AM PST Understanding Hepatitis C (HCV) Hepatitis means inflammation of the liver. There are many kinds of hepatitis. Some can be s pread. Others are not. Hepatitis C virus (HCV) can be spread to others. It can lead to lifel chetan liver disease. This includes chronic hepatitis, cirrhosis, liver failure, and liver canc er. Symptoms of hepatitis C Most people notice no problems until they develop liver disease years later. Symptoms inclu de the following: Flulike problems (fatigue, nausea, vomiting, diarrhea, and sore muscles and joints) Tenderness in the upper right abdomen Jaundice (yellowing skin) Swelling in the belly Itching Dark urine How HCV spreads HCV spreads through exposure to an infected person s blood. This is most likely to happen if: You used an infected needle (IV drug needles, tattoos, acupuncture needles, and body pie rcing) You had a needlestick injury in the hospital You shared personal care items such as razors You had sex without a condom with an infected person (a less common cause) You had a blood transfusion several years ago (blood is now screened for HCV) Many people do not know how they were exposed to HCV. Prevent the spread No vaccine can prevent the spread of HCV and hepatitis C. It s up to you to keep others s afe. Do: Cover all skin breaks and sores yourself. If you need help, the person treating you shou ld wear latex gloves. Use condoms during sex. Don t: Don t donate blood, plasma, body organs, other body tissue, or sperm. Don t share needles. Don t share razors, toothbrushes, manicure tools, or other personal items. [id number] The [employer]. [address] [place] [address], [place] [address]. All righ ts reserved. This information is not intended as a substitute for professional medical care. Always follow your healthcare professional's instructions. documented in this encounter Progress Notes Ana Shay ARNP - 07/25/2016 9:35 AM PSTFormatting of this note might be differe nt from the original. Zak Mercado is a 50 y.o. male here for followup HCV. History of present illness: Patient notes he is feeling well. He has been trying to eat more salads. He is here to follow-up recent tests related to his hepatitis C. Last drank alcohol last week. Last used marijuana about month ago. Has not used any illegal drugs. Denies ascites, jaundice, hematemesis, peripheral edema, sleep changes, or confusion. No Known Allergies Past Medical History Diagnosis Date HCV (hepatitis C virus) Back pain, chronic low back Osteoarthritis of knee, unilateral left Past Surgical History Procedure Laterality Date Knee arthroscopy acl injury Colonoscopy 2016 [place]/ [place] Family History Problem Relation Age of Onset Heart attack Father Heart attack Brother Stroke Maternal Grandmother Dementia Mother Social History Social History Marital Status: Single Spouse Name: N/A Number of Children: N/A Years of Education: N/A Occupational History Not on file. Social History Main Topics Smoking status: Current Every Day Smoker Smokeless tobacco: Current User Alcohol Use: 0.0 oz/week 0 Standard drinks or equivalent per week Comment: rare, quit drinking heavy Drug Use: Not on file Comment: quit 1996 Sexual Activity: Not on file Other Topics Concern Not on file Social History Narrative Review of systems: Constitutional:Denies any fevers, chills, or unintentional weight loss. Respiratory:Denies shortness of breath, cough or wheezing. Gastrointestinal:Negative except as stated above. Cardiovascular:Denies chest pain, palpitations, or swelling to legs Physical exam: General: Alert and oriented, NAD Eyes: Sclera clear Mouth: Mucous membranes moist Extremities: No clubbing or edema Skin: Warm, dry, intact. No rashes noted Neuro: Cranial nerves 2-12 grossly intact. Psych: Appropriate mood and affect. Abstract on 07/19/2016 Component Date Value Ref Range Status HEP A TOTAL AB 06/12/2016 Non Reactive Final Hepatitis B Surface Ag, External 06/12/2016 Non Reactive Final HEP B C TOTAL AB 06/12/2016 Non Reactive Non Reactive Final HCV Ab 06/12/2016 Reactive Final Signal/Cutoff 06/12/2016 308.5* 1.0 - 149.99 Final AFP Tumor Marker 06/12/2016 2.0 Final ANION GAP 06/12/2016 14 Final BUN/Creatinine Ratio 06/12/2016 12 Final TIBC 06/12/2016 360 Final Creatinine, External 06/12/2016 1.0 0.7 - 1.3 Final eGFR, External 06/12/2016 >60 60 - 35935 Final INR, External 06/12/2016 0.9 0.9 - 1.1 Final PT, External 06/12/2016 12.3 12 - 14.2 Final Ferritin, External 06/12/2016 310 11 - 450 Final Iron Binding Capacity, External 06/12/2016 203 112 - 347 Final Iron Saturation, External 06/12/2016 360 157 - 537 Final Iron, External 06/12/2016 44 15 - 55 Final Sodium, External 06/12/2016 137 135 - 145 Final Potassium, External 06/12/2016 4.4 3.5 - 5.3 Final Chloride, External 06/12/2016 95* 99 - 109 Final Carbon Dioxide, External 06/12/2016 28 22 - 29 Final Calcium, External 06/12/2016 9.7 8.5 - 10.2 Final Protein, Total, External 06/12/2016 8.2 6.2 - 8.2 Final Albumin, External 06/12/2016 4.3 3.5 - 5.2 Final Bilirubin, Total, External 06/12/2016 0.7 0.1 - 1.5 Final ALP, External 06/12/2016 89 40 - 129 Final AST, External 06/12/2016 58* 0 - 40 Final ALT, External 06/12/2016 56* 0 - 41 Final Glucose, External 06/12/2016 108* 65 - 99 Final BUN, External 06/12/2016 12 8 - 25 Final A-1 Antitrypsin 06/12/2016 144 Final CERULOPLASMIN 06/12/2016 23 Final KAREN 06/12/2016 Negative Final Karen Interp KAREN 06/12/2016 0.7 Final Karen Value SM Autoantibody 06/12/2016 Negative Final Mitochondrial Ab 06/12/2016 Negative Final MCH 06/12/2016 32.3 26.0 - 33.0 pg Final MCHC 06/12/2016 35.5 31.0 - 37.0 % Final WBC, External 06/12/2016 3.9* 4 - 11 Final HGB, External 06/12/2016 14.3 13.5 - 17.5 Final HCT, External 06/12/2016 40.3 40 - 50 Final PLT, External 06/12/2016 322 140 - 440 Final Neutrophils %, External 06/12/2016 49.1 37 - 67 Final Lymphocytes %, External 06/12/2016 35.3 34 - 44 Final RBC, External 06/12/2016 4.43 4.3 - 5.7 Final MCV, External 06/12/2016 91 81 - 99 Final RDW, External 06/12/2016 12.8 10.5 - 15 Final FIBROSPECT INDEX.SER/PLAS.QN 06/12/2016 22 Final Interpretation 06/12/2016 F0-F2 Final Assessment 1. Chronic hepatitis C without hepatic coma (HCC) Genotype 2B 2. Liver fibrosis (HCC) 3. Alcohol use 4. Marijuana use, episodic Plan: Discussed results of FibroSure and lab tests. Advised that in order to be a candidate for hepatitis C treatment, it is necessary to remai n sober from alcohol, marijuana, and all other nonprescription medications/drugs. Patient should maintain a normal BMI, avoid high fat foods, keep triglycerides under contro l, and ensure vaccinations are up to date. . Encouraged to continue to avoid transmission by not sharing razors, toothbrushes, and nail clippers, nail files or any other items that may contain small amounts of blood. Recommend screening for hepatocellular carcinoma secondary to hepatitis C without cirrhosis every 12 months. This includes CBC, CMP, INR, AFP, and abdominal ultrasound. Patient would like to start his random drug screens next month. Will follow up with results. Patient is to call with any question or concerns. Any fevers, chills, chest pain, SOB or other serious symptoms patient is to call the office or go to ER . Cc: Reji Mock PA-C This note was dictated using voice recognition software. Please contact me if there are an y questions regarding its content. documented in this encounter Plan of Treatment Not on filedocumented as of this encounter Procedures + +--------+ + + + | Procedure Name | Priori | Date/Time | Associated Diagnosis | Comments | | | ty | | | | + +--------+ + + + | LABS - EXTERNAL SCAN | | 11/16/2015 | | Results for this | | | | 12:00 AM | | procedure are in the | | | | PDT | | results section. | + +--------+ + + + documented in this encounter Results LABS - EXTERNAL SCAN (11/16/2015 12:00 AM PDT) + + + | Narrative | Performed At | + + + | Ordered by an | | | unspecified provider. | | + + + documented in this encounter Visit Diagnoses + + | Diagnosis | + + | Chronic hepatitis C without hepatic coma (HCC) - Primary | + + | Liver fibrosis Cirrhosis of liver without mention of alcohol | + + | Alcohol use Other problems related to lifestyle | + + | Marijuana use, episodic | + + documented in this encounter"
--- OUTSIDE RECORDS SUMMARY | ~2020-05-09 | XMS | Encounter Summary ---
Demographics + + + | Address | [address] | | | [place] [address] | + + + | Home Phone | | + + + | Preferred Language | Unknown | + + + | Marital Status | Single | + + + | Bahai Affiliation | 1077 | + + + | Race | or | + + + | Ethnic Group | Not or | + + + Author + + + | Author | [facility] | | | and [place] | + + + | Organization | [facility] | | | and [place] [...] Team Providers + +------+ + | Care Collision Estimator Name | Role | Phone | + +------+ + | Reji Mock PA-C | PCP | | + +------+ + Encounter Details +--------+ + + + + | Date | Type | Department | Care Team | Description | +--------+ + + + + | 09/03/ | Orders Only | [facility] [place] | [place], | Chronic hepatitis C | | 2017 | | GASTROENTEROLOGY | ESTIVEN Perez [address] | without hepatic coma | | | | [address] | [address] | (HCC) (Primary Dx); | | | | [address] [place], [place] | [place], [place] | Liver fibrosis | | | | [address] | [address] | | | | | [phone] | | | +--------+ + + + [...] + documented as of this encounter Progress Dalia Laguna RN - 09/03/2016 12:25 PM PSTDrug screen [...]
--- OUTSIDE RECORDS SUMMARY | ~2020-05-09 | XMS | Encounter Summary ---
Demographics + + + | Address | [address] | | | [place] [address] | + + + | Home Phone | | + + + | Preferred Language | Unknown | + + + | Marital Status | Single | + + + | Sabianist Affiliation | 1077 | + + + | Race | or | + + + | Ethnic Group | Not or | + + + Author + + + | Author | [facility] | | | and [place] | + + + | Organization | [facility] | | | and [place] [...] Team Providers + +------+ + | Care Soft Iron Inspector Name | Role | Phone | + +------+ + | Reji Mock PA-C | PCP | | + +------+ + Reason for Visit + +--------+ + | Reason | Onset | Comments | | | Date | | + +--------+ + | Lab Order | 05/31/ | | | | 2015 | | + +--------+ + Encounter Details +--------+ + + + + | Date | Type | Department | Care Team | Description | +--------+ + + + + | 05/31/ | Telephone | [facility] | [facility] | Lab Order | | 2015 | | GASTROENTEROLOGY | ESTIVEN [address] | | | | | [address] | [address] | | | | | [address] [place] | [place] | | | | | [address] | [address] | | | | | [phone] | | | +--------+ + + + [...] Miscellaneous Notes Telephone Encounter - Jessica Shin Medical Assistant - 06/03/2016 11:55 AM PSTSpoke to patient, faxed lab orders to [facility] per patient. elephone Encounter - Marty Shin Medical Assistant - 06/03/2016 10:29 AM PSTLeft message with woman who answered the phone. Where would Zak like to have fibrospect drawn? She will have him call. elephone Encounjude r - Dalia Castañeda RN - 05/31/2016 4:51 PM PDTFibrospect approved; will inform patient an d fax signed requisition on Friday to patients preferred lab. documented in this encounter Plan of Treatment Not on filedocumented as of this encounter Visit Diagnoses Not on filedocumented in this encounter"
--- OUTSIDE RECORDS SUMMARY | ~2020-05-09 | XMS | Encounter Summary ---
Demographics + + + | Address | [address] | [address] | | | [place] [address] | + + + | Home Phone [...] Author + + + | Author | [facility] | | | and [place] | + + + | Organization | [facility] | | | and [...] Team Providers + +------+ + | Care Resp Ther Name | Role | Phone | + [...] Specialty | Orthopedic | Diagnoses | | Maryanne, | | | Services | Surgery | Carpal | Dragan, | Ari | | | Required | | tunnel | Truong Méndez MD | MD Bandar | | | | | syndrome of | [address] | | | | | left wrist | [address] [place] | [place] | | | | | | [place], [place] | [place], [place] | | | | | | [address] | [address] | | | | | | Phone: | Phone: | | | | | | [phone] | [phone] | | | | | | Fax: | Fax: | | | | | | [phone] | [phone] | +--------+ + + + + + Encounter Details +--------+---------+ + + + | Date | Type | Department | Care Team | Description | +--------+---------+ + + + | 09/08/ | Office | [facility] | Ari Madden | Severe carpal tunnel | | 2019 | Visit | ORTHOPEDIC SURGERY | MD [address] | syndrome, left | | | | [address] | [address] | (Primary Dx) | | | | [place] | [place] [address] | | | | | [address] | [phone] | | | | | [phone] | | | +--------+---------+ + + + [...] Blood Pressure | - | - | | + + + + + | Pulse | - | - | | + + + + + | Temperature | - | - | | + + + + + | Respiratory Rate | - | - | | + + + + + | Oxygen Saturation | - | - | | + + + + + | Inhaled Oxygen | - | - | | | Concentration | | | | + + + + + | Weight | 57.2 kg (126 lb) | 09/08/2018 10:10 AM | | | | | PST | | + + + + + | Height | 160 cm (5' 3") | 09/08/2018 10:10 AM | | | | | PST | | + + + + + | Body Mass Index | 22.32 | 09/08/2018 10:10 AM | | | | | PST | | + + + + + documented in this encounter Patient Instructions Patient Instructions Ari Madden MD - 09/08/2018 10:44 AM PST Carpal Tunnel Syndrome Carpal tunnel syndrome [...] not bent back when typing. You may ocukizk-dsj-pujigsc pain medicine to treat pain and inflammation, [...] becomes swollen or weak Date Last Reviewed: 06/19/201519999290-9819 The [employer] [address] [place] [address]. All righ ts reserved. This information is not intended as a substitute for professional medical care. Always follow your healthcare professional's instructions. documented in this encounter Progress Notes Ari Madden MD - 09/08/2018 10:00 AM PSTFormatting of this note might be dif ferent from the original. Merged With [facility] HISTORY AND PHYSICAL EXAMINATION Pt. [...] Surgical History: Procedure Laterality Date COLONOSCOPY 2015 [place] KNEE ARTHROSCOPY acl injury Allergies: No Known [...] made to ensure accuracy; however, inadvertent computerized pharmacy operations manager errors may be pre sent. I appreciate the opportunity to help with the management of this patient. Ari Madden MD documented in this encounter Plan of Treatment Not on filedocumented as of this encounter Visit Diagnoses + + | Diagnosis | + + | Severe carpal tunnel syndrome, left - Primary | + + documented in this encounter
--- OUTSIDE RECORDS SUMMARY | ~2020-05-09 | XMS | Encounter Summary ---
Demographics + + + | Address | [address] | [address] | | | [place] [address] | + + + | Home Phone | | + + + | Preferred Language | Unknown | + + + | Marital Status | Single | + + + | Tenriism Affiliation | 1077 | + + + | Race | or | + + + | Ethnic Group | Not or | + + + Author + + + | Author | [facility] | | | and [place] | + + + | Organization | [facility] | | | and [place] [...] Team Providers + +------+ + | Care Compounding Technician Name | Role | Phone | + +------+ + | Fabio Sandoval MD | PCP | | + +------+ + Encounter Details +--------+ + + + + | Date | Type | Department | Care Team | Description | +--------+ + + + + | 09/08/ | Episode | [facility] [place] | Lulu Salas | | | 2019 | Changes | ORTHOPEDIC SURGERY | I, Winding Machine Operator | | | | | [address] | | | | | | [place] | | | | | | [address] | | | | | | [phone] | | | +--------+ + + + [...]
--- OUTSIDE RECORDS SUMMARY | ~2020-05-09 | XMS | Clinical Summary ---
Demographics + + + | Address | [address] | [address] | | | [place] [address] | + + + | Home Phone | | + + + | Preferred Language | Unknown | + + + | Marital Status | Single | + + + | Jew Affiliation | 1077 | + + + | Race | or | + + + | Ethnic Group | Not or | + + + Author + + + | Author | [facility] | | | and [place] | + + + | Organization | [facility] | | | and [place] [...] Team Providers + +------+ + | Care Tow Boat Captain Name | Role | Phone | + [...] | + + + + + | Medication | | | | | Management | 4 | | | + + + + + | Vaccine: | | | | | Pneumococcal 19-64 | 0 | | | | (1 of - PPSV23) | | | | + + + + + | Vaccine: Zoster (1 | | | | | of 2) | 4 | | | + + + + + | Med Mgmt: BUN | | 06/12/20 | | | | 7 | 16, | | | | | 06/12/20 | | | | | 16, | | | | | 11/15/19 | | | | | 16, | | | | | Addition | | | | | al | | | | | history | | | | | exists | | + + + + + | Med Mgmt: Cr | | 06/12/20 | | | | 7 | 16, | | | | | 11/16/20 | | | | | 16, | | | | | 11/15/19 | | | | | 16, | | | | | Addition | | | | | al | | | | | history | | | | | exists | | + + + + + | Vaccine: Influenza | | 07/03/20 | | | (#1) | 0 | 18, | | | | | 06/10/20 | | | | | 17, | | | | | 05/28/20 | | | | | 17, | [...] | [employer] | [facility] | [id number] | | [phone] | | Medica | [...] roly | | | 5 (Home) | [id number] | + +--------+ +--------+ + + Advance Directives + + + + + | Type | Date Recorded | Patient | Explanation | | | | Solo Musician | | + + + + + | Power of | | | | | Last Marker | | | | + + + + + | Advance | | | | | Directive | | | | + + + + +
--- OUTSIDE RECORDS SUMMARY | ~2020-05-09 | XMS | Encounter Summary ---
Demographics + + + | Address | [address] | [address] | | | [place] [address] | + + + | Home Phone | | + + + | Preferred Language | Unknown | + + + | Marital Status | Single | + + + | Hoahaoism Affiliation | 1077 | + + + | Race | or | + + + | Ethnic Group | Not or | + + + Author + + + | Author | [facility] | | | and [place] | + + + | Organization | [facility] [...] Team Providers + +------+ + | Care Traveling Buyer Name | Role | Phone | + +------+ + PCP | Unavailable | + +------+ + Encounter Details +--------+ + + + + | Date | Type | Department | Care Team | Description | +--------+ + + + + | 01/20/ | Emergency | [facility] | Brett, Tim T, | Dental cavities | | 2013 | | [facility] CENTER | MD Braden Biggs [facility] | | | | | EMERGENCY CENTER | [place], [place] | | | | | [address] | [address] | | | | | [place], [place] | | | | | | [address] | | | | | | [phone] | | | +--------+ + + + [...] Provider Notes by Tim West MD at 01/20/141927 Author: Tim West MD Service: (none) Author Type: Physician Filed: 01/20/142205 Date of Service: 01/20/141927 Status: Signed Game Manager: Tim West MD (Physician) [facility] Department of Emergency Medicine History of Present Illness aZk Mercado is a 48 y.o. male presenting [...] motor deficits, moving all extremities equally, equal reception specialist, no sensory deficit. Psych: Appropriate affect, no [...] Temp src Pulse Resp SpO2 Height Weight 01/20/14 1925 103/59 mmHg 97.3 F (36.3 C) Oral [...] Information Follow up With Details Comments Contact [facility] Schedule an appointment as soon as possible for a visit [facility] [phone] Per Pt None Discharge Medications: New Prescriptions [...] is available; clinical impression is consistent w [facility] outpatient treatment Additional Documentation Procedures Tim West MD 01/20/142205 documented in this encounter Plan of Treatment Not on filedocumented as of this encounter Visit Diagnoses + + | Diagnosis | + + | Dental cavities Unspecified dental caries | + + documented in this encounter
--- OUTSIDE RECORDS SUMMARY | ~2020-05-09 | XMS | Encounter Summary ---
Demographics + + + | Address | [address] | [address] | | | [place] [address] | + + + | Home Phone | | + + + | Preferred Language | Unknown | + + + | Marital Status | Single | + + + | Zoroastrian Affiliation | 1077 | + + + | Race | or | + + + | Ethnic Group | Not or | + + + Author + + + | Author | [facility] | | | and [place] | + + + | Organization | [facility] | | | and [...] Team Providers + +------+ + | Care Shared Services And Outsourcing Manager Name | Role | Phone | + +------+ + | Fabio Sandoval MD | PCP | | + +------+ + Encounter Details +--------+ + + + + | Date | Type | Department | Care Team | Description | +--------+ + + + + | 10/12/ | Episode | [facility] [place] | Lulu Salas | | | 2019 | Changes | ORTHOPEDIC SURGERY | I, Food Production Worker | | | | | [address] | | | | | | [place] | | | | | | [address] | | | | | | [phone] | | | +--------+ + + + [...]
--- OUTSIDE RECORDS SUMMARY | ~2020-05-09 | XMS | Encounter Summary ---
Demographics + + + | Address | [address] | [address] | | | [place] [address] | + + + | Home Phone | | + + + | Preferred Language | Unknown | + + + | Marital Status | Single | + + + | Alevism Affiliation | 1077 | + + + | Race | or | + + + | Ethnic Group | Not or | + + + Author + + + | Author | [facility] | | | and [place] | + + + | Organization | [facility] | | | and [...] Team Providers + +------+ + | Care Precision Millwright Name | Role | Phone | + [...] | ogy | Hepatitis C | Reji L, | Gastroenterol | | | | | Hepatitis | PA-C [address] | ogy [address] | | | | C | [address] | [address] | | | | | | [address] | [address] | | | | | | [place], | [place], [place] | | | | | | [place] [address] | [address] | | | | | | Phone: | Phone: | | | | | | [phone] | [phone] | | | | | | Fax: | Fax: | | | | | | [phone] | [phone] | +--------+--------+ + + + + Encounter Details +--------+---------+ + + + | Date | Type | Department | Care Team | Description | +--------+---------+ + + + | 05/15/ | Office | [facility] | [facility], | Chronic hepatitis C | | 2016 | Visit | GASTROENTEROLOGY | ESTIVEN Perez [address] | without hepatic coma | | | | [address] | [address] | (HCC) (Primary Dx) | | | | [address] [place], [place] | [place], [place] | | | | | [address] | [address] | | | | | [phone] | | | +--------+---------+ + + + [...] in this encounter Patient Instructions Patient Instructions JessicaAna mccollumESTIVEN - 05/19/2016 3:25 PM PDT Hepatitis C [...] to various cancers, diabetes, and fatty liver. [id number] [facility]. [address] [place] [address]. All righ ts reserved. This information is [...] of Preet MENDEZ is related to incarceration, skilled nursing tattoos, history of IVDU, or intranasal drug. [...] Date Knee arthroscopy acl injury Colonoscopy 2016 [facility] Family History Problem Relation Age of Onset [...] Log 11/15/2015 4.7 Final HCV Quantitative 11/15/2015 58052 Final ANION GAP 11/15/2015 7 Final BUN/Creatinine [...] hepatic coma (HCC) Alpha Fetoprotein, Tumor Marker Fblik-8-[id number], Total TAMIKA Screen, Qual CBC with Differential Ceruloplasmin Ferritin [facility] Referral Comprehensive Metabolic Panel Smooth Muscle [...] infection control guidelines. Inform tattoo parlors and [facility] providers of HCV infection. Avoid sharing personal [...] 09/12/2016 | + +------+--------+ + + | Jljex-0-Voqaisvkkqr, | Lab | Routin | Chronic hepatitis [...]
--- OUTSIDE RECORDS SUMMARY | ~2020-05-09 | XMS | Encounter Summary ---
Demographics + + + | Address | [address] | [address] | | | [place] [address] | + + + | Home Phone | | + + + | Preferred Language | Unknown | + + + | Marital Status | Single | + + + | Yazdanism Affiliation | 1077 | + + + | Race | or | + + + | Ethnic Group | Not or | + + + Author + + + | Author | [facility] | | | and [place] | + + + | Organization | [facility] | | | and [place] | + + + | Address | Unknown | + + + | Phone | Unavailable | + + + Support + + +---------+ + | Name | Relationship | Address | Phone | + + +---------+ + | Johnathan Zarina | ECON | Unknown | | + + +---------+ + Care Team Providers + +------+ + | Care Knockdown Worker Name | Role | Phone | + +------+ + PCP | Unavailable | + +------+ + Encounter Details +--------+ + + + + | Date | Type | Department | Care Team | Description | +--------+ + + + + | 05/08/ | Abstract | [facility] [place] | Laurita, | | | 2016 | | GASTROENTEROLOGY | AnaESTIVEN ahmadi [address] | | | | | [address] | [address] | | | | | [address] [place], [place] | [place], [place] | | | | | [address] | [address] | | | | | [phone] | | | +--------+ + + + [...] | + +--------+ + + + | ANION GAP | Routin | 05/08/2016 | | Results for this | | | e | | | procedure are in the | | | | | | results section. | + +--------+ + + + | EXTERNAL LAB: BUN | Routin | 11/15/2015 | | Results for this | | | e | | | procedure are in the | | | | | | results section. | + +--------+ + + + | EXTERNAL LAB: | Routin | 11/15/2015 | | Results for this | | GLUCOSE | e | | | procedure are in the | | | | | | results section. | + +--------+ + + + | EXTERNAL LAB: ALT | Routin | 11/15/2015 | | Results for this | | | e | | | procedure are in the | | | | | | results section. | + +--------+ + + + | EXTERNAL LAB: AST | Routin | 11/15/2015 | | Results for this | | | e | | | procedure are in the | | | | | | results section. | + +--------+ + + + | EXTERNAL LAB: | Routin | 11/15/2015 | | Results for this | | ALKALINE PHOSPHATASE | e | | | procedure are in the | | | | | | results section. | + +--------+ + + + | EXTERNAL LAB: | Routin | 11/15/2015 | | Results for this | | BILIRUBIN, TOTAL | e | | | procedure are in the | | | | | | results section. | + +--------+ + + + | EXTERNAL LAB: | Routin | 11/15/2015 | | Results for this | | ALBUMIN | e | | | procedure are in the | | | | | | results section. | + +--------+ + + + | EXTERNAL LAB: | Routin | 11/15/2015 | | Results for this | | PROTEIN, TOTAL | e | | | procedure are in the | | | | | | results section. | + +--------+ + + + | EXTERNAL LAB: | Routin | 11/15/2015 | | Results for this | | CALCIUM | e | | | procedure are in the | | | | | | results section. | + +--------+ + + + | EXTERNAL LAB: CARBON | Routin | 11/15/2015 | | Results for this | | DIOXIDE | e | | | procedure are in the | | | | | | results section. | + +--------+ + + + | EXTERNAL LAB: | Routin | 11/15/2015 | | Results for this | | CHLORIDE | e | | | procedure are in the | | | | | | results section. | + +--------+ + + + | EXTERNAL LAB: | Routin | 11/15/2015 | | Results for this | | POTASSIUM | e | | | procedure are in the | | | | | | results section. | + +--------+ + + + | EXTERNAL LAB: SODIUM | Routin | 11/15/2015 | | Results for this | | | e | | | procedure are in the | | | | | | results section. | + +--------+ + + + | EXTERNAL LAB: LARISA | Routin | 11/15/2015 | | | | | e | | | | + +--------+ + + + | EXTERNAL LAB: LARISA | Routin | 11/15/2015 | | Results for this | | | e | | | procedure are in the | | | | | | results section. | + +--------+ + + + | EXTERNAL LAB: | Routin | 11/15/2015 | | Results for this | | CREATININE | e | | | procedure are in the | | | | | | results section. | + +--------+ + + + | ALPHA FETOPROTEIN, | Routin | 11/15/2015 | | Results for this | | TUMOR MARKER | e | | | procedure are in the | | | | | | results section. | + +--------+ + + + | HEPATITIS C | Routin | 11/15/2015 | | Results for this | | GENOTYPING | e | | | procedure are in the | | | | | | results section. | + +--------+ + + + | HEPATITIS C | Routin | 11/15/2015 | | Results for this | | RNA,QUANTITATIVE,PCR | e | | | procedure are in the | | | | | | results section. | + +--------+ + + + | CBC WITH | Routin | 11/15/2015 | | Results for this | | DIFFERENTIAL | e | | | procedure are in the | | | | | | results section. | + +--------+ + + + | COMPREHENSIVE | Routin | 11/15/2015 | | Results for this | | METABOLIC PANEL | e | | | procedure are in the | | | | | | results section. | + +--------+ + + + documented in this encounter Results Anion Gap (05/08/2016) + + | Specimen | + + | | + + + + + | Impressions | Performed At | + + + | Entered in Error | | + + + External Lab: CBC (11/15/2015)CBC with Differential (11/15/2015) + +-------+ + + + | Component | Value | Ref Range | Performed | Pathologist | | | | | At | Signature | + +-------+ + + + | MCHC | 35.8 | 30.0 - 36.0 % | | | + +-------+ + + + + + | Specimen | + + | Blood specimen | | (specimen) | + + External Lab: CBC (11/15/2015) + + + + + + | Component | Value | Ref Range | Performed | Pathologist | | | | | At | Signature | + + + + + + | WBC, | 5.6 | 4 - 11 | REFERENCE | | | External | | | [facility] | | + + + + + + | HGB, | 13.8 | 13.5 - 17.5 | REFERENCE | | | External | | | [facility] | | + + + + + + | HCT, | 38.6 (A) | 40 - 50 | REFERENCE | | | External | | | [facility] | | + + + + + + | PLT, | 377 | 140 - 440 | REFERENCE | | | External | | | [facility] | | + + + + + + | Neutrophils | 62.5 | 37 - 67 | REFERENCE | | | %, | | | [facility] | | | External | | | | | + + + + + + | Lymphocytes | 34.9 | 24 - 44 | REFERENCE | | | %, | | | [facility] | | | External | | | | | + + + + + + | RBC, | 4.38 | 4.3 - 5.7 | REFERENCE | | | External | | | [facility] | | + + + + + + | MCV, | 88 | 81 - 99 | REFERENCE | | | External | | | [facility] | | + + + + + + | RDW, | 12.8 | 10.5 - 15 | REFERENCE | | | External | | | [facility] | | + + + + + + + + + + + | Performing | Address | City/State/Zipcode | Phone Number | | Organization | | | | + + + + + | [facility] | [address] | [place] [address] | [phone] | + + + + + Alpha Fetoprotein, Tumor Marker (11/15/2015) + +-------+ + + + | Component | Value | Ref Range | Performed | Pathologist | | | | | At | Signature | + +-------+ + + + | Alpha | 2.4 | 0.6 - 6.6 | | | | Fetoprotein | | | | | | , Total | | | | | + +-------+ + + + + + | Specimen | + + | Blood specimen | | (specimen) | + + Hepatitis C Genotyping (11/15/2015) + +-------+ + + + | Component | Value | Ref Range | Performed | Pathologist | | | | | At | Signature | + +-------+ + + + | HCV | 2b | | | | | Genotype | | | | | + +-------+ + + + + + | Specimen | + + | Blood specimen | | (specimen) | + + Comprehensive Metabolic Panel (11/15/2015) + +-------+ + + + | Component | Value | Ref Range | Performed | Pathologist | | | | | At | Signature | + +-------+ + + + | Anion Gap | 7 | mmol/L | | | + +-------+ + + + | BUN/Creatin | 12.5 | | | | | ine Ratio | | | | | + +-------+ + + + + + | Specimen | + + | Blood specimen | | (specimen) | + + Hepatitis C RNA, quantitative, PCR (11/15/2015) + +--------+ + + + | Component | Value | Ref Range | Performed | Pathologist | | | | | At | Signature | + +--------+ + + + | HCV | 4.7 | | | | | Quantitativ | | | | | | e Log | | | | | + +--------+ + + + | HCV | 46,020 | | | | | Quantitativ | | | | | | e | | | | | + +--------+ + + + + + | Specimen | + + | Blood specimen | | (specimen) | + + External Lab: CAROL (11/15/2015) + +-------+ + + + | Component | Value | Ref Range | Performed | Pathologist | | | | | At | Signature | + +-------+ + + + | BUN, | 14 | 8 - 25 | REFERENCE | | | External | | | [facility] | | + +-------+ + + + + + + + + | Performing | Address | City/State/Zipcode | Phone Number | | Organization | | | | + + + + + | [facility] | [address] | [place] [address] | [phone] | + + + + + External Lab: Glucose (11/15/2015) + +-------+ + + + | Component | Value | Ref Range | Performed | Pathologist | | | | | At | Signature | + +-------+ + + + | Glucose, | 98 | 65 - 99 | REFERENCE | | | External | | | [facility] | | + +-------+ + + + + + + + + | Performing | Address | City/State/Zipcode | Phone Number | | Organization | | | | + + + + + | [facility] | [address] | [place] [address] | [phone] | + + + + + External Lab: ALT (11/15/2015) + +---------+ + + + | Component | Value | Ref Range | Performed | Pathologist | | | | | At | Signature | + +---------+ + + + | ALT, | 104 (A) | 10 - 65 | REFERENCE | | | External | | | [facility] | | + +---------+ + + + + + + + + | Performing | Address | City/State/Zipcode | Phone Number | | Organization | | | | + + + + + | [facility] | [address] | [place] [address] | [phone] | + + + + + External Lab: AST (11/15/2015) + +--------+ + + + | Component | Value | Ref Range | Performed | Pathologist | | | | | At | Signature | + +--------+ + + + | AST, | 72 (A) | 10 - 45 | REFERENCE | | | External | | | [facility] | | + +--------+ + + + + + + + + | Performing | Address | City/State/Zipcode | Phone Number | | Organization | | | | + + + + + | [facility] | [address] | [place] [address] | [phone] | + + + + + External Lab: Alkaline Phosphatase (11/15/2015) + +-------+ + + + | Component | Value | Ref Range | Performed | Pathologist | | | | | At | Signature | + +-------+ + + + | ALP, | 99 | 35 - 115 | REFERENCE | | | External | | | [facility] | | + +-------+ + + + + + + + + | Performing | Address | City/State/Zipcode | Phone Number | | Organization | | | | + + + + + | [facility] | [address] | [place] [address] | [phone] | + + + + + External Lab: Bilirubin, Total (11/15/2015) + +-------+ + + + | Component | Value | Ref Range | Performed | Pathologist | | | | | At | Signature | + +-------+ + + + | Bilirubin, | 0.2 | 0.1 - 1.5 | REFERENCE | | | Total, | | | [facility] | | | External | | | | | + +-------+ + + + + + + + + | Performing | Address | City/State/Zipcode | Phone Number | | Organization | | | | + + + + + | [facility] | [address] | [place] [address] | [phone] | + + + + + External Lab: Albumin (11/15/2015) + +-------+ + + + | Component | Value | Ref Range | Performed | Pathologist | | | | | At | Signature | + +-------+ + + + | Albumin, | 4.0 | 3.5 - 4.7 | REFERENCE | | | External | | | [facility] | | + +-------+ + + + + + + + + | Performing | Address | City/State/Zipcode | Phone Number | | Organization | | | | + + + + + | [facility] | [email or web address] | [place] [address] | [phone] | + + + + + External Lab: Protein, Total (11/15/2015) + +-------+ + + + | Component | Value | Ref Range | Performed | Pathologist | | | | | At | Signature | + +-------+ + + + | Protein, | 7.9 | 6.2 - 8.2 | REFERENCE | | | Total, | | | [facility] | | | External | | | | | + +-------+ + + + + + + + + | Performing | Address | City/State/Zipcode | Phone Number | | Organization | | | | + + + + + | [facility] | [email or web address] | [place] [address] | [phone] | + + + + + External Lab: Calcium (11/15/2015) + +-------+ + + + | Component | Value | Ref Range | Performed | Pathologist | | | | | At | Signature | + +-------+ + + + | Calcium, | 9.3 | 8.5 - 10.2 | REFERENCE | | | External | | | [facility] | | + +-------+ + + + + + + + + | Performing | Address | City/State/Zipcode | Phone Number | | Organization | | | | + + + + + | [facility] | [address] | [place] [address] | [phone] | + + + + + External Lab: Carbon Dioxide (11/15/2015) + +-------+ + + + | Component | Value | Ref Range | Performed | Pathologist | | | | | At | Signature | + +-------+ + + + | Carbon | 26 | 22 - 31 | REFERENCE | | | Dioxide, | | | [facility] | | | External | | | | | + +-------+ + + + + + + + + | Performing | Address | City/State/Zipcode | Phone Number | | Organization | | | | + + + + + | [facility] | [address] | [place] [address] | [phone] | + + + + + External Lab: Chloride (11/15/2015) + +---------+ + + + | Component | Value | Ref Range | Performed | Pathologist | | | | | At | Signature | + +---------+ + + + | Chloride, | 150 (A) | 99 - 109 | REFERENCE | | | External | | | [facility] | | + +---------+ + + + + + + + + | Performing | Address | City/State/Zipcode | Phone Number | | Organization | | | | + + + + + | [facility] | [address] | [place] [address] | [phone] | + + + + + External Lab: Potassium (11/15/2015) + +-------+ + + + | Component | Value | Ref Range | Performed | Pathologist | | | | | At | Signature | + +-------+ + + + | Potassium, | 4.4 | 3.5 - 5.3 | REFERENCE | | | External | | | [facility] | | + +-------+ + + + + + + + + | Performing | Address | City/State/Zipcode | Phone Number | | Organization | | | | + + + + + | [facility] | [address] | [place] [address] | [phone] | + + + + + External Lab: Sodium (11/15/2015) + +-------+ + + + | Component | Value | Ref Range | Performed | Pathologist | | | | | At | Signature | + +-------+ + + + | Sodium, | 138 | 135 - 145 | REFERENCE | | | External | | | [facility] | | + +-------+ + + + + + + + + | Performing | Address | City/State/Zipcode | Phone Number | | Organization | | | | + + + + + | [facility] | [address] | [place] [address] | [phone] | + + + + + External Lab: Creatinine (11/15/2015) + +-------+ + + + | Component | Value | Ref Range | Performed | Pathologist | | | | | At | Signature | + +-------+ + + + | Creatinine, | 1.12 | 0.7 - 1.3 | REFERENCE | | | External | | | [facility] | | + +-------+ + + + + + | Specimen | + + | Blood specimen | | (specimen) | + + + + + + + | Performing | Address | City/State/Zipcode | Phone Number | | Organization | | | | + + + + + | [facility] | [address] | [place] [address] | [phone] | + + + + + documented in this encounter Visit Diagnoses Not on filedocumented in this encounter"
--- OUTSIDE RECORDS SUMMARY | ~2020-05-09 | XMS | Encounter Summary ---
Demographics + + + | Address | [address] | | | [place] [address] | + + + | Home Phone | | + + + | Preferred Language | Unknown | + + + | Marital Status | Single | + + + | Jain Affiliation | 1077 | + + + | Race | or | + + + | Ethnic Group | Not or | + + + Author + + + | Author | [facility] | | | and [place] | + + + | Organization | [facility] | | | and [...] Team Providers + +------+ + | Care Drafter Apprentice Name | Role | Phone | + +------+ + | Reji Mock PA-C | PCP | | + +------+ + Reason for Visit + +--------+ + | Reason | Onset | Comments | | | Date | | + +--------+ + | Drug Screen | 10/30/ | | | | 2016 | | + +--------+ + Encounter Details +--------+ + + + + | Date | Type | Department | Care Team | Description | +--------+ + + + + | 10/30/ | Telephone | [facility] | [facility] | Drug Screen | | 2017 | | GASTROENTEROLOGY | ESTIVEN Perez [address] | | | | | [address] | [address] | | | | | [address] [place] | [place] | | | | | [address] | [id number] | | | | | [phone] | | | +--------+ + + + [...] in thi s encounter Plan of Treatment Not on filedocumented as of this encounter Visit Diagnoses Not on filedocumented in this encounter"
--- OUTSIDE RECORDS SUMMARY | ~2020-05-09 | XMS | Encounter Summary ---
Demographics + + + | Address | [address] | [address] | | | [place] [address] | + + + | Home Phone [...] | Organization | [facility] | | | and [place] [...] Team Providers + +------+ + | Care Show Design Supervisor Name | Role | Phone | [...] | | Services | | Chronic | [place], | [place], [place] | | | Required | | hepatitis C | [place], | System | | | | | with hepatic | BIOLOGICAL TECHNICIAN [address] | [place] | | | | | coma (HCC) | [address] | Health and | | | | | Procedures | [address] | Service | | | | | CHG | [place], | | | | | | NEPHELOMETRY | [place] [address] | | | | | | , NOT | Phone: | | | | | | SPECIFIED | [phone] | | | | | | CHG | Fax: | | | | | | IMMUNOASSAY | [phone] | | | | | | ANALYTE [...] Orders Only | [facility] [place] | [facility], | Chronic hepatitis C | | 2016 | | GASTROENTEROLOGY | ESTIVEN Perez [address] | with hepatic coma | | | | [address] | [address] | (HCC) (Primary Dx) | | | | [address] [place], [place] | [place], [place] | | | | | [address] | [address] | | | | | [phone] | | | +--------+ + + + [...] encounter Progress Notes Dalia Castañeda RN - 05/20/2016 1:51 PM PDTFibrospect referral created per Yenni's request . Will call to have drawn once approved. Electronically signed by Dalia Castañeda RN at 04/28 1:51 PM PDTdocumented in this encounter Plan of Treatment + + +--------+ + + | Name [...]
--- OUTSIDE RECORDS SUMMARY | ~2020-05-09 | XMS | Encounter Summary ---
Demographics + + + | Address | [address] | [address] | | | [place] [address] | + + + | Home Phone [...] + + + | Author | [facility] | | | and [place] | + + + | Organization | [facility] | | | and [place] [...] Team Providers + +------+ + | Care Tapper Supervisor Name | Role | Phone | + +------+ + PCP | Unavailable | + +------+ + Encounter Details +--------+ + + + + | Date | Type | Department | Care Team | Description | +--------+ + + + + | 08/25/ | Emergency | [facility] | Noah Pantoja | Right knee pain; | | 2013 | | [facility] | MD Cindy [address] | [place]; Tendonitis of | | | | EMERGENCY CENTER | ANDRES FLO | elbow, left | | | | [address] | [place] [address] | | | | | [place], [place] | [phone] | | | | | [address] | | | | | | [phone] | | | +--------+ + + + [...] this note might be different from t he original. ED Provider Notes by Julio Bansal PA-C at 08/25/13 1118 Author: Julio Bansal PA-C Service: (none) Author Type: Physician Service Technician - Certified Filed: 08/25/13 2253 Date of Service: 08/25/134 Status: Signed Arboriculturist: Julio Bansal PA-C (Physician Service Technician - Certified) Related Notes: Cosigned by Noah Pantoja MD (Physician) filed at 08/26/13 0714 Procedures [facility] Department of [...] a plan for XR imaging of the ri ght knee. I have discussed treatment NSAIDS for [...] and what would constitute a return [facility]. He is currently non-toxic and afebrile. [...] Documented by Julio Bansal PA-C (08/25/13 1221, [facility] Emergency Department, Emergency Medicine) Chronic arthritic changes of the right knee, without fracture, deformity, or dislocation. ED Diagnoses Final diagnoses Right knee pain Stye Tendonitis of elbow, left Disposition: ED Disposition Discharge Condition at discharge: Stable Follow-up Information Follow up With Details Comments Contact Info Carlos Storey PA-C As needed [address] [facility] [phone] Chris Marroquin MD Schedule an appointment as soon as possible for a visit [address] [facility] [phone] [facility] Emergency Department If symptoms worsen [address] [facility] [phone] Discharge Medications: New Prescriptions HYDROCODONE-ACETAMINOPHEN (NORCO) 5-325 MG PER TABLET Take 1 tablet by mouth every 6 (s ix) hours as needed for Pain. Do not exceed 8 in a 24 hour period. Do not take Tylenol, as this medication has Tylenol in it. MELOXICAM (MOBIC) 7.5 MG TABLET Take 1 tablet by mouth daily. Julio Bansal PA-C 08/25/132252 orsythe, Noah White MD - 08/25/2013 11:19 AM PST ED Provider Notes by Noah Pantoja MD at 08/25/131118 Author: Noah Pantoja MD Service: (none) Author Type: Physician Filed: 08/26/13713 Date of Service: 08/25/131118 Status: Signed Arboriculturist: Noah Pantoja MD (Physician) Related Notes: Related Note by Julio Bansal PA-C (Physician Service Technician - Certified) filed at 08/25/132252 I have reviewed the note and supervised the mid-level provider. Noah Pantoja MD 08/26/13713 onversion Transa ction, Provider Unknown - 08/25/2013 11:01 AM PST ED Notes by Alanis De La Paz RN at 08/25/131100 Author: Alanis De La Paz RN Service: (none) Author Type: Registered Nurse Filed: 08/25/131106 Date of Service: 08/25/131100 Status: Signed Arboriculturist: Alanis De La Paz RN (Registered Nurse) [...] | Procedure Note | + -+ | Werner Alarcon - 03/12/2019 1:40 PM PDT HISTORY:Right knee [...]
--- OUTSIDE RECORDS SUMMARY | ~2020-05-09 | XMS | Encounter Summary ---
Demographics + + + | Address | [address] | | | [place] [address] | + + + | Home Phone | | + + + | Preferred Language | Unknown | + + + | Marital Status | Single | + + + | Baptism Affiliation | 1077 | + + + | Race | or | + + + | Ethnic Group | Not or | + + + Author + + + | Author | [facility] | | | and [place] | + + + | Organization | [facility] | | | and [place] | [...] Team Providers + +------+ + | Care Strategic Business Development Name | Role | Phone | + +------+ + PCP | Unavailable | + +------+ + Encounter Details +--------+ + + + + | Date | Type | Department | Care Team | Description | +--------+ + + + + | 03// | Hospital | [facility] | Conversion | Hepatitis C | | 2014 | Encounter | [facility] | Transaction, | infection; Abdominal | | | | ULTRASOUND [address] | Provider Unknown | hernia | | | | [address] | [phone] | | | | | [place], [place] | | | | | | [address] | | | | | | [phone] | | | +--------+ + + + [...] Conversion - 03/12/2019 1:40 PM PDT ZAK SO ABDOMEN | | LIMITED10/06/2013 9:33 AM [...]
--- OUTSIDE RECORDS SUMMARY | ~2020-05-09 | XMS | Encounter Summary ---
Demographics + + + | Address | [address] | | | [place] [address] | + + + | Home Phone [...] Author + + + | Author | [facility] | | | and [place] | + + + | Organization | [facility] | | | and [...] Team Providers + +------+ + | Care Flexo Operator Name | Role | Phone | + +------+ + | Fabio Sandoval MD | PCP | | + +------+ + Encounter Details +--------+ + + + + | Date | Type | Department | Care Team | Description | +--------+ + + + + | 09/09/ | Episode | [facility] [place] | Lulu Salas | | | 2019 | Changes | ORTHOPEDIC SURGERY | I, Special Effects Person | | | | | [address] | | | | | | [place] | | | | | | [address] | | | | | | [phone] | | | +--------+ + + + [...]
--- OUTSIDE RECORDS SUMMARY | ~2020-05-09 | XMS | Encounter Summary ---
Demographics + + + | Address | [address] | | | [place] [address] | + + + | Home Phone [...] + | Organization | [facility] | | | and [place] [...] Team Providers + +------+ + | Care Bleaching Supervisor Name | Role | Phone | [...] Specialty | Orthopedic | Diagnoses | | [place], | | | Services | Surgery | [...] [place] | | | | | | [address] | [address] | | | | | | Phone: | Phone: | | | | | | [phone] | [phone] | | | | | | Fax: | Fax: | | | | | | [phone] | [phone] | +--------+ + + + + + [...] pain | MD Ramesh | [address] | | | | n | | [address] | | | | | | [place] | [place] | | | | | | [place] | [address] Phone: | | | | | | [place] [address] | [phone] | | | | | | Phone: | Fax: | | | | | | [phone] | [phone] | | | | | | Fax: | | | | | | | [phone] | | +--------+--------+ + + + + Encounter Details +--------+ + + + + | Date | Type | Department | Care Team | Description | +--------+ + + + + | 08/11/ | Procedure | [facility] [place] | Truong Archibald | Carpal tunnel | | 2019 | visit | PHYSIATRY [address] | TMD [address] | syndrome of left | | | | [address] | [place], [place] | wrist | | | | [place], [place] | [address] | | | | | [address] | | | | | | [phone] | | | +--------+ + + + [...] + + documented in this encounter Progress Notes Truong Archibald MD - 08/11/2018 9:00 AM PST [facility] Musculoskeletal, Sports and Spine, Physiatry [address] [address] Test Date: 08/11/2018 Patient Name: Zak Mercado : 1965 Physician: Truong Archibald MD MR #: [id number] Sex: Male Referring Provider: MOY Gonzalez HISTORY: [...] hesitate to call. Truong Archibald MD Fellow, [employer]. documented [...]
--- OUTSIDE RECORDS SUMMARY | ~2020-05-09 | XMS | Encounter Summary ---
Demographics + + + | Address | [address] | | | [place] [address] | + + + | Home Phone [...] Author + + + | Author | [facility] | | | and [place] | + + + | Organization | [facility] | | | and [place] [...] Team Providers + +------+ + | Care [place] Name | Role | Phone | + +------+ + PCP | Unavailable | + +------+ + Encounter Details +--------+ + + + + | Date | Type | Department | Care Team | Description | +--------+ + + + + | 08/01/ | Emergency | [facility] | Bishop Jasso, | Nasal fracture, | | 2013 - | | MEDICAL CENTER | [address] | closed, initial | | | | EMERGENCY CENTER | [place] [address] | encounter; Abrasions | | 02/26/ | | [address] | [phone] | of multiple sites; | | 2013 | | [place], [place] | | Fall at home, | | | | [address] | | initial encounter; | | | | [phone] | | Cervical strain, | | | [...] 02/25/142144 Date of Service: 02/25/142144 Status: Signed Graphic Design Professor: Rebeca Kam RN (Registered Nurse) Bleeding controlled. Rebeca Kam RN 02/25/142144 arGloria jones - 02/25/2014 9:41 PM PDTFormatting of this note might be different from the o riginal. ED Provider Notes by Gloria Vance PA-C at 02/25/142140 Author: Gloria Vance PA-C Service: (none) Author Type: Physician Brass Buffer - Cer tified Filed: 02/27/14 0540 Date of Service: 02/25/142140 Status: Signed Graphic Design Professor: Gloria Vance PA-C (Physician Brass Buffer - Certified) Related Notes: Cosigned by Bishop Jasso MD (Physician) filed at 02/28/14 0304 Procedures Located Within [facility] Department of Emergency Medicine History of Present [...] shoulder left complete 2+v (Final result) Result time:02/25/14 5462 Final result by Rad Results In Dorian (02/25/14 23:49:47) Impression: 1. Negative left shoulder. Narrative: ZAK Piper CLAIRE XR SHOULDER LEFT 02/25/2014 10:59 PM History: [...] or more views left (Final result) Result time:02/25/142314 Final result by Rad Results In Dorian (02/25/14 23:15:13) Impression: 1. Probable mild joint effusion. 2. No visible fracture. 3. Prior ACL repair. 4. Moderate osteoarthritis in all 3 joint compartments. 5. Mild osteopenia. Narrative: ZAK Feliz RANGEL XR KNEE 4 OR MORE VIEWS [...] Contrast (Edited Result - FINAL) Result time:02/25/14 8951 Addendum 1 of 1 by Baltazar Chau [...] Information Follow up With Details Comments Contact [facility] In 3 days for recheck if not improving [address] [facility] [id number] Juan C Perez MD Schedule an appointment as soon as possible for a visit regarding na clifton fracture [address] [facility] [address] [facility] [address] Discharge Medications: New Prescriptions TRAMADOL (ULTRAM) 50 MG TABLET Take 1 tablet by mouth every 6 (six) hours as needed for Pain. Do not exceed 8 in a 24 hour period Gloria Vance PA-C 02/27/1440 rabBishop cary MD - 02/25/2014 9:41 PM PDT ED Provider Notes by Bishop Jasso MD at 02/25/142140 Author: Bishop Jasso MD Service: (none) Author Type: Physician Filed: 02/28/14303 Date of Service: 02/25/142140 Status: Signed Graphic Design Professor: Bishop Jasso MD (Physician) Related Notes: Related Note by Gloria Vance PA-C (Physician Brass Buffer - Certified) filed at 02/27/14539 I have [...] 02/25/142131 Date of Service: 02/25/142131 Status: Signed Graphic Design Professor: Rebeca Kam RN (Registered Nurse) Pt states "some of my teeth fell out too" Rebeca Kam RN 02/25/142131 onver janis Transaction, Provider Unknown - 02/25/2014 9:28 PM PDT ED Notes by Rebeca Kam RN at 02/25/142127 Author: Rebeca Kam RN Service: (none) Author Type: Registered Nurse Filed: 02/25/142129 Date of Service: 02/25/142127 Status: Signed Graphic Design Professor: Rebeca Kam RN (Registered Nurse) Pt complaining of fall from three steps onto face. "I went out to smoke on the porch and I tripped on the steps and I hit face first and I guess I passed out". Niece at states pt h as "Passed out" three times since fall. Pt complaining of pain to nose and left knee 9/10 at this time. Pt has hx of [...] At | + + + | ZAK Piper CLAIRE XR SHOULDER LEFT 02/25/2014 10:59 PM History: [...] - 03/12/2019 1:40 PM PDT ZAK RANGELXR SHOULDER LEFT02/25/2014 | | 10:59 PM History: [...] Note | + + | Werner Alarcon Conversion - 03/12/2019 1:40 PM PDT ZAK [...] Conversion - 03/12/2019 1:40 PM PDT ZAK GARCÍAIDGECT HEAD FACIAL BONES | | CERVICAL SPINE [...]
--- OUTSIDE RECORDS SUMMARY | ~2020-05-09 | XMS | Encounter Summary ---
Demographics + + + | Address | [address] | | | [place] [address] | + + + | Home Phone | | + + + | Preferred Language | Unknown | + + + | Marital Status | Single | + + + | Amish Affiliation | 1077 | + + + | Race | or | + + + | Ethnic Group | Not or | + + + Author + + + | Author | [facility] | | | and [place] | + + + | Organization | [facility] | [...] Team Providers + +------+ + | Care Rack Washer Name | Role | Phone | + +------+ + | Fabio Sandoval MD | PCP | | + +------+ + Encounter Details +--------+ + + + + | Date | Type | Department | Care Team | Description | +--------+ + + + + | 10/23/ | Anesthesia | [facility] | TimothyrolandaBrennen garcia | | | 2019 | Event | [facility] | DO Armando [address] | | | | | [address] | [address] [place] | | | | | Left Hand, [place] | [place] [address] | | | | | [address] | | | | | | | | | +--------+ + + [...] EVALUATION Zak Mercado 53 y.o. male 1965 [id number] Procedure(s): Left Carpal Tunnel Release (Left Wrist) [...] in th is encounter Plan of Treatment Not on filedocumented as of this encounter Visit Diagnoses Not on filedocumented in this encounter"
--- OUTSIDE RECORDS SUMMARY | 2020-05-09 13:14 | XMS ---
PreManage Notification: PAUL RANGEL Security Social Insurance Adviser Events No recent Security Events currently on file CRITERIA MET - [facility] - Has Care Guidelines CARE PROVIDERS RILEY MADISON Physician Business Process Coordinator 01/06/2019-Current PHONE: Unknown Name [facility] 11/12/2019-Current PHONE: [phone] Guidelines [facility] Guidelines Date: 01/05/2019 Care Coordination: Has received mental health services from [facility].\T\nbsp; Please contact [facility] for mental health concerns.\T\nbsp; [place] [facility]:\T\nbsp; [phone]\T\nbsp; [place]:\T\nbsp; [phone]. Care History Medical/Surgical 01/06/2019 [facility] - [facility], \T\middot;\T\nbsp; PLEASE REFER PATIENT TO [facility] FOR NON EMERGENT MEDICAL NEEDS. \T\middot;\T\nbsp; [facility] CAN SEE PATIENTS SAME DAY FOR APTS IF PATIENT CALLS FIRST THING IN THE MORNING. Diandra VISIT COUNT (12 MO.) 3 ANDIE Adamson TOTAL 3 NOTE: Visits indicate total known visits. ED/UCC VISIT TRACKING (12 MO.) 05/09/2020 13:12 [facility] [place] TYPE: Emergency COMPLAINT: - RIGHT WRIST AND SHOULDER INJ 01/24/2020 10:31 [facility] [place] TYPE: Emergency COMPLAINT: - BUG BITES DIAGNOSES: - Pruritus, unspecified - Nicotine dependence, unspecified, uncomplicated 11/12/2019 01:47 [facility] [place] TYPE: Emergency COMPLAINT: - RT KNEE PAIN DIAGNOSES: - Effusion, right knee - Pain in right knee - Nicotine dependence, unspecified, uncomplicated - Pain in right knee INPATIENT VISIT TRACKING (12 MO.) No inpatient visits to display in this time frame [id number]
== END 2020-05-09 13:23 | disposition home or self-care (01) ==
LOC: ED 13:11
DX: M25.531 Pain in right wrist (principal); M25.511 Pain in right shoulder